=== PATIENT | male | born 1960 | race Caucasian/White ===

== ENCOUNTER → 2016-12-17 | Outpatient (CLI) | payer BC ==
[~2016-12-17] MED LIST: ASPI81TA28 PO; ATOR-26 PO; AZEL0.056; FLUT0.0529 NAE; LISI40TA PO; MULT-190 PO; PRS5 PO
[2016-12-17 13:18] LABS: ESTIMATED AVERAGE GLUCOSE 123 mg/dl; HA1C FLAG Normal (Normal)
[2016-12-17 14:21] LABS: ALT/SGPT 32 U/L (12-78); BLOOD UREA NITROGEN 15 mg/dl (7-18); BUN/CREATININE RATIO 15.4 (10-20); CARBON DIOXIDE 29 mmol/L (21-32); CHLORIDE 108 mmol/L (98-107); CHOLESTEROL 149 mg/dl (0-200); CREATININE 0.96 mg/dl (0.60-1.40); GLUCOSE 103 mg/dl (70-99); POTASSIUM 4.5 mmol/L (3.5-5.1); SODIUM 142 mmol/L (136-145); TRIGLYCERIDES 92 mg/dl (0-150); VERY LOW DENSITY LIPOPROT CALC 18 mg/dl
[2016-12-17 14:25] LABS: ALKALINE PHOSPHATASE 71 U/L (45-117); AST/SGOT 21 U/L (15-37); CHOLESTEROL/HDL RATIO 3.1; HDL CHOLESTEROL 48 mg/dl; LDL CHOLESTEROL CALCULATED 83 mg/dl
== END | disposition home or self-care (01) ==
LOC: C.LABBFT 08:47
PROVIDERS: ATTEND Physician Assistant Medical
DX: E78.5 Hyperlipidemia, unspecified (principal); R73.01 Impaired fasting glucose

== ENCOUNTER 2017-06-08 | Emergency (ER) | payer OTHER, BC ==
[~2017-06-08] VITALS: Ht 177.8 cm; Wt 168.0 kg
[2017-06-08 00:03] VITALS: TEMP 36.6; Ht 177.8 cm; Wt 168.0 kg
--- NOTE | 2017-06-08 00:16 | EMERGENCY ROOM VISIT NOTE ---
History Report prepared by Nakul: Andra Michel Under the Supervision of: Edilberto OwenO. First contact with patient: 00:09 Chief Complaint: FALL Stated Complaint: FALL (WORKERS COMP) History of Present Illness The patient is a 56 year old male who presents to the Emergency Room with complaints of a fall occurring shortly prior to arrival. The patient states that he slipped on ice and landed on his right shoulder while at work. He denies losing consciousness and hitting his head. He reports having tingling in his right hand. The patient also denies having nausea. Source of History: patient Onset: shortly prior to arrival Position: shoulder (right) Quality: other (fall) Associated Symptoms: + numbness (tingling in right hand), No LOC, No nausea Review of Systems See HPI for pertinent positives & negatives. A total of 10 systems reviewed and were otherwise negative. Past Medical & Surgical Medical Problems: (1) Deviated septum (2) High cholesterol (3) Hypertension Family History FHx: heart disease Hypertension Social History Smoking Status: Former Smoker Alcohol Use: none Marital Status: Housing Status: lives with significant other Occupation Status: employed Current/Historical Medications Scheduled Atorvastatin (Lipitor), 80 MG PO DAILY Lisinopril (Zestril), 40 MG PO DAILY Scheduled PRN Oxycodone/Acetaminophen 5MG/325MG (Percocet 5MG/325MG), 1 TAB PO Q6 PRN for Pain Allergies Coded Allergies: Tramadol (Verified Allergy, Mild, HALUCINATIONS, 12/24/14) Azithromycin (Verified Adverse Reaction, Intermediate, N/V, 06/08/17) Physical Exam Vital Signs Date Time Temp Pulse Resp B/P (MAP) Pulse Ox O2 Delivery O2 Flow Rate FiO2 06/08/17 02:27 74 20 122/74 98 Room Air 06/08/17 01:28 76 20 126/88 98 Room Air 06/08/17 00:03 36.6 87 18 135/68 96 Room Air Physical Exam GENERAL: obese, alert, well appearing, well nourished, no distress, non-toxic EYE EXAM: normal conjunctiva, PERRL and EOM's grossly intact OROPHARYNX: no exudate, no erythema, lips, buccal mucosa, and tongue normal and mucous membranes are moist NECK: supple, no nuchal rigidity, no adenopathy, non-tender LUNGS: Clear to auscultation. Normal chest wall mechanics HEART: no murmurs, S1 normal and S2 normal ABDOMEN: abdomen soft, non-tender, normo-active bowel sounds, no masses, no rebound or guarding. BACK: Back is symmetrical on inspection and there is no deformity, no CVA tenderness. Tenderness at L-spine. No step-off. No obvious ecchymosis. SKIN: no rashes and no bruising UPPER EXTREMITIES: upper extremities are grossly normal. No bony tenderness at the right shoulder. No reproducible pain, but decreased range of motion secondary to pain. LOWER EXTREMITIES: Pain just inferior to the lateral malleolus. Mild edema. No bony tenderness at the ankle, tibia, and fibula. No pain at fibular head. No bony tenderness at knee. Small superficial abrasion laterally, no effusion. NEURO EXAM: Normal sensorium, cranial nerves II-XII grossly intact, normal speech, no gross weakness of arms, no gross weakness of legs. Medical Decision & Procedures ER Provider Diagnostic Interpretation: Radiology results have been interpreted by the radiologist and [facility]. CT L SPINE: No acute fracture or malalignment. Multilevel spondylosis with Schmorl's node superior L4 endplate. Comparison plain films dated 08/22/2007. Radiology results have been interpreted by and reviewed by me. Right Shoulder X-Ray: No acute fracture, dislocation, or obvious AC separation. Knee X-Ray: No acute fracture or dislocation. Chest X-Ray: No pneumothorax, no fracture, no effusion, no cardiomegaly, no wide mediastinum. Ankle X-Ray: No acute fracture or dislocation. Medications Administered Medications (Trade) Dose Ordered Sig/Any Route Start Time Stop Time Status Last Admin Dose Admin Acetaminophen (Tylenol Tab) 1,000 mg NOW STAT PO 06/08/17 00:20 06/08/17 00:23 DC 06/08/17 00:29 1,000 MG Ketorolac Tromethamine (Toradol Inj) 60 mg NOW STAT IM 06/08/17 00:20 06/08/17 00:23 DC 06/08/17 00:30 60 MG Oxycodone/ Acetaminophen (Percocet 5-325mg Tab) 1 tab NOW ONCE PO 06/08/17 02:15 06/08/17 02:16 DC 06/08/17 02:43 1 TAB ED Course 0010: The patient was evaluated in room B10. A complete history and physical exam was performed. 0020: Ordered Toradol Inj 60 mg IM, Tylenol Tab 1,000 mg PO. 0204: I re-assessed the patient. 0215: Ordered Oxycodone/Acetaminophen 1 tab PO. 0232: Upon reevaluation, the patient is feeling better. I discussed the findings and the treatment plan with the patient. He verbalizes agreement and understanding. He was discharged home. Medical Decision Differential diagnosis: Etiologies such as fracture, dislocation, intra-abdominal, pneumothorax, intrathoracic , intracranial, neurologic, as well as other traumatic pathologies were entertained. Pt not anticoagulated. Fall from standing position. Xrays reassuring. Did not feel warranted additional imaging at this time. VS stable. Doubt additional occult traumatic injury. Discussed f/u with ortho. Pt has sling at home to use with UE. Discussed pain medication, sx to watch/return for, he verbalized understanding and was agreeable with plan. Medication Reconcilliation Current Medication List: was personally reviewed by me Blood Pressure Screening Patient's blood pressure: Normal blood pressure Impression Primary Impression: Fall Additional Impressions: Acute pain of right shoulder Ankle sprain Scribe Attestation The scribe's documentation has been prepared under my direction and personally reviewed by me in its entirety. I confirm that the note above accurately reflects all work, treatment, procedures, and medical decision making performed by me. Departure Information Dispostion Home / Self-Care Prescriptions Oxycodone/Acetaminophen 5MG/325MG (PERCOCET 5MG/325MG) Tab 1 TAB PO Q6 Y for Pain, #10 TAB Prov: Shirley Hood, 06/08/17 Referrals Joe Alvarez M.D. (PCP) Forms HOME CARE DOCUMENTATION FORM, IMPORTANT VISIT INFORMATION Patient Instructions My [facility] Additional Instructions Please follow up with your family doctor or orthopedic surgeon the beginning of the week. You may use the sling you have at home for the right arm/shoulder. You may use Tylenol and ibuprofen as needed during the day, if you use the stronger pain medication, do not take it and drive or drink alcohol area did please also monitor for constipation which is a frequent side effect a strong pain medications. If you develop worsening pain, numbness or tingling, are unable to walk, develop increased weakness in the right arm or hand, develop fevers, trouble breathing, numbness or tingling down your legs or in your groin , noticed change in bowel or bladder function, you've any other new concerns, please return the emergency room. Problem Qualifiers Primary Impression: Fall Encounter type: initial encounter Qualified Codes: W19.XXXA - Unspecified fall, initial encounter Additional Impressions: Ankle sprain Encounter type: initial encounter Involved ligament of ankle: unspecified ligament Laterality: right Qualified Codes: S93.401A - Sprain of unspecified ligament of right ankle, initial encounter
[2017-06-08] MEDS ORDERED: KETOROLAC TROMETHAMINE 60 MG/2 ML VIAL IM STA (00:20)
[2017-06-08] MEDS ORDERED: ACETAMINOPHEN 500 MG TAB PO STA (00:20)
[2017-06-08] MEDS ORDERED: OXYCODONE/ACETAMINOPHEN 5-325 TAB PO ONE (02:15)
[2017-06-08 02:27] VITALS: BP 122/74; PULSE 74; O2SAT 98
[2017-06-08] MEDS ORDERED: OXYC-57 PO (02:34)
--- NOTE | 2017-06-08 06:17 | DIAGNOSTIC IMAGING REPORT ---
LUMBAR SPINE WITHOUT CLINICAL HISTORY: 56 years-old Male presenting with trauma, pain after fall on ice, low back pain. TECHNIQUE: Multidetector CT of the lumbar spine was performed without the use of intravenous contrast. IV contrast: None. A dose lowering technique was used consistent with the principles of ALARA (as low as reasonably achievable). COMPARISON: Plain radiographs of the lumbar spine from 08/22/2007. CT DOSE (mGy.cm): The estimated cumulative dose is 2199.19 mGy.cm. 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 Normal lumbar lordosis. Vertebral bodies demonstrate multifocal diffuse endplate irregularity secondary to multiple Schmorl's nodes and extensive degenerative change. The largest such focus is noted at the superior endplate of L4 with surrounding sclerosis (series 201 image 39), however, this is somewhat dissimilar from the other Schmorl's nodes and is somewhat indeterminate. No focal compression deformity to suggest acute fracture or subluxation. Multifocal intervertebral disc height loss with vacuum disc phenomenon. Osteophytosis, lower lumbar facet arthropathy, and disc bulges result in neural foraminal narrowing from L3-4 through L5-S1. Multifocal spinal canal narrowing also suggested at every lumbar level. Paraspinal soft tissues within normal limits. Mild nonspecific cutaneous edema in the posterior lumbar region. IMPRESSION: 1. No acute osseous injury of the lumbar spine. 2. Multilevel degenerative changes with multilevel neural foraminal narrowing and spinal canal stenosis. The severity better characterized on MR. 3. Prominent superior endplate deformity of L4 was not clearly present in 2007 on radiograph and most likely represents a Schmorl's node though somewhat atypical in appearance. If there is clinical concern, further evaluation with contrast-enhanced MR could be obtained. Electronically signed by: Osito Mae M.D. 06/08/2017 6:16 AM Dictated Date/Time: 06/08/2017 6:10 AM
--- NOTE | 2017-06-08 06:22 | DIAGNOSTIC IMAGING REPORT ---
CHEST 2 VIEWS ROUTINE CLINICAL HISTORY: 56 years-old Male presenting with trauma. TECHNIQUE: PA and lateral views of the chest were obtained. COMPARISON: 12/24/2014. FINDINGS: Cardiomediastinal silhouette normal. Apparent minimal added density in the left lower lung relative to the right though this may be due to overlapping soft tissue structures. No other focal infiltrate. No large effusion or pneumothorax. Degenerative changes of the thoracic spine. Upper abdomen normal. IMPRESSION: 1. Apparent added density over the left lung base may be due to overlapping soft tissues rather than a focal infiltrate/pulmonary contusion. No other evidence of acute cardiopulmonary disease. Electronically signed by: sOito Mae M.D. 06/08/2017 6:21 AM Dictated Date/Time: 06/08/2017 6:19 AM
--- NOTE | 2017-06-08 06:31 | DIAGNOSTIC IMAGING REPORT ---
R SHOULDER MIN 2 VIEWS ROUTINE CLINICAL HISTORY: 56 years-old Male presenting with trauma, slipped on ice, twisted right ankle and scraped right knee, landed on right shoulder. TECHNIQUE: Internal rotation, external rotation, and Grashey views of the right shoulder were obtained. COMPARISON: None. FINDINGS: Glenohumeral and acromioclavicular joints congruent. Mild degenerative change may be present at the acromioclavicular joint. No acute fracture or malalignment. No radiographic soft tissue abnormality. Visualized portion of the right hemithorax normal. IMPRESSION: No acute osseous injury of the right shoulder. Degenerative changes of the acromioclavicular joint. Electronically signed by: Osito Mae M.D. 06/08/2017 6:30 AM Dictated Date/Time: 06/08/2017 6:28 AM
--- NOTE | 2017-06-08 06:33 | DIAGNOSTIC IMAGING REPORT ---
R KNEE 1 OR 2 VIEWS ROUTINE CLINICAL HISTORY: 56 years-old Male presenting with trauma, slipped on ice, scraped right knee. TECHNIQUE: Frontal and lateral views of the right knee were obtained. COMPARISON: None. FINDINGS: No acute fracture or malalignment. Tricompartmental degenerative changes most pronounced in the medial compartment where there is joint space loss and subchondral sclerosis. Marked osteophytosis is noted in all 3 compartments. A small knee joint effusion is suggested. Ossicles within the insertional portion of the quadriceps and patellar tendons may relate to chronic degeneration. Fabella noted. Atherosclerosis. IMPRESSION: 1. No acute osseous injury of the right knee. 2. Small knee joint effusion. 3. Tricompartmental degenerative changes most severe in the medial compartment where there is joint space loss. Electronically signed by: Osito Mae M.D. 06/08/2017 6:31 AM Dictated Date/Time: 06/08/2017 6:30 AM
--- NOTE | 2017-06-08 06:34 | DIAGNOSTIC IMAGING REPORT ---
R ANKLE MIN 3 VIEWS ROUTINE CLINICAL HISTORY: 56 years-old Male presenting with trauma, slipped on ice Trauma, twisted right ankle. TECHNIQUE: Frontal, mortise, and lateral views of the right ankle were obtained. COMPARISON: None. FINDINGS: Ankle mortise intact. No acute fracture or malalignment. Mild degenerative changes suggested at the medial aspect of the ankle mortise. Soft tissue swelling also suggested over the medial malleolus. Degenerative related bony spurring of the anterior process of the talus. Small enthesophyte at the origin of the plantar fascia. IMPRESSION: No acute osseous injury of the right ankle. Degenerative changes. Electronically signed by: Osito Mae M.D. 06/08/2017 6:33 AM Dictated Date/Time: 06/08/2017 6:31 AM
== END 2017-06-08 02:46 | disposition home or self-care (01) ==
LOC: C.EDB 00:01
DX: M25.511 Pain in right shoulder (principal); S93.409A Sprain of unspecified ligament of unspecified ankle, initial encounter; W01.0XXA Fall on same level from slipping, tripping and stumbling without subsequent striking against object, initial encounter; I10 Essential (primary) hypertension; E78.00 Pure hypercholesterolemia, unspecified; Z87.891 Personal history of nicotine dependence; Z79.899 Other long term (current) drug therapy; Z88.1 Allergy status to other antibiotic agents; Z88.8 Allergy status to other drugs, medicaments and biological substances; Z82.49 Family history of ischemic heart disease and other diseases of the circulatory system

== ENCOUNTER 2017-08-01 09:20 | Day surgery (SDC) | payer OTHER, BC ==
[2017-07-17 13:04] VITALS: BMI 53.0
--- NOTE | 2017-07-17 13:28 | PAT Medication Instructions ---
Service Date Jul 17, 2017. Current Home Medication List Aspirin (Aspirin Ec), 81 MG PO QAM Atorvastatin (Lipitor), 80 MG PO QPM Azelastine Hcl-Fluticasone Pro (Dymista), 1 SPRY ANNABELLA HS Finasteride (Proscar), 5 MG PO QAM Hydrocodone/Acetaminophen 5MG/325MG ([place] 5MG/325MG), Unknown Dose PO Q6 PRN for Pain Lisinopril (Zestril), 40 MG PO QAM Medication Instructions For Your Scheduled Surgery - Check with surgeon for instructions: Aspirin (Aspirin Ec), 81 MG PO QAM - Hold the following medications the morning of surgery: Finasteride (Proscar), 5 MG PO QAM Lisinopril (Zestril), 40 MG PO QAM - Take the following medications the morning of surgery with a sip of water: Hydrocodone/Acetaminophen 5MG/325MG ([place] 5MG/325MG), Unknown Dose PO Q6 PRN for Pain (okay to take up to 4 hours prior to surgery if needed) - Take the following medications as scheduled the night before surgery: Hydrocodone/Acetaminophen 5MG/325MG ([place] 5MG/325MG), Unknown Dose PO Q6 PRN for Pain (if needed) Azelastine Hcl-Fluticasone Pro (Dymista), 1 SPRY ANNABELLA HS Atorvastatin (Lipitor), 80 MG PO QPM If you have any questions please call us at [phone] or [phone] or [phone]
--- NOTE | 2017-07-17 14:09 | DIAGNOSTIC IMAGING REPORT ---
CHEST 2 VIEWS ROUTINE CLINICAL HISTORY: PAT preoperative evaluation COMPARISON STUDY: 06/08/2017 FINDINGS: Mild chronic interstitial change at the lung bases. Lungs this time are grossly clear. Mild stable cardiomegaly. IMPRESSION: Mild stable cardia megaly. Chronic basilar change. No acute process. The above report was generated using voice recognition software. It may contain grammatical, syntax or spelling errors. Electronically signed by: Raoul White M.D. 07/17/2017 2:08 PM Dictated Date/Time: 07/17/2017 2:07 PM
[2017-07-17 14:18] LABS: BASO % 0.2 %; BASO ABS # 0.02 K/uL (0-0.2); EOS % 3.4 %; EOS ABS # 0.38 K/uL (0-0.5); HEMATOCRIT 47.9 % (42-52); HEMOGLOBIN 16.1 g/dL (14.0-18.0); IG# 0.04 K/uL (0.00-0.02); LYMPH % 18.8 %; LYMPH ABS # 2.11 K/uL (1.2-3.4); MEAN CELL VOLUME 88.4 fL (80-100); MEAN CORPUSCULAR HEMOGLOBIN 29.7 pg (25-34); MEAN CORPUSCULAR HGB CONC 33.6 g/dl (32-36); MEAN PLATELET VOLUME 10.5 fL (7.4-10.4); MONO % 10.1 %; MONO ABS # 1.13 K/uL (0.11-0.59); NEUT % 67.1 %; NEUT ABS # 7.56 K/uL (1.4-6.5); PLATELET COUNT 254 K/uL (130-400); RED CELL DISTRIBUTION WIDTH CV 13.5 % (11.5-14.5); RED CELL DISTRIBUTION WIDTH SD 42.9 fL (36.4-46.3); WHITE BLOOD COUNT 11.24 K/uL (4.8-10.8)
[2017-07-17 14:30] LABS: CALCIUM 8.9 mg/dl (8.5-10.1); CREATININE 1.18 mg/dl (0.60-1.40); POTASSIUM 4.4 mmol/L (3.5-5.1)
[2017-07-17 14:41] LABS: INR 1.1 (0.9-1.1); PTT PATIENT 30.2 SECONDS (21.0-31.0)
--- NOTE | 2017-07-28 09:10 | History and Physical ---
History & Physical Date Jul 28, 2017. Chief Complaint Right shoulder pain History of Present Illness The patient is a 57 year old male with complaints of right shoulder pain. He has tried some conservative therapies with no relief. MRI demonstrated partial full thickness tear of the supraspinatus muscle. He is scheduled for a right shoulder subacromial decompression, distal clavicle excision and possible rotator cuff repair. Past Medical/Surgical History Medical Problems: (1) Deviated septum (2) High cholesterol (3) Hypertension Additional History Hepatic Disease: No Endocrine Disorder: No Kidney Disease: No Hypertension: Yes Heart Disease: No Bleeding Tendencies: No Infectious Diseases: No Allergies Coded Allergies: Tramadol (Verified Allergy, Mild, HALUCINATIONS, 07/17/17) Azithromycin (Verified Adverse Reaction, Intermediate, N/V, 07/17/17) Home Medications Scheduled Aspirin (Aspirin Ec), 81 MG PO QAM Atorvastatin (Lipitor), 80 MG PO QPM Azelastine Hcl-Fluticasone Pro (Dymista), 1 SPRY ANNABELLA HS Finasteride (Proscar), 5 MG PO QAM Lisinopril (Zestril), 40 MG PO QAM Scheduled PRN Hydrocodone/Acetaminophen 5MG/325MG ([place] 5MG/325MG), Unknown Dose PO Q6 PRN for Pain Physical Examination Skin: warm/dry, no rash Eyes: normal inspection, EOMI ENT: normal ENT inspection Head: normocephalic, atraumatic Neck: supple, no adenopathy Respiratory/Chest: lungs clear, normal breath sounds Cardiovascular: regular rate, rhythm, + bradycardia Abdomen / GI: normal bowel sounds, non tender Extremities: normal inspection, + pertinent finding (Decreased ROM and decreased strength of right shoulder) Neurologic/Psych: no motor/sensory deficits, alert, oriented x 3 Diagnosis Right shoulder pain and possible rotator cuff tear. Plan of Treatment Patient is scheduled for a right shoulder subacromial decompression, distal clavicle excision and possible rotator cuff repair. He has failed conservative therapies and he would like to proceed with scheduled procedure. Risks and benefits were discussed with the patient. He understands the risks and wishes to proceed. All questions were answered to his satisfaction.
[~2017-08-01] VITALS: Ht 177.8 cm; Wt 168.0 kg
[~2017-08-01 09:20] MED LIST changes: -AZEL0.056; +AZEL30SP NAE; +BUPIVACAINE 0.25% 30 ML VIAL ONE; +CEFAZOLIN 3000MG IV PUSH 22.5 ML IV SCH; +DEXAMETHASONE SOD INJ 4 MG/ML VIAL ONE; +EpINEphrine INJ 1MG/ML AMP 1 MG/ML AMP ONE; +FINA5TAB PO; -FLUT0.0529 NAE; +HYDR-5688 PO; +LACTATED RINGER'S 1000ML 1,000 ML IV SCH; -MULT-190 PO; -PRS5 PO
[2017-08-01 09:42] VITALS: BP 176/99; PULSE 90; TEMP 36.8; O2SAT 96; Ht 177.8 cm; Wt 168.0 kg
[2017-08-01] MEDS ORDERED: FENTANYL CITRATE INJ 50 MCG/1 ML 2 ML VIAL ONE ×3 (09:42→14:28)
[2017-08-01] MEDS ORDERED: MIDAZOLAM HCL 1 MG/ML 2ML VIAL ONE (09:42)
--- NOTE | 2017-08-01 10:22 | History & Physical Bridge Note ---
H&P Re-Evaluation Bridge Note: I have examined the patient, reviewed the History & Physical and in the interval since the performance of the History & Physical I have noted the following changes of clinical significance: No changes noted
[2017-08-01] MEDS ORDERED: EpINEphrine HCL INJ 1 MG/ML 1ML SYRINGE ONE (11:00)
[2017-08-01] MEDS ORDERED: LIDOCAINE/EPINEPHRINE 1% 20 ML VIAL ONE (11:00)
[2017-08-01] MEDS ORDERED: PROMETHAZINE HCL INJ 6.25 MG in SODIUM CHLORIDE 0.9% 50ML 50 ML IV PRN (12:15)
[2017-08-01] MEDS ORDERED: EpHEDrine SULFATE INJ 50 MG/ML AMP IV PRN ×2 (12:15→14:45)
[2017-08-01] MEDS ORDERED: ATROPINE SULFATE 0.1 MG/ML 5ML SYR IV PRN ×2 (12:15→14:45)
[2017-08-01] MEDS ORDERED: ONDANSETRON INJ 2 MG/ML 2 ML VIAL IV PRN ×3 (12:15→14:45)
[2017-08-01] MEDS ORDERED: FENTANYL CITRATE INJ 50 MCG/1 ML 2 ML VIAL IV PRN ×2 (12:15→14:45)
[2017-08-01] MEDS ORDERED: SUCCINYLCHOLINE CHLORIDE 20 MG/ML 10 ML VIAL IV ONE (14:04)
[2017-08-01] MEDS ORDERED: ROCURONIUM BROMIDE 10 MG/ML 5 ML VIAL IV ONE (14:04)
[2017-08-01] MEDS ORDERED: PROPOFOL IV EMULSION 10 MG/ML 20 ML VIAL IV ONE (14:04)
[2017-08-01] MEDS ORDERED: LIDOCAINE HCL 2% 2 ML VIAL (20MG/ML) ONE (14:04)
[2017-08-01] MEDS ORDERED: NEOSTIGMINE METHYLSULFATE 5 MG/5 ML SYR ONE (14:04)
[2017-08-01] MEDS ORDERED: GLYCOPYRROLATE INJ 0.2 MG/ML VIAL ONE (14:04)
[2017-08-01] MEDS ORDERED: ONDANSETRON INJ 2 MG/ML 2 ML VIAL ONE (14:17)
--- NOTE | 2017-08-01 14:22 | [facility] Operative Report ---
Operative Report Operative Date Aug 01, 2017. Pre-Operative Diagnosis Right Rotator Cuff Tear, impingement, ac joint arthritis, labral tear, synovitis Post-Operative Diagnosis Same Procedure(s) Performed right rotator cuff repair, subacromial decompression, distal clavicle excision, extensive debridement Surgeon Biometrics Technician Surgeon(s) LEVON Kidd Estimated Blood Loss 2 mL Specimens None per surgeon. Drains None Anesthesia Type General Regional Complication(s) none Disposition Recovery Room / PACU Indications The patient is a 57-year-old male was taken the right shoulder. He's failed conservative measures including physical therapy and anti-inflammatory medications. He wishes to proceed with arthroscopy. Description of Procedure The MRI demonstrated a full-thickness rotator cuff tear. We discussed various treatment measures. The patient wished to proceed with arthroscopic repair. Risks, benefits and alternatives to surgery including, but not limited to, infection DVT, pain, stiffness, need for revision surgery, failure to relieve all symptoms, damage to blood vessels, damage to nerves, risk of anesthesia were discussed with the patient and they wished to proceed. The patient was identified. Laterality was confirmed and marked. The patient received a preoperative antibiotic as well as an interscalene block. They were transferred to the operating room and placed in the supine position and induced into general endotracheal anesthesia per the anesthesia staff. The patient was then safely transferred to the lateral decubitus position, secured by a beanbag. An axillary roll was placed. All pressure points were well-padded. The limb was placed in 10 pounds of lateral traction and then prepped and draped in the usual standard manner with ChloraPrep. The portal sites were anesthetized with 2% lidocaine with epinephrine. I made a standard posterior viewing portal made through a stab incision and then bluntly entered the glenohumeral joint. Then under spinal needle localization, I establish an anterior superolateral portal. The patient had a full-thickness rotator cuff tear through the supraspinatus significant discussion. They had a degenerative tear in the anterior, superior and posterior aspects of the glenoid labrum. This was debrided back to a stable base utilizing a shaver. Synovitic change in the anterior aspect of the joint was debrided utilizing a shaver. The cartilage of the humeral head and glenoid had fairly significant degeneration. This was debrided using shaver. The long head of the biceps was normal. The subscapularis had a partial thickness articular tear that was debrided.. I then removed the instrumentation from the joint and entered the subacromial space and established a lateral portal. There was a full-thickness rotator cuff tear that measured about 2 cm in diameter. I debrided the footprint with a shaver to establish a good bleeding response. Through a stab incision I placed a 5.5 mm HEALICOIL suture anchor. I passed the ultra braid sutures in a horizontal mattress with a fast passive scorpion. I then passed the ultra tape with a shuttling suture. I repeated this process for a posterior medial anchor. I tied the ULTRABRAID sutures with sliding Vanderpool knots reinforced for 3 half hitches on alternating posts. I then took 1 ULTRABRAID suture from each anchor I placed them in a 5.5 mm Multifix S suture anchor. I placed one anterolaterally. I then repeated this process another suture anchor posterolaterally, completing my double row construct. I then released the CA ligament with cautery and performed a subacromial decompression, first removing the anterior inferior spur from laterally and then completing with a cutting block technique. I then performed a distal clavicle excision removing a total of 10 mm of bone. All instrumentation was then removed from the shoulder. Portal sites were closed with nylon. A sterile dressing was applied and a sling placed. All needle and sponge counts were correct at the end of the procedure. The patient was transferred to the PACU in stable condition without apparent complication. The PA-C was necessary for assistance with procedure for assistance in positioning, prepping, draping, retraction and closure. I attest to the content of the Intraoperative Record and any orders documented therein. Any exceptions are noted below.
[2017-08-01] MEDS ORDERED: SODIUM CHLORIDE 0.9% 1000ML 1,000 ML IV SCH (14:41)
[2017-08-01] MEDS ORDERED: OXYC-57 PO (14:43)
[2017-08-01] MEDS ORDERED: OXYCODONE/ACETAMINOPHEN 5-325 TAB PO PRN ×2 (14:45)
[2017-08-01] MEDS ORDERED: PROMETHAZINE HCL INJ 12.5 MG in SODIUM CHLORIDE 0.9% 50ML 50 ML IV PRN (14:45)
--- NOTE | 2017-08-01 14:47 | Discharge Instructions ---
Discharge Instructions Date of Service Aug 01, 2017. Admission Reason for Admission: Right Shoulder Rotator Cuff Tear Vs Rupture Discharge Discharge Diagnosis / Problem: S/P Right shoulder rotator cuff repair, subacromial decompression, DCE Discharge Goals Goal(s): Decrease discomfort, Improve function Activity Recommendations Activity Limitations: per Instructions/Follow-up section . Instructions / Follow-Up Instructions / Follow-Up [facility] DISCHARGE INSTRUCTIONS: ROTATOR CUFF REPAIR SELF CARE INSTRUCTIONS A. You are permitted to loosen your sling/immobilizer to move your elbow, wrist , and hand to prevent stiffness. You should use your well arm (good arm) to assist the operated extremity when trying to raise the arm away from the body, hygiene purposes. Do NOT actively try to use/engage your shoulder muscles in operative arm at this time. You should NOT do overhead activity, lifting, or attempt to reach behind your back. B. You may start Physical Therapy upon discharge. You will be provided a prescription for therapy. C. At 48 hours post-operatively, you may change your dressing. Use band-aids and change daily. You are allowed to shower at this time and get the incision area wet, but DO NOT soak or submerge incision area in water. (No baths, swimming pools, hot tubs) D. Do NOT apply soap or any ointment/lotions directly over incision. E. You may use ice as needed to operative shoulder SPECIAL CARE INSTRUCTIONS: VERY IMPORTANT TO READ AND REVIEW A. There are a few signs you need to watch for after you are home. Call [facility] at [phone] if you experience any of the following: a. Increased severe shoulder pain. Some pain is expected especially when you exercise b. Increased swelling in your shoulder or arm; pain or swelling in either upper extremity. (Note: swelling and stiffness is normal and expected for several weeks post op, depending on type of shoulder surgery you had). c. Any fluid or drainage from the incision; redness of the incision. d. Shortness of breath or chest pain. B. Please call [facility] at [phone] if you have any questions or concerns about your operation or recovery. C. Call your physician if: a. Temperature is greater than 101 degrees (F). b. Pain is not relieved by prescribed pain medications. c. Increase drainage or redness from incision. d. Unanswered questions or concerns. D. Pain Medication: a. You will be prescribed pain medication upon discharge that should last till your first post-operative appointment. b. If you experience nausea and/or skin rash, discontinue this medication and contact our office for an alternative medication. c. Caution- narcotic pain medication can cause constipation. FOLLOW UP VISIT: Please call [facility] at [phone] to schedule a follow up appointment 10-14 days from your surgery date. Current Hospital Diet Patient's current hospital diet: Discharge Diet Recommended Diet: Regular Diet Procedures Procedures Performed: right rotator cuff repair, subacromial decompression, distal clavicleexcision, extensive debridement Pending Studies Studies pending at discharge: no Laboratory Results Hemoglobin A1c Test 07/17/17 12:41 Range/Units Estimated Average Glucose 126 mg/dl Hemoglobin A1c 6.0 H 4.5-5.6 % Medical Emergencies . Who to Call and When: Medical Emergencies: If at any time you feel your situation is an emergency, please call 911 immediately. . Non-Emergent Contact Non-Emergency issues call your: Surgeon Call Non-Emergent contact if: temperature is above 101.5, your pain is worsening, wound has increased drainage, wound has increased redness . "Provider Documentation" section prepared by Hany Carr. . VTE Core Measure Inpt VTE Proph given/why not?: Treatment not indicated [place] Drug Monitoring Program Search Results: patient reviewed within database, no issues identified
--- NOTE | 2017-08-01 15:01 | Anesthesiology Progress Note ---
Anesthesia Post Op Note Date & Time Aug 01, 2017 at 15:01 Vital Signs Pain Intensity: 0 Vital Signs Past 12 Hours Date Time Temp Pulse Resp B/P (MAP) Pulse Ox O2 Delivery O2 Flow Rate FiO2 08/01/17 14:55 52 18 136/77 95 Oxymask 5 08/01/17 14:45 55 18 146/71 94 Oxymask 10 08/01/17 14:39 36.0 60 18 137/78 95 Oxymask 10 08/01/17 09:42 36.8 90 20 176/99 (124) 96 Room Air Notes Mental Status: alert / awake / arousable, participated in evaluation Pt Amnestic to Procedure: Yes Nausea / Vomiting: adequately controlled Pain: adequately controlled Airway Patency, RR, SpO2: stable & adequate BP & HR: stable & adequate Hydration State: stable & adequate Anesthetic Complications: no major complications apparent Block working well in pacu
[2017-08-01 15:20] VITALS: BP 140/74; PULSE 73; TEMP 36.4; O2SAT 95
[2017-08-01 15:50] VITALS: BP 104/55; PULSE 73; O2SAT 97
[2017-08-01 16:05] VITALS: BP 104/55; PULSE 73; O2SAT 97
[2017-08-01 16:20] VITALS: BP 104/55; PULSE 85; TEMP 36.8; O2SAT 94
== END 2017-08-01 16:59 | disposition home or self-care (01) ==
LOC: C.ACU 09:20
PROVIDERS: ATTEND Orthopaedic Surgery
DX: M75.121 Complete rotator cuff tear or rupture of right shoulder, not specified as traumatic (principal); M25.811 Other specified joint disorders, right shoulder; M13.811 Other specified arthritis, right shoulder; E78.00 Pure hypercholesterolemia, unspecified; I10 Essential (primary) hypertension; Z88.8 Allergy status to other drugs, medicaments and biological substances; Z88.1 Allergy status to other antibiotic agents; Z79.82 Long term (current) use of aspirin; Z79.899 Other long term (current) drug therapy

== ENCOUNTER 2017-08-03 02:00 | Observation (INO) | payer OTHER, BC ==
[~2017-08-03] VITALS: Ht 177.8 cm; Wt 179.4 kg
[~2017-08-03 02:00] MED LIST changes: -BUPIVACAINE 0.25% 30 ML VIAL ONE; -CEFAZOLIN 3000MG IV PUSH 22.5 ML IV SCH; -DEXAMETHASONE SOD INJ 4 MG/ML VIAL ONE; -EpINEphrine INJ 1MG/ML AMP 1 MG/ML AMP ONE; -HYDR-5688 PO; -LACTATED RINGER'S 1000ML 1,000 ML IV SCH; +OXYC-57 PO
[2017-08-03] MEDS ORDERED: HYDROmorphone INJ 1 MG/ML SYR IV STA (02:06)
[2017-08-03] MEDS ORDERED: FENTANYL CITRATE INJ 50 MCG/1 ML 2 ML VIAL ONE (02:07)
--- NOTE | 2017-08-03 02:15 | EMERGENCY ROOM VISIT NOTE ---
History Report prepared by Nakul: Dionicio Murillo Under the Supervision of: Dr. Ilya Coronado M.D. First contact with patient: 02:03 Chief Complaint: SHOULDER PAIN Stated Complaint: SHOULDER PAIN/SHORT OF BREATH History of Present Illness The patient is a 57 year old male who presents to the Emergency Room with complaints of worsening right upper chest pain that began 10 hours ago. Patient states that the pain radiates acutely to his right shoulder. He states that he has been taking Percocet at home which has not improved the symptoms. He states he does not regularly take pain medications. He adds that he has associated symptoms of shortness of breath with exertion. Patient denies a history of blood clots. He denies taking blood thinners. Patient with right shoulder rotator cuff surgery just under 48 hours ago. No fever, chills, vomiting, syncope nor other symptoms. Received 100mcg Fentanyl x 2 IV by EMS prior to arrival. Source of History: patient Onset: 10 hours ago Position: chest (right) Timing: worsening Modifying Factors (Relieving): other (None) Associated Symptoms: + SOB (with exertion) Review of Systems See HPI for pertinent positives & negatives. A total of 10 systems reviewed and were otherwise negative. Past Medical & Surgical Medical Problems: (1) Deviated septum (2) High cholesterol (3) Hypertension (4) Right shoulder pain (5) Shoulder pain, acute Family History FHx: heart disease Hypertension Social History Smoking Status: Former Smoker Alcohol Use: none Marital Status: Housing Status: lives with significant other Occupation Status: employed Current/Historical Medications Scheduled Aspirin (Aspirin Ec), 81 MG PO QAM Atorvastatin (Lipitor), 80 MG PO QPM Azelastine Hcl-Fluticasone Pro (Dymista), 1 SPRY ANNABELLA HS Finasteride (Proscar), 5 MG PO QAM Lisinopril (Zestril), 40 MG PO QAM Scheduled PRN Oxycodone/Acetaminophen 5MG/325MG (Percocet 5MG/325MG), 1-2 TABLETS PO Q4-6H PRN for Pain Allergies Coded Allergies: Tramadol (Verified Allergy, Mild, HALUCINATIONS, 08/03/17) Azithromycin (Verified Adverse Reaction, Intermediate, N/V, 08/03/17) Physical Exam Vital Signs Date Time Temp Pulse Resp B/P (MAP) Pulse Ox O2 Delivery O2 Flow Rate FiO2 08/03/17 05:15 79 20 151/87 93 Nasal Cannula 2.0 08/03/17 02:12 36.4 81 18 142/58 94 Room Air 08/03/17 02:10 79 Physical Exam GENERAL: Patient is obese, very uncomfortable appearing, and in moderate distress. HEENT: No acute trauma, normocephalic atraumatic, mucous membranes moist, no nasal congestion, no scleral icterus. NECK: No stridor, no adenopathy, no meningismus, trachea is midline. LUNGS: No dyspnea. Clear to auscultation and equal bilaterally. No wheeze, no rhonchi. HEART: Regular rate and rhythm. No murmurs, rubs, gallops appreciated. ABDOMEN: Soft, nontender, bowel sounds positive, no masses appreciated, no peritonitis. BACK: No midline tenderness, no CVA tenderness EXTREMITIES: Posterior dressing of anterior right shoulder, multiple port sights intact without drainage, erythema of right shoulder extending onto right shoulder and right upper arm with bruising, severe pain with any attempted movement of right shoulder, distal N/V intact, no cyanosis, no edema. NEUROLOGIC: Alert and oriented, no acute motor or sensory deficits, no focal weakness, cranial nerves grossly intact. SKIN: No rash, no jaundice, no diaphoresis. Medical Decision & Procedures Laboratory Results 08/03/17 02:31 Red Blood Count 4.79, Mean Corpuscular Volume 87.7, Mean Corpuscular Hemoglobin 29.2, Mean Corpuscular Hemoglobin Concent 33.3, Mean Platelet Volume 10.1, Neutrophils (%) (Auto) 72.6, Lymphocytes (%) (Auto) 14.2, Monocytes (%) (Auto) 11.1, Eosinophils (%) (Auto) 1.7, Basophils (%) (Auto) 0.1, Neutrophils # (Auto ) 12.13, Lymphocytes # (Auto) 2.38, Monocytes # (Auto) 1.86, Eosinophils # (Auto ) 0.28, Basophils # (Auto) 0.02 08/03/17 02:31 Test 08/03/17 02:31 08/03/17 02:38 White Blood Count 16.72 K/uL (4.8-10.8) Red Blood Count 4.79 M/uL (4.7-6.1) Hemoglobin 14.0 g/dL (14.0-18.0) Hematocrit 42.0 % (42-52) Mean Corpuscular Volume 87.7 fL (80-100) Mean Corpuscular Hemoglobin 29.2 pg (25-34) Mean Corpuscular Hemoglobin Concent 33.3 g/dl (32-36) Platelet Count 199 K/uL (130-400) Mean Platelet Volume 10.1 fL (7.4-10.4) Neutrophils (%) (Auto) 72.6 % Lymphocytes (%) (Auto) 14.2 % Monocytes (%) (Auto) 11.1 % Eosinophils (%) (Auto) 1.7 % Basophils (%) (Auto) 0.1 % Neutrophils # (Auto) 12.13 K/uL (1.4-6.5) Lymphocytes # (Auto) 2.38 K/uL (1.2-3.4) Monocytes # (Auto) 1.86 K/uL (0.11-0.59) Eosinophils # (Auto) 0.28 K/uL (0-0.5) Basophils # (Auto) 0.02 K/uL (0-0.2) RDW Standard Deviation 43.9 fL (36.4-46.3) RDW Coefficient of Variation 13.8 % (11.5-14.5) Immature Granulocyte % (Auto) 0.3 % Immature Granulocyte # (Auto) 0.05 K/uL (0.00-0.02) Est Creatinine Clear Calc Drug Dose 147.6 ml/min Estimated GFR () 109.2 Estimated GFR (Non- 94.3 BUN/Creatinine Ratio 19.6 (10-20) Calcium Level 8.2 mg/dl (8.5-10.1) Troponin I < 0.015 ng/ml (0-0.045) Bedside Hemoglobin 13.9 g/dl (14.0-18.0) Bedside Hematocrit 41 % (42-52) Bedside Sodium 140 mEq/L (135-144) Bedside Potassium 3.6 mEq/L (3.3-5.0) Bedside Chloride 102 mEq/L (101-112) Bedside Total CO2 24 mEq/l (24-31) Anion Gap 18.0 mmol/L (16-25) Bedside Blood Urea Nitrogen 18 mg/dl (7-18) Bedside Creatinine 0.8 mg/dl (0.6-1.3) Bedside Glucose (other) 127 mg/dl (70-99) Bedside Ionized Calcium (Danyel) 1.11 mmol/l (1.12-1.32) Laboratory results as reviewed by me. Medications Administered Medications (Trade) Dose Ordered Sig/Any Route Start Time Stop Time Status Last Admin Dose Admin Hydromorphone HCl (Dilaudid Inj) 1 mg NOW STAT IV 08/03/17 02:06 08/03/17 02:07 DC 08/03/17 02:11 1 MG Diphenhydramine HCl (Benadryl Inj) 50 mg NOW STAT IV 08/03/17 02:47 08/03/17 02:48 DC 08/03/17 02:50 50 MG Fentanyl Citrate (Fentanyl Inj) 200 mcg NOW STAT IV 08/03/17 03:36 08/03/17 03:37 DC 08/03/17 03:55 200 MCG Fentanyl Citrate (Fentanyl Inj) 200 mcg NOW STAT IV 08/03/17 04:41 08/03/17 04:42 DC 08/03/17 04:57 200 MCG Ketorolac Tromethamine (Toradol Inj) 30 mg NOW STAT IV 08/03/17 04:45 08/03/17 04:46 DC 08/03/17 04:56 30 MG Ondansetron HCl (Zofran Inj) 4 mg NOW STAT IV 08/03/17 06:14 08/03/17 06:15 DC 08/03/17 06:14 4 MG ED Course 0200: The patient was evaluated in room B7. A complete history and physical exam was performed. 0206: Dilaudid Inj 1mg IV 0245: Ioversol 100ml IV 0246: Patient has a localized rash of left arm after Dilaudid. 0247: Benadryl Inj 50mg IV 0336: Fentanyl Inj 200mcg IV 0338: Patient has increasing right shoulder pain that is worse than it was earlier. 0438: Patient states the pain has improved but is returning. He is still unable to move his shoulder. 0441: Fentanyl Inj 200mcg IV 0445: Toradol Inj 30mg Medical Decision Differential: PE, Dissection, ACS, Post op infection, Septic Joint, Ligamentous Injury, Effusion, DVT, Pneumonia, Pneumothorax, amongst other pathologies entertained. 57 yr old male with just under 48 hours ago having right rotator cuff surgery. Rapidly worsening pain overnight. Mild swelling/erythema as expected post operatively. Severe pain with even minor attempts at moving shoulder. No drainage from wounds. Distal N/V intact without significant arm/hand swelling. CT PE done given recent surgery, SHOB with exertion and right upper chest pain. Fortunately negative. EKG/Trop unremarkable thus I feel this is not ACS. No evidence this is dissection and he has excellent pulse in arm. Seems it would be unlikely infectious given just 48 hours post op, though he does have mild bump in WBC. No benefit CRP/ESR as just had surgery anyways. Did have nerve block but would not have expected that to last this long anyways. I tried multiple different narcotics as well as Toradol with only minimal improvement and pain just rapidly returning. He had rash to left arm post Dilaudid thus given Benadryl as well. Did have some nausea for which zofran given. After 4 hours I felt that it is highly unlikely he will do well at home and thus I feel Ortho eval required for which I consulted Dr Sellers. Head Trauma GCS Score: 15 Blood Pressure Screening Patient's blood pressure: Elevated blood pressure Blood pressure disposition: Elevated BP felt to be situational Consults Time Called: [phone] Consulting Physician: Dr. Marlo ARREOLA Returned Call: [phone] Discussed the patient's case. Dr. Sellers advised I give the patient Toradol and reassess the patient in an hour. Dr. Sellers states to call back if patient has continued pain. Additional Consults: Time Called: 06 Consulted Physician: Dr. Marlo ARREOLA Returned Call: [phone] Additional Comments: Discussed the patient's case. The patient will be evaluated for further treatment and disposition. Impression Primary Impression: Post-operative pain Additional Impression: Intractable pain Scribe Attestation The scribe's documentation has been prepared under my direction and personally reviewed by me in its entirety. I confirm that the note above accurately reflects all work, treatment, procedures, and medical decision making performed by me. Departure Information Referrals Joe Alvarez M.D. (PCP) Patient Instructions [facility] Problem Qualifiers
[2017-08-03 02:45] LABS: BASO % 0.1 %; BASO ABS # 0.02 K/uL (0-0.2); EOS % 1.7 %; EOS ABS # 0.28 K/uL (0-0.5); IG# 0.05 K/uL (0.00-0.02); LYMPH % 14.2 %; LYMPH ABS # 2.38 K/uL (1.2-3.4); MEAN CELL VOLUME 87.7 fL (80-100); MEAN CORPUSCULAR HEMOGLOBIN 29.2 pg (25-34); MEAN CORPUSCULAR HGB CONC 33.3 g/dl (32-36); MEAN PLATELET VOLUME 10.1 fL (7.4-10.4); MONO % 11.1 %; MONO ABS # 1.86 K/uL (0.11-0.59); NEUT % 72.6 %; NEUT ABS # 12.13 K/uL (1.4-6.5); PLATELET COUNT 199 K/uL (130-400); RED CELL DISTRIBUTION WIDTH CV 13.8 % (11.5-14.5); RED CELL DISTRIBUTION WIDTH SD 43.9 fL (36.4-46.3); WHITE BLOOD COUNT 16.72 K/uL (4.8-10.8)
[2017-08-03] MEDS ORDERED: OPTIRAY 320 IV PRN (02:45)
[2017-08-03] MEDS ORDERED: DiphenhydrAMINE HCL 50 MG/ML VIAL IV STA (02:47)
[2017-08-03] MEDS ORDERED: DiphenhydrAMINE HCL 50 MG/ML VIAL ONE (02:48)
[2017-08-03 02:54] LABS: ISTAT CREATININE 0.8 mg/dl (0.6-1.3); ISTAT IONIZED CALCIUM 1.11 mmol/l (1.12-1.32); ISTAT POTASSIUM 3.6 mEq/L (3.3-5.0)
[2017-08-03 03:03] LABS: BLOOD UREA NITROGEN 17 mg/dl (7-18); CALCIUM 8.2 mg/dl (8.5-10.1); CARBON DIOXIDE 25 mmol/L (21-32); CREATININE 0.89 mg/dl (0.60-1.40); GLUCOSE 123 mg/dl (70-99); POTASSIUM 3.6 mmol/L (3.5-5.1); SODIUM 137 mmol/L (136-145)
[2017-08-03] MEDS ORDERED: FENTANYL CITRATE INJ 50 MCG/1 ML 2 ML VIAL IV STA ×2 (03:36→04:41)
[2017-08-03] MEDS ORDERED: KETOROLAC TROMETHAMINE 30 MG/ML VIAL IV STA (04:45)
[2017-08-03] MEDS ORDERED: ONDANSETRON INJ 2 MG/ML 2 ML VIAL IV STA (06:14)
[2017-08-03] MEDS ORDERED: ONDANSETRON INJ 2 MG/ML 2 ML VIAL ONE (06:15)
--- NOTE | 2017-08-03 06:23 | DIAGNOSTIC IMAGING REPORT ---
CHEST ONE VIEW PORTABLE CLINICAL HISTORY: Chest Pain dyspnea COMPARISON STUDY: 07/17/2017 FINDINGS: Moderate increase in cardiac size. Mild elevation right hemidiaphragm. Prominent pulmonary vasculature. IMPRESSION: Congestive heart failure. The above report was generated using voice recognition software. It may contain grammatical, syntax or spelling errors. Electronically signed by: Raoul White M.D. 08/03/2017 6:22 AM Dictated Date/Time: 08/03/2017 6:22 AM
--- NOTE | 2017-08-03 06:33 | DIAGNOSTIC IMAGING REPORT ---
R SHOULDER MIN 2 VIEWS ROUTINE CLINICAL HISTORY: right shoulder pain s/p surgery pain COMPARISON: 06/08/2017 DISCUSSION: The bones and joint spaces appear intact. There is no evidence of fracture, dislocation or bony disease. Minimal degenerative change. IMPRESSION: No acute process. The above report was generated using voice recognition software. It may contain grammatical, syntax or spelling errors. Electronically signed by: Raoul White M.D. 08/03/2017 6:32 AM Dictated Date/Time: 08/03/2017 6:31 AM
[2017-08-03] MEDS ORDERED: DiphenhydrAMINE HCL 50 MG/ML VIAL IV PRN ×2 (06:45→08:45)
[2017-08-03] MEDS ORDERED: ONDANSETRON INJ 2 MG/ML 2 ML VIAL IV PRN (06:45)
[2017-08-03] MEDS ORDERED: ZOLPIDEM TARTRATE 5 MG TAB PO PRN (06:45)
--- NOTE | 2017-08-03 06:45 | DIAGNOSTIC IMAGING REPORT ---
(CHEST FOR PE) ANGIO WITH CT DOSE: 884.52 mGy.cm HISTORY: Chest pain right arm pain. TECHNIQUE: Multiaxial CT images of the chest were performed following the intravenous administration of contrast to evaluate the pulmonary arteries. Maximal intensity projection images were also obtained. A dose lowering technique was utilized adhering to the principles of ALARA. COMPARISON STUDY: 12/24/2014 FINDINGS: Pulmonary vasculature enhances appropriately. No significant filling defects. The thoracic aorta is unremarkable. Partial atelectasis right lower lobe. Slight bibasilar interstitial prominence. Mild soft tissue edematous change anterior to the right shoulder possibly a postoperative basis given the patient's history. No acute bony abnormality. IMPRESSION: 1. Study is negative for pulmonary embolus. 2. Mild infiltrative change right lower lobe. 3. Slight bibasilar interstitial prominence. 4. Soft tissue changes anterior to the right shoulder most likely on a postoperative basis. The above report was generated using voice recognition software. It may contain grammatical, syntax or spelling errors. Electronically signed by: Raoul White M.D. 08/03/2017 6:43 AM Dictated Date/Time: 08/03/2017 6:41 AM
[2017-08-03] MEDS ORDERED: IV FLUIDS COMPLETED PRN (07:00)
[2017-08-03] MEDS: OXYCODONE HCL IR 5 MG TAB (IMMEDIATE RELEASE) PO PRN ×3 (07:48→20:03)
[2017-08-03 08:26] VITALS: BP 159/97; PULSE 78; TEMP 36.6; Ht 177.8 cm; Wt 179.4 kg
[2017-08-03] MEDS ORDERED: DiphenhydrAMINE HCL 12.5MG/5 ML UDC PO PRN (08:45)
[2017-08-03] MEDS: MoRPHine SULFATE 2 MG/ML CARP IV PRN ×6 (08:59→22:30)
[2017-08-03] MEDS: SODIUM CHLORIDE 0.9% 1000ML 1,000 ML IV SCH (08:59)
[2017-08-03] MEDS: IBUPROFEN 600 MG TAB PO SCH ×3 (09:00→21:01)
--- NOTE | 2017-08-03 09:49 | History and Physical ---
History & Physical Date & Time of Service: Aug 03, 2017 at 09:36 Chief Complaint: Rt Shoulder Pain Primary Care Physician: Joe Alvarez M.D. History of Present Illness Source: patient, hospital records Mr. Melara is a 57 [address] old patient of Dr. Noriega. He recently underwent a right shoulder arthroscopy with subacromial decompression, distal clavicle excision, and rotator cuff repair on August 01. He did have a nerve block placed preoperatively. He was very comfortable the evening after surgery, but the nerve block wore off the next morning. He had worsening pain throughout the day, and by mid afternoon, he was in severe pain. The pain continued to worsen overnight, despite multiple Percocet and aspirin doses. He eventually presented to the emergency department due to this pain. He had a workup in the emergency room to rule out other causes such as a pulmonary embolus or myocardial infarction; this workup was negative. They also attempted multiple doses of IV narcotics, including fentanyl and Toradol, without much relief of his pain. He was eventually admitted for intractable pain. Past Medical/Surgical History Medical Problems: (1) Deviated septum Status: Resolved (2) High cholesterol Status: Chronic (3) Hypertension Status: Chronic Family History FHx: heart disease Hypertension Social History Smoking Status: Former Smoker Marital Status: Occupational Status: employed Immunizations History of Influenza Vaccine: Yes Influenza Vaccine Date: Feb 21, 2007 History of Tetanus Vaccine?: Yes Tetanus Immunization Date: Mar 23, 2006 History of Pneumococcal: No History of Hepatitis B Vaccine: No Multi-Drug Resistant Organisms History of MDRO: No Allergies Coded Allergies: Hydromorphone (Verified Allergy, Intermediate, rash, 08/03/17) Tramadol (Verified Allergy, Mild, HALUCINATIONS, 08/03/17) Azithromycin (Verified Adverse Reaction, Intermediate, N/V, 08/03/17) Home Medications Scheduled Aspirin (Aspirin Ec), 81 MG PO QAM Atorvastatin (Lipitor), 80 MG PO QPM Azelastine Hcl-Fluticasone Pro (Dymista), 1 SPRY ANNABELLA HS Finasteride (Proscar), 5 MG PO QAM Lisinopril (Zestril), 40 MG PO QAM Scheduled PRN Oxycodone/Acetaminophen 5MG/325MG (Percocet 5MG/325MG), 1-2 TABLETS PO Q4-6H PRN for Pain Review of Systems Constitutional: No fever, No chills, No sweats, No weight loss Musculoskeletal: + joint pain Physical Exam Vital Signs Date Time Temp Pulse Resp B/P (MAP) Pulse Ox O2 Delivery O2 Flow Rate FiO2 08/03/17 08:26 36.6 78 17 159/97 Room Air 08/03/17 08:01 72 24 138/92 99 08/03/17 07:00 72 24 160/83 99 Nasal Cannula 2.0 08/03/17 05:15 79 20 151/87 93 Nasal Cannula 2.0 08/03/17 02:12 36.4 81 18 142/58 94 Room Air 08/03/17 02:10 79 General Appearance: no apparent distress General: He appears to be resting comfortably with no significant distress. He is awake, alert, and oriented. Normal coordination and balance. He is morbidly obese. Right shoulder: Examination of his right shoulder reveals multiple arthroscopic surgical incisions around his shoulder, that are all healing well without any erythema, drainage, induration, or other evidence of infection. He does have some erythema around where his surgical foam tape dressing was adhered to his skin, indicating a likely adhesive allergy, but no erythema around the incisions themselves. His deltoid muscle compartment, as well as the anterior and posterior upper arm compartments, are all soft and compressible. No pain with passive stretch. He is intact motor and sensory function distally in the ulnar, radial, median, and axillary nerve distributions, with 5 out of 5 strength. His hand is warm and well-perfused, with a 2+ radial pulse. Diagnostics Laboratory Results Results Past 24 Hours Test 08/03/17 02:31 08/03/17 02:38 Range/Units White Blood Count 16.72 4.8-10.8 K/uL Red Blood Count 4.79 4.7-6.1 M/uL Hemoglobin 14.0 14.0-18.0 g/dL Hematocrit 42.0 42-52 % Mean Corpuscular Volume 87.7 80-100 fL Mean Corpuscular Hemoglobin 29.2 25-34 pg Mean Corpuscular Hemoglobin Concent 33.3 32-36 g/dl Platelet Count 199 130-400 K/uL Mean Platelet Volume 10.1 7.4-10.4 fL Neutrophils (%) (Auto) 72.6 % Lymphocytes (%) (Auto) 14.2 % Monocytes (%) (Auto) 11.1 % Eosinophils (%) (Auto) 1.7 % Basophils (%) (Auto) 0.1 % Neutrophils # (Auto) 12.13 1.4-6.5 K/uL Lymphocytes # (Auto) 2.38 1.2-3.4 K/uL Monocytes # (Auto) 1.86 0.11-0.59 K/uL Eosinophils # (Auto) 0.28 0-0.5 K/uL Basophils # (Auto) 0.02 0-0.2 K/uL RDW Standard Deviation 43.9 36.4-46.3 fL RDW Coefficient of Variation 13.8 11.5-14.5 % Immature Granulocyte % (Auto) 0.3 % Immature Granulocyte # (Auto) 0.05 0.00-0.02 K/uL Sodium Level 137 136-145 mmol/L Potassium Level 3.6 3.5-5.1 mmol/L Chloride Level 105 98-107 mmol/L Carbon Dioxide Level 25 21-32 mmol/L Anion Gap 7.0 18.0 16-25 mmol/L Blood Urea Nitrogen 17 7-18 mg/dl Creatinine 0.89 0.60-1.40 mg/dl Est Creatinine Clear Calc Drug Dose 147.6 ml/min Estimated GFR () 109.2 Estimated GFR (Non- 94.3 BUN/Creatinine Ratio 19.6 10-20 Random Glucose 123 70-99 mg/dl Calcium Level 8.2 8.5-10.1 mg/dl Troponin I < 0.015 0-0.045 ng/ml Bedside Hemoglobin 13.9 14.0-18.0 g/dl Bedside Hematocrit 41 42-52 % Bedside Sodium 140 135-144 mEq/L Bedside Potassium 3.6 3.3-5.0 mEq/L Bedside Chloride 102 101-112 mEq/L Bedside Total CO2 24 24-31 mEq/l Bedside Blood Urea Nitrogen 18 7-18 mg/dl Bedside Creatinine 0.8 0.6-1.3 mg/dl Bedside Glucose (other) 127 70-99 mg/dl Bedside Ionized Calcium (Danyel) 1.11 1.12-1.32 mmol/l Diagnostic Radiology Right shoulder x-rays and CTPA were reviewed. The right shoulder x-rays were unremarkable. This CTPA was negative for pulmonary embolus. Also, no significant shoulder joint effusion is seen. Impression Assessment and Plan (1) Right shoulder pain Assessment & Plan: He has right shoulder postoperative pain after a shoulder arthroscopy with rotator cuff repair 2 days ago on August [address] Jones. I suspect that this is likely just due to his nerve block wearing off, and increased pain from that. His pain was not controlled with oral medications at home, but since presenting to the emergency department last night and getting some IV fentanyl and Toradol, as well as scheduled Tylenol and ibuprofen, he reports that his pain is improved this morning. I placed orders for scheduled ibuprofen and Tylenol, with oral and IV narcotic as needed for breakthrough pain. We will see how his pain improves over the next 24 hours. We will plan to discharge him later this afternoon or tomorrow morning depending on his pain level. I am covering Orthopedic Surgery call for Dr. Jeffrey, who is unavailable. Geo Sellers MD Level of Care Med/Surg Advanced Directives Existing Living Will: No Existing Power of Boat Oar Maker: No Resuscitation Status FULL RESUSCITATION VTE Prophylaxis VTE Risk Assessment Done? Y/N: Yes Risk Level: Very Low Given or contraindicated: Treatment not indicated Problem Qualifiers (1) Right shoulder pain: Chronicity: acute Qualified Codes: M25.511 - Pain in right shoulder
[2017-08-03] MEDS: ACETAMINOPHEN 325 MG TAB PO SCH ×3 (12:16→23:36)
[2017-08-03 14:50] VITALS: BP 129/76; PULSE 71; TEMP 37.1; O2SAT 92
[2017-08-03] MEDS ORDERED: ATORVASTATIN 40 MG TAB PO SCH (21:00)
[2017-08-03 22:55] VITALS: BP 150/89; PULSE 80; TEMP 37.3; O2SAT 92
[2017-08-04] MEDS: OXYCODONE HCL IR 5 MG TAB (IMMEDIATE RELEASE) PO PRN ×3 (00:30→13:31)
[2017-08-04] MEDS: IBUPROFEN 600 MG TAB PO SCH ×3 (03:13→14:41)
[2017-08-04] MEDS: SODIUM CHLORIDE 0.9% 1000ML 1,000 ML IV SCH (03:25)
[2017-08-04] MEDS: ACETAMINOPHEN 325 MG TAB PO SCH (05:37)
[2017-08-04 07:13] VITALS: BP 131/85; PULSE 79; TEMP 37; O2SAT 93
[2017-08-04 07:30] VITALS: O2SAT 93
--- NOTE | 2017-08-04 08:05 | Orthopedic Progress Note ---
Orthopedic Progress Note Date of Service Aug 04, 2017. Subjective Reports: feeling well, Denies: chest pain, SOB, nausea / vomiting, light headedness, calf pain Additional Notes: PATIENT STILL CO MODERATE PAIN BUT MUCH IMPROVED FROM ADMISSION. HE'S CURRENTLY TAKING A COMBO OF MOTRIN, TYLENOL, SKIP, AND MORPHINE. Objective calves soft nontender, N/V intact, capillary refill less than 2 sec., dressing C /D/I, A&O x3 Date Time Temp Pulse Resp B/P (MAP) Pulse Ox O2 Delivery O2 Flow Rate FiO2 08/04/17 07:13 37.0 79 16 131/85 (100) 93 Room Air 08/04/17 00:00 Room Air 08/03/17 22:55 37.3 80 16 150/89 (109) 92 Room Air 08/03/17 16:00 Room Air 08/03/17 14:50 37.1 71 18 129/76 (93) 92 Room Air 08/03/17 08:26 36.6 78 17 159/97 Room Air Assessment & Plan Assessment: INTOLERABLE RIGHT SHOULDER PAIN SP ARTHROSCOPY 08/01/17 Plan: PAIN MANAGEMENT- ENCOURAGE PATIENT TO STAY AWAY FROM IV MEDS TODAY. INCREASED TYLENOL TO 1000MG Q8 AND INCREASED SKIP TO 1-2 TABS. IF TOLERABLE WILL CONSIDER DC LATER THIS AFTERNOON. IF STILL HAVING PAIN, MAY CONSIDER ADDING EXTENDED RELEASE MED LIKE MS CONTIN. BOWEL REGIMEN DC PLANNING (1) Right shoulder pain
[2017-08-04] MEDS ORDERED: LISINOPRIL 40 MG TAB PO SCH (09:00)
[2017-08-04] MEDS ORDERED: ASPIRIN 81 MG ECTAB PO SCH (09:00)
[2017-08-04] MEDS ORDERED: FINASTERIDE 5 MG TAB PO SCH (09:00)
[2017-08-04] MEDS ORDERED: ACETAMINOPHEN 325 MG TAB PO SCH (14:00)
[2017-08-04] MEDS ORDERED: ACETAMINOPHEN 500 MG TAB PO SCH (14:00)
--- NOTE | 2017-08-04 14:06 | Discharge Instructions ---
Discharge Instructions Date of Service Aug 04, 2017. Admission Reason for Admission: Rt Shoulder Pain Discharge Discharge Diagnosis / Problem: Intractable pain right shoulder Discharge Goals Goal(s): Decrease discomfort, Improve function, Increase independence Activity Recommendations Activity Limitations: per Instructions/Follow-up section . Current Hospital Diet Patient's current hospital diet: Regular Diet Discharge Diet Recommended Diet: Regular Diet Pending Studies Studies pending at discharge: no Laboratory Results Hemoglobin A1c Test 07/17/17 12:41 Range/Units Estimated Average Glucose 126 mg/dl Hemoglobin A1c 6.0 H 4.5-5.6 % Medical Emergencies . Who to Call and When: Medical Emergencies: If at any time you feel your situation is an emergency, please call 911 immediately. . Non-Emergent Contact Non-Emergency issues call your: Surgeon . "Provider Documentation" section prepared by Oneyda Sands. . VTE Core Measure Inpt VTE Proph given/why not?: Treatment not indicated
[2017-08-04] MEDS ORDERED: MTR600 PO (14:07)
[2017-08-04] MEDS ORDERED: ACET-24 PO (14:07)
[2017-08-04] MEDS ORDERED: RXC5 PO (14:07)
[2017-08-04 14:18] VITALS: BP 131/85; PULSE 79; TEMP 37; O2SAT 93
--- NOTE | 2017-08-12 13:14 | DISCHARGE SUMMARY ---
DISCHARGE DIAGNOSIS: Intractable right shoulder pain. SECONDARY DIAGNOSIS: None. CONSULTS: None. COMPLICATIONS: None. PROCEDURE: None. BRIEF HISTORY: Please see previously dictated history and physical. HOSPITAL SUMMARY: The patient was admitted on August 03 after a recent right shoulder arthroscopy with subacromial decompression, distal clavicle excision, and rotator cuff repair by Dr. Jones. The patient had a nerve block postoperatively. Once his nerve block wore off, he was having a significant pain, which brought him to the Emergency Room. The patient was admitted for pain control. The patient was given multiple doses of IV narcotics, Fentanyl, Toradol and was admitted for further evaluation on August 04. The patient was complaining of moderate pain, but was much improved from admission. He is currently taking a combination of Motrin, Tylenol, Roxicodone, and morphine. Vital signs were stable. He was afebrile. Dressing was clean, dry and intact. He was neurovascularly intact. He was alert and oriented. The patient seemed to be doing well, pain was controlled, and he was discharged to home later that day in stable condition. For further review, please see the chart. Lab, x-ray data and discharge instructions as per chart. MTDD
== END 2017-08-04 15:05 | disposition home or self-care (01) ==
LOC: EDBD 02:00 → C.EDB 02:01 → C.MSW 06:42 → EDBEDREQSVC 06:51 → ENRESERV 07:17
PROVIDERS: ADMIT Orthopaedic Surgery Hand Surgery; ATTEND Orthopaedic Surgery Hand Surgery
DX: G89.18 Other acute postprocedural pain (principal); M25.511 Pain in right shoulder; E78.00 Pure hypercholesterolemia, unspecified; I10 Essential (primary) hypertension; Z82.49 Family history of ischemic heart disease and other diseases of the circulatory system; Z87.891 Personal history of nicotine dependence; Z88.1 Allergy status to other antibiotic agents; Z88.6 Allergy status to analgesic agent; Z79.82 Long term (current) use of aspirin; Z79.899 Other long term (current) drug therapy

== ENCOUNTER 2022-08-28 12:05 | Inpatient (IN) ==
[2022-08-28] MEDS ORDERED: SODIUM CHLORIDE 0.9% 1000ML 1,000 ML IV SCH (12:45)
[2022-08-28] MEDS: MoRPHine SULFATE 4 MG/ML 1 ML CARP\\VIAL IV PRN ×2 (12:48→14:34)
--- NOTE | 2022-08-28 12:52 | Emergency Department Note ---
Impression & Plan Ambulatory dysfunction, Acute pain of left hip ED Provider Note INFORMANT: Patient and ED PROVIDER(S): Alcon Blue MD CHIEF COMPLAINT: Left hip pain PLAN: Disposition: Admitted Condition: Good Outpatient prescription management: none Referral: None MEDICAL DECISION MAKING: Patient presented because of severe pain in the left hip. His history was concerning as he has a prior hip replacement. He received 2 doses of fentanyl prehospital and was still very uncomfortable. The patient was ordered IV morphine here. He did require 2 doses and was still unable to get up and move effectively due to the severe pain. He had a mild leukocytosis on CBC but that appears to be a chronic issue for him. The patient is afebrile. The remainder of his blood work was unremarkable. The patient had x-ray imaging performed and there is no evidence of fracture or dislocation. Given the patient's body weight and his inability to ambulate due to the severe hip pain further management in the hospital will be necessary. Patient has previously seen [facility] orthopedics for the original surgery but is requesting a second opinion consultation was made with the [facility] hospitalist service. Case was discussed and diagnostics were reviewed. Patient will be admitted for further management. Discussed with it disaster recovery manager. After review of the information above and other included data, I feel the patient requires admission. Triage Nursing notes reviewed and agree them. Vital Signs: reviewed and remarkable for no significant abnormalities Prior /Outside records reviewed: Last primary care visit reviewed for hypertension high cholesterol Differential diagnosis: Fracture, dislocation, neurovascular compromise, compartment syndrome, soft tissue injury, as well as other pathologies. Diagnostics, as interpreted by me: ECG: none Cardiac Monitoring: Cardiac monitoring ordered by me: The patient was placed on continuous cardiac monitoring and observed. It revealed a normal sinus rhythm at 82 beats per minute without ectopy or evidence of dysrhythmia. Medical decision rules: none Imaging studies: X-ray imaging of the left hip were negative for fracture or dislocation. HPI: The patient is a 62year old male who presents to the Emergency Room with complaints of severe pain in the left hip. Patient notes a prior history of hip replacement. When he was getting out of the shower today he had severe pain in the hip. He describes it as excruciating. Patient was evaluated by EMS after called 911. He could not ambulate. He was given 2 150 mcg doses of fenta nyl and Zofran prehospital. Patient noted minimal relief with that medication. The patient also notes the following associated symptoms, none. Patient denies any sciatica trauma.Current pain is rated as 8/10. Pt denies LOC, headache, fevers, chills, diaphoresis, visual changes, neck pain, chest pain, breathing difficulties, nausea, vomiting, abdominal pain, back pain, urinary symptoms, numbness, weakness, lymphadenopathy, rash, or other complaints. PAST MEDICAL HISTORY: See Below, obesity, hypertension PAST SURGICAL HISTORY: See Below, left hip replacement SOCIAL HISTORY: See Below, HOME MEDICATIONS: See Below ALLERGIES: See Below VITALS: See Below PHYSICAL EXAMINATION: GENERAL: Awake, alert, very uncomfortable-appearing, in no distress HENT: Normocephalic, atraumatic. Oropharynx unremarkable. EYES: Normal conjunctiva. Sclera non-icteric. NECK: Inspection normal. Non-tender. Supple. No nuchal rigidity. FROM. No masses. RESPIRATORY: Clear to auscultation. No wheezes. No rales. Normal respiratory effort. CARDIAC: Normal rate. Normal rhythm. No murmurs. No rubs. Extremities warm and well perfused. Pulses equal. No JVD. GI: Soft, non-distended. No tenderness to palpation. No rebound or guarding. No masses. RECTAL: Deferred. MUSCULOSKELETAL: Atraumatic. There is moderate tenderness to the lateral aspect of the right hip. Incision scar appears normal. There is no redness or warmth to the joint. Internal and external rotation movements relatively well- preserved with some discomfort. Patient is unable to flex past 60 degrees without severe pain. No sciatic notch tenderness. The back is symmetrical on inspection without obvious abnormality. There is no CVA tenderness to palpation. No joint edema. LOWER EXTREMITIES: Calves are equal size bilaterally and non-tender. Trace edema. No discoloration. NEURO: Normal sensorium. No sensory or motor deficits noted. SKIN: No rash or jaundice noted. Past Med/Surg History Medical History High blood pressure Surgical History History of hip replacement Social History Smoking Status: Never smoker Age Started Using Tobacco: 14; Age Quit Using Tobacco: 51; Preferred Language: Setswana Feels Safe at Home: Yes Allergies Allergies Allergy/AdvReac Type Severity Reaction Status Date / Time hydromorphone Allergy Intermediate rash Verified 08/28/22 15:20 azithromycin AdvReac Intermediate N/V Verified 08/28/22 15:20 tramadol AdvReac Intermediate HALUCINATIO Verified 08/28/22 15:20 NS Home Meds Home Medications Medication Instructions Recorded Confirmed aspirin 81 mg tablet,delayed 81 mg PO DAILY 03/16/19 08/28/22 release (Ecotrin Low Strength) acetaminophen 500 mg tablet 1,000 - 1,500 mg PO DIRECTED 08/28/22 08/28/22 (Tylenol Extra Strength) PRN Pain ibuprofen 200 mg tablet 800 - 1,200 mg PO DIRECTED PRN 08/28/22 08/28/22 Pain naproxen sodium 220 mg tablet 880 - 1,100 mg PO DIRECTED PRN 08/28/22 08/28/22 (Aleve) Pain Previous Rx's Medication Instructions Recorded atorvastatin 80 mg tablet (Lipitor) 80 mg PO HS #90 tabs 06/05/21 finasteride 5 mg tablet (Proscar) 5 mg PO DAILY #90 tabs 06/05/21 lisinopril 40 mg tablet 40 mg PO DAILY #90 tabs 06/05/21 Results & Data (ED) Vital Signs Vital Signs - 24 hr 08/28/22 12:17 08/28/22 12:28 08/28/22 12:26 Temperature 36.8 C Temperature Source Oral Pulse Rate 92 H 87 93 H Pulse Rate from SpO2 Sensor Pulse Rhythm Regular Pulse Strength Normal Respiratory Rate 25 H 18 Respiratory Effort / Characteristics Non-Labored Respiratory Depth Normal Respiratory Pattern Regular Blood Pressure 177/101 H 135/109 H Blood Pressure Mean 126 117 Blood Pressure Position Lying Pulse Oximetry 92 Oxygen Delivery Method Room Air Oxygen Flow Rate Sepsis Recent Fever Within 48 Hours No Sepsis New/Unexplained Change in Mental Status No Sepsis Action Taken by Nursing No Action Required 08/28/22 12:30 08/28/22 12:40 08/28/22 12:50 Temperature Temperature Source Pulse Rate 88 85 85 Pulse Rate from SpO2 Sensor 87 85 86 Pulse Rhythm Pulse Strength Respiratory Rate 16 59 H 16 Respiratory Effort / Characteristics Respiratory Depth Respiratory Pattern Blood Pressure Blood Pressure Mean Blood Pressure Position Pulse Oximetry 92 93 93 Oxygen Delivery Method Nasal Cannula Nasal Cannula Nasal Cannula Oxygen Flow Rate 2 2 2 Sepsis Recent Fever Within 48 Hours Sepsis New/Unexplained Change in Mental Status Sepsis Action Taken by Nursing 08/28/22 13:00 08/28/22 13:10 08/28/22 13:15 Temperature Temperature Source Pulse Rate 84 85 82 Pulse Rate from SpO2 Sensor 85 86 82 Pulse Rhythm Pulse Strength Respiratory Rate 15 18 13 Respiratory Effort / Characteristics Respiratory Depth Respiratory Pattern Blood Pressure 106/83 Blood Pressure Mean 90 Blood Pressure Position Pulse Oximetry 90 93 95 Oxygen Delivery Method Nasal Cannula Nasal Cannula Oxygen Flow Rate 2 2 Sepsis Recent Fever Within 48 Hours Sepsis New/Unexplained Change in Mental Status Sepsis Action Taken by Nursing 08/28/22 13:15 08/28/22 13:20 08/28/22 13:30 Temperature Temperature Source Pulse Rate 84 80 Pulse Rate from SpO2 Sensor 82 81 Pulse Rhythm Pulse Strength Respiratory Rate 22 15 Respiratory Effort / Characteristics Respiratory Depth Respiratory Pattern Blood Pressure 106/83 Blood Pressure Mean 90 Blood Pressure Position Pulse Oximetry 95 95 Oxygen Delivery Method Oxygen Flow Rate Sepsis Recent Fever Within 48 Hours Sepsis New/Unexplained Change in Mental Status Sepsis Action Taken by Nursing 08/28/22 13:40 08/28/22 14:32 08/28/22 14:33 Temperature Temperature Source Pulse Rate 82 Pulse Rate from SpO2 Sensor 82 68 69 Pulse Rhythm Pulse Strength Respiratory Rate 10 L Respiratory Effort / Characteristics Respiratory Depth Respiratory Pattern Blood Pressure Blood Pressure Mean Blood Pressure Position Pulse Oximetry 95 99 100 Oxygen Delivery Method Oxygen Flow Rate Sepsis Recent Fever Within 48 Hours Sepsis New/Unexplained Change in Mental Status Sepsis Action Taken by Nursing 08/28/22 14:33 Temperature Temperature Source Pulse Rate Pulse Rate from SpO2 Sensor Pulse Rhythm Pulse Strength Respiratory Rate Respiratory Effort / Characteristics Respiratory Depth Respiratory Pattern Blood Pressure 130/60 Blood Pressure Mean 83 Blood Pressure Position Pulse Oximetry Oxygen Delivery Method Oxygen Flow Rate Sepsis Recent Fever Within 48 Hours Sepsis New/Unexplained Change in Mental Status Sepsis Action Taken by Nursing Laboratory Data 08/28/22 12:20 08/28/22 12:20 Lab Results 08/28/22 08/28/22 08/28/22 Range/Units 12:20 12:20 12:20 WBC 13.28 H (4.8-10.8) K/ul RBC 5.35 (4.70-6.10) M/uL Hgb 16.4 (14.0-18.0) g/dl Hct 47.5 (42.0-52.0) % MCV 88.8 (80.0-100.0) fL MCH 30.7 (25.0-34.0) pg MCHC 34.5 (32.0-36.0) g/dL RDW Std Deviation 45.0 (36.4-46.3) fL RDW Coeff of Fabiola 14.9 H (11.5-14.5) % Plt Count 266 (130-400) K/uL MPV 10.9 (9.4-12.4) fL Immature Gran % (Auto) 0.5 % Neut % (Auto) 69.2 % Lymph % (Auto) 17.9 % [place] % (Auto) 8.7 % Eos % (Auto) 3.4 % Baso % (Auto) 0.3 % Neut # (Auto) 9.18 H (1.40-6.50) K/uL Lymph # (Auto) 2.38 (1.2-3.4) K/uL [place] # (Auto) 1.16 H (0.11-0.59) K/uL Eos # (Auto) 0.45 (0-0.50) K/uL Baso # (Auto) 0.04 (0-0.2) K/uL Immature Gran # (Auto) 0.07 (0.01-0.20) K/uL PT Cancelled INR Cancelled APTT Cancelled PTT Ratio Cancelled Sodium TNP Potassium TNP Chloride 103 (98-107) mmol/L Carbon Dioxide 25 (21-32) mmol/L Anion Gap TNP BUN 17 (6-23) mg/dl Creatinine 0.98 (0.6-1.4) mg/dl Est Cr Clr Drug Dosing 134.1 ml/min Est GFR ( Amer) 94.7 ml/min Est GFR (Non-Af Amer) 81.7 ml/min BUN/Creatinine Ratio 17.3 (10-20) Glucose 150 H (70-99(Fasting)) mg/dl Calcium 9.0 (8.5-10.1) mg/dl Total Bilirubin 0.8 (0.2-1.0) mg/dl AST TNP ALT 17 (7-52) U/L Alkaline Phosphatase 90 (34-104) U/L Total Protein 7.7 (6.0-8.3) gm/dl Albumin 4.2 (3.4-5.0) gm/dl Globulin 3.5 (2.5-4.0) gm/dl Albumin/Globulin Ratio 1.2 (0.9-2) SARS-CoV-2, RNA, NAAT (NEGATIVE) 08/28/22 08/28/22 08/28/22 Range/Units 12:37 14:31 14:31 WBC (4.8-10.8) K/ul RBC (4.70-6.10) M/uL Hgb (14.0-18.0) g/dl Hct (42.0-52.0) % MCV (80.0-100.0) fL MCH (25.0-34.0) pg MCHC (32.0-36.0) g/dL RDW Std Deviation (36.4-46.3) fL RDW Coeff of Fabiola (11.5-14.5) % Plt Count (130-400) K/uL MPV (9.4-12.4) fL Immature Gran % (Auto) % Neut % (Auto) % Lymph % (Auto) % [place] % (Auto) % Eos % (Auto) % Baso % (Auto) % Neut # (Auto) (1.40-6.50) K/uL Lymph # (Auto) (1.2-3.4) K/uL [place] # (Auto) (0.11-0.59) K/uL Eos # (Auto) (0-0.50) K/uL Baso # (Auto) (0-0.2) K/uL Immature Gran # (Auto) (0.01-0.20) K/uL PT 11.7 INR 1.1 APTT 30.0 PTT Ratio 1.1 Sodium 140 Potassium 4.8 Chloride (98-107) mmol/L Carbon Dioxide (21-32) mmol/L Anion Gap BUN (6-23) mg/dl Creatinine (0.6-1.4) mg/dl Est Cr Clr Drug Dosing ml/min Est GFR ( Amer) ml/min Est GFR (Non-Af Amer) ml/min BUN/Creatinine Ratio (10-20) Glucose (70-99(Fasting)) mg/dl Calcium (8.5-10.1) mg/dl Total Bilirubin (0.2-1.0) mg/dl AST 16 ALT (7-52) U/L Alkaline Phosphatase (34-104) U/L Total Protein (6.0-8.3) gm/dl Albumin (3.4-5.0) gm/dl Globulin (2.5-4.0) gm/dl Albumin/Globulin Ratio (0.9-2) SARS-CoV-2, RNA, NAAT NEGATIVE (NEGATIVE) Administered Medications Sodium Chloride (Nss 1000ml) 1,000 mls @ 75 mls/hr IV .[id number] WHIT Stop: 08/29/22 02:04 Last Admin: 08/28/22 12:48 Dose: 75 mls/hr Documented By: CHARLES Morphine Sulfate (Morphine Sulfate 4 Mg/Ml 1 Ml Carp\Vial) 4 mg IV Q20M PRN PRN Reason: Pain Stop: 09/11/22 12:39 Last Admin: 08/28/22 14:34 Dose: 4 mg Documented By: Admin: 08/28/22 12:48 Dose: 4 mg Documented By: [facility] Imaging Data Radiologist's Impression: Hip X-Ray 08/28/22 12:32 XR hip LT min 2V CLINICAL HISTORY: nontraumatic left hip pain TECHNIQUE: 2 views of the left hip and single frontal view of the pelvis were obtained. Comparison: Comparison is made to left hip radiographs 02/24/2011 FINDINGS: There is no evidence of an acute fracture. Patient is status post total hip arthroplasty. No soft tissue abnormality is seen. IMPRESSION: No evidence of acute osseous injury. ACT 112: Negative or not required by law. Electronically signed by: Sancho Rizo M.D. 08/28/2022 2:14 PM Discharge Plan Visit Data Chief Complaint: Hip Pain Stated Complaint: L HIP PAIN ED Provider: Alcon Blue Discharge Problem: Ambulatory dysfunction, Acute pain of left hip Forms Stand Alone Forms: My [facility] [employer] Prescriptions Prescriptions: No Action aspirin [Ecotrin Low Strength] 81 mg tablet,delayed release (DR/EC) 81 mg PO DAILY atorvastatin [Lipitor] 80 mg tablet 80 mg PO HS Qty: 90 3RF finasteride [Proscar] 5 mg tablet 5 mg PO DAILY Qty: 90 3RF lisinopril 40 mg tablet 40 mg PO DAILY Qty: 90 3RF acetaminophen [Tylenol Extra Strength] 500 mg Tablet 1,000 - 1,500 mg PO DIRECTED PRN (Reason: Pain) naproxen sodium [Aleve] 220 mg Tablet 880 - 1,100 mg PO DIRECTED PRN (Reason: Pain) ibuprofen 200 mg Tablet 800 - 1,200 mg PO DIRECTED PRN (Reason: Pain) Referrals Referrals: Joe Alvarez MD [Primary Care Provider] -
[2022-08-28 13:00] LABS: Basophils # (auto) 0.04 K/uL (0-0.2); Basophils % (auto) 0.3 %; Eosinophils # (auto) 0.45 K/uL (0-0.50); Eosinophils % (auto) 3.4 %; Hematocrit (blood only) 47.5 % (42.0-52.0); Hemoglobin 16.4 g/dl (14.0-18.0); Immature Granulocytes # (auto) 0.07 K/uL (0.01-0.20); Immature Granulocytes % (auto) 0.5 %; Lymphocytes # (auto) 2.38 K/uL (1.2-3.4); Lymphocytes % (auto) 17.9 %; Mean Corpuscular Hemoglobin 30.7 pg (25.0-34.0); Mean Corpuscular Hgb Conc 34.5 g/dL (32.0-36.0); Mean Corpuscular Volume 88.8 fL (80.0-100.0); Mean Platelet Volume 10.9 fL (9.4-12.4); Monocytes # (auto) 1.16 K/uL (0.11-0.59); Monocytes % (auto) 8.7 %; Neutrophils # (auto) 9.18 K/uL (1.40-6.50); Neutrophils % (auto) 69.2 %; Platelet Count 266 K/uL (130-400); RDW Coefficient of Variation 14.9 % (11.5-14.5); Red Blood Count 5.35 M/uL (4.70-6.10); White Blood Count 13.28 K/ul (4.8-10.8)
[2022-08-28 13:42] LABS: Alanine Aminotransferase 17 U/L (7-52); Albumin Globulin Ratio 1.2 (0.9-2); Albumin Level 4.2 gm/dl (3.4-5.0); Alkaline Phosphatase 90 U/L (34-104); BUN Creatinine Ratio 17.3 (10-20); Bilirubin,Total 0.8 mg/dl (0.2-1.0); Blood Urea Nitrogen 17 mg/dl (6-23); Carbon Dioxide 25 mmol/L (21-32); Chloride 103 mmol/L (98-107); Creatinine Clr Calc Pharmacy 134.1 ml/min; Est GFR (African American) 94.7 ml/min; Est GFR (Non-African American) 81.7 ml/min; Globulin 3.5 gm/dl (2.5-4.0); Glucose 150 mg/dl (70-99(Fasting)); Total Protein 7.7 gm/dl (6.0-8.3)
--- NOTE | 2022-08-28 14:15 | XRay Report ---
XR hip LT min 2V CLINICAL HISTORY: nontraumatic left hip pain TECHNIQUE: 2 views of the left hip and single frontal view of the pelvis were obtained. Comparison: Comparison is made to left hip radiographs 02/24/2011 FINDINGS: There is no evidence of an acute fracture. Patient is status post total hip arthroplasty. No soft tis chema abnormality is seen. IMPRESSION: No evidence of acute osseous injury. ACT 112: Negative or not required by law. Electronically signed by: Sancho Rizo M.D. 08/28/2022 2:14 PM
[2022-08-28 15:05] LABS: Potassium 4.8 mmol/L (3.5-5.1)
[2022-08-28 15:35] LABS: INR 1.1 (0.9-1.1); Partial Thromboplastin Ratio 1.1; Prothrombin Time 11.7 Seconds (9.0-12.0)
--- NOTE | 2022-08-28 16:23 | History & Physical Report ---
Date of Service August 28, 2022 Assessment & Plan (1) Acute pain of left hip: Plan: Hip XR negative for acute fracture - patient requesting orthopedic consult to further evaluate More concerning history for radicular pain - MRI lumbar spine. Acetaminophen 1g PO TID, naproxen 500mg PO BID, dexamethasone 4mg IV q6h, GI prophylaxis with pantoprazole 40mg PO daily. (2) Ambulatory dysfunction: Plan: Secondary to pain. PT/OT. (3) BPH (benign prostatic hyperplasia): Plan: Continue finasteride 5mg PO daily (4) Hypertension: Plan: Continue lisinopril 40mg PO daily Plan VTE Prophylaxis - consider chemical prophylaxis pending mobility assessment tomorrow Diet - heart healthy Disposition - observation status to med/surg Admission and Anticipated Discharge Date Admission Date: August 28, 2022 History of Present Illness Chief Complaint: Left hip pain Primary Care Provider: Joe Alvarez MD Chidi Melara is a 62 year old male who presents to the ER with left hip pain. He reports left hip pain on the anterolateral thigh started Friday or Friday last week. Initially mild and just felt sore but became progressively worse the following days but was bearable. Pain more in the lateral and back of his hip now. Better on leaning forward and to the left side. Pressure on his lateral hip helped with pain. No acute back pain but has chronic back pain which he puts down to arthritis. Today while coming out of the shower he suddenly felt excruciating pain in the same area and was unable to walk. Severity 20/10. His called EMS and he required x2 150 mcg IV Fentanyl on route. Allergies Allergy/AdvReac Type Severity Reaction Status Date / Time hydromorphone Allergy Intermediate rash Verified 08/28/22 15:20 azithromycin AdvReac Intermediate N/V Verified 08/28/22 15:20 tramadol AdvReac Intermediate HALUCINATIO Verified 08/28/22 15:20 NS Home Medications Medication Instructions Recorded Confirmed Type aspirin 81 mg tablet,delayed 81 mg PO DAILY 03/16/19 08/28/22 History release (Ecotrin Low Strength) atorvastatin 80 mg tablet (Lipitor) 80 mg PO HS #90 tabs 06/05/21 08/28/22 Rx finasteride 5 mg tablet (Proscar) 5 mg PO DAILY #90 tabs 06/05/21 08/28/22 Rx lisinopril 40 mg tablet 40 mg PO DAILY #90 tabs 06/05/21 08/28/22 Rx acetaminophen 500 mg tablet 1,000 - 1,500 mg PO DIRECTED 08/28/22 08/28/22 History (Tylenol Extra Strength) PRN Pain ibuprofen 200 mg tablet 800 - 1,200 mg PO DIRECTED PRN 08/28/22 08/28/22 History Pain naproxen sodium 220 mg tablet 880 - 1,100 mg PO DIRECTED PRN 08/28/22 08/28/22 History (Aleve) Pain Past Med/Surg History Medical History High blood pressure Surgical History History of hip replacement Social History Smoking Status: Former smoker Age Started Using Tobacco: 14; Age Quit Using Tobacco: 51; Hx Alcohol Use: No Hx Substance Use: No Preferred Language: Bolivian Communication Ability: Effective Director Of Slot Operations Required: No Beliefs That Will Affect Care: None Current Living Situation: Spouse Feels Safe at Home: Yes Safety Concerns: Feels Safe At This Time Assistive Devices: Denture - Upper, Denture - Lower, Glasses and Walker Review of Systems Review of Systems: All systems reviewed & are unremarkable except as noted in HPI & below Physical Exam Constitutional: well developed and + morbidly obese; no acute distress Eyes: + anicteric sclerae; normal pupil size Respiratory: normal respiratory effort, lungs clear to auscultation Cardiovascular: RRR, no murmur, no edema Gastrointestinal (Abdomen): normal bowel sounds, soft, nontender, no hepatosplenomegaly Musculoskeletal: Spine: no lumbar spinal tenderness and no paraspinal tenderness No pain on int/ext rotation left hip Knee flex, Dorsi/plantarflex ankle 5/5 b/l, hip flexion limited due to pain No joint line tenderness Skin: no rashes, warm and dry Neurologic: moves all extremities and awake; not confused Psychiatric: A+Ox3, euthymic affect Results & Data Results & Data ([facility]) Vital Signs (Past 12 Hours) Vital Signs Temp Pulse Resp BP Pulse Ox O2 Del Method O2 Flow Rate 0308/23 14:33 130/60 08/28/22 14:33 100 08/28/22 14:32 99 08/28/22 13:40 82 10 L 95 08/28/22 13:30 80 15 95 08/28/22 13:20 84 22 95 08/28/22 13:15 106/83 08/28/22 13:15 82 13 95 08/28/22 13:10 85 18 106/83 93 Nasal Cannula 2 08/28/22 13:00 84 15 90 Nasal Cannula 2 08/28/22 12:50 85 16 93 Nasal Cannula 2 08/28/22 12:40 85 59 H 93 Nasal Cannula 2 08/28/22 12:30 88 16 92 Nasal Cannula 2 08/28/22 12:26 93 H 18 135/109 H 08/28/22 12:28 87 08/28/22 12:17 36.8 C 92 H 25 H 177/101 H 92 Room Air Laboratory Results Abnormal lab results 08/28/22 08/28/22 Range/Units 12:20 12:20 WBC 13.28 H (4.8-10.8) K/ul RDW Coeff of Fabiola 14.9 H (11.5-14.5) % Neut # (Auto) 9.18 H (1.40-6.50) K/uL [place] # (Auto) 1.16 H (0.11-0.59) K/uL Glucose 150 H (70-99(Fasting)) mg/dl Diagnostic Findings XR hip LT min 2V CLINICAL HISTORY: nontraumatic left hip pain TECHNIQUE: 2 views of the left hip and single frontal view of the pelvis were obtained. Comparison: Comparison is made to left hip radiographs 02/24/2011 FINDINGS: There is no evidence of an acute fracture. Patient is status post total hip arthroplasty. No soft tissue abnormality is seen. IMPRESSION: No evidence of acute osseous injury. Medications Administered ER Medications Given: NSS @ 75 ml/hr Morphine 4mg IV x2 Code Status & VTE Plan Code Status Full VTE Prophylaxis Plan VTE Prophylaxis will be ordered: Yes PG Care Time/CCT Total # of Minutes Spent Total Time Spent with Patient: Total time spent is greater than 50% in coordination of care (as documented) at patient's floor/unit and/or counseling patient: Coding Level of Care Code 44537 INT INP/OBS CARE 2/55MIN Diagnoses Acute pain of left hip M25.552 Ambulatory dysfunction R26.2 BPH (benign prostatic hyperplasia) N40.0 Hypertension I10
[2022-08-28] MEDS ORDERED: ACETAMINOPHEN 500 MG TAB PO STA (16:26)
[2022-08-28 16:43] LABS: C Reactive Protein 0.74 mg/dl (0-0.5)
[2022-08-28] MEDS ORDERED: FLUARIX QUADRIVALENT 0.5 ML SYR IM ONE (17:45)
[2022-08-28] MEDS: MoRPHine SULFATE 10 MG/ML CARP/VIAL IV PRN ×2 (18:00→21:22)
[2022-08-28] MEDS: PANTOprazole 40 MG TAB PO SCH (18:36)
[2022-08-28] MEDS: dexAMETHasone 4 MG in SYRINGE 0 ML IV SCH ×2 (20:06→23:04)
[2022-08-28] MEDS: NAPROXEN 250 MG TAB PO SCH (20:10)
[2022-08-28] MEDS: ACETAMINOPHEN 500 MG TAB PO SCH (20:10)
[2022-08-28] MEDS: ATORVASTATIN 40 MG TAB PO SCH (20:10)
[2022-08-28] MEDS: ONDANSETRON INJ 2 MG/ML 2 ML VIAL IV PRN (23:30)
[2022-08-29] MEDS: MoRPHine SULFATE 10 MG/ML CARP/VIAL IV PRN ×6 (01:54→22:04)
[2022-08-29 02:11] LABS: Appearance Urine Clear (Clear); Bacteria Urine Automated Negative (Negative); Bilirubin Urine Negative (Negative); Blood Urine Negative (Negative); Color Urine Dark Yellow; Epithelial Cell Urine Auto >30 /lpf (0-5); Glucose Urine UA Negative (Negative); Ketones Urine Trace (Negative); Leukocyte Esterase Urine Negative (Negative); Nitrite Urine Negative (Negative); Protein Urine 1+ (Negative); Specific Gravity Urine 1.041 (1.000-1.030); Urobilinogen Urine Negative (Negative)
[2022-08-29] MEDS: dexAMETHasone 4 MG in SYRINGE 0 ML IV SCH ×3 (05:07→19:20)
[2022-08-29] MEDS: PANTOprazole 40 MG TAB PO SCH (07:56)
[2022-08-29] MEDS: lisinopril 40 MG TAB PO SCH (07:57)
[2022-08-29] MEDS: ASPIRIN 81 MG ECTAB PO SCH (07:57)
[2022-08-29] MEDS: FINASTERIDE 5 MG TAB PO SCH (07:57)
[2022-08-29] MEDS: ACETAMINOPHEN 500 MG TAB PO SCH ×3 (07:57→20:01)
[2022-08-29] MEDS: NAPROXEN 250 MG TAB PO SCH ×2 (07:57→20:02)
--- NOTE | 2022-08-29 15:46 | Hospitalist Progress Note ---
Date of Service August 29, 2022 Assessment & Plan (1) Acute pain of left hip: Plan: Hip XR negative for acute fracture. Will await orthopedic consultation regarding further imaging with CT scan or MRI. There is focal tenderness at the superior aspect of the old left hip arthroplasty incision but no erythema or drainage. He denies left leg pain or weakness. Continue pain control measures and parenteral steroids. Await orthopedic evaluation. (2) Ambulatory dysfunction: Plan: Secondary to pain. PT/OT. (3) BPH (benign prostatic hyperplasia): Plan: Continue finasteride 5mg PO daily (4) Hypertension: Plan: Continue lisinopril 40mg PO daily (5) High cholesterol: Plan: Continue statin therapy (6) Morbid obesity: Plan: BMI greater than 40. Weight loss recommended Plan VTE Prophylaxis -Lovenox subcu Diet - heart healthy Disposition -to be determined Admission and Anticipated Discharge Date Admission Date: August 28, 2022 Subjective Alert and oriented. He complains of pain at the superior aspect of the left hip arthroplasty incision. This was not recent. He states that swelling in this area has diminished. Routine x-ray on admission was unremarkable. Will await orthopedic consultation. Continue intravenous steroids for now and intravenous morphine as needed for pain control. Review of Systems Review of Systems: Constitutional-no fever or chills ENT-no blurred vision, no double vision, no epistaxis, no sore throat Respiratory-no cough, no wheezing, no shortness of breath Cardiac-no palpitations, no chest pain, no syncope GI-no nausea, vomiting, diarrhea, melena, hematochezia -no urinary retention, no urinary incontinence, no dysuria, no hematuria Musculoskeletal-left hip pain as described above. Nonradiating. No left lower extremity weakness Skin-no bruising, no rashes, no pruritus Neuro-no isolated weakness, no paresthesia Psych-no depression, no anxiety Physical Exam Physical Exam: General-alert and oriented x3, no fevers, no chills. Morbidly obese HEENT-head atraumatic and normocephalic, pupils equal and reactive to light, extraocular muscles intact Neck-no lymphadenopathy or thyromegaly, trachea midline Chest-clear to auscultation percussion. No rales wheezing or rhonchi Cardiac-regular rate and rhythm, normal S1 and S2 Abdomen-normal bowel sounds, nontender, no hepatosplenomegaly Extremities-no cyanosis, clubbing, or edema. Left hip arthroplasty incision is well-healed without drainage. Tenderness to palpation at the superior aspect but no overt cellulitis. Neuro-cranial nerves II through XII intact, motor and sensory function within normal limits, strength symmetrical , no focal deficits Psych-normal affect, normal mood Results & Data Results & Data ([facility]) Vital Signs (Past 12 Hours) Vital Signs Temp Pulse Resp BP Pulse Ox O2 Del Method 08/29/22 14:58 36.7 C 96 H 18 124/74 96 Room Air 08/29/22 07:50 36.7 C 93 H 16 150/76 H 96 Room Air 08/29/22 07:29 Room Air Laboratory Results 08/28/22 12:20 08/28/22 14:31 PG Care Time/CCT Total # of Minutes Spent Total Time Spent with Patient: Total time spent is greater than 50% in coordination of care (as documented) at patient's floor/unit and/or counseling patient: Coding Level of Care Code 77984 SUB INP/OBS CARE 3/50MIN Diagnoses Acute pain of left hip M25.552 Ambulatory dysfunction R26.2 BPH (benign prostatic hyperplasia) N40.0 Hypertension I10 High cholesterol E78.00 Morbid obesity E66.01
--- NOTE | 2022-08-29 16:43 | Orthopedic Consultation ---
Date of Service August 29, 2022 Assessment & Plan (1) Acute pain of left hip: -Etiology unclear: possibilities include lumbar radiculopathy vs hip bursitis vs ? gluteal tendon injury -Agree with current pain regimen. Continue acetaminophen, IV steroids, NSAIDs, prn narcotics. Can consider IV toradol in place of naproxen for better control. -Continue mobilization. WBAT to LLE. PT/OT. -Can consider attempting lumbar spine MRI once again, unsuccessful last night. Hip MRI would be of limited utility d/t artifact from his hip replacement. Discussed w/ Dr. Block, he will see pt tomorrow morning. History of Present Illness Reason for Consultation: L hip pain . Requesting Physician: Hany Larios MD . Attending Physician: Hany Larios MD Pt is a 62 y/o/m with PMHx of morbid obesity, HTN, DLD, and previous L hip replacement (Dr. Block) who was admitted yesterday d/t severe L hip pain. He has been experiencing about a week of worsening L hip pain. Pain has been mostly posterolateral but has been anterolateral as well. He has chronic low back pain but has not has worsening back pain over the same time frame. He was getting out of the shower two days ago when he felt an acute onset of severely worsening left hip pain. He came to the ED where XRs were obtained of his left hip that were negative for acute bony injury or disruption of the hardware of his hip replacement. He was admitted for pain control and further work up of his symptoms. We are consulted regarding management of his hip pain. On bedside examination he is in obvious pain, sitting on side of the bed. He notes that he cannot lay flat d/t his pain. He denies numbness/tingling in his L hip or LLE, subjective weakness, or incontinence. Pain is mostly focal to the superior part of his incision and does not radiate distally. He denies recent fevers or constitutional symptoms. Allergies Allergy/AdvReac Type Severity Reaction Status Date / Time hydromorphone Allergy Intermediate rash Verified 08/28/22 15:20 azithromycin AdvReac Intermediate N/V Verified 08/28/22 15:20 tramadol AdvReac Intermediate HALUCINATIO Verified 08/28/22 15:20 NS Home Medications Medication Instructions Recorded Confirmed Type aspirin 81 mg tablet,delayed 81 mg PO DAILY 03/16/19 08/28/22 History release (Ecotrin Low Strength) atorvastatin 80 mg tablet (Lipitor) 80 mg PO HS #90 tabs 06/05/21 08/28/22 Rx finasteride 5 mg tablet (Proscar) 5 mg PO DAILY #90 tabs 06/05/21 08/28/22 Rx lisinopril 40 mg tablet 40 mg PO DAILY #90 tabs 06/05/21 08/28/22 Rx acetaminophen 500 mg tablet 1,000 - 1,500 mg PO DIRECTED 08/28/22 08/28/22 History (Tylenol Extra Strength) PRN Pain ibuprofen 200 mg tablet 800 - 1,200 mg PO DIRECTED PRN 08/28/22 08/28/22 History Pain naproxen sodium 220 mg tablet 880 - 1,100 mg PO DIRECTED PRN 08/28/22 08/28/22 History (Aleve) Pain Past Med/Surg History Medical History High blood pressure Surgical History History of hip replacement Social History Smoking Status: Former smoker Age Started Using Tobacco: 14; Age Quit Using Tobacco: 51; Hx Alcohol Use: No Hx Substance Use: No Preferred Language: Yakut Communication Ability: Effective 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 Physical Exam General: Pleasant 62 y/o/m sitting on side of bed in obvious pain. Answers questions appropriately. AAO x 4 L hip/LLE: He has tenderness to the superior portion of his SALOME incision. Mild L sided paraspinal muscle tenderness. No tenderness distally. No focal swelling, erythema, or ecchymosis. Leg lengths are equal. Unable to lay supine d/t pain. Ambulates w/ antalgic gait. Distally N/V/I. Results & Data Results & Data Laboratory Results Reviewed - Mild leukocytosis, mildly elevated ESR/CRP, otherwise unremarkable labs to explain his symptoms . Diagnostic Findings Reviewed L hip XRs and agree there is no evidence of acute bony injury or hardware disruption . PG Care Time/CCT Total # of Minutes Spent Total Time Spent with Patient: Total time spent is greater than 50% in coordination of care (as documented) at patient's floor/unit and/or counseling patient: Coding Level of Care Code 48834 IN/OBS CONSULT LVL 3,45M Diagnoses Acute pain of left hip M25.552
[2022-08-29] MEDS: ENOXAPARIN INJ 40 MG/0.4 ML SYR SQ SCH (18:03)
[2022-08-29] MEDS: ONDANSETRON INJ 2 MG/ML 2 ML VIAL IV PRN (19:20)
[2022-08-29] MEDS: ATORVASTATIN 40 MG TAB PO SCH (20:02)
[2022-08-29] MEDS: KETOROLAC TROMETHAMINE 15 MG/ML VIAL IV PRN (22:44)
[2022-08-30] MEDS: MoRPHine SULFATE 10 MG/ML CARP/VIAL IV PRN ×4 (00:59→16:55)
[2022-08-30] MEDS: dexAMETHasone 4 MG in SYRINGE 0 ML IV SCH ×3 (04:43→20:05)
[2022-08-30] MEDS: ONDANSETRON INJ 2 MG/ML 2 ML VIAL IV PRN (04:43)
--- NOTE | 2022-08-30 08:38 | Progress Notes ---
CHIEF COMPLAINT: Left hip and leg pain. HISTORY OF PRESENT ILLNESS: A 62-year-old gentleman well known to me from previous uncemented total hip replacement done 04/21/2009. He did quite well from this surgery for the first 6 weeks and then had some problems with pain. I had seen him for a short period after that and never had any followup . He did seek care elsewhere for a while and had an extensive workup for infection, which was negati ve, as well as the metalosis workup as he had a sxwfl-xs-[id number] hip replacement. This was all negativ e. It does look like there was some concern that he may have had fibrous fixation of his femoral com ponent. On questioning him further today, he says his hip has been doing pretty well for the past 10 years. He has had some intermittent on and off thigh pain, but nothing too bad. Over the past week , he has developed buttock pain and lateral hip pain. Symptoms kind of wax and wane. He came to the Emergency Room. He was admitted and we were consulted. They tried to get an MRI of his back, but u nable due to his comfort level. He is doing quite a bit better now. He was put on some prednisone. He denies any numbness. He describes lateral hip pain and buttock pain mostly. He has got known ba ck arthritis. PHYSICAL EXAMINATION: GENERAL: Morbidly obese, middle-aged male. He is getting around quite well this morning in his room . Does not seem to be excessively uncomfortable. EXTREMITIES: Examination of the left hip reveals a large well-healed incision. I do not see any swe lling. There is no firmness. He is tender up around the upper part of his hip area a little bit, bu t not too bad. He has got relatively painless hip motion. He is neurologically intact. X-RAYS: I did review his x-rays. It shows left uncemented hip replacement. That is a vzfqe-wv-nucj l implant. He may have had some degree of fibrous fixation, but there are no signs of obvious loosen ess of his hip today. No significant soft tissue swelling detected. LABORATORY DATA: White cell count is slightly elevated, but has been chronically elevated. His sed rate just top normal at 24. CRP just slightly elevated at 0.74. ASSESSMENT: A 62-year-old gentleman now about 14 years out from uncemented total hip replacement wit h some intermittent pain in the past, admitted with left hip and buttock pain. Certainly some of thi s pain could be coming from his back or could be some from bursitis. I do not see any obvious proble ms with his hip replacement in and of itself. I do not see any change in status. 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 PLAN: At this point, I would recommend continued medical management. I think he is markedly better. Prednisone dose taper would be appropriate plus or minus Toradol. I would recommend mobilization. We are going to get some chromium and cobalt levels to see if these are elevated at all. I do not t hink he needs further workup at this point. We could consider getting a MARS-MRI of his hip, but yash t would have to be done as an outpatient as that is not available here at the hospital. See if there is any effusions, but the most likely, I would recommend just conservative management at this point. The steroids as described above, plus or minus Toradol, mobilization in discharge and further evalu ation as an outpatient. Any orthopedic questions can be directed to me at [phone]. Job ID: [id number]
[2022-08-30] MEDS: NAPROXEN 250 MG TAB PO SCH (09:11)
[2022-08-30] MEDS: PANTOprazole 40 MG TAB PO SCH (09:12)
[2022-08-30] MEDS: FINASTERIDE 5 MG TAB PO SCH (09:12)
[2022-08-30] MEDS: ACETAMINOPHEN 500 MG TAB PO SCH ×3 (09:12→20:05)
[2022-08-30] MEDS: ASPIRIN 81 MG ECTAB PO SCH (09:12)
[2022-08-30] MEDS: lisinopril 40 MG TAB PO SCH (09:12)
[2022-08-30] MEDS: KETOROLAC TROMETHAMINE 15 MG/ML VIAL IV PRN (09:13)
[2022-08-30] MEDS: KETOROLAC 30 MG/ML VIAL IV SCH ×3 (13:02→23:43)
--- NOTE | 2022-08-30 14:12 | Hospitalist Progress Note ---
Date of Service August 30, 2022 Assessment & Plan (1) Acute pain of left hip: Plan: Hip XR negative for acute fracture. Orthopedic consultation and recommendations appreciated. Naprosyn switched to intravenous Toradol. Continue intravenous steroid therapy. Further imaging not warranted per orthopedics. There is focal tenderness at the superior aspect of the old left hip arthroplasty incision but no erythema or drainage. He denies left leg pain or weakness. Continue pain control measures and parenteral steroids. (2) Ambulatory dysfunction: Plan: Secondary to pain. PT/OT. (3) BPH (benign prostatic hyperplasia): Plan: Continue finasteride 5mg PO daily (4) Hypertension: Plan: Continue lisinopril 40mg PO daily (5) High cholesterol: Plan: Continue statin therapy (6) Morbid obesity: Plan: BMI greater than 40. Weight loss recommended Plan Anticipate eventual discharge back to home. Hopefully tomorrow, August 31 Admission and Anticipated Discharge Date Admission Date: August 28, 2022 Subjective Left hip pain has improved but he still is needing parenteral narcotics. Orthopedic consultation appreciated. [place] has been switched to parenteral Toradol. Continue intravenous Decadron. Hopefully, he can go home tomorrow, August 31 Review of Systems Review of Systems: Constitutional-no fever or chills ENT-no blurred vision, no double vision, no epistaxis, no sore throat Respiratory-no cough, no wheezing, no shortness of breath Cardiac-no palpitations, no chest pain, no syncope GI-no nausea, vomiting, diarrhea, melena, hematochezia -no urinary retention, no urinary incontinence, no dysuria, no hematuria Musculoskeletal-left hip pain as described above. Nonradiating. No left lower extremity weakness Skin-no bruising, no rashes, no pruritus Neuro-no isolated weakness, no paresthesia Psych-no depression, no anxiety Physical Exam Physical Exam: General-alert and oriented x3, no fevers, no chills. Morbidly obese HEENT-head atraumatic and normocephalic, pupils equal and reactive to light, extraocular muscles intact Neck-no lymphadenopathy or thyromegaly, trachea midline Chest-clear to auscultation percussion. No rales wheezing or rhonchi Cardiac-regular rate and rhythm, normal S1 and S2 Abdomen-normal bowel sounds, nontender, no hepatosplenomegaly Extremities-no cyanosis, clubbing, or edema. Left hip arthroplasty incision is well-healed without drainage. Tenderness to palpation at the superior aspect but no overt cellulitis. Neuro-cranial nerves II through XII intact, motor and sensory function within normal limits, strength symmetrical , no focal deficits Psych-normal affect, normal mood Results & Data Results & Data ([facility]) Vital Signs (Past 12 Hours) Vital Signs Temp Pulse Pulse Resp BP BP Pulse Ox 08/30/22 11:38 109/78 08/30/22 08:00 36.9 C 85 18 148/82 H 91 08/30/22 06:50 75 20 117/75 95 O2 Del Method 08/30/22 11:38 08/30/22 08:00 Room Air 08/30/22 06:50 Room Air Laboratory Results 08/28/22 12:20 08/28/22 14:31 PG Care Time/CCT Total # of Minutes Spent Total Time Spent with Patient: Total time spent is greater than 50% in coordination of care (as documented) at patient's floor/unit and/or counseling patient: Coding Level of Care Code 63224 SUB INP/OBS CARE 3/50MIN Diagnoses Acute pain of left hip M25.552 Ambulatory dysfunction R26.2 BPH (benign prostatic hyperplasia) N40.0 Hypertension I10 High cholesterol E78.00 Morbid obesity E66.01
[2022-08-30] MEDS: ENOXAPARIN INJ 40 MG/0.4 ML SYR SQ SCH (17:00)
[2022-08-30] MEDS: DOCUSATE SODIUM 100 MG CAP PO SCH (20:04)
[2022-08-30] MEDS: ATORVASTATIN 40 MG TAB PO SCH (20:05)
[2022-08-31] MEDS: dexAMETHasone 4 MG in SYRINGE 0 ML IV SCH ×3 (04:00→21:12)
[2022-08-31] MEDS: MoRPHine SULFATE 10 MG/ML CARP/VIAL IV PRN ×4 (05:34→21:12)
[2022-08-31] MEDS: KETOROLAC 30 MG/ML VIAL IV SCH ×4 (05:35→23:53)
[2022-08-31] MEDS: ONDANSETRON INJ 2 MG/ML 2 ML VIAL IV PRN (05:35)
[2022-08-31] MEDS: FINASTERIDE 5 MG TAB PO SCH (08:45)
[2022-08-31] MEDS: ACETAMINOPHEN 500 MG TAB PO SCH ×3 (08:45→21:12)
[2022-08-31] MEDS: PANTOprazole 40 MG TAB PO SCH (08:45)
[2022-08-31] MEDS: ASPIRIN 81 MG ECTAB PO SCH (08:45)
[2022-08-31] MEDS: lisinopril 40 MG TAB PO SCH (08:46)
[2022-08-31] MEDS: DOCUSATE SODIUM 100 MG CAP PO SCH ×2 (08:49→21:13)
[2022-08-31] MEDS ORDERED: fentaNYL 25 MCG/HR TDSY TD SCH (11:30)
--- NOTE | 2022-08-31 12:16 | Hospitalist Progress Note ---
Date of Service August 31, 2022 Assessment & Plan (1) Acute pain of left hip: Plan: Hip XR negative for acute fracture. Orthopedic consultation and recommendations appreciated. Naprosyn has been switched to intravenous Toradol. Continue intravenous steroid therapy. Further imaging not warranted per orthopedics. There is focal tenderness at the superior aspect of the old left hip arthroplasty incision but no erythema or drainage. He denies left leg pain or weakness. Continue pain control measures and parenteral steroids. Will ask orthopedics to assess whether left hip injection is warranted (2) Ambulatory dysfunction: Plan: Secondary to pain. PT/OT. (3) BPH (benign prostatic hyperplasia): Plan: Continue finasteride 5mg PO daily (4) Hypertension: Plan: Continue lisinopril 40mg PO daily (5) High cholesterol: Plan: Continue statin therapy (6) Morbid obesity: Plan: BMI greater than 40. Weight loss recommended Plan Anticipate eventual discharge back to home. Admission and Anticipated Discharge Date Admission Date: August 31, 2022 Subjective Continued left hip pain. Topical fentanyl patch ordered. He will remain on parenteral Toradol and dexamethasone. Perhaps he would benefit from an injection of the left hip bursa. Orthopedics notified. Review of Systems Review of Systems: Constitutional-no fever or chills ENT-no blurred vision, no double vision, no epistaxis, no sore throat Respiratory-no cough, no wheezing, no shortness of breath Cardiac-no palpitations, no chest pain, no syncope GI-no nausea, vomiting, diarrhea, melena, hematochezia -no urinary retention, no urinary incontinence, no dysuria, no hematuria Musculoskeletal-left hip pain as described above. Nonradiating. No left lower extremity weakness Skin-no bruising, no rashes, no pruritus Neuro-no isolated weakness, no paresthesia Psych-no depression, no anxiety Physical Exam Physical Exam: General-alert and oriented x3, no fevers, no chills. Morbidly obese HEENT-head atraumatic and normocephalic, pupils equal and reactive to light, extraocular muscles intact Neck-no lymphadenopathy or thyromegaly, trachea midline Chest-clear to auscultation percussion. No rales wheezing or rhonchi Cardiac-regular rate and rhythm, normal S1 and S2 Abdomen-normal bowel sounds, nontender, no hepatosplenomegaly Extremities-no cyanosis, clubbing, or edema. Left hip arthroplasty incision is well-healed without drainage. Tenderness to palpation at the superior aspect b ut no overt cellulitis. Neuro-cranial nerves II through XII intact, motor and sensory function within normal limits, strength symmetrical , no focal deficits Psych-normal affect, normal mood Results & Data Results & Data ([facility]) Vital Signs (Past 12 Hours) Vital Signs Temp Pulse Resp BP Pulse Ox O2 Del Method 08/31/22 08:05 36.4 C L 85 16 101/61 93 Room Air Laboratory Results 08/28/22 12:20 08/28/22 14:31 PG Care Time/CCT Total # of Minutes Spent Total Time Spent with Patient: Total time spent is greater than 50% in coordination of care (as documented) at patient's floor/unit and/or counseling patient: Coding Level of Care Code 23007 SUB INP/OBS CARE 3/50MIN Diagnoses Acute pain of left hip M25.552 Ambulatory dysfunction R26.2 BPH (benign prostatic hyperplasia) N40.0 Hypertension I10 High cholesterol E78.00 Morbid obesity E66.01
[2022-08-31] MEDS: ENOXAPARIN INJ 40 MG/0.4 ML SYR SQ SCH (16:24)
[2022-08-31] MEDS: CHECK fentaNYL PATCH PLACEMENT SCH ×2 (16:25→23:53)
[2022-08-31] MEDS: ATORVASTATIN 40 MG TAB PO SCH (21:12)
[2022-09-01] MEDS: dexAMETHasone 4 MG in SYRINGE 0 ML IV SCH ×3 (05:17→20:10)
[2022-09-01] MEDS: KETOROLAC 30 MG/ML VIAL IV SCH ×3 (05:17→18:38)
[2022-09-01] MEDS: ASPIRIN 81 MG ECTAB PO SCH (08:24)
[2022-09-01] MEDS: ACETAMINOPHEN 500 MG TAB PO SCH ×3 (08:24→20:10)
[2022-09-01] MEDS: PANTOprazole 40 MG TAB PO SCH (08:24)
[2022-09-01] MEDS: FINASTERIDE 5 MG TAB PO SCH (08:24)
[2022-09-01] MEDS: lisinopril 40 MG TAB PO SCH (08:25)
[2022-09-01] MEDS: CHECK fentaNYL PATCH PLACEMENT SCH ×2 (08:26→16:48)
[2022-09-01] MEDS: MoRPHine SULFATE 10 MG/ML CARP/VIAL IV PRN ×2 (09:15→16:54)
--- NOTE | 2022-09-01 09:44 | Progress Notes ---
SUBJECTIVE: A 62-year-old gentleman admitted with left hip, buttock and leg pain of 1-week duration. The workup has been really negative today. They tried to get an MRI, but could not due to his disc omfort. He seems to be much more comfortable. Still having some intermittent pain. He says his swe lling is improved, although it is difficult to evaluate based on his size. He continues to have most ly buttock pain, some occasional thigh pain. PHYSICAL EXAMINATION: GENERAL: Obese, middle-aged male. He is sitting up on his bedside chair and looks quite comfortable . EXTREMITIES: Examination of the left hip and leg reveals no significant swelling. Very large soft t issue envelope. Incision is well healed without signs of problems. He is tender to palpation anywhe re around the left side of his hip. He is neurologically intact. ASSESSMENT: A 62-year-old gentleman with a history of left hip replacement many years ago with left hip and buttock pain. This most likely consistent with some lumbar spondylosis/sciatica and maybe a little bit of bursitis. His hip replacement looks okay. It does look like he may have some fibrous ingrowth, but no signs of acute problems. Sed rate and C-reactive protein were minimally elevated, w hich makes infection extremely unlikely. He does have a iabqt-vk-nolik hip and he could be having so me metalosis. We did draw some metal ion levels and those are pending. This can be followed up as a n outpatient. PLAN: From the orthopedic standpoint, he really looks pretty comfortable and I think he can be disch arged. He is welcomed to follow up in our clinic if he wants. We have not seen him in many years, s o I am not sure where he is getting his orthopedic followup, but that is up to him. Any orthopedic q uestions can be directed to me at [phone]. Job ID: [id number]
[2022-09-01] MEDS ORDERED: fentaNYL 50 MCG/HR TDSY TD SCH (11:30)
--- NOTE | 2022-09-01 12:05 | Hospitalist Progress Note ---
Date of Service September 01, 2022 Assessment & Plan (1) Acute pain of left hip: Plan: Hip XR negative for acute fracture. Orthopedic consultation and recommendations appreciated. Naprosyn has been switched to intravenous Toradol. Continue intravenous steroid therapy. Further imaging not warranted per orthopedics. There is focal tenderness at the superior aspect of the old left hip arthroplasty incision but no erythema or drainage. He denies left leg pain or weakness. Continue pain control measures and parenteral steroids and fentanyl patch. Oxy IR as needed at discharge. He is receiving morphine intravenously as needed while hospitalized. No hip injection indicated per orthopedics. (2) Ambulatory dysfunction: Plan: Secondary to pain. PT/OT. (3) BPH (benign prostatic hyperplasia): Plan: Continue finasteride 5mg PO daily (4) Hypertension: Plan: Continue lisinopril 40mg PO daily (5) High cholesterol: Plan: Continue statin therapy (6) Morbid obesity: Plan: BMI greater than 40. Weight loss recommended Plan Anticipate eventual discharge back to home. Hopefully tomorrow, September 02, on fentanyl patch, prednisone tapering dose, and Oxy IR as needed Admission and Anticipated Discharge Date Admission Date: August 31, 2022 Subjective Alert and oriented. He seems more comfortable with the fentanyl patch. Pain medications are causing some PLANNING LEAD impairment at times which is not unexpected. Orthopedic entry noted. They will sign off for now. He remains on parenteral steroid therapy. Hopefully he can go home tomorrow, September 02, on a fentanyl patch, prednisone tapering dose, and Oxy IR as needed Review of Systems Review of Systems: Constitutional-no fever or chills ENT-no blurred vision, no double vision, no epistaxis, no sore throat Respiratory-no cough, no wheezing, no shortness of breath Cardiac-no palpitations, no chest pain, no syncope GI-no nausea, vomiting, diarrhea, melena, hematochezia -no urinary retention, no urinary incontinence, no dysuria, no hematuria Musculoskeletal-left hip pain as described above. Nonradiating. No left lower extremity weakness Skin-no bruising, no rashes, no pruritus Neuro-no isolated weakness, no paresthesia Psych-no depression, no anxiety Physical Exam Physical Exam: General-alert and oriented x3, no fevers, no chills. Morbidly obese HEENT-head atraumatic and normocephalic, pupils equal and reactive to light, extraocular muscles intact Neck-no lymphadenopathy or thyromegaly, trachea midline Chest-clear to auscultation percussion. No rales wheezing or rhonchi Cardiac-regular rate and rhythm, normal S1 and S2 Abdomen-normal bowel sounds, nontender, no hepatosplenomegaly Extremities-no cyanosis, clubbing, or edema. Left hip arthroplasty incision is well-healed without drainage. Tenderness to palpation at the superior aspect but no overt cellulitis. Neuro-cranial nerves II through XII intact, motor and sensory function within normal limits, strength symmetrical , no focal deficits Psych-normal affect, normal mood Results & Data Results & Data ([facility]) Vital Signs (Past 12 Hours) Vital Signs Temp Pulse Resp BP Pulse Ox O2 Del Method 09/01/22 07:57 36.4 C L 92 H 18 130/76 95 Room Air Laboratory Results 08/28/22 12:20 08/28/22 14:31 PG Care Time/CCT Total # of Minutes Spent Total Time Spent with Patient: Total time spent is greater than 50% in coordination of care (as documented) at patient's floor/unit and/or counseling patient: Coding Level of Care Code 23954 SUB INP/OBS CARE 3/50MIN Diagnoses Acute pain of left hip M25.552 Ambulatory dysfunction R26.2 BPH (benign prostatic hyperplasia) N40.0 Hypertension I10 High cholesterol E78.00 Morbid obesity E66.01
[2022-09-01] MEDS: DOCUSATE SODIUM 100 MG CAP PO SCH ×2 (14:06→20:09)
[2022-09-01] MEDS: ENOXAPARIN INJ 40 MG/0.4 ML SYR SQ SCH (16:47)
[2022-09-01] MEDS: ATORVASTATIN 40 MG TAB PO SCH (20:10)
[2022-09-02] MEDS: CHECK fentaNYL PATCH PLACEMENT SCH ×3 (00:02→16:17)
[2022-09-02] MEDS: KETOROLAC 30 MG/ML VIAL IV SCH ×4 (00:03→18:27)
[2022-09-02] MEDS: MoRPHine SULFATE 10 MG/ML CARP/VIAL IV PRN (04:43)
[2022-09-02] MEDS: dexAMETHasone 4 MG in SYRINGE 0 ML IV SCH ×3 (04:43→20:15)
[2022-09-02] MEDS: ONDANSETRON INJ 2 MG/ML 2 ML VIAL IV PRN (05:26)
[2022-09-02] MEDS: DOCUSATE SODIUM 100 MG CAP PO SCH ×2 (08:42→20:15)
[2022-09-02] MEDS: FINASTERIDE 5 MG TAB PO SCH (08:42)
[2022-09-02] MEDS: ACETAMINOPHEN 500 MG TAB PO SCH ×3 (08:42→20:15)
[2022-09-02] MEDS: ASPIRIN 81 MG ECTAB PO SCH (08:42)
[2022-09-02] MEDS: lisinopril 40 MG TAB PO SCH (08:43)
[2022-09-02] MEDS: PANTOprazole 40 MG TAB PO SCH (08:43)
--- NOTE | 2022-09-02 13:54 | Discharge Summary ---
Date of Service September 02, 2022 Admission HPI Per Admitting Provider Chidi Melara is a 62 year old male who presents to the ER with left hip pain. He reports left hip pain on the anterolateral thigh started Friday or Friday last week. Initially mild and just felt sore but became progressively worse the following days but was bearable. Pain more in the lateral and back of his hip now. Better on leaning forward and to the left side. Pressure on his lateral hip helped with pain. No acute back pain but has chronic back pain which he puts down to arthritis. Today while coming out of the shower he suddenly felt excruciating pain in the same area and was unable to walk. Severity 20/10. His called EMS and he required x2 150 mcg IV Fentanyl on route. Discharge Data Allergies Allergy/AdvReac Type Severity Reaction Status Date / Time hydromorphone Allergy Intermediate rash Verified 08/28/22 15:20 prednisone Allergy Unknown Unknown Verified 08/29/22 22:25 azithromycin AdvReac Intermediate N/V Verified 08/28/22 15:20 tramadol AdvReac Intermediate HALUCINATIO Verified 08/28/22 15:20 NS Consultations 08/29/22 00:27 Consult Orthopedic Surgery Routine Hospital Course (1) Acute pain of left hip: (Possible/Suspected) lumbar spondylosis with radiculopathy, left hip bursitis and/or metallosis Hip XR negative for acute fracture. Orthopedic consultation and recommendations appreciated. Naprosyn has been switched to intravenous Toradol. Continue intravenous steroid therapy. Further imaging not warranted per orthopedics. There is focal tenderness at the superior aspect of the old left hip arthroplasty incision but no erythema or drainage. He denies left leg pain or weakness. Continue pain control measures and parenteral steroids and fentanyl patch. Oxy IR as needed at discharge. He is receiving morphine intravenously as needed while hospitalized. No hip injection indicated per orthopedics. (2) Ambulatory dysfunction: Secondary to pain. PT/OT. (3) BPH (benign prostatic hyperplasia): Continue finasteride 5mg PO daily (4) Hypertension: Continue lisinopril 40mg PO daily (5) High cholesterol: Continue statin therapy (6) Morbid obesity: BMI greater than 40. Weight loss recommended Plan Anticipate eventual discharge back to home. Hopefully tomorrow, September 02, on fentanyl patch, prednisone tapering dose, and Oxy IR as needed Discharge Plan Discharge Items Reason For Visit: L HIP PAIN Follow-up/Referrals: Joe Alvarez MD [Primary Care Provider] - Medications and DC Order Prescriptions: No Action atorvastatin [Lipitor] 80 mg tablet 80 mg PO HS Qty: 90 3RF finasteride [Proscar] 5 mg tablet 5 mg PO DAILY Qty: 90 3RF lisinopril 40 mg tablet 40 mg PO DAILY Qty: 90 3RF aspirin [Ecotrin Low Strength] 81 mg tablet,delayed release (DR/EC) 81 mg PO DAILY acetaminophen [Tylenol Extra Strength] 500 mg Tablet 1,000 - 1,500 mg PO DIRECTED PRN (Reason: Pain) naproxen sodium [Aleve] 220 mg Tablet 880 - 1,100 mg PO DIRECTED PRN (Reason: Pain) ibuprofen 200 mg Tablet 800 - 1,200 mg PO DIRECTED PRN (Reason: Pain) Admission Data Admit Date/Time: 08/31/22 11:24 Attending Provider: Thony Rodriguez Admit Provider: Ezra Knutson Primary Care Provider: Joe Alvarez Other Providers: Azam Jessica Coding Diagnoses Acute pain of left hip M25.552 Ambulatory dysfunction R26.2 BPH (benign prostatic hyperplasia) N40.0 Hypertension I10 High cholesterol E78.00 Morbid obesity E66.01
[2022-09-02] MEDS: oxyCODONE HCL IR 5 MG TAB (IMMEDIATE RELEASE) PO PRN (14:00)
--- NOTE | 2022-09-02 15:32 | Hospitalist Progress Note ---
Date of Service September 02, 2022 Assessment & Plan (1) Acute pain of left hip: Plan: (Possible/Suspected) lumbar spondylosis with radiculopathy, left hip bursitis and/or metallosis Hip XR negative for acute fracture. Orthopedic consultation and recommendations appreciated. Naprosyn has been switched to intravenous Toradol. Continue intravenous steroid therapy. Further imaging not warranted per orthopedics. There is focal tenderness at the superior aspect of the old left hip arthroplasty incision but no erythema or drainage. He denies left leg pain or weakness. Continue pain control measures and parenteral steroids and fentanyl patch. Oxy IR as needed at discharge. He is receiving morphine intravenously as needed while hospitalized. No hip injection indicated per orthopedics. Patient reports he continues to have uncontrolled pain despite pathce of fentanyl and IV morphine. Patient is also on dexamethasone IV Q8h, oxycodone will consult pain management for assistance. Unsure if there is a quick fix for his pain as this is likley a chronic issue though he states, this worseneing of his pain, occurred bout 2 weeks ago (2) Ambulatory dysfunction: Plan: Secondary to pain. PT/OT. (3) BPH (benign prostatic hyperplasia): Plan: Continue finasteride 5mg PO daily (4) Hypertension: Plan: Continue lisinopril 40mg PO daily (5) High cholesterol: Plan: Continue statin therapy (6) Morbid obesity: Plan: BMI greater than 40. Weight loss recommended Admission and Anticipated Discharge Date Admission Date: August 31, 2022 Subjective Patient reports significant pain on his left side of his laral thigh and lower back. Review of Systems Review of Systems: All systems reviewed & are unremarkable except as noted in HPI & below Physical Exam Constitutional: well developed and + morbidly obese; no acute distress Eyes: + anicteric sclerae; normal pupil size Respiratory: normal respiratory effort, lungs clear to auscultation Cardiovascular: RRR, no murmur, no edema Gastrointestinal (Abdomen): normal bowel sounds, soft, nontender, no hepatosplenomegaly Musculoskeletal: Spine: no lumbar spinal tenderness and no paraspinal tenderness Skin: no rashes, warm and dry Neurologic: moves all extremities and awake; not confused Psychiatric: A+Ox3, euthymic affect Results & Data Results & Data ([facility]) Vital Signs (Past 12 Hours) Vital Signs Temp Pulse Resp BP Pulse Ox O2 Del Method 09/02/22 07:31 Room Air 09/02/22 07:38 36.5 C 84 16 140/77 96 Room Air PG Care Time/CCT Total # of Minutes Spent Total Time Spent with Patient: Total time spent is greater than 50% in coordination of care (as documented) at patient's floor/unit and/or counseling patient: Coding Level of Care Code 16809 SUB INP/OBS CARE 3/50MIN Diagnoses Acute pain of left hip M25.552 Ambulatory dysfunction R26.2 BPH (benign prostatic hyperplasia) N40.0 Hypertension I10 High cholesterol E78.00 Morbid obesity E66.01
[2022-09-02] MEDS: ENOXAPARIN INJ 40 MG/0.4 ML SYR SQ SCH (16:16)
[2022-09-02] MEDS: ATORVASTATIN 40 MG TAB PO SCH (20:14)
[2022-09-03] MEDS: KETOROLAC 30 MG/ML VIAL IV SCH ×4 (00:27→18:23)
[2022-09-03] MEDS: CHECK fentaNYL PATCH PLACEMENT SCH ×3 (00:28→15:36)
[2022-09-03] MEDS: oxyCODONE HCL IR 5 MG TAB (IMMEDIATE RELEASE) PO PRN ×3 (00:34→18:22)
[2022-09-03] MEDS: MoRPHine SULFATE 10 MG/ML CARP/VIAL IV PRN ×2 (05:39→21:45)
[2022-09-03] MEDS: ONDANSETRON INJ 2 MG/ML 2 ML VIAL IV PRN ×2 (05:40→21:49)
--- NOTE | 2022-09-03 08:08 | Ultrasound Report ---
US arterial duplex LE BI CLINICAL HISTORY: toes discolored, weak pulses COMPARISON STUDY: None. FINDINGS: Normal bilateral ankle brachial indices measuring 1.1. Normal biphasic to triphasic wavefor ms and velocities seen throughout the bilateral lower extremity arterial systems. No significant sten osis or occlusion identified. IMPRESSION: No significant stenosis or occlusion within the bilateral lower extremity arterial syste ms. ACT 112: Negative or not required by law. Electronically signed by: Joey Singh M.D. 09/03/2022 8:06 AM
[2022-09-03] MEDS: DOCUSATE SODIUM 100 MG CAP PO SCH ×3 (08:18→21:38)
[2022-09-03] MEDS: ACETAMINOPHEN 500 MG TAB PO SCH ×3 (08:19→21:34)
[2022-09-03] MEDS: ASPIRIN 81 MG ECTAB PO SCH (08:20)
[2022-09-03] MEDS: FINASTERIDE 5 MG TAB PO SCH (08:20)
[2022-09-03] MEDS: dexAMETHasone 4 MG in SYRINGE 0 ML IV SCH (08:21)
[2022-09-03] MEDS: PANTOprazole 40 MG TAB PO SCH (08:21)
[2022-09-03] MEDS: lisinopril 40 MG TAB PO SCH (08:21)
--- NOTE | 2022-09-03 08:48 | Pain Management Consultation ---
Date of Consultation September 03, 2022 Assessment & Plan (1) Acute pain of left hip: (2) Sacroiliac joint pain: (3) Lumbar radicular pain: Plan 1. Patient with acute low back/lateral hip/thigh region pain with suspected etiology of lumbar radiculopathy versus SI joint. Will discuss case further with hospitalist team regarding his ability to pursue lumbar MRI under sedation with consideration of SI joint injection in the outpatient setting for diagnostic/therapeutic purposes--Case discussed with Dr. Rodriguez. 2. Would not recommend ongoing use of fentanyl patch due to the patient's presentation of acute pain. Would recommend diminishing dose to 25 mcg x 2-3 days then discontinue. Continue with as needed opiates for breakthrough pain. Consider transitioning to hydrocodone versus Percocet for discharge planning. 3. Agree with continued steroid therapy and prednisone taper upon discharge Thank you for allowing us to partcipate in the care of Mr. Melara History of Present Illness Reason for Consultation: Intractable left low back and hip/thigh pain Requesting Physician: Thony Rodriguez MD Attending Physician: Thony Rodriguez History of Present Illness Mr. Melara is a 62-year-old morbidly obese white male who was admitted on 08/28/2022 due to intractable left gluteal, hip and thigh region pain without known injury. The patient reports some chronic lumbosacral back pain which is predominantly left-sided and minimal residual hip region pain since time of SALOME 15 years ago. The patient reported acute onset of pain in the left lumb osacral/gluteal, lateral hip and thigh without known injury greater than 1 week ago. Patient was describing the pain as sharp, severe and shooting in characteristic aggravated with positional change and walking. He was unable to ambulate due to the discomfort which led to emergent evaluation and h ospitalization. X-ray of the hip is failed to reveal any acute abnormality of the hip replacement. Patient reports that his pain has reduced in severity upon this admission. Patient was not utilizing any opiates upon admission and is currently on fentanyl 50 mcg, Oxy IR and IV morphine. Lumbar MRI was attempted but he was unable to complete due to his inability to lie flat due to increased pain. He has had a few falls during this hospital admission as he somewhat feels unstable on his feet. Patient reported some swelling and hardness over the lateral hip at the time of onset which has resolved. He denies any fevers, chills or night sweats. Patient rates his current pain a 4/10 at its best with sitting escalating to a 7-8/10 with movement. A majority of his residual pain is in the left lumbosacral region rarely traveling proximal to the superior anterior knee. He denies radicular pattern pain below the level of the knee. He denies bowel or bladder incontinence or saddle anesthesia. He denies pain in the right side. Plan of care discussed with Dr. Larsen. Pain Assessment Full Body Front + Back: 1. Left lumbosacral/gluteal pain 2. Left lateral hip and anterior thigh pain Pain scale - at its best (0-10): 4 Pain scale - at its worst (0-10): 8 Allergies Allergy/AdvReac Type Severity Reaction Status Date / Time hydromorphone Allergy Intermediate rash Verified 08/28/22 15:20 prednisone Allergy Unknown Unknown Verified 08/29/22 22:25 azithromycin AdvReac Intermediate N/V Verified 08/28/22 15:20 tramadol AdvReac Intermediate HALUCINATIO Verified 08/28/22 15:20 NS Home Medications Medication Instructions Recorded Confirmed Type aspirin 81 mg tablet,delayed 81 mg PO DAILY 03/16/19 08/28/22 History release (Ecotrin Low Strength) acetaminophen 500 mg tablet 1,000 - 1,500 mg PO DIRECTED 08/28/22 08/28/22 History (Tylenol Extra Strength) PRN Pain ibuprofen 200 mg tablet 800 - 1,200 mg PO DIRECTED PRN 08/28/22 08/28/22 History Pain naproxen sodium 220 mg tablet 880 - 1,100 mg PO DIRECTED PRN 08/28/22 08/28/22 History (Aleve) Pain acetaminophen 325 mg tablet 650 mg PO Q6H 2 weeks #112 tabs 09/02/22 Rx (Tylenol) atorvastatin 80 mg tablet (Lipitor) 80 mg PO HS #90 tabs 09/02/22 Rx fentanyl 50 mcg/hr transdermal 50 mcg transdermal Q3D@0900 #4 ea 09/02/22 Rx patch finasteride 5 mg tablet (Proscar) 5 mg PO DAILY #90 tabs 09/02/22 Rx lisinopril 40 mg tablet 40 mg PO DAILY #90 tabs 09/02/22 Rx naloxone 4 mg/actuation nasal 1 spray intranasal Q3M PRN opioid 09/02/22 Rx spray (Narcan) overdose #2 ea naproxen 500 mg tablet (Naprosyn) 500 mg PO BID #30 tabs 09/02/22 Rx oxycodone 5 mg tablet 5 mg PO Q6H PRN breakthrough pain, 09/02/22 Rx >moderate 5 out of 10 intensity #20 tabs pantoprazole 40 mg tablet,delayed 40 mg PO DAILY #30 tabs 09/02/22 Rx release Pain History Pain Intensity Pain scale - at its best (0-10): 4 Pain scale - at its worst (0-10): 8 Patient History Medical History (Updated 09/03/22 @ 08:45 by Geo Zaldivar PA-C) High blood pressure Lumbar radicular pain Sacroiliac joint pain Surgical History History of hip replacement Social History Smoking Status: Former smoker Age Started Using Tobacco: 14; Age Quit Using Tobacco: 51; Hx Alcohol Use: No Hx Substance Use: No Preferred Language: Estonian Communication Ability: Effective [employer] Required: No Beliefs That Will Affect Care: None Current Living Situation: Spouse Feels Safe at Home: Yes Assistive Devices: Walker and Wheelchair Physical Exam Physical Exam: General: Patient sitting quietly in exam room in no acute distress. Speech and thought process appropriate. Mood and affect appropriate. Cognition intact. Patient morbidly obese and physically deconditioned. Head: Normocephalic and atraumatic. ENT: No evidence of nasal or oral mucosal lesions. Mucous membranes are moist. Eyes: Pupils equal round reactive to light. Neck: Supple without adenopathy and full range of motion. Abdomen: Soft and nondistended. No organomegaly. Bowel sounds active. Back/spine: Loss of lumbar lordosis. Patient able to stand for visual inspection. No erythema or skin breakdown. Patient is nontender over the midline. No focal facet joint tenderness provocative testing. Patient is tender to provocative testing over the left SI joint and nontender corresponding on the right. Nontender throughout the gluteal musculature. Extension is 0 degrees. Facet loadbearing test negative bilaterally. Lower extremities: SLR negative bilaterally. Strength testing 4/5 with left hip flexion with slight increase in gluteal/hip region pain. All other strength is 5/5 and equal bilaterally. Hip nontender with internal/external rotation. He has a well-healed surgical incision in the lateral hip without evidence of edema, erythema or skin breakdown. Nontender to palpation of the lateral hip, greater trochanteric region or thigh. Sensation was intact without focal defi cit. Trace ankle edema bilaterally. Hip is nontender with internal/external rotation. Unable to perform OLIVA maneuver or thigh thrust testing due to body habitus and history of left SALOME. Neurologic: Cranial nerves grossly intact. Ambulatory function slowed, antalgic and slightly guarded.
[2022-09-03] MEDS ORDERED: fentaNYL 25 MCG/HR TDSY TD SCH (09:00)
[2022-09-03] MEDS: ENOXAPARIN INJ 40 MG/0.4 ML SYR SQ SCH (15:32)
[2022-09-03 20:26] LABS: Cobalt, Blood 0.6 mcg/L (<=1.8)
[2022-09-03] MEDS: ATORVASTATIN 40 MG TAB PO SCH (21:34)
--- NOTE | 2022-09-03 22:33 | Hospitalist Progress Note ---
Date of Service September 03, 2022 Assessment & Plan (1) Acute pain of left hip: Plan: (Possible/Suspected) lumbar spondylosis with radiculopathy, left hip bursitis and/or metallosis Hip XR negative for acute fracture. Orthopedic consultation and recommendations appreciated. Naprosyn has been switched to intravenous Toradol. Continue intravenous steroid therapy. Further imaging not warranted per orthopedics. There is focal tenderness at the superior aspect of the old left hip arthroplasty incision but no erythema or drainage. He denies left leg pain or weakness. Continue pain control measures and parenteral steroids and fentanyl patch. Oxy IR as needed at discharge. He is receiving morphine intravenously as needed while hospitalized. No hip injection indicated per orthopedics. Patient reports he continues to have uncontrolled pain despite pathce of fentanyl and IV morphine. Patient is also on dexamethasone IV Q8h, oxycodone will consult pain management for assistance. Appears this may be apiriformis issue, reach out to a colleague who can do OMT, this will be done tomorrow on 09/04 Pain management recommended getting an MR of lumbar spine, will hold off until soft tissue manipulation is provided. Willl taper his fentanyl given that patient is opiate naive. (2) Ambulatory dysfunction: Plan: Secondary to pain. PT/OT. (3) BPH (benign prostatic hyperplasia): Plan: Continue finasteride 5mg PO daily (4) Hypertension: Plan: Continue lisinopril 40mg PO daily (5) High cholesterol: Plan: Continue statin therapy (6) Morbid obesity: Plan: BMI greater than 40. Weight loss recommended Admission and Anticipated Discharge Date Admission Date: August 31, 2022 Subjective Patient reports his pain continues to be a problem. He is tolerating tapering of his pain medicine. Review of Systems Review of Systems: All systems reviewed & are unremarkable except as noted in HPI & below Physical Exam Constitutional: well developed and + morbidly obese; no acute distress Eyes: + anicteric sclerae; normal pupil size Respiratory: normal respiratory effort, lungs clear to auscultation Cardiovascular: RRR, no murmur, no edema Gastrointestinal (Abdomen): normal bowel sounds, soft, nontender, no hepatosplenomegaly Musculoskeletal: Spine: no lumbar spinal tenderness and no paraspinal tenderness tenderness to his left piriformis Skin: no rashes, warm and dry Neurologic: moves all extremities and awake; not confused Psychiatric: A+Ox3, euthymic affect Results & Data Results & Data ([facility]) Vital Signs (Past 12 Hours) Vital Signs Temp Pulse Resp BP BP Pulse Ox O2 Del Method 09/03/22 21:33 36.4 C L 78 20 105/73 96 Room Air 09/03/22 15:12 36.7 C 83 16 113/77 96 Room Air PG Care Time/CCT Total # of Minutes Spent Total Time Spent with Patient: Total time spent is greater than 50% in coordination of care (as documented) at patient's floor/unit and/or counseling patient: Coding Level of Care Code 51725 SUB INP/OBS CARE 2/35MIN Diagnoses Acute pain of left hip M25.552 Ambulatory dysfunction R26.2 BPH (benign prostatic hyperplasia) N40.0 Hypertension I10 High cholesterol E78.00 Morbid obesity E66.01
[2022-09-04] MEDS: CHECK fentaNYL PATCH PLACEMENT SCH ×3 (00:01→15:44)
[2022-09-04] MEDS: KETOROLAC 30 MG/ML VIAL IV SCH ×2 (00:34→06:44)
[2022-09-04] MEDS: oxyCODONE HCL IR 5 MG TAB (IMMEDIATE RELEASE) PO PRN ×4 (00:39→19:43)
[2022-09-04] MEDS: ACETAMINOPHEN 500 MG TAB PO SCH ×3 (09:08→21:03)
[2022-09-04] MEDS: lisinopril 40 MG TAB PO SCH (09:08)
[2022-09-04] MEDS: FINASTERIDE 5 MG TAB PO SCH (09:08)
[2022-09-04] MEDS: ASPIRIN 81 MG ECTAB PO SCH (09:08)
[2022-09-04] MEDS: DOCUSATE SODIUM 100 MG CAP PO SCH ×2 (09:08→21:03)
[2022-09-04] MEDS: dexAMETHasone 4 MG in SYRINGE 0 ML IV SCH (09:09)
[2022-09-04] MEDS: PANTOprazole 40 MG TAB PO SCH (09:09)
[2022-09-04] MEDS: ENOXAPARIN INJ 40 MG/0.4 ML SYR SQ SCH (15:44)
[2022-09-04] MEDS: MoRPHine SULFATE 10 MG/ML CARP/VIAL IV PRN (15:50)
[2022-09-04] MEDS: ONDANSETRON INJ 2 MG/ML 2 ML VIAL IV PRN (15:51)
[2022-09-04] MEDS ORDERED: diazePAM 5 MG TABLET PO ONE (19:33)
--- NOTE | 2022-09-04 19:38 | Hospitalist Progress Note ---
Date of Service September 04, 2022 Assessment & Plan (1) Somatic dysfunction of pelvis region: Plan: Agree with Dr Rodriguez's assessment when we talked that the patient's pain/symptoms are likely largely biomechanically driven. Tight piriformis on the left seems to be the main problem. OMT as above. He notes a slightly short leg on the leftthis probably set him up for biomechanical strains in this patterndiscussed a heel lift. Further OMT while he is in the hospitaland Dr. Richardson at his PCPs office also does OMTso we can certainly transition this as an outpatient to continue. For now to try to help relax the muscle further4 g of magnesium IV, Valium at bedtime tonight 5 mg p.o. Voltaren gel across his piriformis region 4 times daily. Admission and Anticipated Discharge Date Admission Date: August 31, 2022 Subjective OMT consult note Discussed with Dr. Rodriguez, who requested that I see the patient for evaluation for OMT. Revisited HPI and review of systems, overall history is quite consistent with biomechanical back pain likely driven by piriformis Physical Exam Physical Exam: Osteopathic/musculoskeletal shows left pelvic musculature in the region of piriformis to be high tone, tender, decreased range of motionLAS, as well as post isometric relaxation muscle energy (which I talked to the ) with improvement in tissue texture, if not immediate alleviation of symptoms. That said, while symptoms were not alleviated, when I was applying pressure across the soft tissue, or stretching with the post isometric relaxation, he noted a definite reproduction of the pain he has been feeling. Results & Data Results & Data Vital Signs (Past 12 Hours) Vital Signs Temp Pulse Resp BP Pulse Ox O2 Del Method 09/04/22 14:50 98.2 F 80 17 136/70 92 Room Air PG Care Time/CCT Total # of Minutes Spent Total Time Spent with Patient: Total time spent is greater than 50% in coordination of care (as documented) at patient's floor/unit and/or counseling patient: Coding Level of Care Code None Diagnoses Somatic dysfunction of pelvis region M99.05 CPT Codes Musculoskeletal - Musculoskeletal: [address] 1-2 Body regions ([id number])
[2022-09-04] MEDS ORDERED: KETOROLAC TROMETHAMINE 15 MG/ML VIAL IV SCH (19:45)
[2022-09-04] MEDS: ATORVASTATIN 40 MG TAB PO SCH (21:03)
[2022-09-04] MEDS: MAGNESIUM SULFATE / D5W 1 GM/100 ML BAG IV SCH ×2 (21:03→22:44)
[2022-09-04] MEDS: DICLOFENAC SOD 1% GEL 100 GM TUBE EXT SCH (21:03)
--- NOTE | 2022-09-04 22:59 | Hospitalist Progress Note ---
Date of Service September 04, 2022 Assessment & Plan (1) Acute pain of left hip: Plan: (Possible/Suspected) lumbar spondylosis with radiculopathy, left hip bursitis and/or metallosis Hip XR negative for acute fracture. Orthopedic consultation and recommendations appreciated. Naprosyn has been switched to intravenous Toradol. Continue intravenous steroid therapy. Further imaging not warranted per orthopedics. There is focal tenderness at the superior aspect of the old left hip arthroplasty incision but no erythema or drainage. He denies left leg pain or weakness. Continue pain control measures and parenteral steroids and fentanyl patch. Oxy IR as needed at discharge. He is receiving morphine intravenously as needed while hospitalized. No hip injection indicated per orthopedics. Patient reports he continues to have uncontrolled pain despite pathce of fentanyl and IV morphine. Patient is also on dexamethasone IV Q8h, oxycodone will consult pain management for assistance. Appears this may be a piriformis issue, improved after OMT on 09/04 Pain management recommended getting an MR of lumbar spine, as patient improved with soft tissue manipulation. Will taper his fentanyl given that patient is opiate naive. will stop opiates on 09/05 (2) Ambulatory dysfunction: Plan: Secondary to pain. PT/OT. (3) BPH (benign prostatic hyperplasia): Plan: Continue finasteride 5mg PO daily (4) Hypertension: Plan: Continue lisinopril 40mg PO daily (5) High cholesterol: Plan: Continue statin therapy (6) Morbid obesity: Plan: BMI greater than 40. Weight loss recommended Admission and Anticipated Discharge Date Admission Date: August 31, 2022 Subjective Patient's symptoms improved after OMT. Review of Systems Review of Systems: All systems reviewed & are unremarkable except as noted in HPI & below Physical Exam Constitutional: well developed and + morbidly obese; no acute distress Eyes: + anicteric sclerae; normal pupil size Respiratory: normal respiratory effort, lungs clear to auscultation Cardiovascular: RRR, no murmur, no edema Gastrointestinal (Abdomen): normal bowel sounds, soft, nontender, no hepatosplenomegaly Musculoskeletal: Spine: no lumbar spinal tenderness and no paraspinal tenderness Skin: no rashes, warm and dry Neurologic: moves all extremities and awake; not confused Psychiatric: A+Ox3, euthymic affect Results & Data Results & Data Vital Signs (Past 12 Hours) Vital Signs Temp Pulse Resp BP Pulse Ox O2 Del Method 09/04/22 21:00 36.6 C 101 H 20 147/79 H 96 Room Air 09/04/22 14:50 36.8 C 80 17 136/70 92 Room Air PG Care Time/CCT Total # of Minutes Spent Total Time Spent with Patient: Total time spent is greater than 50% in coordination of care (as documented) at patient's floor/unit and/or counseling patient: Coding Level of Care Code 68897 SUB INP/OBS CARE 2/35MIN Diagnoses Acute pain of left hip M25.552 Ambulatory dysfunction R26.2 BPH (benign prostatic hyperplasia) N40.0 Hypertension I10 High cholesterol E78.00 Morbid obesity E66.01
[2022-09-05] MEDS: CHECK fentaNYL PATCH PLACEMENT SCH (00:18)
[2022-09-05] MEDS: MAGNESIUM SULFATE / D5W 1 GM/100 ML BAG IV SCH ×2 (00:18→01:59)
[2022-09-05] MEDS: oxyCODONE HCL IR 5 MG TAB (IMMEDIATE RELEASE) PO PRN ×4 (02:01→21:44)
[2022-09-05] MEDS: MoRPHine SULFATE 10 MG/ML CARP/VIAL IV PRN ×5 (03:49→20:16)
[2022-09-05] MEDS: ONDANSETRON INJ 2 MG/ML 2 ML VIAL IV PRN (03:49)
--- NOTE | 2022-09-05 08:13 | Progress Notes ---
SUBJECTIVE: A 62-year-old gentleman admitted with hip, buttock, and leg pain. He has had a pretty e xtensive evaluation, which really has not turned up much. We did check some metal ion levels and the y are normal. He seems like he is doing a little bit better each day. He describes more buttock mary carmen n this morning. Says he had some soft tissue massage, which seemed to help him. OBJECTIVE: VITAL SIGNS: Temperature is 36.6. Vital signs are stable. GENERAL: Physical examination showed an obese, middle-aged male. He is sitting up in his bedside ch air and looks pretty comfortable this morning. EXTREMITIES: Examination of the left hip and leg reveals no obvious deformity or swelling. No parti cular pain with hip motion. He describes pain in the buttock area. He is neurologically intact. LABORATORY DATA: His serum chromium and cobalt levels are normal. ASSESSMENT: A 62-year-old gentleman status post total hip replacement 12 plus years ago with left hi p and leg pain, most likely referred pain from his back. The hip replacement looks fine and I do not think he needs further workup, especially with these normal metal ion levels. PLAN: Continue medical management. Feel free to call me with any questions at [phone]. Job ID: [id number]
[2022-09-05] MEDS: DICLOFENAC SOD 1% GEL 100 GM TUBE EXT SCH ×4 (08:27→21:11)
[2022-09-05] MEDS: ASPIRIN 81 MG ECTAB PO SCH (08:34)
[2022-09-05] MEDS: DOCUSATE SODIUM 100 MG CAP PO SCH ×2 (08:34→21:11)
[2022-09-05] MEDS: PANTOprazole 40 MG TAB PO SCH (08:35)
[2022-09-05] MEDS: lisinopril 40 MG TAB PO SCH (08:36)
[2022-09-05] MEDS: FINASTERIDE 5 MG TAB PO SCH (08:37)
[2022-09-05] MEDS: dexAMETHasone 4 MG in SYRINGE 0 ML IV SCH (08:38)
[2022-09-05] MEDS: ACETAMINOPHEN 500 MG TAB PO SCH ×3 (09:22→21:11)
[2022-09-05] MEDS: ENOXAPARIN INJ 40 MG/0.4 ML SYR SQ SCH (15:38)
--- NOTE | 2022-09-05 16:27 | Hospitalist Progress Note ---
Date of Service September 05, 2022 Assessment & Plan (1) Acute pain of left hip: Plan: Acute lumbar spondylosis with radiculopathy, left hip bursitis and/or metallosis moderate risk given his morbid obesity with a BMI of 65. Falls could crating quite an injury Orthopedic consultation recommended pain management consultation Pain management consultation recommend to consider MRI but would need sedation recommend taper his fentanyl patch. Opiates for breakthrough pain steroids with taper dose Consider SI injection as an outpatient improved after OMT on 09/04 stop opiates on 09/05 (2) Ambulatory dysfunction: Plan: Acute issue moderate risk secondary to pain. PT/OT. Patient lives at home with but given his body size she had difficult time assisting him if it begins to fall (3) BPH (benign prostatic hyperplasia): Plan: Chronic stable condition continue finasteride 5mg PO daily (4) Hypertension: Plan: Chronic and stable condition continue lisinopril 40mg PO daily (5) Morbid obesity: Plan: Chronic condition high risk, BMI greater than 40. Weight loss recommended Plan Enoxaparin for DVT prevention Admission and Anticipated Discharge Date Admission Date: August 31, 2022 Subjective Patient is seen in the company of his . He had great improvement of his left hip and leg and back pain after OMT treatment by Dr. Sam. He still feels that he is limited time standing and walking due to his leg giving way Physical Exam Physical Exam: Patient is lying in bed on his right side he pointed to areas of his leg that was painful mostly over the greater trochanter of the left hip. He has no other complaints or problems Results & Data Results & Data Vital Signs (Past 12 Hours) Vital Signs Temp Pulse Resp BP Pulse Ox O2 Del Method 09/05/22 14:08 98.1 F 83 17 116/70 93 Room Air 09/05/22 11:23 97.9 F 81 18 136/91 93 Room Air 09/05/22 07:51 98.4 F 70 18 133/78 95 Room Air PG Care Time/CCT Total # of Minutes Spent Total Time Spent with Patient: Total time spent is greater than 50% in coordination of care (as documented) at patient's floor/unit and/or counseling patient: Coding Level of Care Code 78990 SUB INP/OBS CARE 2/35MIN Diagnoses Acute pain of left hip M25.552 Ambulatory dysfunction R26.2 BPH (benign prostatic hyperplasia) N40.0 Hypertension I10 Morbid obesity E66.01
--- NOTE | 2022-09-05 18:54 | Hospitalist Progress Note ---
Date of Service September 05, 2022 Assessment & Plan (1) Somatic dysfunction of pelvis region: Plan: OMT as above. Tight piriformis on the left seems to be the main problem. OMT as above. He notes a slightly short leg on the leftthis probably set him up for biomechanical strains in this patterndiscussed a heel lift. Further OMT while he is in the hospitaland Dr. Richardson at his PCPs office also does OMTso we can certainly transition this as an outpatient to continue. gave mag yesterday. valium HS. voltaren gel QID across L piriformis Admission and Anticipated Discharge Date Admission Date: August 31, 2022 Subjective Pain was doing considerably better for much of the day, then sitting in his chair in the afternoon he started to feel a lot of tightening and the pain came back. Physical Exam Physical Exam: Osteopathic/musculoskeletal shows left pelvic musculature in the region of piriformis to be high tone, tender, decreased range of motionLAS, as well as post isometric relaxation muscle energywith improvement in tissue texture as we ll as some fasciculations Results & Data Results & Data Vital Signs (Past 12 Hours) Vital Signs Temp Pulse Resp BP Pulse Ox O2 Del Method 09/05/22 14:08 98.1 F 83 17 116/70 93 Room Air 09/05/22 11:23 97.9 F 81 18 136/91 93 Room Air 09/05/22 07:51 98.4 F 70 18 133/78 95 Room Air PG Care Time/CCT Total # of Minutes Spent Total Time Spent with Patient: Total time spent is greater than 50% in coordination of care (as documented) at patient's floor/unit and/or counseling patient: Coding Level of Care Code None Diagnoses Somatic dysfunction of pelvis region M99.05 CPT Codes Musculoskeletal - Musculoskeletal: [address] Oste[address] 1-2 Body regions ([id number])
[2022-09-05] MEDS ORDERED: DICLOFENAC SOD 1% GEL 100 GM TUBE EXT SCH (21:00)
[2022-09-05] MEDS ORDERED: diazePAM 5 MG TABLET PO SCH (21:00)
[2022-09-05] MEDS: ATORVASTATIN 40 MG TAB PO SCH (21:11)
[2022-09-06] MEDS: MoRPHine SULFATE 10 MG/ML CARP/VIAL IV PRN (02:59)
[2022-09-06] MEDS: oxyCODONE HCL IR 5 MG TAB (IMMEDIATE RELEASE) PO PRN ×3 (05:05→18:45)
--- NOTE | 2022-09-06 08:02 | Hospitalist Progress Note ---
Date of Service September 06, 2022 Assessment & Plan (1) Acute pain of left hip: Plan: Chidi is a very pleasant 62-year-old gentleman with a history of class III obesity, prior left hip replacement, BPH, hypertension, hyperlipidemia, who presented to [facility] for evaluation of worsening left hip pain and ambulatory dysfunction. He has been extensively evaluated by pain management as well as orthopedics, who did not feel that there is an acute left hip issue requiring surgical intervention. Primarily suspect that his pain is multifactorial and originating from the myofascial system, with superimposed lumbar spondylosis, possible hip bursitis in the setting of his class III obesity and limited ambulatory abilities. His picture is further complicated by recurrent falls. Myofascial Dysfunction / Piriformis Syndrome with Superimposed Acute Lumbar Spondylosis and Possible L Hip Bursitis Ambulatory Dysfunction Previously seen by both orthopedics and pain management who did not recommend acute surgical intervention at this time. Metal serologies WNL. Suspect pain has a large underpinnings and myofascial dysfunction, likely piriformis syndrome in the setting of known previous left hip disease as well as low back disease, class III obesity Pain management as follows: Attempt to minimize administration of opiates s/p 3 days of dexamethasone 4 mg IVwe will begin taper and reduce down to 2 mg for additional 2 days Increase Valium 5 mg at bedtime to twice daily for basal coverage Initiate Baclofen 10mg every 8 hours scheduled Tylenol 1000 mg every 8 hours scheduled Topical Voltaren 4 times daily Consider spot dosing of magnesium 2 g OMT scheduled in the hospital while here For severe breakthrough pain, can consider administration of oxycodone 5 mg every 8 hours Appreciate continued PT and OT while here. We will need to arrange for home/outpatient PT upon discharge. Would also benefit from regularly scheduled OMT sessions Roller walker should be utilized at all times during ambulation; patient is at high-risk for falls (2) Ambulatory dysfunction: Plan: As above (3) BPH (benign prostatic hyperplasia): Plan: Continue finasteride 5mg PO daily (4) Hypertension: Plan: Continue lisinopril 40mg PO daily (5) High cholesterol: Plan: Continue statin therapy (6) Morbid obesity: Plan: BMI greater than 40 Plan Code: Full code Dispo: MedSurg Prophylaxis: Lovenox Diet: Regular Admission and Anticipated Discharge Date Admission Date: August 31, 2022 Subjective Overall, yesterday was a great day. After receiving OMT 2 days ago, he felt like he had significant pain relief in his left buttock as well as back. He states that beginning around last night, he did have a flare of his right back pain. He thinks it is because it is compensating now for improvements with his left hip. Denies any new numbness or tingling. Says that pain is "sore "right now in his left buttock, but is manageable. He is not sure if the IV magnesium, Valium are helpinghe would really like to try to stay off opiates if possible. Review of Systems Review of Systems: As per HPI Physical Exam Physical Exam: General: well appearing, NAD Cardiac: NRRR, +S1/S2 w/o m/r/g Pulm: CTAB Back: Visualization of the back does not reveal any obvious skin abnormalities. Palpation of the left lumbosacral junction area does reveal some tenderness to palpation that extends towards the origin of the piriformis muscle. There is some tenderness to palpation in the left buttock. There is some right-sided paralumbar spasm around the level of L3-L4. Lower extremity strength 5 out of 5. Able to get up and rise from chair without any difficulty. Results & Data Results & Data Vital Signs (Past 12 Hours) Vital Signs Temp Pulse Resp BP Pulse Ox O2 Del Method 09/05/22 21:34 36.7 C 78 20 150/84 H 96 Room Air Resident Activity Tracking Resident Involvement: Resident Care Provided Care Provided: Adult Hospital Medicine
[2022-09-06] MEDS ORDERED: oxyCODONE HCL IR 5 MG TAB (IMMEDIATE RELEASE) PO PRN (09:12)
[2022-09-06] MEDS: FINASTERIDE 5 MG TAB PO SCH (09:20)
[2022-09-06] MEDS: DOCUSATE SODIUM 100 MG CAP PO SCH ×2 (09:20→20:09)
[2022-09-06] MEDS: PANTOprazole 40 MG TAB PO SCH (09:21)
[2022-09-06] MEDS: ASPIRIN 81 MG ECTAB PO SCH (09:21)
[2022-09-06] MEDS: lisinopril 40 MG TAB PO SCH (09:21)
[2022-09-06] MEDS: DICLOFENAC SOD 1% GEL 100 GM TUBE EXT SCH ×4 (09:21→20:08)
[2022-09-06] MEDS: ACETAMINOPHEN 500 MG TAB PO SCH ×3 (09:23→20:08)
[2022-09-06] MEDS: dexAMETHasone 4 MG in SYRINGE 0 ML IV SCH ×2 (09:28→10:12)
[2022-09-06] MEDS: diazePAM 5 MG TABLET PO SCH ×2 (09:37→20:09)
[2022-09-06] MEDS: BACLOFEN 10 MG TAB PO SCH ×2 (13:41→20:09)
[2022-09-06] MEDS ORDERED: METHOCARBAMOL 500 MG TABLET PO SCH (14:00)
[2022-09-06] MEDS: ENOXAPARIN INJ 40 MG/0.4 ML SYR SQ SCH (16:30)
--- NOTE | 2022-09-06 19:11 | Hospitalist Progress Note ---
Date of Service September 06, 2022 Assessment & Plan Admission and Anticipated Discharge Date Admission Date: August 31, 2022 Results & Data Results & Data Vital Signs (Past 12 Hours) Vital Signs Temp Pulse Pulse Resp BP Pulse Ox O2 Del Method 09/06/22 15:33 97.9 F 77 19 106/64 96 Room Air 09/06/22 07:22 Room Air 09/06/22 09:23 135/72 09/06/22 08:05 98.1 F 70 16 136/79 98 Room Air PG Care Time/CCT Total # of Minutes Spent Total Time Spent with Patient: Total time spent is greater than 50% in coordination of care (as documented) at patient's floor/unit and/or counseling patient: Coding Level of Care Code None Diagnoses CPT Codes Musculoskeletal - Musculoskeletal: 16966 Oste[address] Dante Tr 1-2 Body regions ([id number])
--- NOTE | 2022-09-06 19:11 | Billing Data ---
Date of Service September 06, 2022 Coding Level of Care Code 01650 SUB INP/OBS CARE MIN
--- NOTE | 2022-09-06 19:11 | Communication Note ---
Date of Service: September 06, 2022 I personally examined the patient and verified all raygoza points of history and exam, discussed case, and agree with decision making with Dr Victoria Pain up and down, overall pattern towards better. Vitals noted, in general he is awake and alert pleasant no distress. Osteopathic/musculoskeletal shows left greater than right but bilateral piriformis region of pelvis high tone tender decreased range of motionLAS and post isometric relaxationimproved. Left sided low lumbar paraspinals high tone, tender, decreased range of motionligamentous articular strainimproved. Patient tolerated well. Biomechanical low back paincontinue med management as above/as per Dr. Victoria Somatic dysfunction pelvis and L-spine regionOMT as above.
[2022-09-06] MEDS: ATORVASTATIN 40 MG TAB PO SCH (20:09)
[2022-09-07] MEDS: oxyCODONE HCL IR 5 MG TAB (IMMEDIATE RELEASE) PO PRN ×3 (05:35→19:45)
--- NOTE | 2022-09-07 07:23 | Hospitalist Progress Note ---
Date of Service September 07, 2022 Assessment & Plan (1) Acute pain of left hip: Plan: Chidi is a very pleasant 62-year-old gentleman with a history of class III obesity, prior left hip replacement, BPH, hypertension, hyperlipidemia, who presented to [facility] for evaluation of worsening left hip pain and ambulatory dysfunction. He has been extensively evaluated by pain management as well as orthopedics, who did not feel that there is an acute left hip issue requiring surgical intervention. Primarily suspect that his pain is multifactorial and originating from the myofascial system, with superimposed lumbar spondylosis, possible hip bursitis in the setting of his class III obesity and limited ambulatory abilities. His picture is further complicated by recurrent falls. Myofascial Dysfunction / Piriformis Syndrome with Superimposed Acute Lumbar Spondylosis and Possible L Hip Bursitis Ambulatory Dysfunction Previously seen by both orthopedics and pain management who did not recommend acute surgical intervention at this time. Metal serologies WNL. Suspect pain has a large underpinnings and myofascial dysfunction, likely piriformis syndrome in the setting of known previous left hip disease as well as low back disease, class III obesity Pain management as follows: Attempt to minimize administration of opiates Valium 5mg qAM / decrease HS dose to 2mg given episode of functioanl incontinence Baclofen 10mg every 8 hours scheduled Tylenol 1000 mg every 8 hours scheduled Topical Voltaren 4 times daily OMT scheduled in the hospital while here For severe breakthrough pain, can consider administration of oxycodone 5 mg every 8 hours -- discussion had re: indications of using this on 09/07 - Consider trigger point injections while here if indicated Appreciate continued PT and OT while here. We will need to arrange for home/outpatient PT upon discharge. Would also benefit from regularly scheduled OMT sessions Patient at high-risk for fall. Ambulate with WC back-up and RW PRN - Will attempt to get him a bariatric bed; his current bed is likely contributing to his discomfort - Promote ambulation (2) Ambulatory dysfunction: Plan: As above (3) BPH (benign prostatic hyperplasia): Plan: Continue finasteride 5mg PO daily (4) Hypertension: Plan: Continue lisinopril 40mg PO daily (5) High cholesterol: Plan: Continue statin therapy (6) Morbid obesity: Plan: BMI greater than 40 - Class III Plan Code: Full code Dispo: MedSurg Prophylaxis: Lovenox Diet: Regular Admission and Anticipated Discharge Date Admission Date: August 31, 2022 Supervising Physician Co-Signing Physician Notes I personally examined the patient and verified all raygoza points of history and exam, discussed case, and agree with decision making with Dr Victoria Feels like he is starting to trend towards better. Extensive discussion on cardiovascular exercisewith the goal being blood flow to help with overall muscle relaxation. Also discussed weight loss both in terms of exercise, as well as diet. Discussed "the physics of weight loss" Vitals noted, in general he is awake and alert pleasant no distress. Osteopathic/musculoskeletal shows left greater than right but bilateral piriformis region of pelvis high tone tender decreased range of motionLAS and post isometric relaxationimproved. Left sided low lumbar paraspinals high tone, tender, decreased range of motionligamentous articular strainimproved. Patient tolerated well. Biomechanical low back paincontinue med management as above/as per Dr. Victoria. Showing improvement Somatic dysfunction pelvis and L-spine regionOMT as above once again Morbid obesity with BMI of 65a contributor to his chronic pain. Discussed weight loss in depth and gave practical action steps, as well as an overall strategy. Subjective Doing much better this AM. Almost no pain. Did have episode of functional incontinence last night - thinks it was d/t the Valium, was in a deep sleep and woke up when it was nearly too late. No other episodes of incontinence reported. No numbness/tingling. Really happy to have the chair at the bedside now. Review of Systems Review of Systems: as per HPI Physical Exam Physical Exam: General: well appearing, NAD Cardiac: NRRR, +S1/S2 w/o m/r/g Pulm: CTAB Back: Visualization of the back does not reveal any obvious skin abnormalities. No palpable tender areas. Lower extremity strength 5 out of 5. Able to get up and rise from chair without any difficulty. Results & Data Results & Data Vital Signs (Past 12 Hours) Vital Signs Temp Pulse Resp BP Pulse Ox O2 Del Method 09/07/22 07:11 36.5 C 74 17 155/78 H 96 Room Air 09/06/22 20:39 36.8 C 71 20 98/70 L 95 Room Air Resident Activity Tracking Resident Involvement: Resident Care Provided Care Provided: Adult Hospital Medicine
[2022-09-07] MEDS: lisinopril 40 MG TAB PO SCH (08:51)
[2022-09-07] MEDS: ACETAMINOPHEN 500 MG TAB PO SCH ×3 (08:51→20:27)
[2022-09-07] MEDS: BACLOFEN 10 MG TAB PO SCH ×3 (08:52→20:27)
[2022-09-07] MEDS: FINASTERIDE 5 MG TAB PO SCH (08:52)
[2022-09-07] MEDS: PANTOprazole 40 MG TAB PO SCH (08:53)
[2022-09-07] MEDS: DOCUSATE SODIUM 100 MG CAP PO SCH ×3 (08:53→20:31)
[2022-09-07] MEDS: ASPIRIN 81 MG ECTAB PO SCH (08:53)
[2022-09-07] MEDS: DICLOFENAC SOD 1% GEL 100 GM TUBE EXT SCH ×4 (08:54→20:28)
[2022-09-07] MEDS ORDERED: dexAMETHasone 2 MG in SYRINGE 0 ML IV SCH (09:00)
[2022-09-07] MEDS: diazePAM 5 MG TABLET PO SCH (09:13)
[2022-09-07] MEDS: ENOXAPARIN INJ 40 MG/0.4 ML SYR SQ SCH (15:27)
--- NOTE | 2022-09-07 17:35 | Billing Data ---
Date of Service September 07, 2022 Coding Level of Care Code 23082 SUB INP/OBS CARE MIN
--- NOTE | 2022-09-07 17:36 | Hospitalist Progress Note ---
Date of Service September 07, 2022 Assessment & Plan Admission and Anticipated Discharge Date Admission Date: August 31, 2022 Results & Data Results & Data Vital Signs (Past 12 Hours) Vital Signs Temp Pulse Resp BP Pulse Ox O2 Del Method 09/07/22 14:16 97.9 F 71 17 104/69 93 Room Air 09/07/22 07:11 97.7 F 74 17 155/78 H 96 Room Air PG Care Time/CCT Total # of Minutes Spent Total Time Spent with Patient: Total time spent is greater than 50% in coordination of care (as documented) at patient's floor/unit and/or counseling patient: Coding Level of Care Code None Diagnoses CPT Codes Musculoskeletal - Musculoskeletal: 09059 Osteo Dante Tr 1-2 Body regions ([id number])
[2022-09-07] MEDS: diazePAM 2 MG TABLET PO SCH (20:26)
[2022-09-07] MEDS: ATORVASTATIN 40 MG TAB PO SCH (20:27)
[2022-09-08] MEDS: oxyCODONE HCL IR 5 MG TAB (IMMEDIATE RELEASE) PO PRN ×2 (04:24→23:45)
--- NOTE | 2022-09-08 07:03 | Discharge Summary ---
Date of Service September 08, 2022 Admission HPI Per Admitting Provider Chidi Melara is a 62 year old male who presents to the ER with left hip pain. He reports left hip pain on the anterolateral thigh started Friday or Friday last week. Initially mild and just felt sore but became progressively worse the following days but was bearable. Pain more in the lateral and back of his hip now. Better on leaning forward and to the left side. Pressure on his lateral hip helped with pain. No acute back pain but has chronic back pain which he puts down to arthritis. Today while coming out of the shower he suddenly felt excruciating pain in the same area and was unable to walk. Severity 20/10. His called EMS and he required x2 150 mcg IV Fentanyl on route. Admission Exam Per Admitting Provider Constitutional: well developed and + morbidly obese; no acute distress Eyes: + anicteric sclerae; normal pupil size Respiratory: normal respiratory effort, lungs clear to auscultation Cardiovascular: RRR, no murmur, no edema Gastrointestinal (Abdomen): normal bowel sounds, soft, nontender, no hepatosplenomegaly Musculoskeletal: Spine: no lumbar spinal tenderness and no paraspinal tenderness No pain on int/ext rotation left hip Knee flex, Dorsi/plantarflex ankle 5/5 b/l, hip flexion limited due to pain No joint line tenderness Skin: no rashes, warm and dry Neurologic: moves all extremities and awake; not confused Psychiatric: A+Ox3, euthymic affect Principal Diagnosis myofascial pain lumbar radiculopathy possible trochanteric bursitis Discharge Data Allergies Allergy/AdvReac Type Severity Reaction Status Date / Time hydromorphone Allergy Intermediate rash Verified 08/28/22 15:20 prednisone Allergy Unknown Unknown Verified 08/29/22 22:25 azithromycin AdvReac Intermediate N/V Verified 08/28/22 15:20 tramadol AdvReac Intermediate HALUCINATIO Verified 08/28/22 15:20 NS Consultations 08/29/22 00:27 Consult Orthopedic Surgery Routine - A&P from Dr. Block 09/01/22 "ASSESSMENT: A 62-year-old gentleman with a history of left hip replacement many years ago with left hip and buttock pain. This most likely consistent with some lumbar spondylosis/sciatica and maybe a little bit of bursitis. His hip replacement looks okay. It does look like he may have some fibrous ingrowth, but no signs of acute problems. Sed rate and C-reactive protein were minimally elevated, which makes infection extremely unlikely. He does have a [id number] hip and he could be having some metalosis. We did draw some metal ion levels and those are pending. This can be followed up as an outpatient. PLAN: From the orthopedic standpoint, he really looks pretty comfortable and I think he can be discharged. He is welcomed to follow up in our clinic if he wants. We have not seen him in many years, so I am not sure where he is getting his orthopedic followup, but that is up to him." 09/02/22 14:50 Consult Pain Management Routine - A&P "1. Patient with acute low back/lateral hip/thigh region pain with suspected etiology of lumbar radiculopathy versus SI joint. Will discuss case further [facility] hospitalist team regarding his ability to pursue lumbar MRI under sedation with consideration of SI joint injection in the outpatient setting for diagnostic/therapeutic purposes--Case discussed with Dr. Rodriguez. 2. Would not recommend ongoing use of fentanyl patch due to the patient's presentation of acute pain. Would recommend diminishing dose to 25 mcg x 2-3 days then discontinue. Continue with as needed opiates for breakthrough pain. Consider transitioning to hydrocodone versus Percocet for discharge planning. 3. Agree with continued steroid therapy and prednisone taper upon discharge" Ordered Studies 09/02/22 15:33 US arterial duplex LE BI Routine FINDINGS: Normal bilateral ankle brachial indices measuring 1.1. Normal biphasic to triphasic waveforms and velocities seen throughout the bilateral lower extremity arterial systems. No significant stenosis or occlusion identified. IMPRESSION: No significant stenosis or occlusion within the bilateral lower extremity arterial systems. Hospital Course (1) Acute pain of left hip: Chidi is a very pleasant 62-year-old gentleman with a history of class III obesity, prior left hip replacement, BPH, hypertension, hyperlipidemia, who presented to [facility] for evaluation of worsening left hip pain and ambulatory dysfunction. He has been extensively evaluated by pain management as well as orthopedics, who did not feel that there is an acute left hip issue requiring surgical intervention. Primarily suspect that his pain is multifactorial and originating from the myofascial system, with superimposed lumbar spondylosis, possible hip bursitis in the setting of his class III obesity and limited ambulatory abilities. His picture is further complicated by recurrent falls. Myofascial Dysfunction / Piriformis Syndrome with Superimposed Acute Lumbar Spondylosis and Possible L Hip Bursitis Ambulatory Dysfunction Previously seen by both orthopedics and pain management who did not recommend acute surgical intervention at this time. Metal serologies WNL. Suspect pain has a large underpinnings and myofascial dysfunction, likely piriformis syndrome in the setting of known previous left hip disease as well as low back disease, class III obesity Pain management as follows: Attempt to minimize administration of opiates Valium 5mg qAM / 2mg HS -- taper upon d/c Baclofen 10mg every 8 hours scheduled Tylenol 1000 mg every 8 hours scheduled -- taper upon d/c, utilize PRN Topical Voltaren 4 times daily OMT scheduled in the hospital while here - highly recommend routinely sched uled sessions as outpatient, responded very well while here For severe breakthrough pain, can consider administration of oxycodone 5 mg every 8 hours -- discussion had re: indications of using this on 09/07 Instructed patient NOT to use Fentanyl patches initially prescribed earlier during his hospital course - Consider trigger point injections while here if indicated Recommend home/outpatient PT upon discharge. Patient at high-risk for fall. Continue utilizing RW and wheelchair as needed (2) Ambulatory dysfunction: As above (3) BPH (benign prostatic hyperplasia): Continue finasteride 5mg PO daily (4) Hypertension: Continue lisinopril 40mg PO daily (5) High cholesterol: Continue statin therapy (6) Morbid obesity: BMI greater than 40 - Class III Major contributor to LBP - discussed importance of weight loss while here and how it would likely help his back pain moving forward Consider further discussion of pharmacotherapy like GLP1s and/or bariatric medicine/surgery referral as outpatient if patient amenable Plan Dispo: MedSurg Total Time Total Time Spent Total Time Spent (In Minutes): 30 Discharge Plan Discharge Items Patient Disposition: Home - Self-Care Reason For Visit: L HIP PAIN Discharge Diagnosis: left hip pain Activity: Resume your previous activity Non-emergency contact: Primary Care Provider Call non-emergency contact if: you have any medication questions Follow-up/Referrals: Joe Alvarez MD [Primary Care Provider] - 09/10/22 9:00 am (If you are unable to keep this follow up appointment, please call the office to reschedule. ) Diet: Heart Healthy Addtl Attending Provider Instructions: You were seen in [facility] for evaluation of lower left back pain. During your time here, you underwent extensive evaluation to determine the cause of your pain, as well as to get the pain under control. By the end of your admission, we primarily suspect that the majority of your pain is likely due to "myofascial dysfunction. "This refers to dysfunction of the muscle and the surrounding tissues that connect to your bones. Because muscles can generate a significant amount of strength, when they are dysfunctional, they can cause a lot of irritation on nerves and create pain. As such, we spent a lot of time treating your muscle dysfunction, and thankfully you responded quite well to this. One of the ways that we did this was through osteopathic manipulative therapy (OMT). This is that "deep muscle massage "therapy that Dr. Sam performed on you throughout your hospital stay. The goal of this therapy is to reset the muscles, and the pain signals they transmitthankfully, there are many providers in this area that provide OMT. We highly recommend that you engage with regularly scheduled OMT to further reduce your baseline pain. As you may recall, we also taught you and your some methods of performing OMT on your self when discharged home. Like we discussed, the road to recovery is really a "line of best fit "approach. While we expect each day to get better and better, there are going to be bad days and bad flares along the way. It is incredibly important that you do not lose sight of your improvement when these happenthey are par for the course. Engaging with OMT, muscle massages, and when neededmedicationscan all be helpful. We also discussed the importance of weight management, and how this can relate to back pain. Please discuss this with your PCP -- we live in an amazing time for which, depending on your own personal goals, there are likely to be options to help you achieve and maintain weight loss. Please note the following additions/deletions to your medication list while here: Continue Tylenol 1000 mg 3 times daily (every 8 hours) for the next week. Then, slowly begin tapering thisyou can cut off one of the doses every 3 to 4 days until you are just using the medication as needed. Begin baclofen 10 mg 3 times dailythis is a muscle relaxer that will provide a baseline level of relaxation Continue Valium 5 mg every morning and 2 mg at night for the next 3 to 4 days. Then, cut your 5 mg morning dose in half for 3 days (i.e., 2.5mg each AM). After this, discontinued your nighttime 2 mg dose. Then, after another 3 days, discontinue the 2.5 mg morning dose. Continue applying Voltaren, 4 times daily, over your upper left glutes/lower back as it was done in the hospital. Oxycodone 5 mg should only be used in cases of very severe pain that is not relieved by walking around, deep muscle massage, and your other medications. Remember that this is the "emergency escape button "and is only for severe pain. Please DO NOT use the Fentanyl patches previously described or the scheduled naproxen unless specifically indicated by your PCP! Please follow-up with your primary care physician within the next 1 to 2 weeks to review this visit. At that time, please discuss obtaining a referral for OMT if your physician is not able to perform it themselves. In the interim, if you experience worsening leg pain, numbness, tingling, inability to control your bowel or bladder, numbness or tingling around the groin, fever, chest pain, palpitations, shortness of breath, or other worrisome symptoms, please report to the ER immediately for evaluation. It was a pleasure for caring for you while here and we wish you all the best in your recovery. Pending Studies at Discharge: No Stand-Alone Forms: My [facility], Smoking Cessation Medications and DC Order Prescriptions: New acetaminophen [Tylenol] 325 mg tablet 650 mg PO Q6H 14 Days Qty: 112 0RF pantoprazole 40 mg tablet,delayed release (DR/EC) 40 mg PO DAILY Qty: 30 0RF oxycodone 5 mg Tablet 5 mg PO Q6H PRN (Reason: breakthrough pain, >moderate 5 out of 10 intensity) Qty: 20 0RF naloxone [Narcan] 4 mg/actuation spray,non-aerosol 1 spray intranasal Q3M PRN (Reason: opioid overdose) Qty: 2 0RF baclofen 10 mg Tablet 10 mg PO TID 30 Days Qty: 90 2RF docusate sodium 100 mg Capsule 100 mg PO BID 30 Days Qty: 60 0RF Continued atorvastatin [Lipitor] 80 mg tablet 80 mg PO HS Qty: 90 3RF finasteride [Proscar] 5 mg tablet 5 mg PO DAILY Qty: 90 3RF lisinopril 40 mg tablet 40 mg PO DAILY Qty: 90 3RF aspirin [Ecotrin Low Strength] 81 mg tablet,delayed release (DR/EC) 81 mg PO DAILY Discontinued acetaminophen [Tylenol Extra Strength] 500 mg Tablet 1,000 - 1,500 mg PO DIRECTED PRN (Reason: Pain) naproxen sodium [Aleve] 220 mg Tablet 880 - 1,100 mg PO DIRECTED PRN (Reason: Pain) ibuprofen 200 mg Tablet 800 - 1,200 mg PO DIRECTED PRN (Reason: Pain) Admission Data Admit Date/Time: 08/31/22 11:24 Attending Provider: Sami Sam Admit Provider: Ezra Knutson Primary Care Provider: Joe Alvarez Other Providers: Azam Jessica ; Geo Zaldivar ; Oneyda Hurley ; Christian Larsen ; Marianela Gonzales ; Sami Thomas Resident Activity Tracking Resident Involvement: Resident Care Provided Care Provided: Adult Hospital Medicine
[2022-09-08] MEDS: ASPIRIN 81 MG ECTAB PO SCH (08:57)
[2022-09-08] MEDS: BACLOFEN 10 MG TAB PO SCH ×3 (08:58→20:43)
[2022-09-08] MEDS: DOCUSATE SODIUM 100 MG CAP PO SCH ×2 (08:58→20:42)
[2022-09-08] MEDS: ACETAMINOPHEN 500 MG TAB PO SCH ×3 (08:58→20:44)
[2022-09-08] MEDS: lisinopril 40 MG TAB PO SCH (08:59)
[2022-09-08] MEDS: FINASTERIDE 5 MG TAB PO SCH (08:59)
[2022-09-08] MEDS: PANTOprazole 40 MG TAB PO SCH (08:59)
--- NOTE | 2022-09-08 08:59 | Hospitalist Progress Note ---
Date of Service September 08, 2022 Assessment & Plan (1) Acute pain of left hip: Plan: Chidi is a very pleasant 62-year-old gentleman with a history of class III obesity, prior left hip replacement, BPH, hypertension, hyperlipidemia, who presented to [facility] for evaluation of worsening left hip pain and ambulatory dysfunction. He has been extensively evaluated by pain management as well as orthopedics, who did not feel that there is an acute left hip issue requiring surgical intervention. Primarily suspect that his pain is multifactorial and originating from the myofascial system, with superimposed lumbar spondylosis, possible hip bursitis in the setting of his class III obesity and limited ambulatory abilities. His picture is further complicated by recurrent falls. Myofascial Dysfunction / Piriformis Syndrome with Superimposed Acute Lumbar Spondylosis and Possible L Hip Bursitis Ambulatory Dysfunction Previously seen by both orthopedics and pain management who did not recommend acute surgical intervention at this time. Metal serologies WNL. Suspect pain has a large underpinnings and myofascial dysfunction, likely piriformis syndrome in the setting of known previous left hip disease as well as low back disease, class III obesity Pain management as follows: Attempt to minimize administration of opiates Valium 5mg qAM / 2mg HS -- taper upon d/c, will put in instructions Baclofen 10mg every 8 hours scheduled Tylenol 1000 mg every 8 hours scheduled -- taper upon d/c, utilize PRN Topical Voltaren 4 times daily OMT scheduled in the hospital while here - highly recommend routinely scheduled sessions as outpatient, responded very well while here For severe breakthrough pain, can consider administration of oxycodone 5 mg every 8 hours -- use very sparingly, had d/w patient Instructed patient NOT to use Fentanyl patches initially prescribed earlier during his hospital course - Consider trigger point injections while here if indicated Recommend home/outpatient PT upon discharge. Patient at high-risk for fall. Continue utilizing RW and wheelchair as needed (2) Ambulatory dysfunction: Plan: As above (3) BPH (benign prostatic hyperplasia): Plan: Continue finasteride 5mg PO daily (4) Hypertension: Plan: Continue lisinopril 40mg PO daily (5) High cholesterol: Plan: Continue statin therapy (6) Morbid obesity: Plan: BMI greater than 40 - Class III Major contributor to LBP - discussed importance of weight loss while here and how it would likely help his back pain moving forward Consider further discussion of pharmacotherapy like GLP1s and/or bariatric medicine/surgery referral as outpatient if patient amenable Plan Dispo: MedSurg Admission and Anticipated Discharge Date Admission Date: August 31, 2022 Supervising Physician Co-Signing Physician Notes I personally examined the patient and verified all raygoza points of history and exam, discussed case, and agree with decision making with Dr Victoria Pain improving. Feels like he will probably be able to get home soon. Does not feel like he has much of a fall risk anymore. Reiterated plan for ongoing OMTand have sent a message to Dr. Richardson at his PCPs office to consider ongoing OMT. Readdressed regular light cardiovascular exercise (goal of 20 minutes every day ideallyprobably utilizing something like a hand bike for now) to get good blood flow to all of his musculature to help with muscle relaxation. We addressed the secondary benefit of weight loss as well. (Yesterday discussed "the physics of weight loss" in depthcalculated basal energy expenditure of about 2700 lee, discussed calorie densities of foods, discussed calorie tracking, showed him an layla to make it easy to do so, compared the calorie density of his typical breakfast of 2 pop tarts and a glass of 2% milk at home with his breakfast of oatmeal here in the hospitalin the much lesser impact on his metabolism.) Notes that he has had a little bit of increase in gassiness today, and manifest this with passing rather foul-smelling flatus as I am about to initiate OMT. Vitals noted, in general he is awake and alert pleasant no distress. Walking slow but steady. Osteopathic/musculoskeletal shows left greater than right but bilateral piriformis region of pelvis high tone tender decreased range of motionLAS and post isometric relaxationimproved. Left sided low lumbar paraspinals high tone, tender, decreased range of motionligamentous articular strainimproved. Patient tolerated well. Biomechanical low back paincontinue med management as above/as per Dr. Victoria. Showing ongoing improvementhe would like to have outpatient follow-up in place prior to discharge, and would like to have walker as wellall of which is quite reasonable. Somatic dysfunction pelvis and L-spine regionOMT as above once again Morbid obesity with BMI of 65a contributor to his chronic pain. 09/07 we discussed weight loss in depth and gave practical action steps, as well as an overall strategy, loosely reiterated again today. Subjective NAEO. Feeling well. Bed not great. Some pain in right hip. No numbness/tingling. Has been up and walking around- eager to do more today Review of Systems Review of Systems: as per HPI Physical Exam Physical Exam: General: well appearing, NAD Pulm: Good respiratory effort with symmetric expansion of the chest, no use of accessory muscles Back: Visualization of the back does not reveal any obvious skin abnormalities. Some TTP in the R paralumbar/greater trochanter region. No palpable tender areas. Lower extremity strength 5 out of 5. Able to get up and rise from chair without any difficulty. Results & Data Results & Data Vital Signs (Past 12 Hours) Vital Signs Temp Pulse Resp BP Pulse Ox O2 Del Method 09/08/22 06:50 36.5 C 67 16 129/78 95 Room Air 09/07/22 21:20 36.5 C 74 20 145/66 H 96 Room Air Resident Activity Tracking Resident Involvement: Resident Care Provided Care Provided: Adult Hospital Medicine
[2022-09-08] MEDS: DICLOFENAC SOD 1% GEL 100 GM TUBE EXT SCH ×4 (09:00→20:42)
[2022-09-08] MEDS: diazePAM 5 MG TABLET PO SCH (09:07)
--- NOTE | 2022-09-08 14:26 | Billing Data ---
Date of Service September 08, 2022 Coding Level of Care Code 19414 SUB INP/OBS CARE MIN
--- NOTE | 2022-09-08 14:27 | Hospitalist Progress Note ---
Date of Service September 08, 2022 Assessment & Plan Admission and Anticipated Discharge Date Admission Date: August 31, 2022 Results & Data Results & Data Vital Signs (Past 12 Hours) Vital Signs Temp Pulse Resp BP Pulse Ox O2 Del Method 09/08/22 06:50 97.7 F 67 16 129/78 95 Room Air PG Care Time/CCT Total # of Minutes Spent Total Time Spent with Patient: Total time spent is greater than 50% in coordination of care (as documented) at patient's floor/unit and/or counseling patient: Coding Level of Care Code None Diagnoses CPT Codes Musculoskeletal - Musculoskeletal: 23631 Osteo Dante Tr 1-2 Body regions ([id number])
[2022-09-08] MEDS: ENOXAPARIN INJ 40 MG/0.4 ML SYR SQ SCH (15:40)
[2022-09-08] MEDS: ATORVASTATIN 40 MG TAB PO SCH (20:43)
[2022-09-08] MEDS: diazePAM 2 MG TABLET PO SCH (22:02)
--- NOTE | 2022-09-09 08:43 | Hospitalist Progress Note ---
Date of Service September 09, 2022 Assessment & Plan (1) Acute pain of left hip: Plan: Chidi is a very pleasant 62-year-old gentleman with a history of class III obesity, prior left hip replacement, BPH, hypertension, hyperlipidemia, who presented to [facility] for evaluation of worsening left hip pain and ambulatory dysfunction. He has been extensively evaluated by pain management as well as orthopedics, who did not feel that there is an acute left hip issue requiring surgical intervention. Primarily suspect that his pain is multifactorial and originating from the myofascial system, with superimposed lumbar spondylosis, possible hip bursitis in the setting of his class III obesity and limited ambulatory abilities. His picture is further complicated by recurrent falls. Myofascial Dysfunction / Piriformis Syndrome with Superimposed Acute Lumbar Spondylosis and Possible L Hip Bursitis Ambulatory Dysfunction Previously seen by both orthopedics and pain management who did not recommend acute surgical intervention at this time. Metal serologies WNL. Suspect pain has a large underpinnings and myofascial dysfunction, likely piriformis syndrome in the setting of known previous left hip disease as well as low back disease, class III obesity Pain management as follows: Attempt to minimize administration of opiates Valium 5mg qAM / 2mg HS -- taper upon d/c, will put in instructions Baclofen 10mg every 8 hours scheduled Tylenol 1000 mg every 8 hours scheduled -- taper upon d/c, utilize PRN Topical Voltaren 4 times daily OMT scheduled in the hospital while here - highly recommend routinely scheduled sessions as outpatient, responded very well while here For severe breakthrough pain, can consider administration of oxycodone 5 mg every 8 hours -- use very sparingly, had d/w patient Instructed patient NOT to use Fentanyl patches initially prescribed earlier during his hospital course - Consider trigger point injections while here if indicated Recommend home/outpatient PT upon discharge. Patient at high-risk for fall. Continue utilizing RW and wheelchair as needed (2) Ambulatory dysfunction: Plan: As above (3) BPH (benign prostatic hyperplasia): Plan: Continue finasteride 5mg PO daily (4) Hypertension: Plan: Continue lisinopril 40mg PO daily (5) High cholesterol: Plan: Continue statin therapy (6) Morbid obesity: Plan: BMI greater than 40 - Class III Major contributor to LBP - discussed importance of weight loss while here and how it would likely help his back pain moving forward Consider further discussion of pharmacotherapy like GLP1s and/or bariatric medicine/surgery referral as outpatient if patient amenable Plan Dispo: [facility] Admission and Anticipated Discharge Date Admission Date: August 31, 2022 Subjective No acute events overnight. He took oxycodone just before arrival this morning Review of Systems Review of Systems: All systems reviewed & are unremarkable except as noted in HPI & below Physical Exam Physical Exam: General: well appearing, NAD Pulm: Good respiratory effort with symmetric expansion of the chest, no use of accessory muscles Back: Visualization of the back does not reveal any obvious skin abnormalities. Some TTP in the R paralumbar/greater trochanter region. No palpable tender areas. Lower extremity strength 5 out of 5. Able to get up and rise from chair without any difficulty. Results & Data Results & Data Vital Signs (Past 12 Hours) Vital Signs Temp Pulse Resp BP Pulse Ox O2 Del Method 09/08/22 22:33 37.0 C 71 18 114/75 96 Room Air 09/08/22 20:40 Room Air
[2022-09-09] MEDS: DOCUSATE SODIUM 100 MG CAP PO SCH (08:44)
[2022-09-09] MEDS: oxyCODONE HCL IR 5 MG TAB (IMMEDIATE RELEASE) PO PRN ×2 (08:50→13:39)
[2022-09-09] MEDS: diazePAM 5 MG TABLET PO SCH (08:50)
[2022-09-09] MEDS: ACETAMINOPHEN 500 MG TAB PO SCH ×2 (08:52→13:03)
[2022-09-09] MEDS: ASPIRIN 81 MG ECTAB PO SCH (08:53)
[2022-09-09] MEDS: DICLOFENAC SOD 1% GEL 100 GM TUBE EXT SCH ×3 (08:54→16:09)
[2022-09-09] MEDS: BACLOFEN 10 MG TAB PO SCH ×2 (08:55→13:01)
[2022-09-09] MEDS: FINASTERIDE 5 MG TAB PO SCH (08:55)
[2022-09-09] MEDS: PANTOprazole 40 MG TAB PO SCH (08:56)
[2022-09-09] MEDS: lisinopril 40 MG TAB PO SCH (08:56)
--- NOTE | 2022-09-09 15:19 | Discharge Summary ---
Date of Service September 09, 2022 Admission HPI Per Admitting Provider Chidi Melara is a 62 year old male who presents to the ER with left hip pain. He reports left hip pain on the anterolateral thigh started Friday or Friday last week. Initially mild and just felt sore but became progressively worse the following days but was bearable. Pain more in the lateral and back of his hip now. Better on leaning forward and to the left side. Pressure on his lateral hip helped with pain. No acute back pain but has chronic back pain which he puts down to arthritis. Today while coming out of the shower he suddenly felt excruciating pain in the same area and was unable to walk. Severity 20/. His called EMS and he required x2 150 mcg IV Fentanyl on route. Admission Exam Per Admitting Provider Constitutional: well developed and + morbidly obese; no acute distress Eyes: + anicteric sclerae; normal pupil size Respiratory: normal respiratory effort, lungs clear to auscultation Cardiovascular: RRR, no murmur, no edema Gastrointestinal (Abdomen): normal bowel sounds, soft, nontender, no hepatosplenomegaly Musculoskeletal: Spine: no lumbar spinal tenderness and no paraspinal tenderness No pain on int/ext rotation left hip Knee flex, Dorsi/plantarflex ankle 5/5 b/l, hip flexion limited due to pain No joint line tenderness Skin: no rashes, warm and dry Neurologic: moves all extremities and awake; not confused Psychiatric: A+Ox3, euthymic affect Principal Diagnosis Acute left hip pain Discharge Exam General: well appearing, NAD Pulm: Good respiratory effort with symmetric expansion of the chest, no use of accessory muscles Back: Visualization of the back does not reveal any obvious skin abnormalities. Some TTP in the R paralumbar/greater trochanter region. No palpable tender areas. Lower extremity strength 5 out of 5. Able to get up and rise from chair without any difficulty. Discharge Data Allergies Allergy/AdvReac Type Severity Reaction Status Date / Time hydromorphone Allergy Intermediate rash Verified 08/28/22 15:20 prednisone Allergy Unknown Unknown Verified 08/29/22 22:25 azithromycin AdvReac Intermediate N/V Verified 08/28/22 15:20 tramadol AdvReac Intermediate HALUCINATIO Verified 08/28/22 15:20 NS Consultations 08/29/22 00:27 Consult Orthopedic Surgery Routine 09/02/22 14:50 Consult Pain Management Routine Ordered Studies 09/02/22 15:33 US arterial duplex LE BI Routine Hospital Course (1) Acute pain of left hip: Chidi is a very pleasant 62-year-old gentleman with a history of class III obe sity, prior left hip replacement, BPH, hypertension, hyperlipidemia, who presented to [facility] for evaluation of worsening left hip pain and ambulatory dysfunction. He has been extensively evaluated by pain management as well as orthopedics, who did not feel that there is an acute left hip issue requiring surgical intervention. Primarily suspect that his pain is multifactorial and originating from the myofascial system, with superimposed lumbar spondylosis, possible hip bursitis in the setting of his class III obesity and limited ambulatory abilities. His picture is further complicated by recurrent falls. Myofascial Dysfunction / Piriformis Syndrome with Superimposed Acute Lumbar Spondylosis and Possible L Hip Bursitis Ambulatory Dysfunction Previously seen by both orthopedics and pain management who did not recommend acute surgical intervention at this time. Metal serologies WNL. Suspect pain has a large underpinnings and myofascial dysfunction, likely piriformis syndrome in the setting of known previous left hip disease as well as low back disease, class III obesity Pain management as follows: Attempt to minimize administration of opiates Valium 5mg qAM / 2mg HS -- taper upon d/c, will put in instructions Baclofen 10mg every 8 hours scheduled Tylenol 1000 mg every 8 hours scheduled -- taper upon d/c, utilize PRN Topical Voltaren 4 times daily OMT scheduled in the hospital while here -highly recommend routinely scheduled sessions as outpatient, responded very well while here For severe breakthrough pain, can consider administration of oxycodone 5 mg every 8 hours -- use very sparingly, had d/w patient Instructed patient NOT to use Fentanyl patches initially prescribed earlier during his hospital course - Consider trigger point injections while here if indicated Recommend home/outpatient PT upon discharge. Patient at high-risk for fall. Continue utilizing RW and wheelchair as needed (2) Ambulatory dysfunction: As above (3) BPH (benign prostatic hyperplasia): Finasteride 5 mg p.o. daily (4) Hypertension: Lisinopril 40 mg p.o. daily (5) High cholesterol: Atorvastatin 80 mg p.o. nightly (6) Morbid obesity: BMI greater than 40 - Class III Major contributor to LBP - discussed importance of weight loss while here and how it would likely help his back pain moving forward Consider further discussion of pharmacotherapy like GLP1s and/or bariatric medicine/surgery referral as outpatient if patient amenable Total Time Total Time Spent Total Time Spent (In Minutes): 30 min. Total Time Includes: Examination of the Patient and Medication Reconciliation Discharge Plan Discharge Items Patient Disposition: Home - Self-Care Reason For Visit: L HIP PAIN Discharge Diagnosis: left hip pain Activity: Resume your previous activity Non-emergency contact: Primary Care Provider Call non-emergency contact if: you have any medication questions Follow-up/Referrals: Joe Alvarez MD [Primary Care Provider] - 09/13/22 11:00 am (If you are unable to keep this follow up appointment, please call the office to reschedule. WIll be seen by Hali Ling) Miki Richardson DO [Physician] - 10/09/22 8:30 am (with in 1-2 weeks for OMM/OMT Session for Hip and Back Pain With Dr Michel at [facility]) Diet: Heart Healthy Addtl Attending Provider Instructions: You were seen in [facility] for evaluation of lower left back pain. During your time here, you underwent extensive evaluation to determine the cause of your pain, as well as to get the pain under control. By the end of your admission, we primarily suspect that the majority of your pain is likely due to "myofascial dysfunction. "This refers to dysfunction of the muscle and the surrounding tissues that connect to your bones. Because muscles can generate a significant amount of strength, when they are dysfunctional, they can cause a lot of irritation on nerves and create pain. As such, we spent a lot of time treating your muscle dysfunction, and thankfully you responded quite well to this. One of the ways that we did this was through osteopathic manipulative therapy (OMT). This is that "deep muscle massage "therapy that Dr. Sam performed on you throughout your hospital stay. The goal of this therapy is to reset the muscles, and the pain signals they transmitthankfully, there are many providers in this area that provide OMT. We highly recommend that you engage with regularly scheduled OMT to further reduce your baseline pain. As you may recall, we also taught you and your some methods of performing OMT on your self when discharged home. Like we discussed, the road to recovery is really a "line of best fit "approach. While we expect each day to get better and better, there are going to be bad days and bad flares along the way. It is incredibly important that you do not lose sight of your improvement when these happenthey are par for the course. Engaging with OMT, muscle massages, and when neededmedicationscan all be helpful. We also discussed the importance of weight management, and how this can relate to back pain. Please discuss this with your PCP -- we live in an amazing time for which, depending on your own personal goals, there are likely to be options to help you achieve and maintain weight loss. Please note the following additions/deletions to your medication list while here: Continue Tylenol 1000 mg 3 times daily (every 8 hours) for the next week. Then, slowly begin tapering thisyou can cut off one of the doses every 3 to 4 days until you are just using the medication as needed. Begin baclofen 10 mg 3 times dailythis is a muscle relaxer that will provide a baseline level of relaxation Continue Valium 5 mg every morning and 2.5 mg at night for the next 3 to 4 days. Then, cut your 5 mg morning dose in half for 3 days (i.e., 2.5mg each AM). After this, discontinued your nighttime 2.5 mg dose. Then, after another 3 days, discontinue the 2.5 mg morning dose. Continue applying Voltaren, 4 times daily, over your upper left glutes/lower back as it was done in the hospital. Oxycodone 5 mg should only be used in cases of very severe pain that is not relieved by walking around, deep muscle massage, and your other medications. Remember that this is the "emergency escape button "and is only for severe pain. Please DO NOT use the Fentanyl patches previously described or the scheduled naproxen unless specifically indicated by your PCP! Please follow-up with your primary care physician within the next 1 to 2 weeks to review this visit. At that time, please discuss obtaining a referral for OMT if your physician is not able to perform it themselves. In the interim, if you experience worsening leg pain, numbness, tingling, inability to control your bowel or bladder, numbness or tingling around the groin, fever, chest pain, palpitations, shortness of breath, or other worrisome symptoms, please report to the ER immediately for evaluation. It was a pleasure for caring for you while here and we wish you all the best in your recovery. Pending Studies at Discharge: No Stand-Alone Forms: My [facility], Pain - Opioid Pain Management, Smoking Cessation Medications and DC Order Prescriptions: New acetaminophen [Tylenol] 325 mg tablet 650 mg PO Q6H 14 Days Qty: 112 0RF pantoprazole 40 mg tablet,delayed release (DR/EC) 40 mg PO DAILY Qty: 30 0RF oxycodone 5 mg Tablet 5 mg PO Q6H PRN (Reason: breakthrough pain, >moderate 5 out of 10 intensity) Qty: 20 0RF naloxone [Narcan] 4 mg/actuation spray,non-aerosol 1 spray intranasal Q3M PRN (Reason: opioid overdose) Qty: 2 0RF baclofen 10 mg Tablet 10 mg PO TID 30 Days Qty: 90 2RF docusate sodium 100 mg Capsule 100 mg PO BID 30 Days Qty: 60 0RF diazepam [Valium] 5 mg tablet 5 mg PO DAILY PRN (Reason: muscle spasm) Qty: 10 0RF Rx Instructions: Take 5 mg (one tab) in morning and 2.5 mg (half tab) at night for 3 days, then reduce am dose to 2.5 mg (half tab) twice daily for 3 days, then take 2.5 mg once daily until taper complete oxycodone 5 mg tablet 5 mg PO Q8H MDD 20 mg PRN (Reason: pain (scale score 7-10)) Qty: 20 0RF Continued atorvastatin [Lipitor] 80 mg tablet 80 mg PO HS Qty: 90 3RF finasteride [Proscar] 5 mg tablet 5 mg PO DAILY Qty: 90 3RF lisinopril 40 mg tablet 40 mg PO DAILY Qty: 90 3RF aspirin [Ecotrin Low Strength] 81 mg tablet,delayed release (DR/EC) 81 mg PO DAILY Discontinued acetaminophen [Tylenol Extra Strength] 500 mg Tablet 1,000 - 1,500 mg PO DIRECTED PRN (Reason: Pain) naproxen sodium [Aleve] 220 mg Tablet 880 - 1,100 mg PO DIRECTED PRN (Reason: Pain) ibuprofen 200 mg Tablet 800 - 1,200 mg PO DIRECTED PRN (Reason: Pain) Discharge Orders: Discharge Order (Routine); Ordered 09/09/22 Ordered By: Carl Knox Admission Data Admit Date/Time: 08/31/22 11:24 Attending Provider: Loretta Gray Admit Provider: Ezra Knutson Primary Care Provider: Joe Alvarez Other Providers: Azam Jessica ; Geo Zaldivar ; Oneyda Hurley ; Christian Larsen ; Marianela Gonzales ; Sami Thomas ; Saim Sam Other Interventions: Discharge Summary Assessment (RN) Last Done: 09/09/22 15:26 Supervising Physician Co-Signing Physician Notes 62-year-old male with past medical history of hypertension, BPH and morbid obesity presenting with left hip pain and low back pain causing ambulatory dysfu nction. Patient's pain has been controlled and he was able to work with PT. Patient will benefit from multidisciplinary approach to care including chiropractic and osteopathic medicine. Encouraged efforts to maintain ambulation and movement in life. Valium taper and short course of oxycodone for use as needed surrounding physical therapy. I personally examined the patient and verified all raygoza points of history and exam, discussed case, and agree with decision making and plan documented by Dr. Knox.
[2022-09-09] MEDS: ENOXAPARIN INJ 40 MG/0.4 ML SYR SQ SCH (16:09)
== END 2022-09-09 16:35 | disposition home or self-care (01) | DRG 556 ==
LOC: 3W 12:05 → ED 12:05 → SUATTDRO 16:04 → 3W 17:24 → SUATTDRO 08-31 11:24

== ENCOUNTER 2023-03-31 15:57 | Inpatient (IN) ==
--- NOTE | 2023-03-31 16:17 | ED Triage Note ---
Date of Service March 31, 2023 History of Present Illness This patient was briefly evaluated while in triage. An abbreviated physical exam was performed. This patient is a 62-year-old Male who presents to the ED for evaluation of bilateral lower extremity edema over the past few months. Started with edema into the scrotum and chest pain over the weekend. Does not feel short of breath. No known cardiac history. Physical Exam CONSTITUTIONAL: in no acute pain or distress, uncomfortable, nontoxic SKIN: pink, warm, dry CARDIAC: tachycardic rate and regular rhythm RESPIRATORY: not tripoding, minimally tachypneic MSK: bilateral lower extremity edema. : significant edema in scrotum Initial orders for labs and / or imaging were placed and patient was placed in the waiting area until a bed is available. Please see further documentation for the full ED course.
--- NOTE | 2023-03-31 16:50 | XRay Report ---
XR chest 1V not portable HISTORY: Chest pain, nonspecific COMPARISON: Chest 08/03/2017. FINDINGS: No pneumothorax. No pleural effusions. Prominence of interstitial markings is likely techni lee from the patient's body habitus. No evidence for pulmonary edema. No new focal lung consolidation s to suggest a pneumonia. The cardiac silhouette is top normal in size. There are low lung volumes. N o acute fractures identified. Degenerative changes within the right shoulder. A few left basilar line ar densities favor subsegmental atelectasis or scarring. IMPRESSION: No acute process. ACT 112: Negative or not required by law. Electronically signed by: Joey Singh M.D. 03/31/2023 4:48 PM
[2023-03-31 17:31] LABS: Basophils # (auto) 0.04 K/uL (0.00-0.20); Basophils % (auto) 0.3 %; Eosinophils # (auto) 0.31 K/uL (0.00-0.50); Eosinophils % (auto) 2.4 %; Hematocrit (blood only) 49.2 % (42.0-52.0); Hemoglobin 16.2 g/dl (14.0-18.0); Immature Granulocytes # (auto) 0.04 K/uL (0.01-0.20); Immature Granulocytes % (auto) 0.3 %; Lymphocytes # (auto) 1.95 K/uL (1.20-3.40); Lymphocytes % (auto) 15.4 %; Mean Corpuscular Hemoglobin 29.1 pg (25.0-34.0); Mean Corpuscular Hgb Conc 32.9 g/dL (32.0-36.0); Mean Corpuscular Volume 88.5 fL (80.0-100.0); Mean Platelet Volume 9.9 fL (9.4-12.4); Monocytes # (auto) 1.12 K/uL (0.11-0.59); Monocytes % (auto) 8.8 %; Neutrophils # (auto) 9.22 K/uL (1.40-6.50); Neutrophils % (auto) 72.8 %; Platelet Count 281 K/uL (130-400); RDW Coefficient of Variation 13.7 % (11.5-14.5); RDW Standard Deviation 43.8 fL (36.4-46.3); Red Blood Count 5.56 M/uL (4.70-6.10); White Blood Count 12.68 K/ul (4.8-10.8)
[2023-03-31 17:55] LABS: Alanine Aminotransferase 21 U/L (7-52); Albumin Globulin Ratio 1.3 (0.9-2); Albumin Level 4.1 gm/dl (3.4-5.0); Alkaline Phosphatase 97 U/L (34-104); Anion Gap 8 (3-11); Aspartate Aminotransferase 25 U/L (13-39); BUN Creatinine Ratio 17.6 (10-20); Bilirubin,Total 0.6 mg/dl (0.2-1.0); Blood Urea Nitrogen 16 mg/dl (6-23); Carbon Dioxide 27 mmol/L (21-32); Chloride 102 mmol/L (98-107); Est GFR (African American) 103.6 ml/min; Est GFR (Non-African American) 89.4 ml/min; Globulin 3.1 gm/dl (2.5-4.0); Glucose 160 mg/dl (70-99(Fasting)); Potassium 4.6 mmol/L (3.5-5.1); Sodium 137 mmol/L (136-145); Total Protein 7.2 gm/dl (6.0-8.3)
[2023-03-31 18:02] LABS: Troponin I High Sensitivity 8.5 pg/ml (0-20)
[2023-03-31] MEDS ORDERED: FUROSEMIDE 40 MG/4 ML VIAL IV ONE (19:29)
[2023-03-31] MEDS ORDERED: ONDANSETRON INJ 2 MG/ML 2 ML VIAL IV STA (19:31)
[2023-03-31] MEDS ORDERED: MoRPHine SULFATE 10 MG/ML CARP/VIAL IV STA (19:31)
--- NOTE | 2023-03-31 19:52 | Emergency Department Note ---
Impression & Plan Edema of scrotum, Leukocytosis, Pedal edema, Fluid overload, Chest pressure ED Provider Note NAME: LUIS M EASLEY AGE: 62 SEX: M : 1960 ARRIVES VIA: Walk-In INFORMANT: [Patient] ED PROVIDER(S): [Rashad Cisneros MD] CHIEF COMPLAINT: Leg and scrotal swelling HISTORY OF PRESENT ILLNESS: The patient is a 62-year-old male who has had 3 months of increasing edema of both lower extremities. His doctors office has tried to adjust his medications without any relief. In the last 3 weeks, he has had increasing edema to the point where now his testicles are swollen. He is still able to urinate. The patient has had some chest pressure at times, no true shortness of breath. He has not had fever, cough or abdominal pain. He does complain of some lower back pain which is a chronic issue. As the edema has gotten worse consistently, he presents for evaluation. The patient states that he has noticed the swelling is somewhat better in the morning, it worsens as the day goes on. He is not on diuretics. PMHx/PSHx: See Below SOCIAL HISTORY: See Below. PHYSICAL EXAM: GENERAL: Patient is in no acute distress. HEENT: No acute trauma, normocephalic atraumatic, mucous membranes moist, no na miky congestion. NECK: No stridor, no adenopathy, no meningismus, trachea is midline. LUNGS: Clear to auscultation bilaterally, no wheeze, no rhonchi, breath sounds equal. HEART: Without murmurs gallops or rubs, regular rate and rhythm. ABDOMEN: Soft, nontender, bowel sounds positive, no peritonitis. Obese. EXTREMITIES: No cyanosis. Significant bilateral pedal edema without findings of cellulitis. NEUROLOGIC: Oriented x 3, no acute motor or sensory deficits, no focal weakness. SKIN: No rash, no jaundice, no diaphoresis. Groin: His scrotum is quite edematous, no erythema. DIFFERENTIAL DIAGNOSIS: Renal failure, DVT, fluid overload, electrolyte imbalance, venous insufficiency, CHF, liver failure, among others. EMERGENCY DEPARTMENT COURSE/PROCEDURES: Prior/Outside records reviewed: Previous discharge summary. ECG per my interpretation: Indication was edema and chest pressure. The ECG shows a normal sinus rhythm with a rate of 95. There is some nonspecific ST change. No ST elevation, no PVCs. There is poor R wave progression. The QTc is 442. Continuous Cardiac Monitoring per my interpretation: An order was placed for continuous cardiac monitoring. The monitor shows a rate of 99 with normal sinus rhythm. MEDICAL DECISION MAKING: There is a mild leukocytosis, this could be consistent with infection or the stress of his current presentation. There is a normal hemoglobin and platelet count. No renal failure or concerning electrolyte abnormality. No liver enzyme elevation. BNP is not elevated making CHF unlikely. ECG shows a normal sinus rhythm, no ischemia. Cardiac enzyme testing x1 is not consistent with acute cardiac injury. Chest x-ray does not show mediastinal widening, CHF or pneumonia per my review. Bilateral lower extremity venous ultrasound is currently pending. On exam, the patient had significant scrotal and pedal edema. The patient received IV morphine for his chronic back pain. He was given IV Zofran. He was given IV Lasix to start his needed diuresis. The patient is in need of a hospital stay for IV diuresis. He is significantly fluid overloaded to the point of suffering scrotal edema. His doctors offices have been adjusting medications in the outpatient setting without any improvement. I did speak with the patient and case management, the on-call hospitalist was consulted. DISPOSITION: Patient's presentation and findings warrant a hospital stay. Past Med/Surg History Medical History High blood pressure Lumbar radicular pain Myofascial pain Sacroiliac joint pain Surgical History History of hip replacement Social History Smoking Status: Never smoker Age Started Using Tobacco: 14; Age Quit Using Tobacco: 51; Second Hand Exposure: No; Do You Dip or Chew Tobacco: No; Hx Alcohol Use: No Hx Substance Use: No Preferred Language: [place] Communication Ability: Effective Part Time Required: No Beliefs That Will Affect Care: None Current Living Situation: Spouse Feels Safe at Home: Yes Assistive Devices: Walker and Wheelchair Allergies Allergies Allergy/AdvReac Type Severity Reaction Status Date / Time hydromorphone Allergy Intermediate rash Verified 03/31/23 19:54 prednisone Allergy Unknown Unknown Verified 03/31/23 19:54 azithromycin AdvReac Intermediate N/V Verified 03/31/23 19:54 tramadol AdvReac Intermediate HALUCINATIO Verified 03/31/23 19:54 NS Home Meds Home Medications Medication Instructions Recorded Confirmed aspirin 81 mg tablet,delayed 81 mg PO DAILY 03/16/19 03/31/23 release (Ecotrin Low Strength) hydrocodone 5 mg-acetaminophen 325 1 - 2 tab PO Q6H PRN pain 03/31/23 03/31/23 mg tablet Previous Rx's Medication Instructions Recorded atorvastatin 80 mg tablet (Lipitor) 80 mg PO HS #90 tabs 09/02/22 finasteride 5 mg tablet (Proscar) 5 mg PO DAILY #90 tabs 09/02/22 lisinopril 40 mg tablet 40 mg PO DAILY #90 tabs 09/02/22 naloxone 4 mg/actuation nasal 1 spray intranasal Q3M PRN opioid 09/02/22 spray (Narcan) overdose #2 ea Results & Data (ED) Vital Signs Vital Signs - 24 hr 03/31/23 16:10 03/31/23 20:15 Temperature 36.9 C Temperature Source Temporal Artery Scan Pulse Rate 104 H 83 Respiratory Rate 22 Respiratory Effort / Characteristics Non-Labored Spontaneous Respiratory Depth Normal Blood Pressure 150/87 H Blood Pressure Mean 108 Pulse Oximetry 95 Oxygen Delivery Method Room Air Sepsis Recent Fever Within 48 Hours No Sepsis New/Unexplained Change in Mental Status N/A Sepsis Action Taken by Nursing No Action Required Home Medications Current Medication List: was personally reviewed by me Laboratory Data Attestation: I reviewed the patient's lab results. 03/31/23 17:06 03/31/23 17:06 Lab Results 03/31/23 03/31/23 03/31/23 Range/Units 17:06 17:06 17:06 WBC 12.68 H (4.8-10.8) K/ul RBC 5.56 (4.70-6.10) M/uL Hgb 16.2 (14.0-18.0) g/dl Hct 49.2 (42.0-52.0) % MCV 88.5 (80.0-100.0) fL MCH 29.1 (25.0-34.0) pg MCHC 32.9 (32.0-36.0) g/dL RDW Std Deviation 43.8 (36.4-46.3) fL RDW Coeff of Fabiola 13.7 (11.5-14.5) % Plt Count 281 (130-400) K/uL MPV 9.9 (9.4-12.4) fL Immature Gran % (Auto) 0.3 % Neut % (Auto) 72.8 % Lymph % (Auto) 15.4 % Baldwin % (Auto) 8.8 % Eos % (Auto) 2.4 % Baso % (Auto) 0.3 % Neut # (Auto) 9.22 H (1.40-6.50) K/uL Lymph # (Auto) 1.95 (1.20-3.40) K/uL Baldwin # (Auto) 1.12 H (0.11-0.59) K/uL Eos # (Auto) 0.31 (0.00-0.50) K/uL Baso # (Auto) 0.04 (0.00-0.20) K/uL Immature Gran # (Auto) 0.04 (0.01-0.20) K/uL Sodium 137 (136-145) mmol/L Potassium 4.6 (3.5-5.1) mmol/L Chloride 102 (98-107) mmol/L Carbon Dioxide 27 (21-32) mmol/L Anion Gap 8 (3-11) BUN 16 (6-23) mg/dl Creatinine 0.91 (0.6-1.4) mg/dl Est Cr Clr Drug Dosing Not Reportable Est GFR ( Amer) 103.6 ml/min Est GFR (Non-Af Amer) 89.4 ml/min BUN/Creatinine Ratio 17.6 (10-20) Glucose 160 H (70-99(Fasting)) mg/dl Calcium 9.0 (8.6-10.3) mg/dl Total Bilirubin 0.6 (0.2-1.0) mg/dl AST 25 (13-39) U/L ALT 21 (7-52) U/L Alkaline Phosphatase 97 (34-104) U/L Troponin I High Sens 8.5 (0-20) pg/ml B-Natriuretic Peptide 27 (0-100) pg/ml Total Protein 7.2 (6.0-8.3) gm/dl Albumin 4.1 (3.4-5.0) gm/dl Globulin 3.1 (2.5-4.0) gm/dl Albumin/Globulin Ratio 1.3 (0.9-2) Administered Medications Discontinued Medications Furosemide (Furosemide 40 Mg/4 Ml Vial) 40 mg IV ONE ONE Stop: 03/31/23 19:30 Last Admin: 03/31/23 20:11 Dose: 40 mg Documented By: MEEK Morphine Sulfate (Morphine Sulfate 10 Mg/Ml Carp/Vial) 6 mg IV NOW STA Stop: 03/31/23 19:32 Last Admin: 03/31/23 20:11 Dose: 6 mg Documented By: TBS Ondansetron HCl (Ondansetron Inj 2 Mg/Ml 2 Ml Vial) 4 mg IV NOW STA Stop: 03/31/23 19:32 Last Admin: 03/31/23 20:10 Dose: 4 mg Documented By: MEEK Imaging Data Radiologist's Impression: Chest X-Ray 03/31/23 16:12 XR chest 1V not portable HISTORY: Chest pain, nonspecific COMPARISON: Chest 08/03/2017. FINDINGS: No pneumothorax. No pleural effusions. Prominence of interstitial markings is likely technical from the patient's body habitus. No evidence for pulmonary edema. No new focal lung consolidations to suggest a pneumonia. The cardiac silhouette is top normal in size. There are low lung volumes. No acute fractures identified. Degenerative changes within the right shoulder. A few left basilar linear densities favor subsegmental atelectasis or scarring. IMPRESSION: No acute process. ACT 112: Negative or not required by law. Electronically signed by: Joey Singh M.D. 03/31/2023 4:48 PM Discharge Plan Visit Data Chief Complaint: Swelling/Edema to Extremity Stated Complaint: SWELLING IN FEET/LEGS, CHEST PAIN ED Provider: Rashad Cisneros Discharge Problem: Edema of scrotum, Leukocytosis, Pedal edema, Fluid overload, Chest pressure Patient Disposition: Admitted As Inpatient Condition: Fair Forms Stand Alone Forms: My [employer] Prescriptions Prescriptions: No Action atorvastatin [Lipitor] 80 mg tablet 80 mg PO HS Qty: 90 3RF finasteride [Proscar] 5 mg tablet 5 mg PO DAILY Qty: 90 3RF lisinopril 40 mg tablet 40 mg PO DAILY Qty: 90 3RF aspirin [Ecotrin Low Strength] 81 mg tablet,delayed release (DR/EC) 81 mg PO DAILY naloxone [Narcan] 4 mg/actuation spray,non-aerosol 1 spray intranasal Q3M PRN (Reason: opioid overdose) Qty: 2 0RF hydrocodone-acetaminophen 5-325 mg tablet 1 - 2 tab PO Q6H PRN (Reason: pain) Rx Instructions: 1-2 orally every 6 hours PRN; Referrals Referrals: Joe Alvarez MD [Primary Care Provider] -
--- NOTE | 2023-03-31 20:56 | History & Physical Report ---
Date of Service March 31, 2023 Assessment & Plan (1) Pedal edema: Plan: 62 M with history of hypertension, elevated cholesterol, chronic back pain, and BPH who presented to the emergency room with progressive bilateral pedal edema x3 months and scrotal swelling x3 weeks. Now admitted to the hospital for management of likely fluid overload/pedal edema in the setting of morbid obesity. Pedal edema/scrotal edema -BNP normal (27), normal creatinine, GFR. Troponin negative. No evidence of pleural effusion or pulmonary edema on XR chest. -Suspect pedal edema due to obstructed venous return secondary to the patient's morbid obesity. Patient is mostly nonambulatory. -S/p IV Lasix 40 mg in the ED. * Admit to MedSurg telemetry * Continue IV Lasix 40 mg daily. * Echocardiogram ordered. Await results. * Daily weights. Sutton catheter. * Daily BMP, CBC Chronic back pain -Managed on home regimen of Vicodin every 6 hours as needed. -Follows with pain management clinic under [facility]EV[facility] Zaldivar, Dr. Oneyda villegas History of SI joint pain, somatic dysfunction of pelvic region, lumbar radicular pain, and myofascial pain. -Patient reports has not taken pain med in months due to pedal edema. Has been using meloxicam and muscle relaxant through pain management. -Patient ambulates with walker at home. -S/p IV morphine 6 mg in the ED. * Holding home Vicodin. * Tylenol 1000 mg 3 times daily as needed for pain. Consider augmenting with stronger analgesics, muscle relaxers, should back pain persist despite acetaminophen. Hypertension -Chronic. Managed on lisinopril 40 mg daily. * Continue home regimen. Elevated cholesterol -Chronic. Managed on atorvastatin 80 mg daily. * Continue home regimen. BPH -Chronic. Managed on finasteride 5 mg daily * Continue home regimen. Code: Full code Dispo: Med-Surg telemetry FEN/GI: NPO DVT Prophylaxis: Lovenox 40 mg q24h PT/OT: Yes Consults: None Case Management: No (2) Edema of scrotum: (3) Fluid overload: (4) Hypertension: (5) High cholesterol: (6) BPH (benign prostatic hyperplasia): (7) Lumbar radicular pain: History of Present Illness Primary Care Provider: MD Chidi Camacho is a 62-year-old man with history of chronic back pain, elevated cholesterol, BPH, and morbid obesity, who presents to the emergency room with progressive bilateral lower extremity edema x3 months, and scrotal swelling x3 weeks. ROS + bilateral ear pressure, and intermittent epigastric/lower chest pressure (without radiation). He denies headache, shortness of breath, chest pain, abdominal pain, recent illness, LE pain or paresthesias, dysuria, urinary frequency or other urinary changes. In the ED, pulse was slightly elevated at 104 bpm, RR-22, and BP 150/87. Pulse ox 95% on room air. Labs were notable for WBC-12.68. CMP was wnl. Troponin was negative at 8.5, as was BNP-27. XR was negative for pulmonary edema, pneumonia, pleural effusions, or other acute process. He received a dose of IV Lasix 40 mg, and IV morphine 6 mg for his back pain. Hospital service was then consulted for admission. Allergies Allergy/AdvReac Type Severity Reaction Status Date / Time hydromorphone Allergy Intermediate rash Verified 03/31/23 19:54 prednisone Allergy Unknown Unknown Verified 03/31/23 19:54 azithromycin AdvReac Intermediate N/V Verified 03/31/23 19:54 tramadol AdvReac Intermediate HALUCINATIO Verified 03/31/23 19:54 NS Home Medications Medication Instructions Recorded Confirmed Type aspirin 81 mg tablet,delayed 81 mg PO DAILY 03/16/19 03/31/23 History release (Ecotrin Low Strength) atorvastatin 80 mg tablet (Lipitor) 80 mg PO HS #90 tabs 09/02/22 03/31/23 Rx finasteride 5 mg tablet (Proscar) 5 mg PO DAILY #90 tabs 09/02/22 03/31/23 Rx lisinopril 40 mg tablet 40 mg PO DAILY #90 tabs 09/02/22 03/31/23 Rx naloxone 4 mg/actuation nasal 1 spray intranasal Q3M PRN opioid 09/02/22 03/31/23 Rx spray (Narcan) overdose #2 ea hydrocodone 5 mg-acetaminophen 325 1 - 2 tab PO Q6H PRN pain 03/31/23 03/31/23 History mg tablet Past Med/Surg History Medical History High blood pressure Lumbar radicular pain Myofascial pain Sacroiliac joint pain Surgical History History of hip replacement Social History Smoking Status: Never smoker Age Started Using Tobacco: 14; Age Quit Using Tobacco: 51; Second Hand Exposure: No; Do You Dip or Chew Tobacco: No; Hx Alcohol Use: No Hx Substance Use: No Preferred Language: Bahraini Communication Ability: Effective Die Developer Required: No Beliefs That Will Affect Care: None Current Living Situation: Spouse Feels Safe at Home: Yes Assistive Devices: Walker and Wheelchair Review of Systems Review of Systems: All systems reviewed & are unremarkable except as noted in HPI & below Physical Exam Physical Exam: General: Morbidly obese but otherwise alert, interactive, and in no acute distress. HEENT: Normocephalic, atraumatic. EOM intact. Good conjugate gaze. TMs clearly visualized bilaterally on otoscopy. Neck: Supple. No lymphadenopathy. Normal ROM. CV: Regular rate and rhythm. Normal S1 and S2. No murmurs gallops or rubs. Respiratory: Lungs clear to auscultation bilaterally. No crackles, rhonchi, or wheezes. Abdomen: Large, protuberant abdomen. No bruits heard on auscultation. Nontender to deep palpation x4 quadrants without guarding or rebound. : Swollen, erythematous scrotum. Nontender to palpation or manual manipulation. Extremities: Capillary refill <2 sec. 1+ + dp equal bilaterally. 3+ pedal edema bilaterally to shins. Neuro: Alert and oriented x3. Skin: Clean, dry, and intact. Results & Data Results & Data Vital Signs (Past 12 Hours) Vital Signs Temp Pulse Resp BP Pulse Ox O2 Del Method 03/31/23 20:15 83 03/31/23 16:10 36.9 C 104 H 22 150/87 H 95 Room Air Supervising Physician Co-Signing Physician Notes Attending addendum: I have physically seen this patient, have supervised the medical residents activities, and agree with the H&P unless as otherwise noted. Assessment and Plan: Fluid overload/lower extremity/scrotal edema/hypertension- The patient will be admitted to medical telemetry for serial cardiac enzymes, serial EKG's, cardiac rhythm monitoring and a 2-D echocardiogram with Dopplers. Status post furosemide 40 mg IV in the ED, continue every morning Follow serial CBC with differential, renal function panel and magnesium levels Continue aspirin 81 mg daily, lisinopril 40 mg daily BPH with LUTS- Continue finasteride [address] Sutton catheter to accurately monitor I's and O's Chronic pain syndrome- Acetaminophen 650 mg by mouth every 6 hours as needed for mild pain or fever Continue hydrocodone/acetaminophen 5/325, 1 tablet every 6 hours as needed for moderate pain Hyperglycemia- Glucose 160 on admission Check hemoglobin A1c If elevated placed on Accu-Cheks with SSI coverage Consider addition of Jardiance 10 mg daily prior to discharge to manage fluid overload and likely diabetes Remaining orders and notations as noted Resident Activity Tracking Resident Involvement: Resident Care Provided Care Provided: Adult Hospital Medicine (3) Fluid overload Hypervolemia type: unspecified Qualified Code(s): E87.70 - Fluid overload, unspecified
[2023-03-31] MEDS ORDERED: ACETAMINOPHEN 500 MG TAB PO PRN (21:29)
[2023-03-31] MEDS ORDERED: MELATONIN 3 MG TAB PO PRN (21:29)
--- NOTE | 2023-03-31 21:49 | Billing Data ---
Date of Service March 31, 2023 Coding Level of Care Code 73998 INT INP/OBS CARE
[2023-03-31 22:19] LABS: Appearance Urine Clear (Clear); Bilirubin Urine Negative (Negative); Blood Urine Negative (Negative); Color Urine Yellow; Glucose Urine UA Negative (Negative); Ketones Urine Negative (Negative); Leukocyte Esterase Urine Negative (Negative); Nitrite Urine Negative (Negative); Protein Urine Negative (Negative); Specific Gravity Urine 1.008 (1.000-1.030); Urobilinogen Urine Negative (Negative)
[2023-04-01] MEDS: ATORVASTATIN 40 MG TAB PO SCH ×2 (00:36→19:22)
[2023-04-01 05:02] LABS: Hematocrit (blood only) 46.2 % (42.0-52.0); Hemoglobin 14.6 g/dl (14.0-18.0); Mean Corpuscular Hemoglobin 28.5 pg (25.0-34.0); Mean Corpuscular Hgb Conc 31.6 g/dL (32.0-36.0); Mean Corpuscular Volume 90.1 fL (80.0-100.0); Platelet Count 256 K/uL (130-400); RDW Coefficient of Variation 13.9 % (11.5-14.5); RDW Standard Deviation 45.2 fL (36.4-46.3); Red Blood Count 5.13 M/uL (4.70-6.10); White Blood Count 14.56 K/ul (4.8-10.8)
[2023-04-01 05:15] LABS: BUN Creatinine Ratio 18.5 (10-20); Calcium 8.6 mg/dl (8.6-10.3); Creatinine Clr Calc Pharmacy 147.4 ml/min; Est GFR (African American) 102.2 ml/min; Est GFR (Non-African American) 88.2 ml/min; Magnesium 1.9 mg/dl (1.7-2.4); Phosphorus 3.7 mg/dl (2.5-4.9); Potassium 4.7 mmol/L (3.5-5.1)
[2023-04-01 06:59] LABS: Estimated Average Glucose 177 mg/dl; Hemoglobin A1C 7.8 % (4.5-5.6)
[2023-04-01] MEDS: lisinopril 40 MG TAB PO SCH (08:20)
[2023-04-01] MEDS: ASPIRIN 81 MG ECTAB PO SCH (08:20)
[2023-04-01] MEDS: FUROSEMIDE 40 MG/4 ML VIAL IV SCH (08:20)
[2023-04-01] MEDS: FINASTERIDE 5 MG TAB PO SCH (08:20)
[2023-04-01] MEDS ORDERED: ENOXAPARIN INJ 40 MG/0.4 ML SYR SQ SCH (09:00)
[2023-04-01] MEDS: HYDROCODONE/ACETAMINOPHEN 7.5/325MG TAB PO PRN ×2 (10:30→16:03)
[2023-04-01] MEDS: LANTUS PER UNIT CHARGE SQ SCH (11:46)
[2023-04-01] MEDS: INSULIN ASPART PER UNIT CHARGE SC SCH ×3 (12:47→19:43)
--- NOTE | 2023-04-01 14:39 | XCELERA ---
[id number]
[2023-04-01] MEDS ORDERED: METOPROLOL TARTRATE 1 MG/ML VIAL IV STA (14:45)
--- NOTE | 2023-04-01 14:45 | Hospitalist Progress Note ---
Date of Service April 01, 2023 Assessment & Plan (1) Atrial flutter: Plan: suspect that pt's new onset arrhythmia today is aflutter, 2:1 block. doubt AVNRT/SVT. no rate control response with beta chivo. transferred him to PCU - started on cardizem infusion. Poor response to such as well. Will make NPO at midnight in the event he would remain in rapid aflutter and require an elective cardioversion. plan for probable cards consult tomorrow. echo with preserved EF although very limited study. he had no symptoms from his aflutter - thus, has he been having runs of this at home and was this the driving factor in his volume overload?? re-eval tomorrow. placed on heparin drip with bolus. (2) Fluid overload: Plan: improved s/p lasix yesterday and today. cont lasix 40mg daily. check RUQ u/s - r/o cirrhosis contributing to fluid issues. check dopplers of legs - r/o DVT. check TSH in am. no proteinuria on u/a. if w/u is otherwise negative then likely his volume overload is HFpEF. (3) Hypertension: Plan: controlled at this time cont MOE (4) High cholesterol: Plan: remains on lipitor 80mg daily I do not have a lipid profile available for review in the EMR (5) BPH (benign prostatic hyperplasia): Plan: cont finasteride deshpande is now in place s/p placement in ER yesterday (6) Lumbar radicular pain: Plan: sees [facility] CT lumbar spine in 2020 with moderate- severe DJD has had SI joint injections in the past per records resume norco prn k-pad toradol x 1 this afternoon (7) Morbid obesity with BMI of 70 and over, adult: Plan: BMI 72 (8) Diabetes mellitus type 2, uncontrolled: Plan: was a pre-diabetic in 2018 now full-blown diabetic with a1c near 8% today schedule lantus 15 units daily schedule novolog ac/hs with CF 20 and carb ratio 1:7 adjust as needed good candidate for metformin at d/c [facility] as outpatient as well?? will ask diabetes education to see in consult (9) Sacroiliac joint pain: Plan: follows with [facility] back pain has been severe of late consider MRI l-spine but uncertain if he can fit in scanner defer for now in light of cardiac issues (10) Ambulatory dysfunction: Plan: severe l-spine pain, morbid obesity, hip disease, etc PT, OT evals while here Plan DVT proph - stop lovenox SC, placing on heparin drip for #1 updated moving him to PCU due to #1 Admission and Anticipated Discharge Date Admission Date: March 31, 2023 Subjective while visiting with the patient I was informed by staff that he converted from NSR to a narrow complex tachycardia of about 140 BPM I looked at monitor - appeared to be a 2:1 a flutter with rate of 140 EKG obtained - poor tracing with artifact - either 2:1 flutter VS AVNRT; favor former patient had NO symptoms from the rapid rhythm - no dizziness, no lightheadedness, no palpitations, no chest pain he reports occasional heart racing but only for a few seconds when it happens denies any dyspnea denies any use of home O2 or CPAP/BIPAP denies abdominal swelling denies prior h/o cirrhosis during rounds was at bedside I reported to them the echo findings and my concern for a.flutter before transferring him from med/tele to PCU I gave lopressor 5mg IV x 1 - marginal response to this - HR went from 140 to 130 BPM only; remained in what appeared to be 2:1 flutter Review of Systems Review of Systems: gen - no fevers or chills; normal appetite cv - no chest pain; severe EDEMA for several weeks musculo - severe back pain; chronic; low back; follows with [facility] pulm - no dyspnea today Physical Exam Physical Exam: gen - sitting in recliner chair, NAD; morbidly obese neck - unable to assess for JVD mouth - MMM heart - tachy, s1 s2, no obvious murmur lungs - decreased BS bases o/w CTA b/l abd - obese, soft, NT, BS+ ext - severe edema, 3-4+ b/l from feet to thighs - deshpande in place but I did not examine the scrotum Results & Data Results & Data Vital Signs (Past 12 Hours) Vital Signs Pulse Pulse Resp BP BP Pulse Ox O2 Del Method 04/01/23 12:30 Room Air 04/01/23 12:26 97 H 04/01/23 08:33 Nasal Cannula 04/01/23 08:26 98 H 22 157/94 H 94 Nasal Cannula 04/01/23 06:00 95 H 20 154/88 H 95 04/01/23 05:00 95 H 20 113/95 95 04/01/23 03:00 92 H 17 153/98 H 96 Nasal Cannula O2 Flow Rate 04/01/23 12:30 04/01/23 12:26 04/01/23 08:33 2 04/01/23 08:26 2 04/01/23 06:00 04/01/23 05:00 04/01/23 03:00 2 Laboratory Results Laboratory Results - last 24 hr 03/31/23 04/01/23 04/01/23 Unknown 04:19 04:19 WBC 14.56 H RBC 5.13 Hgb 14.6 Hct 46.2 MCV 90.1 MCH 28.5 MCHC 31.6 L RDW Std Deviation 45.2 RDW Coeff of Fabiola 13.9 Plt Count 256 MPV 10.0 Sodium 136 Potassium 4.7 Chloride 102 Carbon Dioxide 27 Anion Gap 7 BUN 17 Creatinine 0.92 Est Cr Clr Drug Dosing 147.4 Est GFR ( Amer) 102.2 Est GFR (Non-Af Amer) 88.2 BUN/Creatinine Ratio 18.5 Glucose 204 H POC Glucose Estimat Average Glucose Hemoglobin A1c Calcium 8.6 Phosphorus 3.7 Magnesium 1.9 Urine Color Yellow Urine Appearance Clear Urine pH 5.0 Ur Specific [place] 1.008 Urine Protein Negative Urine Glucose (UA) Negative Urine Ketones Negative Urine Blood Negative Urine Nitrite Negative Urine Bilirubin Negative Urine Urobilinogen Negative Ur Leukocyte Esterase Negative 04/01/23 04/01/23 04/01/23 04:19 11:41 12:29 WBC RBC Hgb Hct MCV MCH MCHC RDW Std Deviation RDW Coeff of Fabiola Plt Count MPV Sodium Potassium Chloride Carbon Dioxide Anion Gap BUN Creatinine Est Cr Clr Drug Dosing Est GFR ( Amer) Est GFR (Non-Af Amer) BUN/Creatinine Ratio Glucose POC Glucose 181 H 157 H Estimat Average Glucose 177 Hemoglobin A1c 7.8 H Calcium Phosphorus Magnesium Urine Color Urine Appearance Urine pH Ur Specific [place] Urine Protein Urine Glucose (UA) Urine Ketones Urine Blood Urine Nitrite Urine Bilirubin Urine Urobilinogen Ur Leukocyte Esterase 04/01/23 04/01/23 17:03 19:41 WBC RBC Hgb Hct MCV MCH MCHC RDW Std Deviation RDW Coeff of Fabiola Plt Count MPV Sodium Potassium Chloride Carbon Dioxide Anion Gap BUN Creatinine Est Cr Clr Drug Dosing Est GFR ( Amer) Est GFR (Non-Af Amer) BUN/Creatinine Ratio Glucose POC Glucose 123 H 136 H Estimat Average Glucose Hemoglobin A1c Calcium Phosphorus Magnesium Urine Color Urine Appearance Urine pH Ur Specific [place] Urine Protein Urine Glucose (UA) Urine Ketones Urine Blood Urine Nitrite Urine Bilirubin Urine Urobilinogen Ur Leukocyte Esterase Diagnostic Findings EKG - my reading - 2:1 a flutter, mild ST changes inferior leads, rate 130-140 BPM PG Care Time/CCT Total # of Minutes Spent Total Time Spent with Patient: Total time spent is greater than 50% in coordination of care (as documented) at patient's floor/unit and/or counseling patient: Coding Level of Care Code 24427 SUB INP/OBS CARE 3/50MIN Diagnoses Atrial flutter I48.92 Fluid overload E87.70 Hypervolemia type: unspecified Hypertension I10 High cholesterol E78.00 BPH (benign prostatic hyperplasia) N40.0 Lumbar radicular pain M54.16 Morbid obesity with BMI of 70 and over, adult E66.01; Z68.45 Diabetes mellitus type 2, uncontrolled Sacroiliac joint pain M53.3 Ambulatory dysfunction R26.2 (2) Fluid overload Hypervolemia type: unspecified Qualified Code(s): E87.70 - Fluid overload, unspecified
--- NOTE | 2023-04-01 15:36 | Electrocardiogram Report ---
Test Reason : Blood Pressure : / mmHG Vent. Rate : 095 BPM Atrial Rate : 095 BPM P-R Int : 168 ms QRS Dur : 082 ms QT Int : 352 ms P-R-T Axes : 046 075 050 degrees QTc Int : 442 ms Normal sinus rhythm Poor R wave progression, consider anterior AL vs. lead placement vs. LVH Abnormal ECG When compared with ECG of 03-AUG-2017 02:27, No significant change was found Confirmed by Pop Gil ([id number]) on 04/01/2023 3:35:41 PM Referred By: REFERRED SELF Confirmed By:Pop Gil
--- NOTE | 2023-04-01 16:04 | Electrocardiogram Report ---
Test Reason : Blood Pressure : / mmHG Vent. Rate : 138 BPM Atrial Rate : 127 BPM P-R Int : 000 ms QRS Dur : 084 ms QT Int : 368 ms P-R-T Axes : 000 070 013 degrees QTc Int : 557 ms Poor data quality, interpretation may be adversely affected Sinus tachycardia T wave abnormality, consider inferior ischemia Abnormal ECG When compared with ECG of 31-MAR-2023 17:07, (unconfirmed) Non-specific change in ST segment in Inferior leads T wave inversion now evident in Inferior leads Confirmed by Pop Gil ([id number]) on 04/01/2023 4:03:41 PM Referred By: REFERRED SELF Confirmed By:Pop Gil
[2023-04-01] MEDS ORDERED: dilTIAZem HCL 125 MG in DEXTROSE 5% 100 ML IV SCH (17:53)
[2023-04-01] MEDS ORDERED: STAT IV Infusion **Titration per Protocol STA (17:53)
[2023-04-01] MEDS ORDERED: KETOROLAC 30 MG/ML VIAL IV ONE ×2 (18:00→19:00)
[2023-04-01] MEDS ORDERED: MoRPHine SULFATE 2 MG/ML CARP IV PRN (19:49)
[2023-04-01] MEDS ORDERED: Heparin IV Adult Wt-Based Standard WITH Bolus Protocol IV SCH (19:54)
[2023-04-01] MEDS: HYDROcodone/ACETAMINOPHEN 10/325 TAB PO PRN (19:58)
[2023-04-01] MEDS ORDERED: HEPARIN SOD (PORCINE) 1000 UNIT/ML IV ONE (21:00)
[2023-04-01] MEDS: HEPARIN SODIUM/DEXTROSE 25,000 UNITS/500 ML BAG IV SCH (21:49)
--- NOTE | 2023-04-02 03:40 | Ultrasound Report ---
Exam(s): US VENOUS BILATERAL LOWER EXTREMITIES EXAM: US Duplex Bilateral Lower Extremities Veins CLINICAL HISTORY: Reason for exam: severe edema b/l legs, r/o DVT. TECHNIQUE: Real-time duplex ultrasound scan of the bilateral lower extremity veins integrating B-mode two-dimensional vascular structure, Doppler spectral analysis, color flow Doppler imaging and compression. COMPARISON: None. FINDINGS: Limitations: Jacob is limited due to body habitus . Right deep veins: Unremarkable. No DVT in the right common femoral, femoral, proximal deep femoral or popliteal veins. The veins demonstrate normal color flow, are normally compressible, with normal phasic flow and/or augmentation response. Right superficial veins: Unremarkable. No thrombus in the visualized right great saphenous vein. Left deep veins: Unremarkable. No DVT in the left common femoral, femoral, proximal deep femoral or popliteal veins. The veins demonstrate normal color flow, are normally compressible, with normal phasic flow and/or augmentation response. Left superficial veins: Unremarkable. No thrombus in the visualized left great saphenous vein. Soft tissues: No acute findings. No popliteal cyst. IMPRESSION: No ultrasonographic evidence of deep venous thrombosis involving the bilateral lower extremities. Electronically signed by: Marcelle Biggs MD 04/02/23 03:39 AM
[2023-04-02 04:46] LABS: Hematocrit (blood only) 45.8 % (42.0-52.0); Hemoglobin 14.7 g/dl (14.0-18.0); Mean Corpuscular Hemoglobin 28.9 pg (25.0-34.0); Mean Corpuscular Hgb Conc 32.1 g/dL (32.0-36.0); Mean Platelet Volume 9.7 fL (9.4-12.4); Platelet Count 242 K/uL (130-400); RDW Standard Deviation 45.9 fL (36.4-46.3); Red Blood Count 5.09 M/uL (4.70-6.10); White Blood Count 12.55 K/ul (4.8-10.8)
[2023-04-02 04:58] LABS: BUN Creatinine Ratio 23.3 (10-20); Calcium 8.9 mg/dl (8.6-10.3); Creatinine Clr Calc Pharmacy 131.7 ml/min; Est GFR (African American) 89.2 ml/min; Est GFR (Non-African American) 76.9 ml/min; Potassium 4.2 mmol/L (3.5-5.1)
[2023-04-02 05:13] LABS: Thyroid Stimulating Hormone 2.758 uIu/ml (0.300-4.500)
--- NOTE | 2023-04-02 07:21 | Ultrasound Report ---
US gallbladder CLINICAL HISTORY: severe LE edema, ?cirrhosis COMPARISON STUDY: CT of the abdomen and pelvis January 13, 2007. FINDINGS: This exam is significantly compromised by suboptimal penetration. The liver is enlarged, me asuring 22.5 cm in maximal dimension. Hepatic echogenicity is increased. Liver is not overtly cirrhot ic by sonography but is suboptimally assessed given suboptimal penetration. Gallbladder is normal. Th ere are no gallstones. Pancreas is obscured. The common bile duct is also obscured. There is no defin ite right hydronephrosis. IMPRESSION: 1. Hepatic steatosis and hepatomegaly. Exam significantly compromised by suboptimal penetration altho ugh liver not overtly cirrhotic by sonography. 2. No gallstones identified. No definite biliary ductal dilatation. 3. Obscured pancreas. ACT 112: Negative or not required by law. Electronically signed by: Anand Pandya M.D. 04/02/2023 7:20 AM
[2023-04-02 07:26] LABS: Partial Thromboplastin Ratio 3.2
[2023-04-02 07:42] LABS: Partial Thromboplastin Time 91.4 Seconds (21.0-31.0)
[2023-04-02] MEDS: LANTUS PER UNIT CHARGE SQ SCH (09:04)
[2023-04-02] MEDS: INSULIN ASPART PER UNIT CHARGE SC SCH ×4 (09:04→20:52)
[2023-04-02] MEDS: HEPARIN SODIUM/DEXTROSE 25,000 UNITS/500 ML BAG IV SCH ×2 (09:04→21:35)
[2023-04-02] MEDS: ASPIRIN 81 MG ECTAB PO SCH (09:05)
[2023-04-02] MEDS: HYDROcodone/ACETAMINOPHEN 10/325 TAB PO PRN ×2 (09:05→17:33)
[2023-04-02] MEDS: FINASTERIDE 5 MG TAB PO SCH (09:06)
[2023-04-02] MEDS: FUROSEMIDE 40 MG/4 ML VIAL IV SCH (09:06)
[2023-04-02] MEDS: lisinopril 40 MG TAB PO SCH (09:06)
[2023-04-02] MEDS ORDERED: FUROSEMIDE 40 MG/4 ML VIAL IV ONE (16:40)
[2023-04-02 16:45] LABS: Partial Thromboplastin Ratio 1.8
[2023-04-02 16:49] LABS: Partial Thromboplastin Time 51.4 Seconds (21.0-31.0)
--- NOTE | 2023-04-02 19:10 | CT Scan Report ---
CT lumbar spine wo con HISTORY: 62 years-old Male known DJD, worsening back pain; severe stenosis? Chronic low back pain COMPARISON: 03/05/2021 TECHNIQUE: Multiple axial CT images of the lumbar spine were obtained without the use of IV contrast. A dose lowering technique was used consistent with the principals of [facility]. FINDINGS: Study limited by motion and patient body habitus. No paravertebral edema identified. Atherosclerosis of the abdominal aorta. Suboptimal evaluation of the central canal and neural foramen by CT technique . There is mostly moderate multilevel intervertebral disc space narrowing with vacuum disc phenomenon again noted. No acute fracture, subluxation, erosion or marrow replacing process is identified. The visualized sacrum and iliac bones appear intact. L1-L2: Posterior disc osteophyte causes moderate central canal stenosis, AP dimension of the thecal s ac measuring 7 mm which has worsened from prior. Mild bilateral foraminal stenosis. L2-L3: Posterior disc osteophyte complex causes moderate central canal stenosis with AP dimension of the thecal sac measuring 7 mm, similar to prior. Moderate bilateral foraminal narrowing. L3-L4: Mild central canal stenosis with moderate to severe bilateral foraminal narrowing. L4-L5: Mild central canal stenosis with severe right and moderate left foraminal narrowing. L5-S1: Mild central canal stenosis with severe right and moderate to severe left foraminal narrowing. IMPRESSION: 1. Limited exam as above. No acute fracture or subluxation of the lumbar spine identified. 2. Moderate degenerative changes as described above resulting in multilevel central canal and foramin al narrowing, similar to mildly progressed compared to the 03/05/2021 study. ACT 112: Negative or not required by law. The above report was generated using voice recognition software. It may contain grammatical, syntax o r spelling errors. Electronically signed by: Miguel Becerra M.D. 04/02/2023 7:08 PM
[2023-04-02] MEDS: ATORVASTATIN 40 MG TAB PO SCH (20:53)
--- NOTE | 2023-04-02 20:56 | Hospitalist Progress Note ---
Date of Service April 02, 2023 Assessment & Plan (1) Atrial flutter: Plan: suspect that pt's new onset arrhythmia yesterday was aflutter, 2:1 block. can't rule out AVNRT but less likely. can't rule out a. tach but less likely. his rhythm never looked like a.fib. rate was at 130 the entire time. no rate control response with beta chivo. transferred him to PCU - started on cardizem infusion. No response to such as well. fortunately he converted back to NSR. echo with preserved EF although very limited study. he had no symptoms from his rapid arrhythmia - thus, has he been having runs of this at home and was this the driving factor in his volume overload?? placed on heparin drip in the event this was a.flutter. will consult cardiology for their opinion on the arrhythmia. (2) Fluid overload: Plan: improved s/p ongoing cont lasix 40mg daily; gave an additional dose this evening as well. diuresing well. checked RUQ u/s - no features of cirrhosis contributing to fluid issues. checked dopplers of legs - no DVT. normal TSH. no proteinuria on u/a. he was taking NSAIDs chronically for his back pain and those could have contributed. NSAIDs have been stopped. if w/u is otherwise negative then likely his volume overload is HFpEF. (3) Hypertension: Plan: controlled at this time cont MOE consider adding BB to his regimen (4) High cholesterol: Plan: remains on lipitor 80mg daily (5) BPH (benign prostatic hyperplasia): Plan: cont finasteride deshpande (6) Lumbar radicular pain: Plan: sees [facility] CT lumbar spine in 2020 with moderate- severe DJD has had SI joint injections in the past per records cont norco prn k-pad will repeat the CT lumbar spine (unable to tolerate MRI the last time it was attempted) -- rule out worsening spinal stenosis, compression Fx, etc (7) Morbid obesity with BMI of 70 and over, adult: Plan: BMI 72 (8) Diabetes mellitus type 2, uncontrolled: Plan: was a pre-diabetic in 2018 now full-blown diabetic with a1c near 8% this admission cont lantus 15 units daily cont novolog ac/hs with CF 20 and carb ratio 1:7 adjust as needed good candidate for metformin at d/c [facility] as outpatient as well?? appreciate diabetes education consult (9) Sacroiliac joint pain: Plan: follows with [facility] back pain has been severe of late consider MRI l-spine but uncertain if he can fit in scanner and he did not tolerate attempts at one in the past will obtain CT lumbar spine as above (10) Ambulatory dysfunction: Plan: severe l-spine pain, morbid obesity, hip disease, etc PT, OT evals while here Plan DVT proph - heparin drip updated at bedside Admission and Anticipated Discharge Date Admission Date: March 31, 2023 Subjective no events overnight NSR on tele - converted from narrow complex tachycardia back to NSR he "feels better" today breathing is better leg edema and scrotal edema are better eating well he continues with severe back pain - b/l low back; left lower back pain radiates to the L buttock but NOT down the leg any movement makes things worse with the pain the pain meds do help Review of Systems Review of Systems: cv - no chest pain pulm - no dyspnea at rest but has CARBONE GI - no N/V Physical Exam Physical Exam: gen - sitting in recliner chair, NAD - but does get dyspneic with moving around; morbidly obese neck - unable to assess for JVD due to neck size mouth - MMM heart - RRR, s1 s2, no obvious murmur lungs - decreased BS bases o/w CTA b/l; no rales abd - obese, soft, NT, BS+ ext - severe edema but improved; 3+ b/l from feet to thighs - deshpande in place; buried penile shaft; severe scrotal edema but NON TENDER to palpation musculo - pain over L SI joint w/ palpation; no pain with palpation over R SI joint Results & Data Results & Data Vital Signs (Past 12 Hours) Vital Signs Temp Pulse Pulse Resp BP Pulse Ox O2 Del Method 04/02/23 15:33 36.5 C 86 20 119/61 90 Room Air 04/02/23 15:41 88 04/02/23 12:06 36.5 C 87 21 131/81 91 Room Air Laboratory Results Laboratory Results - last 24 hr 04/02/23 04/02/23 04/02/23 04:20 04:20 04:20 WBC 12.55 H RBC 5.09 Hgb 14.7 Hct 45.8 MCV 90.0 MCH 28.9 MCHC 32.1 RDW Std Deviation 45.9 RDW Coeff of Fabiola 14.0 Plt Count 242 MPV 9.7 APTT Cancelled PTT Ratio Cancelled Sodium 134 L Potassium 4.2 Chloride 97 L Carbon Dioxide 30 Anion Gap 7 BUN 24 H Creatinine 1.03 Est Cr Clr Drug Dosing 131.7 Est GFR ( Amer) 89.2 Est GFR (Non-Af Amer) 76.9 BUN/Creatinine Ratio 23.3 H Glucose 167 H POC Glucose Calcium 8.9 Magnesium 2.0 TSH 2.758 04/02/23 04/02/23 04/02/23 06:08 08:13 11:41 WBC RBC Hgb Hct MCV MCH MCHC RDW Std Deviation RDW Coeff of Fabiola Plt Count MPV APTT 91.4 H* PTT Ratio 3.2 Sodium Potassium Chloride Carbon Dioxide Anion Gap BUN Creatinine Est Cr Clr Drug Dosing Est GFR ( Amer) Est GFR (Non-Af Amer) BUN/Creatinine Ratio Glucose POC Glucose 140 H 185 H Calcium Magnesium TSH 04/02/23 04/02/23 15:34 17:07 WBC RBC Hgb Hct MCV MCH MCHC RDW Std Deviation RDW Coeff of Fabiola Plt Count MPV APTT 51.4 H* PTT Ratio 1.8 Sodium Potassium Chloride Carbon Dioxide Anion Gap BUN Creatinine Est Cr Clr Drug Dosing Est GFR ( Amer) Est GFR (Non-Af Amer) BUN/Creatinine Ratio Glucose POC Glucose 150 H Calcium Magnesium TSH PG Care Time/CCT Total # of Minutes Spent Total Time Spent with Patient: Total time spent is greater than 50% in coordination of care (as documented) at patient's floor/unit and/or counseling patient: Coding Level of Care Code 62822 SUB INP/OBS CARE 2/35MIN Diagnoses Atrial flutter I48.92 Fluid overload E87.70 Hypervolemia type: unspecified Hypertension I10 High cholesterol E78.00 BPH (benign prostatic hyperplasia) N40.0 Lumbar radicular pain M54.16 Morbid obesity with BMI of 70 and over, adult E66.01; Z68.45 Diabetes mellitus type 2, uncontrolled Sacroiliac joint pain M53.3 Ambulatory dysfunction R26.2 (2) Fluid overload Hypervolemia type: unspecified Qualified Code(s): E87.70 - Fluid overload, unspecified
[2023-04-03 07:03] LABS: Hematocrit (blood only) 44.9 % (42.0-52.0); Hemoglobin 14.6 g/dl (14.0-18.0); Mean Corpuscular Hemoglobin 29.3 pg (25.0-34.0); Mean Corpuscular Hgb Conc 32.5 g/dL (32.0-36.0); Mean Platelet Volume 9.8 fL (9.4-12.4); Platelet Count 233 K/uL (130-400); RDW Coefficient of Variation 14.3 % (11.5-14.5); RDW Standard Deviation 44.6 fL (36.4-46.3); Red Blood Count 4.99 M/uL (4.70-6.10); White Blood Count 11.52 K/ul (4.8-10.8)
[2023-04-03 07:23] LABS: BUN Creatinine Ratio 21.4 (10-20); Creatinine Clr Calc Pharmacy 137.3 ml/min; Est GFR (African American) 94.7 ml/min; Est GFR (Non-African American) 81.7 ml/min; Potassium 4.2 mmol/L (3.5-5.1)
[2023-04-03 08:05] LABS: Partial Thromboplastin Ratio 1.9
[2023-04-03 08:11] LABS: Partial Thromboplastin Time 53.2 Seconds (21.0-31.0)
[2023-04-03] MEDS: HYDROcodone/ACETAMINOPHEN 10/325 TAB PO PRN ×3 (09:51→20:22)
[2023-04-03] MEDS: FINASTERIDE 5 MG TAB PO SCH (09:52)
[2023-04-03] MEDS: lisinopril 40 MG TAB PO SCH (09:52)
[2023-04-03] MEDS: ASPIRIN 81 MG ECTAB PO SCH (09:52)
[2023-04-03] MEDS: INSULIN ASPART PER UNIT CHARGE SC SCH ×4 (09:57→20:22)
[2023-04-03] MEDS: LANTUS PER UNIT CHARGE SQ SCH (09:58)
[2023-04-03] MEDS: FUROSEMIDE 40 MG/4 ML VIAL IV SCH (10:04)
[2023-04-03] MEDS: HEPARIN SODIUM/DEXTROSE 25,000 UNITS/500 ML BAG IV SCH ×2 (12:07→23:10)
--- NOTE | 2023-04-03 16:25 | Cardiology Consultation ---
Date of Consultation April 03, 2023 Assessment & Plan (1) Atrial flutter: Plan 1. Atrial flutter: This seems to be the most anterior description of the arrhythmia. It did not appear to be a typical flutter, but the appearance may be compromised by his large body habitus. He was very regular in the rate was steady. It lasted for several hours and terminated. He is certainly at risk for atrial flutters based on his obesity and history of sleep apnea. I discussed different options for treatment. One would be medical management. This could be with simple beta-blockade or antiarrhythmic therapy should he experience recurrences. I also described catheter based therapy which is generally quite efficacious, but in his case complicated by his weight. Procedure that nature can not be performed at our institution at his weight. Did offer him the option of referral to 1 of the bigger centers, but he has some reservations about going out of town. He requested initiating medical therapy. I think we will start with a simple regimen which would be a beta-chivo. Co uld consider antiarrhythmic drugs if he has frequent and sustained recurrences. He has several risk factors for stroke and was advised to begin systemic anticoagulation. Despite his large body habitus it would seem Eliquis (5 mg twice daily) or Xarelto (20 mg daily) are appropriate choices. I encouraged him perform some form of home monitoring for recurrence. As he was not symptomatic with the initial arrhythmia higher heart rates would likely be the indication of recurrence. He is requesting an outpatient monitor which can be arranged through our office after discharge. History of Present Illness Reason for Consultation: Tachycardia Requesting Physician: Jennifer Attending Physician: Ezra Rodriguez MD History of Present Illness The patient is a 62-year-old gentleman without a known history of cardiac disease who presents to the hospital with symptoms of lower extremity and scrotal edema. The patient states that this was progressive over several weeks. He initially thought this might be related to some of his medications, but after switching were discontinuing medications the symptoms persisted and actually worsened. He presents to the hospital for evaluation. During his hospitalization he did develop a tachycardia and an EKG suggested an SVT. Patient was not aware of any palpitations at that time. He did not endorse symptoms of dyspnea or chest pain. He eventually converted to a sinus rhythm after several hours. In general he is a very sedentary individual. He is limited primarily by his obesity and back discomfort. He does not do a lot of physical activity but did not report symptoms of chest discomfort or dizziness associated with activity or changes in position. He is not been aware of palpitations or rapid heartbeat in the past. He does not perform any routine home monitoring of his heart rate. Currently feeling well. In fact, he stated he is not felt this good in some time. Swelling has improved. Allergies Allergy/AdvReac Type Severity Reaction Status Date / Time hydromorphone Allergy Intermediate rash Verified 03/31/23 19:54 prednisone Allergy Unknown Unknown Verified 03/31/23 19:54 azithromycin AdvReac Intermediate N/V Verified 03/31/23 19:54 tramadol AdvReac Intermediate HALUCINATIO Verified 03/31/23 19:54 NS Home Medications Medication Instructions Recorded Confirmed Type aspirin 81 mg tablet,delayed 81 mg PO DAILY 03/16/19 03/31/23 History release (Ecotrin Low Strength) atorvastatin 80 mg tablet (Lipitor) 80 mg PO HS #90 tabs 09/02/22 03/31/23 Rx finasteride 5 mg tablet (Proscar) 5 mg PO DAILY #90 tabs 09/02/22 03/31/23 Rx lisinopril 40 mg tablet 40 mg PO DAILY #90 tabs 09/02/22 03/31/23 Rx naloxone 4 mg/actuation nasal 1 spray intranasal Q3M PRN opioid 09/02/22 03/31/23 Rx spray (Narcan) overdose #2 ea hydrocodone 5 mg-acetaminophen 325 1 - 2 tab PO Q6H PRN pain 03/31/23 03/31/23 History mg tablet apixaban 5 mg tablet (Eliquis) 5 mg PO BID #60 tabs 04/03/23 Rx Patient History Medical History High blood pressure Lumbar radicular pain Myofascial pain Sacroiliac joint pain Surgical History History of hip replacement Social History Smoking Status: Former smoker Age Started Using Tobacco: 14; Age Quit Using Tobacco: 51; Second Hand Exposure: No; Do You Dip or Chew Tobacco: No; Hx Alcohol Use: No Hx Substance Use: No Preferred Language: [place]an Communication Ability: Effective Forms Builder Required: No Beliefs That Will Affect Care: None Current Living Situation: Spouse Feels Safe at Home: Yes Assistive Devices: Scooter/Electric Scooter, Walker and Wheelchair Review of Systems Review of Systems: Per HPI. History of obstructive sleep apnea but intolerant of CPAP. Physical Exam Physical Exam: The patient is alert and oriented. Mood and affect appeared normal. He answered all questions appropriately. Morbidly obese HEENT: Pupils are equal and reactive to light and accommodation. Extraocular movements are intact. The sclerae are anicteric. Neuro: Cranial nerves intact Lungs: Clear to auscultation bilaterally. He has good air movement without use of accessory muscles. No rales wheezes or rhonchi. Cardiac: Heart demonstrates a regular rate and rhythm. Normal S1 and S2. No murmurs on examination. Pulses: The patient has palpable radial pulses bilaterally that are equal in intensity Extremities: There was no evidence of hypoperfusion. There is no cyanosis or clubbing. Mild lower extremity edema Skin: I did not appreciate any rashes on examination today. Results & Data Vital Signs (Past 12 Hours) Vital Signs Temp Pulse Resp BP Pulse Ox O2 Del Method 04/03/23 16:13 36.5 C 90 18 156/78 H 92 Room Air 04/03/23 12:20 36.5 C 77 18 144/61 H 94 Room Air 04/03/23 08:13 36.5 C 84 19 141/62 H 93 Room Air Laboratory Results Abnormal Lab Results 04/02/23 04/02/23 04/03/23 15:34 17:07 06:34 WBC 11.52 H RBC 4.99 Hgb 14.6 Hct 44.9 MCV 90.0 MCH 29.3 MCHC 32.5 RDW Std Deviation 44.6 RDW Coeff of Fabiola 14.3 Plt Count 233 MPV 9.8 APTT 51.4 H* PTT Ratio 1.8 Sodium Potassium Chloride Carbon Dioxide Anion Gap BUN Creatinine Est Cr Clr Drug Dosing Est GFR ( Amer) Est GFR (Non-Af Amer) BUN/Creatinine Ratio Glucose POC Glucose 150 H Calcium 04/03/23 04/03/23 04/03/23 06:34 06:34 08:28 WBC RBC Hgb Hct MCV MCH MCHC RDW Std Deviation RDW Coeff of Fabiola Plt Count MPV APTT 53.2 H* PTT Ratio 1.9 Sodium 135 L Potassium 4.2 Chloride 97 L Carbon Dioxide 31 Anion Gap 7 BUN 21 Creatinine 0.98 Est Cr Clr Drug Dosing 137.3 Est GFR ( Amer) 94.7 Est GFR (Non-Af Amer) 81.7 BUN/Creatinine Ratio 21.4 H Glucose 156 H POC Glucose 155 H Calcium 9.0 04/03/23 12:29 WBC RBC Hgb Hct MCV MCH MCHC RDW Std Deviation RDW Coeff of Fabiola Plt Count MPV APTT PTT Ratio Sodium Potassium Chloride Carbon Dioxide Anion Gap BUN Creatinine Est Cr Clr Drug Dosing Est GFR ( Amer) Est GFR (Non-Af Amer) BUN/Creatinine Ratio Glucose POC Glucose 132 H Calcium Diagnostic Findings Echocardiogram performed 04/01/2023: Technically limited due to obesity. Normal LV systolic function with estimated ejection fraction 55-60%. PG Care Time/CCT Total # of Minutes Spent Total Time Spent with Patient: Total time spent is greater than 50% in coordination of care (as documented) at patient's floor/unit and/or counseling patient: Coding Level of Care Code 83656 IN/OBS CONSULT LVL 4,60M Diagnoses Atrial flutter I48.92
[2023-04-03] MEDS ORDERED: FUROSEMIDE 40 MG/4 ML VIAL IV ONE (17:05)
--- NOTE | 2023-04-03 17:07 | Hospitalist Progress Note ---
Date of Service April 03, 2023 Assessment & Plan (1) Atrial flutter: Plan: prolonged episode of 2:1 flutter at rate of ~130 on 04/01/23. he had no symptoms from his rapid aflutter - thus, has he been having runs of this at home and was this the driving factor in his volume overload?? fortunately spontaneously converted back to NSR. no rate control response with beta chivo or cardizem. echo with preserved EF although very limited study. remains on heparin drip. Dr Meza from [facility] saw him in consult. offered ablation procedure in the future. Dr Meza also advised beta chivo - thus, start metoprolol succ 25mg daily. cont monitoring. spoke with cardiology about anticoagulation - although he is 200kg preferred choice by the team is Eliquis 5mg BID. will check cost of such tomorrow. (2) Fluid overload: Plan: improved. volume overload likely due to acute HFpEF. cont lasix 40mg daily; gave an additional dose this evening once again. stable BUN & Cr. checked RUQ u/s - no features of cirrhosis contributing to fluid issues. checked dopplers of legs - no DVT. normal TSH. no proteinuria on u/a. he was taking NSAIDs chronically for his back pain and those could have contributed. NSAIDs have been stopped. (3) Hypertension: Plan: controlled at this time cont MOE adding metoprolol xl 25mg daily (4) High cholesterol: Plan: cont lipitor 80mg daily (5) BPH (benign prostatic hyperplasia): Plan: cont finasteride deshpande in place - encouraged patient to remove this as soon as possible due to UTI risk with such (6) Lumbar radicular pain: Plan: sees [facility] CT lumbar spine in 2020 with moderate- severe DJD has had SI joint injections in the past per records cont norco prn k-pad CT lumbar spine repeated -- mild spinal stenosis but mod-severe foraminal stenosis at multiple levels cont norco prn (7) Morbid obesity with BMI of 70 and over, adult: Plan: BMI 71 (8) Diabetes mellitus type 2, uncontrolled: Plan: was a pre-diabetic in 2018 now full-blown diabetic with a1c near 8% this admission cont lantus 15 units daily cont novolog ac/hs with CF 20 and carb ratio 1:7 adjust as needed good candidate for metformin at d/c [facility] as outpatient as well?? appreciate diabetes education consult (9) Sacroiliac joint pain: Plan: follows with [facility] back pain has been severe of late consider MRI l-spine but uncertain if he can fit in scanner and he did not tolerate attempts at one in the past (10) Ambulatory dysfunction: Plan: severe l-spine pain, morbid obesity, hip disease, etc PT, OT while here both services felt he could go home w/ at discharge Plan DVT proph - heparin drip with transition to Eliquis tomorrow updated several times this week Admission and Anticipated Discharge Date Admission Date: March 31, 2023 Subjective tele overnight - no aflutter or afib continues to feel better each day he met with Dr Meza today - they discussed options for the aflutter - ablation was recommended present during the visit today eating/drinking well denies dyspnea denies any new complaints Review of Systems Review of Systems: cv - no chest pain pulm - no cough/dyspnea GI - no abd pain/nausea/emesis Physical Exam Physical Exam: gen - sitting in recliner chair, NAD neck - unable to assess for JVD due to neck size mouth - MMM heart - RRR, s1 s2, no obvious murmur lungs - mildly decreased BS bases o/w CTA b/l; no rales abd - obese, soft, NT, BS+ ext - 1-2+ edema b/l shins; pulses 2+ b/l psych - a/o x 3 Results & Data Results & Data Vital Signs (Past 12 Hours) Vital Signs Temp Pulse Resp BP Pulse Ox O2 Del Method 04/03/23 16:13 36.5 C 90 18 156/78 H 92 Room Air 04/03/23 12:20 36.5 C 77 18 144/61 H 94 Room Air 04/03/23 08:13 36.5 C 84 19 141/62 H 93 Room Air Laboratory Results Laboratory Results - last 48 hr 04/03/23 04/03/23 04/03/23 06:34 06:34 06:34 WBC 11.52 H RBC 4.99 Hgb 14.6 Hct 44.9 MCV 90.0 MCH 29.3 MCHC 32.5 RDW Std Deviation 44.6 RDW Coeff of Fabiola 14.3 Plt Count 233 MPV 9.8 APTT 53.2 H* PTT Ratio 1.9 Sodium 135 L Potassium 4.2 Chloride 97 L Carbon Dioxide 31 Anion Gap 7 BUN 21 Creatinine 0.98 Est Cr Clr Drug Dosing 137.3 Est GFR ( Amer) 94.7 Est GFR (Non-Af Amer) 81.7 BUN/Creatinine Ratio 21.4 H Glucose 156 H POC Glucose Calcium 9.0 04/03/23 04/03/23 04/03/23 08:28 12:29 17:08 WBC RBC Hgb Hct MCV MCH MCHC RDW Std Deviation RDW Coeff of Fabiola Plt Count MPV APTT PTT Ratio Sodium Potassium Chloride Carbon Dioxide Anion Gap BUN Creatinine Est Cr Clr Drug Dosing Est GFR ( Amer) Est GFR (Non-Af Amer) BUN/Creatinine Ratio Glucose POC Glucose 155 H 132 H 130 H Calcium PG Care Time/CCT Total # of Minutes Spent Total Time Spent with Patient: Total time spent is greater than 50% in coordination of care (as documented) at patient's floor/unit and/or counseling patient: Coding Level of Care Code 80676 SUB INP/OBS CARE 2/35MIN Diagnoses Atrial flutter I48.92 Fluid overload E87.70 Hypervolemia type: unspecified Hypertension I10 High cholesterol E78.00 BPH (benign prostatic hyperplasia) N40.0 Lumbar radicular pain M54.16 Morbid obesity with BMI of 70 and over, adult E66.01; Z68.45 Diabetes mellitus type 2, uncontrolled Sacroiliac joint pain M53.3 Ambulatory dysfunction R26.2 (2) Fluid overload Hypervolemia type: unspecified Qualified Code(s): E87.70 - Fluid overload, unspecified
[2023-04-03] MEDS: METOPROLOL SUCC 25MG EXT REL TAB PO SCH (17:40)
[2023-04-03] MEDS: ATORVASTATIN 40 MG TAB PO SCH (20:21)
[2023-04-03] MEDS ORDERED: MICONAZOLE NITRATE POWDER 85 GM EXT PRN (23:35)
[2023-04-04] MEDS: HYDROcodone/ACETAMINOPHEN 10/325 TAB PO PRN ×3 (07:25→19:51)
[2023-04-04] MEDS: lisinopril 40 MG TAB PO SCH (09:53)
[2023-04-04] MEDS: FINASTERIDE 5 MG TAB PO SCH (09:53)
[2023-04-04] MEDS: INSULIN ASPART PER UNIT CHARGE SC SCH ×4 (09:53→20:19)
[2023-04-04] MEDS: ASPIRIN 81 MG ECTAB PO SCH (09:53)
[2023-04-04] MEDS: METOPROLOL SUCC 25MG EXT REL TAB PO SCH (09:53)
[2023-04-04] MEDS: FUROSEMIDE 40 MG/4 ML VIAL IV SCH (09:53)
[2023-04-04] MEDS: LANTUS PER UNIT CHARGE SQ SCH (09:54)
[2023-04-04 09:58] LABS: Hematocrit (blood only) 44.3 % (42.0-52.0); Hemoglobin 15.3 g/dl (14.0-18.0); Mean Corpuscular Hgb Conc 34.5 g/dL (32.0-36.0); Mean Corpuscular Volume 89.7 fL (80.0-100.0); Mean Platelet Volume 10.1 fL (9.4-12.4); Platelet Count 282 K/uL (130-400); RDW Coefficient of Variation 15.2 % (11.5-14.5); RDW Standard Deviation 45.2 fL (36.4-46.3); Red Blood Count 4.94 M/uL (4.70-6.10); White Blood Count 12.23 K/ul (4.8-10.8)
[2023-04-04 10:01] LABS: BUN Creatinine Ratio 18.1 (10-20); Calcium 9.3 mg/dl (8.6-10.3); Creatinine Clr Calc Pharmacy 142.9 ml/min; Est GFR (African American) 99.6 ml/min; Est GFR (Non-African American) 85.9 ml/min
[2023-04-04 10:29] LABS: Partial Thromboplastin Ratio 2.1
[2023-04-04 10:46] LABS: Partial Thromboplastin Time 60.2 Seconds (21.0-31.0)
[2023-04-04] MEDS: APIXABAN 5 MG TABLET PO SCH ×2 (12:24→20:18)
[2023-04-04] MEDS ORDERED: FUROSEMIDE 40 MG TAB PO ONE (17:14)
[2023-04-04] MEDS: ATORVASTATIN 40 MG TAB PO SCH (20:17)
--- NOTE | 2023-04-04 22:04 | Hospitalist Progress Note ---
Date of Service April 04, 2023 Assessment & Plan (1) Atrial flutter: Plan: prolonged episode of 2:1 flutter at rate of ~130 on 04/01/23. he had no symptoms from his rapid aflutter - thus, has he been having runs of this at home and was this the driving factor in his volume overload?? spontaneously converted back to NSR. no rate control response with beta chivo or cardizem. echo with preserved EF although very limited study. had another episode of a flutter today - lasted 1 hour, self-resolved. Eliquis 5mg BID -- $0 copay. stop heparin drip. Transition to Eliquis today. Dr Meza from [facility] saw him in consult. offered ablation procedure in the future. Continue metoprolol succ 25mg daily. (2) Fluid overload: Plan: improved. volume overload likely due to acute HFpEF. cont lasix 40mg IV daily; gave an additional dose this evening once again (gave PO this time). stable BUN & Cr. checked RUQ u/s - no features of cirrhosis contributing to fluid issues. checked dopplers of legs - no DVT. normal TSH. no proteinuria on u/a. he was taking NSAIDs chronically for his back pain and those could have contributed. NSAIDs have been stopped. (3) Hypertension: Plan: controlled at this time cont MOE cont metoprolol xl 25mg daily (4) High cholesterol: Plan: cont lipitor 80mg daily (5) BPH (benign prostatic hyperplasia): Plan: cont finasteride deshpande in place - encouraged patient to remove this as soon as possible due to UTI risk with such (6) Lumbar radicular pain: Plan: sees [facility] Pain [facility] CT lumbar spine in 2020 with moderate- severe DJD has had SI joint injections in the past per records CT lumbar spine repeated -- mild spinal stenosis but mod-severe foraminal stenosis at multiple levels cont norco prn (7) Morbid obesity with BMI of 70 and over, adult: Plan: BMI 70 (8) Diabetes mellitus type 2, uncontrolled: Plan: was a pre-diabetic in 2018 now full-blown diabetic with a1c near 8% this admission controlled at this time cont lantus 15 units daily cont novolog ac/hs with CF 20 and carb ratio 1:7 good candidate for metformin at d/c Trulicity as outpatient as well?? appreciate diabetes education consult (9) Sacroiliac joint pain: Plan: follows with [facility] back pain has been severe of late consider MRI l-spine but uncertain if he can fit in scanner and he did not tolerate attempts at one in the past (10) Ambulatory dysfunction: Plan: severe l-spine pain, morbid obesity, hip disease, etc PT, OT while here both services felt he could go home w/ at discharge would benefit from home PT/OT Plan DVT proph - Eliquis BID updated several times this week will update her tomorrow Admission and Anticipated Discharge Date Admission Date: March 31, 2023 Subjective patient had a 1 hour episode of a flutter today no symptoms resolved w/o intervention no new complaints eating well no dyspnea at rest Review of Systems Review of Systems: cv - no chest pain; edema improving pulm - no cough GI - no abd pain, nausea or emesis Physical Exam Physical Exam: gen - sitting in recliner chair, NAD mouth - MMM heart - RRR, s1 s2, no obvious murmur lungs - decreased BS bases o/w CTA b/l; no rales or wheeze abd - obese, soft, NT, BS+ ext - 2+ edema b/l shins<1+ edema feet; pulses 2+ b/l psych - a/o x 3 Results & Data Results & Data Vital Signs (Past 12 Hours) Vital Signs Temp Pulse Resp BP Pulse Ox O2 Del Method 04/04/23 19:46 36.6 C 81 17 137/71 95 Room Air 04/04/23 15:38 36.4 C L 88 20 139/99 92 Room Air 04/04/23 11:19 36.6 C 86 20 129/70 91 Room Air Laboratory Results Laboratory Results - last 24 hr 04/04/23 04/04/23 04/04/23 07:46 09:05 09:05 WBC 12.23 H RBC 4.94 Hgb 15.3 Hct 44.3 MCV 89.7 MCH 31.0 MCHC 34.5 RDW Std Deviation 45.2 RDW Coeff of Fabiola 15.2 H Plt Count 282 MPV 10.1 APTT PTT Ratio Sodium 133 L Potassium 4.0 Chloride 94 L Carbon Dioxide 30 Anion Gap 9 BUN 17 Creatinine 0.94 Est Cr Clr Drug Dosing 142.9 Est GFR ( Amer) 99.6 Est GFR (Non-Af Amer) 85.9 BUN/Creatinine Ratio 18.1 Glucose 172 H POC Glucose 134 H Calcium 9.3 04/04/23 04/04/23 04/04/23 09:05 11:57 17:20 WBC RBC Hgb Hct MCV MCH MCHC RDW Std Deviation RDW Coeff of Fabiola Plt Count MPV APTT 60.2 H* PTT Ratio 2.1 Sodium Potassium Chloride Carbon Dioxide Anion Gap BUN Creatinine Est Cr Clr Drug Dosing Est GFR ( Amer) Est GFR (Non-Af Amer) BUN/Creatinine Ratio Glucose POC Glucose 155 H 106 H Calcium 04/04/23 20:19 WBC RBC Hgb Hct MCV MCH MCHC RDW Std Deviation RDW Coeff of Fabiola Plt Count MPV APTT PTT Ratio Sodium Potassium Chloride Carbon Dioxide Anion Gap BUN Creatinine Est Cr Clr Drug Dosing Est GFR ( Amer) Est GFR (Non-Af Amer) BUN/Creatinine Ratio Glucose POC Glucose 146 H Calcium PG Care Time/CCT Total # of Minutes Spent Total Time Spent with Patient: Total time spent is greater than 50% in coordination of care (as documented) at patient's floor/unit and/or counseling patient: Coding Level of Care Code 84900 SUB INP/OBS CARE 2/35MIN Diagnoses Atrial flutter I48.92 Fluid overload E87.70 Hypervolemia type: unspecified Hypertension I10 High cholesterol E78.00 BPH (benign prostatic hyperplasia) N40.0 Lumbar radicular pain M54.16 Morbid obesity with BMI of 70 and over, adult E66.01; Z68.45 Diabetes mellitus type 2, uncontrolled Sacroiliac joint pain M53.3 Ambulatory dysfunction R26.2 (2) Fluid overload Hypervolemia type: unspecified Qualified Code(s): E87.70 - Fluid overload, unspecified
[2023-04-05] MEDS: HYDROcodone/ACETAMINOPHEN 10/325 TAB PO PRN ×3 (02:49→12:50)
[2023-04-05 06:48] LABS: Calcium 9.3 mg/dl (8.6-10.3); Creatinine Clr Calc Pharmacy 141.5 ml/min; Est GFR (African American) 98.3 ml/min; Est GFR (Non-African American) 84.9 ml/min; Magnesium 2.1 mg/dl (1.7-2.4)
[2023-04-05] MEDS: INSULIN ASPART PER UNIT CHARGE SC SCH ×4 (08:58→20:57)
[2023-04-05] MEDS: LANTUS PER UNIT CHARGE SQ SCH (08:59)
[2023-04-05] MEDS: FINASTERIDE 5 MG TAB PO SCH (08:59)
[2023-04-05] MEDS: FUROSEMIDE 40 MG/4 ML VIAL IV SCH (08:59)
[2023-04-05] MEDS: METOPROLOL SUCC 25MG EXT REL TAB PO SCH (08:59)
[2023-04-05] MEDS: APIXABAN 5 MG TABLET PO SCH ×2 (08:59→20:56)
[2023-04-05] MEDS: ASPIRIN 81 MG ECTAB PO SCH (08:59)
[2023-04-05] MEDS: lisinopril 40 MG TAB PO SCH (08:59)
[2023-04-05] MEDS: ACETAMINOPHEN 500 MG TAB PO SCH ×2 (16:06→20:55)
[2023-04-05] MEDS: dexAMETHasone 4 MG in SYRINGE 0 ML IV SCH (16:06)
[2023-04-05] MEDS ORDERED: FUROSEMIDE 40 MG/4 ML VIAL IV ONE ×2 (17:00)
[2023-04-05] MEDS: oxyCODONE HCL IR 5 MG TAB (IMMEDIATE RELEASE) PO PRN (17:38)
--- NOTE | 2023-04-05 20:36 | Hospitalist Progress Note ---
Date of Service April 05, 2023 Assessment & Plan (1) Acute diastolic CHF (congestive heart failure): Plan: stable, improving he had dyspnea moving in his recliner chair earlier this week - that is resolved edema is improved weights coming down BUN & cr are stable to effect a more brisk diuresis try 60mg of IV lasix this evening if this proves more helpful will change to 60mg BID IV cont beta chivo (2) Atrial flutter: Plan: prolonged episode of 2:1 flutter at rate of ~130 on 04/01/23. he had no symptoms from his rapid aflutter - thus, has he been having runs of this at home and was this the driving factor in his volume overload?? spontaneously converted back to NSR. no rate control response with beta chivo or cardizem. echo with preserved EF although very limited study. had another episode of a flutter lasting 1 hour on 04/04. Cont Eliquis 5mg BID -- $[address] Meza from [facility] saw him in consult. offered ablation procedure in the future. Continue metoprolol succ 25mg daily. (3) Fluid overload: Plan: improved. volume overload likely due to acute HFpEF. see #1. checked RUQ u/s - no features of cirrhosis contributing to fluid issues. checked dopplers of legs - no DVT. normal TSH. no proteinuria on u/a. he was taking NSAIDs chronically for his back pain and those could have contributed. NSAIDs have been stopped. (4) Hypertension: Plan: controlled at this time cont MOE cont metoprolol xl 25mg daily (5) High cholesterol: Plan: cont lipitor 80mg daily (6) BPH (benign prostatic hyperplasia): Plan: cont finasteride deshpande in place - encouraged patient to remove this as soon as possible due to UTI risk with such (7) Lumbar radicular pain: Plan: sees [facility] CT lumbar spine in 2020 with moderate- severe DJD has had SI joint injections in the past per records CT lumbar spine repeated -- mild spinal stenosis but mod-severe foraminal stenosis at multiple levels back pain is much worse check sed rate/crp to ensure nothing infectious going on change norco to oxy 10's add dexamethasone 4mg q12h change tylenol 1gm TID re-eval tomorrow (8) Morbid obesity with BMI of 70 and over, adult: Plan: BMI 70 (9) Diabetes mellitus type 2, uncontrolled: Plan: was a pre-diabetic in 2018 now full-blown diabetic with a1c near 8% this admission controlled at this time cont lantus 15 units daily cont novolog ac/hs with CF 20 and carb ratio 1:7 good candidate for metformin at d/c Trulicity as outpatient as well?? appreciate diabetes education consult (10) Sacroiliac joint pain: Plan: follows with [facility] back pain has been severe of late consider MRI l-spine but uncertain if he can fit in scanner and he did not tolerate attempts at one in the past see #7 above (11) Ambulatory dysfunction: Plan: severe l-spine pain, morbid obesity, hip disease, etc PT, OT while here both services felt he could go home w/ at discharge would benefit from home PT/OT Plan DVT proph - Eliquis BID updated this evening by phone Admission and Anticipated Discharge Date Admission Date: March 31, 2023 Subjective tele overnight - NSR, no a.flutter no c/o dyspnea he thinks his LE edema is worse today main complaint is his back severe norco isn't helping at all offered heating pad - declined - "doesn't help" some radiation of low back pain into the buttocks but no radicular pain in the legs any movement makes it worse ongoing scrotal edema Review of Systems Review of Systems: gen - no fevers or chills; eating well cv - no chest pains pulm - no dyspnea; no cough GI - multiple bowel movements last 24 hours Physical Exam Physical Exam: gen - sitting in recliner chair, awake, alert, uncomfortable due to his back mouth - MMM heart - RRR, s1 s2, no obvious murmur lungs - CTA b/l; no rales or wheeze abd - obese, soft, NT, BS+ ext - 2+ edema b/l shins; 1+ edema feet; pulses 2+ b/l; edema unchanged today psych - a/o x 3 Results & Data Results & Data Vital Signs (Past 12 Hours) Vital Signs Temp Pulse Resp BP Pulse Ox O2 Del Method 04/05/23 20:04 36.4 C L 78 18 125/67 93 Room Air 04/05/23 15:35 37.1 C 81 19 120/66 94 Room Air 04/05/23 13:16 Room Air 04/05/23 11:16 36.7 C 68 19 149/75 H 92 Room Air Laboratory Results Laboratory Results - last 24 hr 04/05/23 04/05/23 04/05/23 05:58 07:32 11:20 Sodium 135 L Potassium 4.0 Chloride 96 L Carbon Dioxide 31 Anion Gap 8 BUN 19 Creatinine 0.95 Est Cr Clr Drug Dosing 141.5 Est GFR ( Amer) 98.3 Est GFR (Non-Af Amer) 84.9 BUN/Creatinine Ratio 20.0 Glucose 129 H POC Glucose 135 H 181 H Calcium 9.3 Magnesium 2.1 04/05/23 17:11 Sodium Potassium Chloride Carbon Dioxide Anion Gap BUN Creatinine Est Cr Clr Drug Dosing Est GFR ( Amer) Est GFR (Non-Af Amer) BUN/Creatinine Ratio Glucose POC Glucose 146 H Calcium Magnesium PG Care Time/CCT Total # of Minutes Spent Total Time Spent with Patient: Total time spent is greater than 50% in coordination of care (as documented) at patient's floor/unit and/or counseling patient: Coding Level of Care Code 10693 SUB INP/OBS CARE 3/50MIN Diagnoses Acute diastolic CHF (congestive heart failure) I50.31 Atrial flutter I48.92 Fluid overload E87.70 Hypervolemia type: unspecified Hypertension I10 High cholesterol E78.00 BPH (benign prostatic hyperplasia) N40.0 Lumbar radicular pain M54.16 Morbid obesity with BMI of 70 and over, adult E66.01; Z68.45 Diabetes mellitus type 2, uncontrolled Sacroiliac joint pain M53.3 Ambulatory dysfunction R26.2 (3) Fluid overload Hypervolemia type: unspecified Qualified Code(s): E87.70 - Fluid overload, unspecified
[2023-04-05] MEDS: ATORVASTATIN 40 MG TAB PO SCH (20:57)
[2023-04-06] MEDS: dexAMETHasone 4 MG in SYRINGE 0 ML IV SCH ×2 (02:58→17:32)
[2023-04-06] MEDS: oxyCODONE HCL IR 5 MG TAB (IMMEDIATE RELEASE) PO PRN ×3 (03:23→23:48)
[2023-04-06 08:20] LABS: C Reactive Protein 1.75 mg/dl (0-0.5); Calcium 9.5 mg/dl (8.6-10.3); Est GFR (Non-African American) 93.2 ml/min; Potassium 4.5 mmol/L (3.5-5.1)
[2023-04-06] MEDS: LANTUS PER UNIT CHARGE SQ SCH (09:19)
[2023-04-06] MEDS: lisinopril 40 MG TAB PO SCH (09:19)
[2023-04-06] MEDS: ASPIRIN 81 MG ECTAB PO SCH (09:19)
[2023-04-06] MEDS: APIXABAN 5 MG TABLET PO SCH ×2 (09:19→20:38)
[2023-04-06] MEDS: ACETAMINOPHEN 500 MG TAB PO SCH ×3 (09:19→20:37)
[2023-04-06] MEDS: INSULIN ASPART PER UNIT CHARGE SC SCH ×4 (09:19→20:36)
[2023-04-06] MEDS: FINASTERIDE 5 MG TAB PO SCH (09:19)
[2023-04-06] MEDS: FUROSEMIDE 40 MG/4 ML VIAL IV SCH (09:19)
[2023-04-06] MEDS: METOPROLOL SUCC 25MG EXT REL TAB PO SCH (09:19)
[2023-04-06] MEDS ORDERED: FUROSEMIDE INJ 20 MG/2 ML VIAL IV ONE (09:38)
--- NOTE | 2023-04-06 15:34 | Hospitalist Progress Note ---
Date of Service April 06, 2023 Assessment & Plan (1) Acute diastolic CHF (congestive heart failure): Plan: continues to improve he had better diuresis on 60mg of lasix last pm thus, will change to lasix 60mg this morning and 60mg this evening then re-eval tomorrow am for ongoing IV lasix uncertain of his dry weight - will continue to diurese until there is a rise in his BUN and Creatinine BUN & cr are stable on AM labs today cont metoprolol succinate 25mg daily BPs satisfactory (2) Atrial flutter: Plan: prolonged episode of 2:1 flutter at rate of ~130 on 04/01/23. he had no symptoms from his rapid aflutter - thus, has he been having runs of this at home and was this the driving factor in his volume overload?? spontaneously converted back to NSR. had no rate control response with beta chivo or cardizem. echo with preserved EF this admission although very limited study. had another episode of a flutter lasting 1 hour on 04/04. resolved without intervention. again no symptoms from the aflutter. Dr Meza from [facility] saw him in consult. offered ablation procedure in the future. Continue metoprolol succ 25mg daily. Cont Eliquis 5mg BID -- $0 copay. f/u DR Meza post-d/c. (3) Fluid overload: Plan: improved. volume overload likely due to acute HFpEF. see #1. checked RUQ u/s - no features of cirrhosis contributing to fluid issues. checked dopplers of legs - no DVT. normal TSH. no proteinuria on u/a. he was taking NSAIDs chronically for his back pain and those could have contributed. NSAIDs have been stopped. (4) Hypertension: Plan: acceptable readings cont lisinopril 40mg daily cont metoprolol xl 25mg daily (5) High cholesterol: Plan: cont lipitor 80mg daily (6) BPH (benign prostatic hyperplasia): Plan: cont finasteride deshpande in place - will remove AM of 04/07 after his AM lasix (7) Lumbar radicular pain: Plan: improved pain today sees [facility] Pain Management CT lumbar spine in 2020 with moderate- severe DJD has had SI joint injections in the past per records CT lumbar spine repeated -- mild spinal stenosis but mod-severe foraminal stenosis at multiple levels back pain much worse on 04/05/23 changed norco to oxy 10's - this has helped added dexamethasone 4mg q12h - this, too, has helped pain tylenol 1gm TID no changes in meds today will inform his pain management provider tomorrow about his issues ([facility]) (8) Morbid obesity with BMI of 70 and over, adult: Plan: BMI 70 (9) Diabetes mellitus type 2, uncontrolled: Plan: was a pre-diabetic in 2018 now full-blown diabetic with a1c near 8% this admission controlled at this time even w/ IV steroids on board cont lantus 15 units daily cont novolog ac/hs with CF 20 and carb ratio 1:7 good candidate for metformin at d/c [facility] as outpatient as well?? appreciate diabetes education consult (10) Sacroiliac joint pain: Plan: follows with [facility] back pain has been severe of late consider MRI l-spine but uncertain if he can fit in scanner and he did not tolerate attempts at one in the past see #7 above pain improved today (11) Ambulatory dysfunction: Plan: severe l-spine pain, morbid obesity, hip disease, etc PT, OT while here both services felt he could go home w/ at discharge would benefit from home PT/OT Plan DVT proph - Eliquis BID updated at bedside today overall progressing nicely Admission and Anticipated Discharge Date Admission Date: March 31, 2023 Subjective feels much better today -- back pain is much more comfortable breathing is comfortable edema is improved in legs eating w/o difficulty brought in underwear to help with scrotal support of his scrotal edema no new complaints except he had a "funny feeling" in his left foot earlier today - now resolved Review of Systems Review of Systems: cv - no chest pains pulm - no dyspnea or cough GI - had BM this am; no N/V Physical Exam Physical Exam: gen - sitting in recliner chair, awake, alert, looks better today; when he sat up in the chair he had no back pain mouth - MMM neck - no obvious JVD heart - RRR, s1 s2, no obvious murmur; heart tones distant lungs - CTA b/l; no rales or wheeze abd - obese, soft, NT, BS+ ext - <2+ edema b/l shins; <1+ edema feet; pulses 2+ b/l psych - a/o x 3 - deshpande bag with 1500cc of urine since his lasix this am Results & Data Results & Data Vital Signs (Past 12 Hours) Vital Signs Temp Pulse Resp BP BP Pulse Ox O2 Del Method 04/06/23 12:35 36.8 C 89 18 140/80 97 Room Air 04/06/23 07:41 36.5 C 82 18 158/86 H 93 Room Air 04/06/23 03:35 36.8 C 78 17 130/63 93 Room Air Laboratory Results Laboratory Results - last 24 hr 04/05/23 04/05/23 04/06/23 17:11 20:42 07:27 ESR 48 H Sodium Potassium Chloride Carbon Dioxide Anion Gap BUN Creatinine Est Cr Clr Drug Dosing Est GFR ( Amer) Est GFR (Non-Af Amer) BUN/Creatinine Ratio Glucose POC Glucose 146 H 154 H Calcium C-Reactive Protein 04/06/23 04/06/23 04/06/23 07:27 07:59 12:01 ESR Sodium 133 L Potassium 4.5 Chloride 96 L Carbon Dioxide 30 Anion Gap 7 BUN 21 Creatinine 0.84 Est Cr Clr Drug Dosing 159.0 Est GFR ( Amer) 108.0 Est GFR (Non-Af Amer) 93.2 BUN/Creatinine Ratio 25.0 H Glucose 153 H POC Glucose 162 H 170 H Calcium 9.5 C-Reactive Protein 1.75 H PG Care Time/CCT Total # of Minutes Spent Total Time Spent with Patient: Total time spent is greater than 50% in coordination of care (as documented) at patient's floor/unit and/or counseling patient: Coding Level of Care Code 59680 SUB INP/OBS CARE 2/35MIN Diagnoses Acute diastolic CHF (congestive heart failure) I50.31 Atrial flutter I48.92 Fluid overload E87.70 Hypervolemia type: unspecified Hypertension I10 High cholesterol E78.00 BPH (benign prostatic hyperplasia) N40.0 Lumbar radicular pain M54.16 Morbid obesity with BMI of 70 and over, adult E66.01; Z68.45 Diabetes mellitus type 2, uncontrolled Sacroiliac joint pain M53.3 Ambulatory dysfunction R26.2 (3) Fluid overload Hypervolemia type: unspecified Qualified Code(s): E87.70 - Fluid overload, unspecified
[2023-04-06] MEDS ORDERED: FUROSEMIDE 40 MG/4 ML VIAL IV ONE (17:00)
[2023-04-06] MEDS: ATORVASTATIN 40 MG TAB PO SCH (20:38)
[2023-04-07] MEDS: dexAMETHasone 4 MG in SYRINGE 0 ML IV SCH ×2 (03:24→14:53)
[2023-04-07 07:29] LABS: BUN Creatinine Ratio 27.8 (10-20); Calcium 9.4 mg/dl (8.6-10.3); Creatinine Clr Calc Pharmacy 136.7 ml/min; Est GFR (African American) 95.9 ml/min; Est GFR (Non-African American) 82.7 ml/min; Potassium 4.2 mmol/L (3.5-5.1)
[2023-04-07] MEDS ORDERED: FUROSEMIDE 40 MG/4 ML VIAL IV ONE ×2 (07:58→18:37)
[2023-04-07] MEDS: METOPROLOL SUCC 25MG EXT REL TAB PO SCH (09:36)
[2023-04-07] MEDS: APIXABAN 5 MG TABLET PO SCH ×2 (09:36→20:10)
[2023-04-07] MEDS: lisinopril 40 MG TAB PO SCH (09:36)
[2023-04-07] MEDS: FINASTERIDE 5 MG TAB PO SCH (09:36)
[2023-04-07] MEDS: ASPIRIN 81 MG ECTAB PO SCH (09:36)
[2023-04-07] MEDS: ACETAMINOPHEN 500 MG TAB PO SCH ×3 (09:38→20:11)
[2023-04-07] MEDS: LANTUS PER UNIT CHARGE SQ SCH (09:52)
[2023-04-07] MEDS: INSULIN ASPART PER UNIT CHARGE SC SCH ×4 (09:52→20:55)
[2023-04-07] MEDS: oxyCODONE HCL IR 5 MG TAB (IMMEDIATE RELEASE) PO PRN ×2 (11:54→19:37)
[2023-04-07] MEDS: SPIRONOLACTONE 25 MG TAB PO SCH (11:55)
[2023-04-07] MEDS ORDERED: [UNRECOGNIZED DRUG - OTHER] IM ONE (18:43)
--- NOTE | 2023-04-07 18:45 | Hospitalist Progress Note ---
Date of Service April 07, 2023 Assessment & Plan (1) Acute diastolic CHF (congestive heart failure): Plan: improving cont lasix 60mg IV daily add aldactone 25mg qam will give additional 60mg lasix dose this evening may need 60mg IV BID moving forward uncertain of his dry weight - will continue to diurese until there is a rise in his BUN and Creatinine BUN has risen but creatinine is unchanged; rising BUN may be 2nd steroids sodium is wnl today cont metoprolol succinate 25mg daily BPs satisfactory (2) Atrial flutter: Plan: prolonged episode of 2:1 a flutter at rate of ~130 on 04/01/23. had another episode of a flutter lasting 1 hour on 04/04. both episodes resolved without intervention. no symptoms from the a flutter. echo with preserved EF this admission although very limited study. Dr [place]za [place] [facility] [place] him in consult. offered ablation procedure in the future. Continue metoprolol succ 25mg daily. Cont Eliquis 5mg BID -- $0 copay. f/u Dr Meza post-d/c. (3) Fluid overload: Plan: improving. volume overload due to acute HFpEF. see #1. checked RUQ u/s - no features of cirrhosis contributing to fluid issues. checked dopplers of legs - no DVT. normal TSH. no proteinuria on u/a. he was taking NSAIDs chronically for his back pain and those could have contrib uted to edema. NSAIDs have been stopped. (4) Hypertension: Plan: acceptable readings cont lisinopril 40mg daily cont metoprolol xl 25mg daily aldactone 25mg daily added 04/07/23 --- WATCH POTASSIUM LEVEL DUE TO MOE INHIBITOR USE AND ADDITION OF ALDACTONE (5) High cholesterol: Plan: cont lipitor 80mg daily (6) BPH (benign prostatic hyperplasia): Plan: cont finasteride deshpande in place - try to remove AM of 04/08 after his AM lasix counseled him at risk of CAUTI (7) Lumbar radicular pain: Plan: improved pain today sees [facility] [place] lumbar spine in 2020 with moderate- severe DJD has had SI joint injections in the past per records CT lumbar spine repeated -- mild spinal stenosis but mod-severe foraminal stenosis at multiple levels back pain much worse on 04/05/23 changed norco to oxy 10's - this has helped added dexamethasone 4mg q12h - this, too, has helped pain will change IV dex to PO dexamethasone 6mg daily starting 04/08/23 cont tylenol 1gm TID will inform his pain management provider ([facility]ANT[facility]) about his back pain (8) Morbid obesity with BMI of 70 and over, adult: Plan: BMI 69.5 (9) Diabetes mellitus type 2, uncontrolled: Plan: was a pre-diabetic in 2018 now full-blown diabetic with a1c near 8% this admission controlled at this time cont lantus 15 units daily cont novolog ac/hs with CF 20 and carb ratio 1:7 good candidate for metformin at d/c [facility] as outpatient as well?? appreciate diabetes education consult (10) Sacroiliac joint pain: Plan: follows with [facility] back pain has been severe of late but improved with steroids, etc. see #7 above (11) Ambulatory dysfunction: Plan: severe l-spine pain, morbid obesity, hip disease, etc PT, OT while here both services felt he could go home w/ at discharge would benefit from home PT/OT Plan DVT proph - Eliquis BID updated at bedside yesterday progressing Admission and Anticipated Discharge Date Admission Date: March 31, 2023 Subjective tele overnight - NSR, no a.flutter feeling good today back pain much improved no dyspnea edema of legs improved scrotal edema improved no new complaints Review of Systems Review of Systems: cv - no chest pain pulm - no cough GI - no abd pain/nausea/emesis Physical Exam Physical Exam: gen - laying in recliner chair, awake, alert, NAD mouth - MMM neck - no obvious JVD heart - RRR, s1 s2, no murmur; heart tones distant lungs - CTA b/l; no rales or wheeze abd - obese, soft, NT, BS+ ext - <1-2+ edema b/l shins; <1+ edema feet; pulses 2+ b/l psych - a/o x 3 Results & Data Results & Data Vital Signs (Past 12 Hours) Vital Signs Temp Pulse Pulse Resp BP Pulse Ox O2 Del Method 04/07/23 14:19 36.6 C 74 16 117/78 93 Room Air 04/07/23 13:21 66 04/07/23 12:19 Room Air Laboratory Results Laboratory Results - last 24 hr 10/16/23 10/16/23 10/16/23 06:46 07:08 11:45 Sodium 135 L Potassium 4.2 Chloride 97 L Carbon Dioxide 30 Anion Gap 8 BUN 27 H Creatinine 0.97 Est Cr Clr Drug Dosing 136.7 Est GFR ( Amer) 95.9 Est GFR (Non-Af Amer) 82.7 BUN/Creatinine Ratio 27.8 H Glucose 155 H POC Glucose 148 H 182 H Calcium 9.4 04/07/23 04/07/23 16:38 20:31 Sodium Potassium Chloride Carbon Dioxide Anion Gap BUN Creatinine Est Cr Clr Drug Dosing Est GFR ( Amer) Est GFR (Non-Af Amer) BUN/Creatinine Ratio Glucose POC Glucose 142 H 163 H Calcium PG Care Time/CCT Total # of Minutes Spent Total Time Spent with Patient: Total time spent is greater than 50% in coordination of care (as documented) at patient's floor/unit and/or counseling patient: Coding Level of Care Code 58283 SUB INP/OBS CARE 2/35MIN Diagnoses Acute diastolic CHF (congestive heart failure) I50.31 Atrial flutter I48.92 Fluid overload E87.70 Hypervolemia type: unspecified Hypertension I10 High cholesterol E78.00 BPH (benign prostatic hyperplasia) N40.0 Lumbar radicular pain M54.16 Morbid obesity with BMI of 70 and over, adult E66.01; Z68.45 Diabetes mellitus type 2, uncontrolled Sacroiliac joint pain M53.3 Ambulatory dysfunction R26.2 (3) Fluid overload Hypervolemia type: unspecified Qualified Code(s): E87.70 - Fluid overload, unspecified
[2023-04-07] MEDS: ATORVASTATIN 40 MG TAB PO SCH (20:11)
[2023-04-08 07:15] LABS: BUN Creatinine Ratio 31.4 (10-20); Calcium 9.4 mg/dl (8.6-10.3); Creatinine Clr Calc Pharmacy 125.5 ml/min; Est GFR (African American) 87.1 ml/min; Est GFR (Non-African American) 75.2 ml/min; Magnesium 2.3 mg/dl (1.7-2.4); Potassium 4.4 mmol/L (3.5-5.1)
[2023-04-08] MEDS: ASPIRIN 81 MG ECTAB PO SCH (08:03)
[2023-04-08] MEDS: APIXABAN 5 MG TABLET PO SCH ×2 (08:03→20:23)
[2023-04-08] MEDS: SPIRONOLACTONE 25 MG TAB PO SCH (08:03)
[2023-04-08] MEDS: ACETAMINOPHEN 500 MG TAB PO SCH ×3 (08:04→20:23)
[2023-04-08] MEDS: FINASTERIDE 5 MG TAB PO SCH (08:04)
[2023-04-08] MEDS: lisinopril 40 MG TAB PO SCH (08:04)
[2023-04-08] MEDS: dexAMETHasone 4 MG TAB PO SCH (08:04)
[2023-04-08] MEDS: METOPROLOL SUCC 25MG EXT REL TAB PO SCH (08:04)
[2023-04-08] MEDS: FUROSEMIDE INJ 20 MG/2 ML VIAL IV SCH (08:06)
[2023-04-08] MEDS: INSULIN ASPART PER UNIT CHARGE SC SCH ×4 (09:03→20:23)
[2023-04-08] MEDS: LANTUS PER UNIT CHARGE SQ SCH (09:04)
[2023-04-08] MEDS: oxyCODONE HCL IR 5 MG TAB (IMMEDIATE RELEASE) PO PRN ×2 (13:17→20:24)
--- NOTE | 2023-04-08 19:20 | Hospitalist Progress Note ---
Date of Service April 08, 2023 Assessment & Plan (1) Acute diastolic CHF (congestive heart failure): Plan: improving cont lasix 60mg IV daily added aldactone 25mg qam uncertain of his dry weight - will continue to diurese until there is a rise in his BUN and Creatinine BUN has risen but creatinine is unchanged; rising BUN may be 2nd steroids sodium is wnl today cont metoprolol succinate 25mg daily BPs satisfactory (2) Atrial flutter: Plan: prolonged episode of 2:1 a flutter at rate of ~130 on 04/01/23. had another episode of a flutter lasting 1 hour on 04/04. both episodes resolved without intervention. no symptoms from the a flutter. echo with preserved EF this admission although very limited study. Dr Meza from [facility] Cardiology saw him in consult. offered ablation procedure in the future. Continue metoprolol succ 25mg daily. Cont Eliquis 5mg BID -- $0 copay. f/u Dr Meza post-d/c. (3) Fluid overload: Plan: improving. volume overload due to acute HFpEF. see #1. checked RUQ u/s - no features of cirrhosis contributing to fluid issues. checked dopplers of legs - no DVT. normal TSH. no proteinuria on u/a. he was taking NSAIDs chronically for his back pain and those could have contributed to edema. NSAIDs have been stopped. (4) Hypertension: Plan: acceptable readings cont lisinopril 40mg daily cont metoprolol xl 25mg daily aldactone 25mg daily added 04/07/23 --- WATCH POTASSIUM LEVEL DUE TO MOE INHIBITOR USE AND ADDITION OF ALDACTONE (5) High cholesterol: Plan: cont lipitor 80mg daily (6) BPH (benign prostatic hyperplasia): Plan: cont finasteride deshpande in place - try to remove AM of 04/09 after his AM lasix counseled him at risk of CAUTI (7) Lumbar radicular pain: Plan: improved pain today sees [facility] Pain Management CT lumbar spine in 2020 with moderate- severe DJD has had SI joint injections in the past per records CT lumbar spine repeated -- mild spinal stenosis but mod-severe foraminal stenosis at multiple levels back pain much worse on 04/05/23 changed norco to oxy 10's - this has helped added dexamethasone 4mg q12h - this, too, has helped pain will change IV dex to PO dexamethasone 6mg daily starting 04/08/23 cont tylenol 1gm TID will inform his pain management provider (Geo DOS SANTOS) about his back pain (8) Morbid obesity with BMI of 70 and over, adult: Plan: BMI 69.5 (9) Diabetes mellitus type 2, uncontrolled: Plan: was a pre-diabetic in 2018 now full-blown diabetic with a1c near 8% this admission controlled at this time cont lantus 15 units daily cont novolog ac/hs with CF 20 and carb ratio 1:7 good candidate for metformin at d/c appreciate diabetes education consult Prescriptions needed at discharge: 1.) Metformin ER. 2.) OneTouch Verio Test Strips- to check 1x/day. 3.) OneTouch Delica Lancets 33 gauge- to check 1x/day. (10) Sacroiliac joint pain: Plan: follows with [facility] back pain has been severe of late but improved with steroids, etc. see #7 above (11) Ambulatory dysfunction: Plan: severe l-spine pain, morbid obesity, hip disease, etc PT, OT while here both services felt he could go home w/ at discharge would benefit from home PT/OT Plan DVT proph - Eliquis BID updated at bedside yesterday progressing Admission and Anticipated Discharge Date Admission Date: March 31, 2023 Subjective Patient feels well. Denies chest pain or shortness of breath. Says that his scrotal swelling is improving and his leg swelling are improving as well. Review of Systems Review of Systems: All systems reviewed & are unremarkable except as noted in Subjective Physical Exam Physical Exam: General: Awake, conversant Heart: S1, S2/regular rate and rhythm, no murmur rubs or gallops Lungs: Clear to auscultation bilaterally. Normal effort Abdomen: Soft/nontender/nondistended. No hepatosplenomegaly Extremities: No clubbing/cyanosis. No edema Behavior: Appropriate, cooperative Results & Data Results & Data Vital Signs (Past 12 Hours) Vital Signs Temp Pulse Pulse Resp BP BP Pulse Ox 04/08/23 18:53 36.8 C 76 19 111/60 93 04/08/23 15:00 70 04/08/23 16:35 36.8 C 64 19 120/77 94 04/08/23 08:00 73 04/08/23 12:07 36.5 C 66 18 132/72 94 04/08/23 07:48 36.6 C 68 18 138/75 95 O2 Del Method 04/08/23 18:53 Room Air 04/08/23 15:00 04/08/23 16:35 Room Air 04/08/23 08:00 04/08/23 12:07 Room Air 04/08/23 07:48 Room Air Laboratory Results Abnormal lab results 04/07/23 04/08/23 04/08/23 Range/Units 20:31 06:22 08:03 Chloride 96 L (98-107) mmol/L Carbon Dioxide 33 H (21-32) mmol/L BUN 33 H (6-23) mg/dl BUN/Creatinine Ratio 31.4 H (10-20) Glucose 142 H (70-99(Fasting)) mg/dl POC Glucose 163 H 124 H (70-99) mg/dl 04/08/23 04/08/23 Range/Units 12:08 17:02 Chloride (98-107) mmol/L Carbon Dioxide (21-32) mmol/L BUN (6-23) mg/dl BUN/Creatinine Ratio (10-20) Glucose (70-99(Fasting)) mg/dl POC Glucose 156 H 135 H (70-99) mg/dl PG Care Time/CCT Total # of Minutes Spent Total Time Spent with Patient: Total time spent is greater than 50% in coordination of care (as documented) at patient's floor/unit and/or counseling patient: Coding Level of Care Code 37300 SUB INP/OBS CARE 2/35MIN Diagnoses Acute diastolic CHF (congestive heart failure) I50.31 Atrial flutter I48.92 Fluid overload E87.70 Hypervolemia type: unspecified Hypertension I10 High cholesterol E78.00 BPH (benign prostatic hyperplasia) N40.0 Lumbar radicular pain M54.16 Morbid obesity with BMI of 70 and over, adult E66.01; Z68.45 Diabetes mellitus type 2, uncontrolled Sacroiliac joint pain M53.3 Ambulatory dysfunction R26.2 (3) Fluid overload Hypervolemia type: unspecified Qualified Code(s): E87.70 - Fluid overload, unspecified
[2023-04-08] MEDS: ATORVASTATIN 40 MG TAB PO SCH (20:23)
[2023-04-09] MEDS ORDERED: COUGH DROP (SUGAR FREE) LOZ 24 LOZ/1 BOX BUCCAL PRN (04:45)
[2023-04-09 06:59] LABS: BUN Creatinine Ratio 38.2 (10-20); Creatinine Clr Calc Pharmacy 148.1 ml/min; Est GFR (African American) 105.5 ml/min; Potassium 4.1 mmol/L (3.5-5.1)
[2023-04-09] MEDS: FINASTERIDE 5 MG TAB PO SCH (08:36)
[2023-04-09] MEDS: SPIRONOLACTONE 25 MG TAB PO SCH (08:36)
[2023-04-09] MEDS: dexAMETHasone 4 MG TAB PO SCH (08:36)
[2023-04-09] MEDS: METOPROLOL SUCC 25MG EXT REL TAB PO SCH (08:36)
[2023-04-09] MEDS: lisinopril 40 MG TAB PO SCH (08:37)
[2023-04-09] MEDS: ACETAMINOPHEN 500 MG TAB PO SCH ×3 (08:37→19:44)
[2023-04-09] MEDS: FUROSEMIDE INJ 20 MG/2 ML VIAL IV SCH (08:37)
[2023-04-09] MEDS: APIXABAN 5 MG TABLET PO SCH ×2 (08:37→19:44)
[2023-04-09] MEDS: INSULIN ASPART PER UNIT CHARGE SC SCH ×4 (08:37→20:48)
[2023-04-09] MEDS: ASPIRIN 81 MG ECTAB PO SCH (08:37)
[2023-04-09] MEDS: LANTUS PER UNIT CHARGE SQ SCH (08:37)
[2023-04-09] MEDS: oxyCODONE HCL IR 5 MG TAB (IMMEDIATE RELEASE) PO PRN ×2 (12:52→19:52)
--- NOTE | 2023-04-09 17:30 | Hospitalist Progress Note ---
Date of Service April 09, 2023 Assessment & Plan (1) Acute diastolic CHF (congestive heart failure): Plan: improving cont lasix 60mg IV daily added aldactone 25mg qam uncertain of his dry weight - will continue to diurese until there is a rise in his BUN and Creatinine BUN has risen but creatinine is unchanged; rising BUN may be 2nd steroids sodium is wnl today cont metoprolol succinate 25mg daily BPs satisfactory (2) Atrial flutter: Plan: prolonged episode of 2:1 a flutter at rate of ~130 on 04/01/23. had another episode of a flutter lasting 1 hour on 04/04. both episodes resolved without intervention. no symptoms from the a flutter. echo with preserved EF this admission although very limited study. Dr Meza from [facility] Card[facility] saw him in consult. offered ablation procedure in the future. Continue metoprolol succ 25mg daily. Cont Eliquis 5mg BID -- $0 copay. f/u Dr Meza post-d/c. (3) Fluid overload: Plan: improving. volume overload due to acute HFpEF. see #1. checked RUQ u/s - no features of cirrhosis contributing to fluid issues. checked dopplers of legs - no DVT. normal TSH. no proteinuria on u/a. he was taking NSAIDs chronically for his back pain and those could have contributed to edema. NSAIDs have been stopped. (4) Hypertension: Plan: acceptable readings cont lisinopril 40mg daily cont metoprolol xl 25mg daily aldactone 25mg daily added 04/07/23 --- WATCH POTASSIUM LEVEL DUE TO MOE INHIBITOR USE AND ADDITION OF ALDACTONE (5) High cholesterol: Plan: cont lipitor 80mg daily (6) BPH (benign prostatic hyperplasia): Plan: cont finasteride deshpande in place - try to remove AM of 04/09 after his AM lasix counseled him at risk of CAUTI (7) Lumbar radicular pain: Plan: improved pain today sees [facility] Pain Management CT lumbar spine in 2020 with moderate- severe DJD has had SI joint injections in the past per records CT lumbar spine repeated -- mild spinal stenosis but mod-severe foraminal stenosis at multiple levels back pain much worse on 04/05/23 changed norco to oxy 10's - this has helped added dexamethasone 4mg q12h - this, too, has helped pain now on PO dexamethasone 6mg daily starting 04/08/23 . Reduced to 4 mg daily starting 04/10 cont tylenol 1gm TID will inform his pain management provider (Geo DOS SANTOS) about his back pain (8) Morbid obesity with BMI of 70 and over, adult: Plan: BMI 69.5 (9) Diabetes mellitus type 2, uncontrolled: Plan: was a pre-diabetic in 2018 now full-blown diabetic with a1c near 8% this admission controlled at this time cont lantus 15 units daily cont novolog ac/hs with CF 20 and carb ratio 1:7 good candidate for metformin at d/c appreciate diabetes education consult Prescriptions needed at discharge: 1.) Metformin ER. 2.) OneTouch Verio Test Strips- to check 1x/day. 3.) OneTouch Delica Lancets 33 gauge- to check 1x/day. (10) Sacroiliac joint pain: Plan: follows with [facility] back pain has been severe of late but improved with steroids, etc. see #7 above (11) Ambulatory dysfunction: Plan: severe l-spine pain, morbid obesity, hip disease, etc PT, OT while here both services felt he could go home w/ at discharge would benefit from home PT/OT Plan DVT proph - Eliquis BID updated at bedside yesterday progressing Admission and Anticipated Discharge Date Admission Date: March 31, 2023 Subjective patient feels well. Denies chest pain or shortness of breath. He is still diuresing quite a bit. His leg swelling is improving. His scrotal swelling is improving. He agreed to have his Deshpande catheter removed today. Review of Systems Review of Systems: All systems reviewed & are unremarkable except as noted in Subjective Physical Exam Physical Exam: General: Awake, conversant Heart: S1, S2/regular rate and rhythm, no murmur rubs or gallops Lungs: Clear to auscultation bilaterally. Normal effort Abdomen: Soft/nontender/nondistended. No hepatosplenomegaly Extremities: No clubbing/cyanosis. 1+ pitting bilateral edema Behavior: Appropriate, cooperative Results & Data Results & Data Vital Signs (Past 12 Hours) Vital Signs Temp Pulse Pulse Resp BP BP Pulse Ox 04/09/23 15:08 36.9 C 78 18 101/74 95 04/09/23 08:00 65 04/09/23 11:01 37.0 C 71 18 107/71 97 04/09/23 07:26 36.5 C 65 18 141/81 H 96 O2 Del Method 04/09/23 15:08 Room Air 04/09/23 08:00 04/09/23 11:01 Room Air 04/09/23 07:26 Room Air Laboratory Results Abnormal lab results 04/08/23 04/09/23 04/09/23 Range/Units 20:04 05:53 07:50 Sodium 135 L (136-145) mmol/L BUN 34 H (6-23) mg/dl BUN/Creatinine Ratio 38.2 H (10-20) Glucose 143 H (70-99(Fasting)) mg/dl POC Glucose 237 H 116 H (70-99) mg/dl 04/09/23 04/09/23 Range/Units 12:14 17:01 Sodium (136-145) mmol/L BUN (6-23) mg/dl BUN/Creatinine Ratio (10-20) Glucose (70-99(Fasting)) mg/dl POC Glucose 155 H 161 H (70-99) mg/dl PG Care Time/CCT Total # of Minutes Spent Total Time Spent with Patient: Total time spent is greater than 50% in coordination of care (as documented) at patient's floor/unit and/or counseling patient: Coding Level of Care Code 34416 SUB INP/OBS CARE 2/35MIN Diagnoses Acute diastolic CHF (congestive heart failure) I50.31 Atrial flutter I48.92 Fluid overload E87.70 Hypervolemia type: unspecified Hypertension I10 High cholesterol E78.00 BPH (benign prostatic hyperplasia) N40.0 Lumbar radicular pain M54.16 Morbid obesity with BMI of 70 and over, adult E66.01; Z68.45 Diabetes mellitus type 2, uncontrolled Sacroiliac joint pain M53.3 Ambulatory dysfunction R26.2 (3) Fluid overload Hypervolemia type: unspecified Qualified Code(s): E87.70 - Fluid overload, unspecified
[2023-04-09] MEDS: ATORVASTATIN 40 MG TAB PO SCH (19:44)
[2023-04-10] MEDS ORDERED: guaiFENesin 600 MG TABCR PO PRN (02:01)
[2023-04-10] MEDS: BENZONATATE 100 MG CAPSULE PO PRN ×3 (02:13→20:12)
[2023-04-10 07:01] LABS: BUN Creatinine Ratio 33.7 (10-20); Calcium 8.9 mg/dl (8.6-10.3); Creatinine Clr Calc Pharmacy 143.1 ml/min; Est GFR (African American) 102.2 ml/min; Est GFR (Non-African American) 88.2 ml/min
[2023-04-10] MEDS: INSULIN ASPART PER UNIT CHARGE SC SCH ×4 (08:58→20:27)
[2023-04-10] MEDS: LANTUS PER UNIT CHARGE SQ SCH (08:58)
[2023-04-10] MEDS: FINASTERIDE 5 MG TAB PO SCH (08:58)
[2023-04-10] MEDS: SPIRONOLACTONE 25 MG TAB PO SCH (08:58)
[2023-04-10] MEDS: lisinopril 40 MG TAB PO SCH (08:58)
[2023-04-10] MEDS: dexAMETHasone 4 MG TAB PO SCH (08:59)
[2023-04-10] MEDS: ACETAMINOPHEN 500 MG TAB PO SCH ×3 (08:59→20:13)
[2023-04-10] MEDS: ASPIRIN 81 MG ECTAB PO SCH (08:59)
[2023-04-10] MEDS: APIXABAN 5 MG TABLET PO SCH ×2 (08:59→20:14)
[2023-04-10] MEDS: METOPROLOL SUCC 25MG EXT REL TAB PO SCH (08:59)
[2023-04-10] MEDS: FUROSEMIDE 40 MG TAB PO SCH ×2 (09:02→18:03)
--- NOTE | 2023-04-10 15:42 | Hospitalist Progress Note ---
Date of Service April 10, 2023 Assessment & Plan (1) Acute diastolic CHF (congestive heart failure): Plan: improving Switched to p.o. Lasix 40 mg twice daily added aldactone 25mg qam uncertain of his dry weight - will continue to diurese until there is a rise in his BUN and Creatinine BUN has risen but creatinine is unchanged; rising BUN may be 2nd steroids cont metoprolol succinate 25mg daily BPs satisfactory (2) Atrial flutter: Plan: prolonged episode of 2:1 a flutter at rate of ~130 on 04/01/23. had another episode of a flutter lasting 1 hour on 04/04. both episodes resolved without intervention. no symptoms from the a flutter. echo with preserved EF this admission although very limited study. Dr Meza from [facility] Card[facility] saw him in consult. offered ablation procedure in the future. Continue metoprolol succ 25mg daily. Cont Eliquis 5mg BID -- $0 copay. f/u Dr Meza post-d/c. (3) Fluid overload: Plan: improving. volume overload due to acute HFpEF. see #1. checked RUQ u/s - no features of cirrhosis contributing to fluid issues. checked dopplers of legs - no DVT. normal TSH. no proteinuria on u/a. he was taking NSAIDs chronically for his back pain and those could have contributed to edema. NSAIDs have been stopped. (4) Hypertension: Plan: acceptable readings cont lisinopril 40mg daily cont metoprolol xl 25mg daily aldactone 25mg daily added 04/07/23 --- WATCH POTASSIUM LEVEL DUE TO MOE INHIBITOR USE AND ADDITION OF ALDACTONE (5) High cholesterol: Plan: cont lipitor 80mg daily (6) BPH (benign prostatic hyperplasia): Plan: cont finasteride deshpande was discontinued (7) Lumbar radicular pain: Plan: improved pain today sees [facility] Pain Management CT lumbar spine in 2020 with moderate- severe DJD has had SI joint injections in the past per records CT lumbar spine repeated -- mild spinal stenosis but mod-severe foraminal stenosis at multiple levels back pain much worse on 04/05/23 discontinue oxycodone as the patient will not be given oxycodone upon discharge added dexamethasone 4mg q12h - this, too, has helped pain Reduced to 4 mg daily starting 04/10 cont tylenol 1gm TID will inform his pain management provider (Geo DOS SANTOS) about his back pain (8) Morbid obesity with BMI of 70 and over, adult: Plan: BMI 69.5 (9) Diabetes mellitus type 2, uncontrolled: Plan: was a pre-diabetic in 2018 now full-blown diabetic with a1c near 8% this admission controlled at this time cont lantus 15 units daily cont novolog ac/hs with CF 20 and carb ratio 1:7 good candidate for metformin at d/c appreciate diabetes education consult Prescriptions needed at discharge: 1.) Metformin ER. 2.) OneTouch Verio Test Strips- to check 1x/day. 3.) OneTouch Delica Lancets 33 gauge- to check 1x/day. (10) Sacroiliac joint pain: Plan: follows with [facility] back pain has been severe of late but improved with steroids, etc. see #7 above (11) Ambulatory dysfunction: Plan: severe l-spine pain, morbid obesity, hip disease, etc PT, OT while here both services felt he could go home w/ at discharge would benefit from home PT/OT Plan DVT proph - Eliquis BID updated at bedside progressing Admission and Anticipated Discharge Date Admission Date: March 31, 2023 Subjective patient feels better. Swelling going down. Breathing improving. Review of Systems Review of Systems: All systems reviewed & are unremarkable except as noted in Subjective Physical Exam Physical Exam: General: Awake, conversant Heart: S1, S2/regular rate and rhythm, no murmur rubs or gallops Lungs: Clear to auscultation bilaterally. Normal effort Abdomen: Soft/nontender/nondistended. No hepatosplenomegaly Extremities: No clubbing/cyanosis. 1+ pitting bilateral edema Behavior: Appropriate, cooperative Results & Data Results & Data Vital Signs (Past 12 Hours) Vital Signs Temp Pulse Pulse Resp BP Pulse Ox O2 Del Method 04/10/23 12:00 36.7 C 77 16 129/65 98 Room Air 04/10/23 07:00 60 04/10/23 07:30 36.5 C 72 18 115/68 97 Room Air Laboratory Results Abnormal lab results 04/02/23 04/09/23 04/09/23 Range/Units 20:41 17:01 20:41 Sodium (136-145) mmol/L BUN (6-23) mg/dl BUN/Creatinine Ratio (10-20) Glucose (70-99(Fasting)) mg/dl POC Glucose 164 H 161 H 145 H (70-99) mg/dl 04/10/23 04/10/23 04/10/23 Range/Units 05:24 08:10 11:27 Sodium 135 L (136-145) mmol/L BUN 31 H (6-23) mg/dl BUN/Creatinine Ratio 33.7 H (10-20) Glucose 108 H (70-99(Fasting)) mg/dl POC Glucose 122 H 114 H (70-99) mg/dl PG Care Time/CCT Total # of Minutes Spent Total Time Spent with Patient: Total time spent is greater than 50% in coordination of care (as documented) at patient's floor/unit and/or counseling patient: Coding Level of Care Code 81049 SUB INP/OBS CARE 2/35MIN Diagnoses Acute diastolic CHF (congestive heart failure) I50.31 Atrial flutter I48.92 Fluid overload E87.70 Hypervolemia type: unspecified Hypertension I10 High cholesterol E78.00 BPH (benign prostatic hyperplasia) N40.0 Lumbar radicular pain M54.16 Morbid obesity with BMI of 70 and over, adult E66.01; Z68.45 Diabetes mellitus type 2, uncontrolled Sacroiliac joint pain M53.3 Ambulatory dysfunction R26.2 (3) Fluid overload Hypervolemia type: unspecified Qualified Code(s): E87.70 - Fluid overload, unspecified
[2023-04-10] MEDS: ATORVASTATIN 40 MG TAB PO SCH (20:14)
[2023-04-11] MEDS ORDERED: FLUTICASONE PROPIONATE NA SPR 16 GM BTL SCH (01:15)
[2023-04-11] MEDS ORDERED: PANTOprazole 40 MG TAB PO SCH ×2 (01:15→09:00)
[2023-04-11] MEDS: guaiFENesin/DEXTROM SYRUP 200MG/20MG 10ML UDC PO PRN ×2 (01:27→07:26)
[2023-04-11 06:50] LABS: BUN Creatinine Ratio 29.5 (10-20); Calcium 8.9 mg/dl (8.6-10.3); Creatinine Clr Calc Pharmacy 125.3 ml/min; Est GFR (African American) 87.1 ml/min; Est GFR (Non-African American) 75.2 ml/min; Potassium 4.3 mmol/L (3.5-5.1)
[2023-04-11] MEDS: ACETAMINOPHEN 500 MG TAB PO SCH (08:29)
[2023-04-11] MEDS: lisinopril 40 MG TAB PO SCH (08:30)
[2023-04-11] MEDS: dexAMETHasone 4 MG TAB PO SCH (08:30)
[2023-04-11] MEDS: FINASTERIDE 5 MG TAB PO SCH (08:30)
[2023-04-11] MEDS: FUROSEMIDE 40 MG TAB PO SCH (08:31)
[2023-04-11] MEDS: APIXABAN 5 MG TABLET PO SCH (08:31)
[2023-04-11] MEDS: ASPIRIN 81 MG ECTAB PO SCH (08:32)
[2023-04-11] MEDS: METOPROLOL SUCC 25MG EXT REL TAB PO SCH (08:32)
[2023-04-11] MEDS: SPIRONOLACTONE 25 MG TAB PO SCH (08:33)
[2023-04-11] MEDS: INSULIN ASPART PER UNIT CHARGE SC SCH ×2 (08:42→12:52)
[2023-04-11] MEDS: LANTUS PER UNIT CHARGE SQ SCH (08:43)
--- NOTE | 2023-04-11 12:04 | Discharge Summary ---
Date of Service April 11, 2023 Admission HPI Per Admitting Provider Chidi is a 62-year-old man with history of chronic back pain, elevated cholesterol, BPH, and morbid obesity, who presents to the emergency room with progressive bilateral lower extremity edema x3 months, and scrotal swelling x3 weeks. ROS + bilateral ear pressure, and intermittent epigastric/lower chest pressure (without radiation). He denies headache, shortness of breath, chest pain, abdominal pain, recent illness, LE pain or paresthesias, dysuria, urinary frequency or other urinary changes. In the ED, pulse was slightly elevated at 104 bpm, RR-22, and BP 150/87. Pulse ox 95% on room air. Labs were notable for WBC-12.68. CMP was wnl. Troponin was negative at 8.5, as was BNP-27. XR was negative for pulmonary edema, pneumonia, pleural effusions, or other acute process. He received a dose of IV Lasix 40 mg, and IV morphine 6 mg for his back pain. Hospital service was then consulted for admission. Admission Exam Per Admitting Provider General: Morbidly obese but otherwise alert, interactive, and in no acute distress. HEENT: Normocephalic, atraumatic. EOM intact. Good conjugate gaze. TMs clearly visualized bilaterally on otoscopy. Neck: Supple. No lymphadenopathy. Normal ROM. CV: Regular rate and rhythm. Normal S1 and S2. No murmurs gallops or rubs. Respiratory: Lungs clear to auscultation bilaterally. No crackles, rhonchi, or wheezes. Abdomen: Large, protuberant abdomen. No bruits heard on auscultation. Nontender to deep palpation x4 quadrants without guarding or rebound. : Swollen, erythematous scrotum. Nontender to palpation or manual manip ulation. Extremities: Capillary refill <2 sec. 1+ + dp equal bilaterally. 3+ pedal edema bilaterally to shins. Neuro: Alert and oriented x3. Skin: Clean, dry, and intact. Principal Diagnosis acute diastolic CHF Atrial flutter Lumbar radicular pain Morbid obesity with a BMI of 70 Newly diagnosed diabetes mellitus Discharge Exam General: Awake, conversant Heart: S1, S2/regular rate and rhythm, no murmur rubs or gallops Lungs: Clear to auscultation bilaterally. Normal effort Abdomen: Soft/nontender/nondistended. No hepatosplenomegaly Extremities: No clubbing/cyanosis. no edema Behavior: Appropriate, cooperative Discharge Data Allergies Allergy/AdvReac Type Severity Reaction Status Date / Time hydromorphone Allergy Intermediate rash Verified 03/31/23 19:54 azithromycin AdvReac Intermediate N/V Verified 03/31/23 19:54 tramadol AdvReac Intermediate HALUCINATIO Verified 03/31/23 19:54 NS Consultations 03/31/23 19:41 ED Decision to Admit Stat 04/03/23 08:40 Consult Cardiology Routine Ordered Studies 04/01/23 14:43 US gallbladder Routine US venous doppler LE BI Routine 04/02/23 16:40 CT lumbar spine wo con Routine Diabetes Follow up Diabetes Follow-up Needed for Newly Diagnosed Diabetes Hospital Course (1) Acute diastolic CHF (congestive heart failure): improved with IV diuretics during this hospital stay Switched to p.o. Lasix 40 mg twice daily yesterday. Tolerating the dose added aldactone 25mg qam this hospitalization. Tolerating the dose BUN has risen but creatinine is unchanged; rising BUN may be 2nd steroids cont metoprolol succinate 25mg daily BPs satisfactory (2) Atrial flutter: prolonged episode of 2:1 a flutter at rate of ~130 on 04/01/23. had another episode of a flutter lasting 1 hour on 04/04. both episodes resolved without intervention. no symptoms from the a flutter. echo with preserved EF this admission although very limited study. Dr Meza from [facility] Cardiology saw him in consult. offered ablation procedure in the future. Continue metoprolol succ 25mg daily. Cont Eliquis 5mg BID -- $0 copay. f/u Dr Meza post-d/c. (3) Fluid overload: improved volume overload due to acute HFpEF. see #1. checked RUQ u/s - no features of cirrhosis contributing to fluid issues. checked dopplers of legs - no DVT. normal TSH. no proteinuria on u/a. he was taking NSAIDs chronically for his back pain and those could have contributed to edema. NSAIDs have been stopped. (4) Hypertension: acceptable readings cont lisinopril 40mg daily cont metoprolol xl 25mg daily aldactone 25mg daily added 04/07/23 --- WATCH POTASSIUM LEVEL DUE TO MOE INHIBITOR USE AND ADDITION OF ALDACTONE (5) High cholesterol: cont lipitor 80mg daily (6) BPH (benign prostatic hyperplasia): cont finasteride deshpande was discontinued (7) Lumbar radicular pain: improved pain today sees [facility] CT lumbar spine in 2020 with moderate- severe DJD has had SI joint injections in the past per records CT lumbar spine repeated -- mild spinal stenosis but mod-severe foraminal stenosis at multiple levels patient was treated with Decadron during this hospital stay. He was asked to follow-up with his pain management provider (Ge[facility] SANTOS) about his back pain (8) Morbid obesity with BMI of 70 and over, adult: BMI 69.5 (9) Diabetes mellitus type 2, uncontrolled: was a pre-diabetic in 2018 now full-blown diabetic with a1c near 8% this admission controlled at this time cont lantus 15 units daily cont novolog ac/hs with CF 20 and carb ratio 1:7 good candidate for metformin at d/c appreciate diabetes education consult Prescriptions needed at discharge: 1.) Metformin ER. 2.) OneTouch Verio Test Strips- to check 1x/day. 3.) OneTouch Delica Lancets 33 gauge- to check 1x/day. (10) Sacroiliac joint pain: follows with [facility] back pain has been severe of late but improved with steroids, etc. see #7 above (11) Ambulatory dysfunction: severe l-spine pain, morbid obesity, hip disease, etc PT, OT while here both services felt he could go home w/ at discharge would benefit from home PT/OT Plan DVT proph - Eliquis BID was informed of discharge plan. Patient is happy to know that he is being discharged today. Total Time Total Time Spent Total Time Spent (In Minutes): 35 Discharge Plan Discharge Items Patient Disposition: Home - Self-Care Reason For Visit: BILATERAL LOWER EXTREMITY EDEMA Discharge Diagnosis: acute diastolic CHF Atrial flutter Lumbar radicular pain Morbid obesity with a BMI of 70 Newly diagnosed diabetes mellitus Condition on Discharge: Fair Activity: Resume your previous activity Non-emergency contact: Primary Care Provider Call non-emergency contact if: you have any medication questions and your symptoms worsen Follow-up/Referrals: Joe Alvarez MD [Primary Care Provider] - Diet: Carb Consistent or DM2, Heart Healthy and Low Sodium (2gm) Addtl Attending Provider Instructions: Advised to follow-up with PCP in 1 week Advised to follow-up with pain management Advised to note that you are now diabetic advised to talk to your PCP about getting a sleep study done . You probably have sleep apnea that needs to be treated Pending Studies at Discharge: No Stand-Alone Forms: My [facility] Medications and DC Order Prescriptions: New Eliquis 5 mg tablet 5 mg PO BID Qty: 60 5RF metoprolol succinate 25 mg Tablet Extended Release 24 Hr 25 mg PO QAM 30 Days Qty: 30 0RF metformin 500 mg tablet extended release 24 hr 500 mg PO DAILY Qty: 30 0RF (DME) OneTouch Verio test strips Strip See Rx Instructions .Route Qty: 25 0RF Rx Instructions: As directed (DME) lancets [OneTouch Delica Plus Lancet] 33 gauge misc See Rx Instructions .Route Qty: 100 0RF Rx Instructions: As directed furosemide 40 mg Tablet 40 mg PO BID17 30 Days Qty: 60 0RF spironolactone 25 mg Tablet 25 mg PO QAM 14 Days Qty: 14 0RF Continued atorvastatin [Lipitor] 80 mg tablet 80 mg PO HS Qty: 90 3RF finasteride [Proscar] 5 mg tablet 5 mg PO DAILY Qty: 90 3RF lisinopril 40 mg tablet 40 mg PO DAILY Qty: 90 3RF aspirin [Ecotrin Low Strength] 81 mg tablet,delayed release (DR/EC) 81 mg PO DAILY naloxone [Narcan] 4 mg/actuation spray,non-aerosol 1 spray intranasal Q3M PRN (Reason: opioid overdose) Qty: 2 0RF hydrocodone-acetaminophen 5-325 mg tablet 1 - 2 tab PO Q6H PRN (Reason: pain) Rx Instructions: 1-2 orally every 6 hours PRN; Discharge Orders: Discharge Order (Routine); Ordered 04/11/23 Ordered By: Asya Liz/Other Patient Handouts: Understanding Deep Vein Thrombosis, DVT Complications, DVT Post Op Prevention, Preventing Deep Vein Thrombosis, Diabetes: Meal Planning, Type 2 Diabetes Admission Data Admit Date/Time: 03/31/23 20:02 Attending Provider: Asya Patioñ Admit Provider: Carl Knox Primary Care Provider: Joe Alvarez Other Providers: Juan De Paz ; Joe Meza. Other Interventions: Discharge Summary Assessment (RN) Last Done: 04/11/23 12:15 Coding Level of Care Code 09847 INP/OBS DISCH >30 MIN Diagnoses Acute diastolic CHF (congestive heart failure) I50.31 Atrial flutter I48.92 Fluid overload E87.70 Hypervolemia type: unspecified Hypertension I10 High cholesterol E78.00 BPH (benign prostatic hyperplasia) N40.0 Lumbar radicular pain M54.16 Morbid obesity with BMI of 70 and over, adult E66.01; Z68.45 Diabetes mellitus type 2, uncontrolled Sacroiliac joint pain M53.3 Ambulatory dysfunction R26.2
== END 2023-04-11 13:07 | disposition home or self-care (01) | DRG 291 ==
LOC: ED 15:57 → SUATTDRO 20:02 → EDINP 20:02 → 2N 21:30 → 4W 04-01 18:25

== ENCOUNTER 2024-06-05 08:38 | Observation (INO) ==
--- NOTE | 2024-06-05 09:15 | Emergency Department Note ---
History of Present Illness General Chief complaint: Chest Pain Stated complaint: CHEST PAINS, GOES INTO BACK WHEN BREATHING DEEP Time Seen by Provider: 06/05/24 08:50 History of Present Illness Patient is a 63-year-old male with past medical history significant for morbid obesity, diabetes, atrial flutter on Eliquis, BPH, hypertension, dyslipidemia, history of CHF, among other chronic medical problems who presents to the emergency department for evaluation of chest pain. Patient reports he just saw cardiology earlier this week. He reports that they cut his metoprolol dose in half and discontinued his baby aspirin. He reports he was feeling well and in his usual state of health until last evening. He states that his normal resting heart rate is in the 70s, but he noticed that without inciting incident, his resting heart rate was in the 80s and would increased to the 100s with activity. Around midnight, last night he developed discomfort in the left ear and left side of his neck. He describes it as feeling like an "ear ache." He states the pain began to radiate down into his chest around 0200. He states the pain is across his entire chest, is constant, and describes it as a heaviness and pressure. It was at its worst around 0600 at which point he would have rated his pain a 7/10. He currently rates it a 5/10. He also notes that he has pain in his back between his shoulder blades when he takes a deep breath. He otherwise does not feel short of breath. He has not experienced any abnormal palpitations. He did take his normal morning medications today including his diuretics. He is on Eliquis chronically. He has never had a stress test or cardiac catheterization. Home Medications Medication Instructions Recorded Confirmed Type naloxone 4 mg/actuation nasal 1 spray intranasal Q3M PRN opioid 09/02/22 06/05/24 Rx spray (Narcan) overdose #2 ea blood sugar diagnostic (ShoutletTouch #100 ea 04/15/23 05/31/24 Rx Verio test strips) lancets 33 gauge (OneTouch Delica #100 ea 06/12/23 05/31/24 Rx Plus Lancet) gabapentin 300 mg capsule 300 mg PO BID 90 days #180 caps 08/19/23 06/05/24 Rx meloxicam 15 mg tablet 15 mg PO DAILY #90 tabs 08/19/23 06/05/24 Rx atorvastatin 80 mg tablet (Lipitor) 80 mg PO HS #90 tabs 09/04/23 06/05/24 Rx finasteride 5 mg tablet (Proscar) 5 mg PO DAILY #90 tabs 09/04/23 06/05/24 Rx lisinopril 40 mg tablet 40 mg PO DAILY #90 tabs 09/22/23 06/05/24 Rx apixaban 5 mg tablet (Eliquis) 5 mg PO BID 90 days #180 tabs 10/02/23 06/05/24 Rx spironolactone 25 mg tablet 25 mg PO QAM #90 tabs 10/09/23 06/05/24 Rx docusate sodium 100 mg capsule 100 mg PO BID 90 days #180 caps 11/10/23 06/05/24 Rx (Colace) tirzepatide 15 mg/0.5 mL 15 mg (0.5 mL) subcut Q7D #2 mL 02/03/24 06/05/24 Rx subcutaneous pen injector (Raudel) furosemide 40 mg tablet 40 mg PO BID #180 tabs 04/07/24 06/05/24 Rx metoprolol succinate 25 mg 25 mg PO QAM #30 tabs 04/27/24 06/05/24 Rx tablet,extended release 24 hr Allergies Allergy/AdvReac Type Severity Reaction Status Date / Time hydromorphone Allergy Intermediate rash Verified 06/05/24 10:25 azithromycin AdvReac Intermediate N/V Verified 06/05/24 10:25 tramadol AdvReac Intermediate HALUCINATIO Verified 06/05/24 10:25 NS Past Med/Surg History Problem List (Updated 06/05/24 @ 14:17 by Ector Singh) Shortness of breath (Acute) Precordial chest pain (Acute) (HFpEF) heart failure with preserved ejection fraction Class 3 severe obesity with serious comorbidity and body mass index (BMI) of 60.0 to 69.9 in adult Diabetes mellitus Atrial flutter Leukocytosis (Acute) Chest pressure (Acute) Myofascial pain Somatic dysfunction of pelvis region Lumbar radicular pain Sacroiliac joint pain Ambulatory dysfunction (Acute) BPH (benign prostatic hyperplasia) (Chronic) Hypertension (Chronic) High cholesterol (Chronic) Leukocytosis (Acute) Pain of paraspinal muscle (Acute) Pleuritic chest pain (Acute) Right shoulder pain (Acute) Shoulder pain, acute Medical History Fluid overload Pedal edema Edema of scrotum Acute pain of left hip High blood pressure Surgical History History of hip replacement Social History Smoking Status: Former smoker Age Started Using Tobacco: 14; Age Quit Using Tobacco: 51; Second Hand Exposure: No; Do You Dip or Chew Tobacco: No; Hx Alcohol Use: No Hx Substance Use: No Preferred Language: Danish Communication Ability: Effective 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 Beliefs That Will Affect Care: None marital status: Current Living Situation: Spouse current occupational status: retired Feels Safe at Home: Yes Diet: diabetic caffeine: Yes Dental Care, Regularly: No Physical Activity Frequency: 1-2 Times per Week Seatbelt Use: always Sunscreen Use: No Assistive Devices: Scooter/Electric Scooter, Walker and Wheelchair Review of Systems A total of 10 systems reviewed and were otherwise negative Physical Exam Vital Signs Vital Signs - 24 hr 06/05/24 08:44 06/05/24 08:50 06/05/24 09:03 Temperature 37.0 C Temperature Source Oral Axillary Pulse Rate 86 86 Pulse Rate from SpO2 Sensor Respiratory Rate 20 Respiratory Effort / Characteristics Non-Labored Spontaneous Respiratory Depth Normal Respiratory Pattern Regular Blood Pressure 201/86 H Blood Pressure Mean 124 Pulse Oximetry 96 Oxygen Delivery Method Room Air Sepsis Recent Fever Within 48 Hours No Sepsis New/Unexplained Change in Mental Status N/A Sepsis Action Taken by Nursing No Action Required 06/05/24 10:03 06/05/24 10:36 06/05/24 14:01 Temperature Temperature Source Pulse Rate 88 87 85 Pulse Rate from SpO2 Sensor 89 86 Respiratory Rate 20 18 Respiratory Effort / Characteristics Respiratory Depth Respiratory Pattern Blood Pressure 173/71 H 112/65 Blood Pressure Mean 105 80 Pulse Oximetry 96 96 Oxygen Delivery Method Sepsis Recent Fever Within 48 Hours Sepsis New/Unexplained Change in Mental Status Sepsis Action Taken by Nursing CONSTITUTIONAL: Morbidly obese 63-year-old male in mild distress due to discomfort, sitting semiupright on gurney. is at the bedside. EYES: Pupils equal, round, reactive to light and accommodation. EOMs intact without nystagmus. Sclera are anicteric. NECK: No bruits auscultated. Supple without lymphadenopathy. No thyromegaly. No meningeal signs. Full active range of motion without discomfort. CARDIOVASCULAR: Regular rate and rhythm. Peripheral pulses easy to palpable. RESPIRATORY: Breath sounds equal and clear to auscultation. GI: Bowel sounds are present. Abdomen is soft, nontender, nondistended. No organomegaly. No pulsatile masses. No guarding or rebound. MUSCULOSKELETAL: Full range of motion of extremities x 4 with good strength. No cyanosis, edema, joint tenderness or swelling. No deformity. INTEGUMENTARY: No lesions or rash, normal skin turgor. NEUROLOGICAL: Alert, oriented, and cooperative. Cranial nerves, sensation and strength grossly intact. Normal gait. Course Course The patient was seen and assessed as above. External medical records were reviewed. He presents to the emergency department for evaluation of chest pain and some discomfort with deep breathing in his back. He has a quite extensive medical history, and history of atrial flutter on Eliquis. I did review cardiology note from earlier this week, incidentally does not document any medication changes. IV lock was initiated and laboratory studies were collected. Patient was placed on a cardiac surgeon. EKG and chest x-ray were obtained. He was given aspirin 324 mg p.o. and had improvement in his discomfort with 1 sublingual nitroglycerin. CBC with differential, CMP, coags and troponinx 2 were obtained. Diagnostics, as interpreted by me: Laboratory studies: White count elevated at 16,400 with left shift of unclear significance. No anemia. No thrombocytopenia. Coags are normal. No significant electrolyte imbalance noted. Renal functions are normal. Initial high-sensitivity troponin within normal limits, 7.6. Repeat 2+ hour troponin is essentially unchanged, 7.8. ECG: Normal sinus rhythm 89 bpm. No acute ischemic changes. Upon review of prior EKG, sinus tachycardia has been replaced by normal sinus rhythm. No other changes noted. Cardiac Monitoring: Cardiac monitoring: An order was placed for continuous cardiac monitoring. The monitor shows a NSR in the 80s per my interpretation. Medical decision rules: Heart score 4 Imaging studies: Chest x-ray no mediastinal widening. Possible left upper lobe and right infrahilar opacity. Chest CT recommended. Chest CT : no PE, no dissection. No consolidation. Patient was reassessed frequently. All laboratory and diagnostic imaging studies reviewed with him and his at length. Patient discussed with Dr. Hudson who agrees with the ED workup. While pain does not seem classically cardiac in nature, relief with nitroglycerin and the patient's extensive past medical history and comorbidities are concerning. He has never had a stress test, or cardiac catheterization. After review of the information above and other included data, I feel the patient would benefit from further inpatient care. Case discussed with the disaster recovery manager and consultation placed with the [facility] hospitalist. Patient was discussed with Elinor Lloyd PA-C. Please refer to admission H&P and orders for further care and management. Differential diagnosis: acute myocardial infarction, acute coronary syndrome, myocarditis, pericarditis, GERD, pulmonary embolism, pneumonia, pneumothorax, cardiomyopathy, congestive heart failure, dissection, COPD/asthma exacerbation, musculoskeletal, anxiety, costochondritis, among others. Administered Medications Nitroglycerin (Nitroglycerin Sl 0.4 Mg/Tab Tab) 0.4 mg SL Q5M PRN PRN Reason: Chest Pain Stop: 07/05/24 09:03 Last Admin: 06/05/24 09:21 Dose: 0.4 mg Documented By: MR Discontinued Medications Aspirin (Aspirin Chew 324 Mg) 324 mg PO NOW STA Stop: 06/05/24 09:05 Last Admin: 06/05/24 09:21 Dose: 324 mg Documented By: Ioversol (Optiray 320 125ml) 120 ml IV ONCE ONE Stop: 06/05/24 10:55 Last Admin: 06/05/24 10:54 Dose: 120 ml Documented By: SOUTH Medical Decision Making Differential Diagnosis See ED course. Medical Records Attestation: I reviewed the patient's medical records. Home Medications Current Medication List: was personally reviewed by me Laboratory Data Attestation: I reviewed the patient's lab results. 06/05/24 09:15 06/05/24 09:15 Lab Results 06/05/24 06/05/24 Range/Units 09:15 11:44 WBC 16.43 H (4.8-10.8) K/ul RBC 5.50 (4.70-6.10) M/uL Hgb 15.7 (14.0-18.0) g/dl Hct 47.9 (42.0-52.0) % MCV 87.1 (80.0-100.0) fL MCH 28.5 (25.0-34.0) pg MCHC 32.8 (32.0-36.0) g/dL RDW Std Deviation 43.7 (36.4-46.3) fL RDW Coeff of Fabiola 14.4 (11.5-14.5) % Plt Count 275 (130-400) K/uL MPV 10.3 (9.4-12.4) fL Immature Gran % (Auto) 0.4 % Neut % (Auto) 68.5 % Lymph % (Auto) 18.7 % Giles % (Auto) 8.9 % Eos % (Auto) 3.2 % Baso % (Auto) 0.3 % Neut # (Auto) 11.24 H (1.40-6.50) K/uL Lymph # (Auto) 3.08 (1.20-3.40) K/uL Giles # (Auto) 1.47 H (0.11-0.59) K/uL Eos # (Auto) 0.53 H (0.00-0.50) K/uL Baso # (Auto) 0.05 (0.00-0.20) K/uL Immature Gran # (Auto) 0.06 (0.01-0.20) K/uL PT 11.6 (9.0-12.0) Seconds INR 1.1 (0.9-1.1) APTT 35 H (21-31) Seconds PTT Ratio 1.3 Sodium 135 L (136-145) mmol/L Potassium 4.1 (3.5-5.1) mmol/L Chloride 99 (98-107) mmol/L Carbon Dioxide 27 (21-32) mmol/L Anion Gap 9 (3-11) BUN 19 (6-23) mg/dl Creatinine 0.99 (0.6-1.4) mg/dl Est Cr Clr Drug Dosing 126.9 ml/min eGFR 85.07 BUN/Creatinine Ratio 19.2 (10-20) Glucose 123 H (70-99(Fasting)) mg/dl Calcium 9.5 (8.6-10.3) mg/dl Total Bilirubin 0.7 (0.2-1.0) mg/dl AST 20 (13-39) U/L ALT 19 (7-52) U/L Alkaline Phosphatase 91 (34-104) U/L Troponin I High Sens 7.6 7.8 (0-20) pg/ml Total Protein 7.5 (6.0-8.3) gm/dl Albumin 4.1 (3.4-5.0) gm/dl Globulin 3.4 (2.5-4.0) gm/dl Albumin/Globulin Ratio 1.2 (0.9-2) Imaging Data Attestation: I personally reviewed and interpreted this imaging study as follows: Radiologist's Impression: Chest X-Ray 06/05/24 09:05 XR chest 1V portable CLINICAL HISTORY: Chest pain, nonspecific COMPARISON STUDY: Chest CT August 03, 2007 13. Chest radiograph March 31, 2023. FINDINGS: Lung volumes are normal. No pneumothorax or pleural effusion is present. Cardiomediastinal silhouette is normal. There is no radiographic evidence for pulmonary edema. There is possible right infrahilar opacity. There is also a 1.6 cm nodular left upper lung opacity. IMPRESSION: 1. 1.6 cm nodular left upper lung opacity. This could reflect a small focus of pneumonia. However, a pulmonary nodule could appear similar. Nonemergent chest CT is recommended. 2. Apparent right infrahilar opacity. This is likely artifactual although pneumonia cannot be excluded and this can be assessed on follow-up chest CT. ACT 112: Positive. There are findings on this exam that require communication between the performing entity and the patient following Patient Test Result Information Act ([place] Act 112) guidelines. Electronically signed by: Anand Pandya M.D. 06/05/2024 9:44 AM Chest CTA 06/05/24 10:22 CT ANGIOGRAPHY OF THE CHEST DISSECTION PROTOCOL CLINICAL HISTORY: CHEST AND BACK PAIN, SOB COMPARISON STUDY: Chest CT August 03, 2017. Chest radiograph performed earlier today. TECHNIQUE: Before and following the IV administration of 120 mL of Optiray, helical axial images of the chest were obtained. Maximal intensity projections and sagittal and coronal reformats were viewed on an independent 3D workstation. IV contrast was administered without complication. Automated exposure control was utilized for the study. A dose lowering technique was utilized adhering to the principles of ALARA. CT DOSE: 1967.99 mGy.cm FINDINGS: Caliber of the thoracic aorta is normal. There is no thoracic aortic dissection or intramural hematoma. There are no pulmonary embolus. Size of the heart is normal. There is no pulmonary emboli. No pneumothorax or pleural effusion is present. There is no consolidation to suggest pneumonia. Densities within the lingula are suggestive of atelectasis. There is no thoracic lymphadenopathy. The apparent opacities on chest radiograph performed earlier today were artifactual. There are no acute fractures within the bony thorax. Visualized portions of the upper abdomen are unremarkable. IMPRESSION: 1. No thoracic aortic dissection. 2. No acute intrathoracic findings. ACT 112: Negative or not required by law. Electronically signed by: Anand Pandya M.D. 06/05/2024 11:42 AM MDM Narrative See ED course. Impression & Plan Precordial chest pain, Shortness of breath Discharge Plan Visit Data Chief Complaint: Chest Pain Stated Complaint: CHEST PAINS, GOES INTO BACK WHEN BREATHING DEEP ED Provider: Eliceo Hudson ED Midlevel Provider: Ector Singh Discharge Problem: Precordial chest pain, Shortness of breath Patient Disposition: Being Evaluated by Hospitalist Forms Stand Alone Forms: [facility] Prescriptions Prescriptions: No Action (DME) lancets [OneTouch Delica Plus Lancet] 33 gauge misc See Rx Instructions .Route Qty: 100 3RF Rx Instructions: As directed atorvastatin [Lipitor] 80 mg tablet 80 mg PO HS Qty: 90 3RF finasteride [Proscar] 5 mg tablet 5 mg PO DAILY Qty: 90 3RF lisinopril 40 mg tablet 40 mg PO DAILY Qty: 90 3RF Eliquis 5 mg tablet 5 mg PO BID 90 Days Qty: 180 3RF spironolactone 25 mg tablet 25 mg PO QAM Qty: 90 3RF docusate sodium [Colace] 100 mg capsule 100 mg PO BID 90 Days Qty: 180 3RF Mounjaro 15 mg/0.5 mL pen injector 15 mg subcut Q7D Qty: 2 8RF Rx Instructions: Friday furosemide 40 mg tablet 40 mg PO BID Qty: 180 3RF metoprolol succinate 25 mg tablet extended release 24 hr 25 mg PO QAM Qty: 30 5RF (DME) OneTouch Verio test strips Strip See Rx Instructions .Route Qty: 100 3RF Rx Instructions: Test once daily and as needed meloxicam 15 mg tablet 15 mg PO DAILY Qty: 90 3RF gabapentin 300 mg capsule 300 mg PO BID 90 Days Qty: 180 2RF naloxone [Narcan] 4 mg/actuation spray,non-aerosol 1 spray intranasal Q3M PRN (Reason: opioid overdose) Qty: 2 0RF Referrals Referrals: Joe Alvarez MD [Physician] - Risk - HEART Scoring HEART Score for Major Cardiac Events History: Moderately Suspicious EKG: Normal Age: 45-64 Years of Age Risk Factors: >2 Risk Factors Initial Troponin: Normal Limit Total Points: 4 Risk Level: Moderate Risk for Major Adverse Cardiac Event HEART Score Interpretation: Score interpretation (as per derivation study): HEART Adverse Cardiac Score Event Risk Management 0-3 0.9-1.7% In the HEART Score study, these patients were discharged. 4-6 12-16.6% In the HEART Score study, these patients were admitted to the hospital. 7-10 50-65% In the HEART Score study, these patients were candidates for early invasive measurements. Original Source: 1. Pacheco AJ, Bina BE, Diane MO. Chest pain in the emergency room: value of the HEART score. Net Heart J. 2008; 16(6):191-6.
[2024-06-05] MEDS: NITROGLYCERIN SL 0.4 MG/TAB TAB SL PRN (09:21)
[2024-06-05] MEDS: ASPIRIN CHEW 324 MG PO STA (09:21)
[2024-06-05 09:44] LABS: Basophils # (auto) 0.05 K/uL (0.00-0.20); Basophils % (auto) 0.3 %; Eosinophils # (auto) 0.53 K/uL (0.00-0.50); Eosinophils % (auto) 3.2 %; Hematocrit (blood only) 47.9 % (42.0-52.0); Hemoglobin 15.7 g/dl (14.0-18.0); Immature Granulocytes # (auto) 0.06 K/uL (0.01-0.20); Immature Granulocytes % (auto) 0.4 %; Lymphocytes # (auto) 3.08 K/uL (1.20-3.40); Lymphocytes % (auto) 18.7 %; Mean Corpuscular Hemoglobin 28.5 pg (25.0-34.0); Mean Corpuscular Hgb Conc 32.8 g/dL (32.0-36.0); Mean Corpuscular Volume 87.1 fL (80.0-100.0); Mean Platelet Volume 10.3 fL (9.4-12.4); Monocytes # (auto) 1.47 K/uL (0.11-0.59); Monocytes % (auto) 8.9 %; Neutrophils # (auto) 11.24 K/uL (1.40-6.50); Neutrophils % (auto) 68.5 %; Platelet Count 275 K/uL (130-400); RDW Coefficient of Variation 14.4 % (11.5-14.5); RDW Standard Deviation 43.7 fL (36.4-46.3); White Blood Count 16.43 K/ul (4.8-10.8)
--- NOTE | 2024-06-05 09:45 | XRay Report ---
XR chest 1V portable CLINICAL HISTORY: Chest pain, nonspecific COMPARISON STUDY: Chest CT August 03, 2007 13. Chest radiograph March 31, 2023. FINDINGS: Lung volumes are normal. No pneumothorax or pleural effusion is present. Cardiomediastinal silhouette is normal. There is no radiographic evidence for pulmonary edema. There is possible right infrahilar opacity. There is also a 1.6 cm nodular left upper lung opacity. IMPRESSION: 1. 1.6 cm nodular left upper lung opacity. This could reflect a small focus of pneumonia. However, a pulmonary nodule could appear similar. Nonemergent chest CT is recommended. 2. Apparent right infrahilar opacity. This is likely artifactual although pneumonia cannot be exclud ed and this can be assessed on follow-up chest CT. ACT 112: Positive. There are findings on this exam that require communication between the performing entity and the patient following Patient Test Result Information Act ([place] Act 112) guidelines. Electronically signed by: Anand Pandya M.D. 06/05/2024 9:44 AM
[2024-06-05 10:03] LABS: Albumin Globulin Ratio 1.2 (0.9-2); Albumin Level 4.1 gm/dl (3.4-5.0); BUN Creatinine Ratio 19.2 (10-20); Bilirubin,Total 0.7 mg/dl (0.2-1.0); Calcium 9.5 mg/dl (8.6-10.3); Creatinine Clr Calc Pharmacy 126.9 ml/min; Globulin 3.4 gm/dl (2.5-4.0); Potassium 4.1 mmol/L (3.5-5.1); Total Protein 7.5 gm/dl (6.0-8.3)
[2024-06-05 10:09] LABS: Troponin I High Sensitivity 7.6 pg/ml (0-20)
[2024-06-05 10:14] LABS: INR 1.1 (0.9-1.1); Partial Thromboplastin Ratio 1.3; Partial Thromboplastin Time 35 Seconds (21-31); Prothrombin Time 11.6 Seconds (9.0-12.0)
[2024-06-05] MEDS: OPTIRAY 320 125ml IV ONE (10:54)
--- NOTE | 2024-06-05 11:44 | CT Scan Report ---
CT ANGIOGRAPHY OF THE CHEST DISSECTION PROTOCOL CLINICAL HISTORY: CHEST AND BACK PAIN, SOB COMPARISON STUDY: Chest CT August 03, 2017. Chest radiograph performed earlier today. TECHNIQUE: Before and following the IV administration of 120 mL of Optiray, helical axial images of t he chest were obtained. Maximal intensity projections and sagittal and coronal reformats were viewed on an independent 3D workstation. IV contrast was administered without complication. Automated exp osure control was utilized for the study. A dose lowering technique was utilized adhering to the lorenza Gutierrez. CT DOSE: 1967.99 mGy.cm FINDINGS: Caliber of the thoracic aorta is normal. There is no thoracic aortic dissection or intramu ral hematoma. There are no pulmonary embolus. Size of the heart is normal. There is no pulmonary embo li. No pneumothorax or pleural effusion is present. There is no consolidation to suggest pneumonia. D ensities within the lingula are suggestive of atelectasis. There is no thoracic lymphadenopathy. The apparent opacities on chest radiograph performed earlier today were artifactual. There are no acute f ractures within the bony thorax. Visualized portions of the upper abdomen are unremarkable. IMPRESSION: 1. No thoracic aortic dissection. 2. No acute intrathoracic findings. ACT 112: Negative or not required by law. Electronically signed by: Anand Pandya M.D. 06/05/2024 11:42 AM
--- NOTE | 2024-06-05 12:46 | History & Physical Report ---
Date of Service June 05, 2024 Assessment & Plan (1) Chest pressure: Plan: Chest pain starting at 0600, radiation to left chest and back, initially in left ear and jaw; h/o cardiac dx includes A.flutter, HFpEF, on Eliquis for A flutter; cardiology visit note from 05/31 showing dx of atypical chest pain, longstanding in nature - Admit - Cardiac monitoring - EKG normal sinus, rate around 90 bpm - Troponin 7.6, repeat 7.8; every 6 hours until peak - CBC WBC 16.43, neutrophil predominant 11.24, CMP sodium 135, glucose 123, TSH pending - CXR 1.6 cm nodular ROB lung opacity, CT revealing no acute findings, specifi luis alberto stating no consolidation suggestive of pneumonia - Echo 03/2023 LV systolic function normal, regional wall abnormalities cannot be occluded to limited visualization, EF 55 to 60% - Stress echo pending - Lipids- (07/2023) LDL 80, HDL 39, total 148, triglycerides 146 - Chest pain limited by nitroglycerin x 1 in ED - ASA 325 mg given in ED, previously on ASA 81 mg daily as well - Tylenol q4hr prn headache/pain/fever - Will trial GI cocktail + reevaluate symptoms - Cardiology consult will be placed as appropriate (2) Atrial flutter: Plan: H/o A flutter, follows with arcade attendant, most recent visit 05/31; reported to have elevated heart rate 1 day prior to arrival, currently without complaints - EKG normal sinus, rate around 90 bpm - Pt states that metoprolol dose was halved at most recent visit; on eliquis - Will monitor on telemetry - TSH pending (3) Leukocytosis: Plan: WBC 16.43, neutrophil predominant (11.24) - Only complaint at this time is right great toe ingrown toenail, been utilizing OTC ointments and treatment methods of keeping it wrapped - Denying fever or chills - No other source of infection; will recheck WBC in a.m. - Defer antibiotics at this time is no clear source of infection (4) (HFpEF) heart failure with preserved ejection fraction: Plan: H/o HFpEF; chest pain starting at 0600, w/o diaphoresis or SOB - Current weight 188kg; Daily weights standing - I+Os daily - Echo as above - Troponin as above - Continue home medications - SCDs, promote leg elevation and frequent movement (5) Diabetes mellitus: Plan: H/o DMT2 - At home regimen Mounjaro weekly; diet controlled - Most recent A1C 01/2024 @ 6% - SSI deferred at this time per pt's's request - T2DM diet - BSG ACHS - Adjust regimen as needed Plan HFpEF-spironolactone, metoprolol, furosemide HTN-metoprolol, lisinopril BPH-finasteride HLD-atorvastatin Dispo: Admit Diet: Heart healthy, T2DM VTE Prophylaxis: Eliquis Code: Full Admission and Anticipated Discharge Date Admission Date: 06/05/2024 History of Present Illness Chief Complaint: Chest pain Primary Care Provider: Miki Richardson DO 63-year-old male presenting for left ear, jaw, and chest pain beginning at 0600. ED course: CBC WBC 16.43, neutrophils 11.24; PT/INR WNL, APTT 35; CMP sodium 135, glucose 123; troponin 7.6, pending repeat; CXR 1.6 cm nodular L upper lung opacity, pneumonia versus pulmonary nodule (CT recommended), right infrahilar opacity was noted to be artificial on CTA; chest CTA thoracic aortic dissection, no acute intrathoracic findings: EKG NSR, BP around 90 bpm.; Provided with nitroglycerin and aspirin in ED. Patient is a 63-year-old male PMHx T2DM, BPH, HTN, HLD, and prior A-flutter (on Eliquis) who presents for onset of left ear, jaw and chest pain starting at 0600. Patient states that his normal heart rate is around 70 bpm, but yesterday it started to increase to around 85 bpm which concerned him. Patient states that whenever he was walking his heart rate jumped greater than 100 bpm, which he does not commonly do this. States that on 0600 he awoke and had left ear pain that radiated into his left neck. Denying additional ENT symptoms, and has no teeth. Patient states approximately 2 hours after the onset of the initial pain, he then started to notice diffuse chest pressure/pain that spread across his entire chest. Described as aching, with associated stabbing back pain at times which comes and goes. No episodes of diaphoresis. States that his pain at a maximal was 5-6 out of 10 on the pain scale, but currently is described more as pressure than pain. Patient states that he cannot rated on the pain scale at this time because it does not really cause him pain. Notes that the nitroglycerin that was provided in the ED did help alleviate symptoms minimally. Patient denying abdominal pain, NV, or dyspepsia. The only change that he noted recently was that his metoprolol was cut in half by his arcade attendant. States that since the symptoms occurred and he was unsure what other cause would be, he did take a full dose of metoprolol although he has only been prescribed a half dose. States he has never had this happen before. Denies any type of dyspnea on exertion or chest pain with exertion, able to walk normal distance without chest pain or shortness of breath limiting him. States only limiting factor to exertion is his back pain which is chronic. He does use a rolling walker for this. He is complaining of a mild headache since utilizing nitroglycerin, no vision changes. Otherwise denying palpitations, diarrhea/c onstipation, LUTS, numbness/tingling, or additional fever/chills. Took all a.m. medications. The right this happen before. Please see Dr. Sam's attestation for adjustments/additions to treatment plan. Allergies Allergy/AdvReac Type Severity Reaction Status Date / Time hydromorphone Allergy Intermediate rash Verified 06/05/24 10:25 azithromycin AdvReac Intermediate N/V Verified 06/05/24 10:25 tramadol AdvReac Intermediate HALUCINATIO Verified 06/05/24 10:25 NS Home Medications Medication Instructions Recorded Confirmed Type naloxone 4 mg/actuation nasal 1 spray intranasal Q3M PRN opioid 09/02/22 06/05/24 Rx spray (Narcan) overdose #2 ea blood sugar diagnostic (OneTouch #100 ea 04/15/23 05/31/24 Rx Verio test strips) lancets 33 gauge (OneTouch Delica #100 ea 06/12/23 05/31/24 Rx Plus Lancet) gabapentin 300 mg capsule 300 mg PO BID 90 days #180 caps 08/19/23 06/05/24 Rx meloxicam 15 mg tablet 15 mg PO DAILY #90 tabs 08/19/23 06/05/24 Rx atorvastatin 80 mg tablet (Lipitor) 80 mg PO HS #90 tabs 09/04/23 06/05/24 Rx finasteride 5 mg tablet (Proscar) 5 mg PO DAILY #90 tabs 09/04/23 06/05/24 Rx lisinopril 40 mg tablet 40 mg PO DAILY #90 tabs 09/22/23 06/05/24 Rx apixaban 5 mg tablet (Eliquis) 5 mg PO BID 90 days #180 tabs 10/02/23 06/05/24 Rx spironolactone 25 mg tablet 25 mg PO QAM #90 tabs 10/09/23 06/05/24 Rx docusate sodium 100 mg capsule 100 mg PO BID 90 days #180 caps 11/10/23 06/05/24 Rx (Colace) tirzepatide 15 mg/0.5 mL 15 mg (0.5 mL) subcut Q7D #2 mL 02/03/24 06/05/24 Rx subcutaneous pen injector (Mounjaro) furosemide 40 mg tablet 40 mg PO BID #180 tabs 04/07/24 06/05/24 Rx metoprolol succinate 25 mg 25 mg PO QAM #30 tabs 04/27/24 06/05/24 Rx tablet,extended release 24 hr Past Med/Surg History Problem List (Updated 06/05/24 @ 14:17 by Ector Singh) Shortness of breath (Acute) Precordial chest pain (Acute) (HFpEF) heart failure with preserved ejection fraction Class 3 severe obesity with serious comorbidity and body mass index (BMI) of 60.0 to 69.9 in adult Diabetes mellitus Atrial flutter Leukocytosis (Acute) Chest pressure (Acute) Myofascial pain Somatic dysfunction of pelvis region Lumbar radicular pain Sacroiliac joint pain Ambulatory dysfunction (Acute) BPH (benign prostatic hyperplasia) (Chronic) Hypertension (Chronic) High cholesterol (Chronic) Leukocytosis (Acute) Pain of paraspinal muscle (Acute) Pleuritic chest pain (Acute) Right shoulder pain (Acute) Shoulder pain, acute Medical History Fluid overload Pedal edema Edema of scrotum Acute pain of left hip High blood pressure Surgical History History of hip replacement Social History Smoking Status: Former smoker Age Started Using Tobacco: 14; Age Quit Using Tobacco: 51; Second Hand Exposure: No; Do You Dip or Chew Tobacco: No; Hx Alcohol Use: No Hx Substance Use: No Preferred Language: Tongan Communication Ability: Effective Knitter Mechanic Required: No Beliefs That Will Affect Care: None marital status: Current Living Situation: Spouse current occupational status: retired Feels Safe at Home: Yes Diet: diabetic caffeine: Yes Dental Care, Regularly: No Physical Activity Frequency: 1-2 Times per Week Seatbelt Use: always Sunscreen Use: No Assistive Devices: Scooter/Electric Scooter, Walker and Wheelchair Review of Systems Review of Systems: All systems reviewed & are unremarkable except as noted in Subjective Physical Exam Physical Exam: General: No acute distress Skin: Warm and dry, without rashes or lesions Head: Normocephalic, atraumatic Eyes: PERRL, conjunctivae clear, sclera non-icteric; EOM intact ENT: External ear and ear canal without swelling; nose atraumatic; No teeth, tongue normal appearance, pharynx normal without tonsillar swelling or exudate Neck: Supple, no LAD; no JVD Cardio: RRR, no M/G/R, S1 and S2 normal Resp: No respiratory distress, Lungs CTA in all lobes bilaterally, no wheezes, rales, or rhonchi Abdomen: Soft, symmetric, nontender; No visible lesions or scars; no distention; No masses or hepatosplenomegaly; Bowel sounds normoactive MSK: No deformities, full ROM throughout; pulses palpable and equal; 1+ pitting edema BLE. Neuro: Awake, alert; Muscle strength 5/5 bilaterally in UE/LE; Sensation intact bilaterally; CN intact Psych: Appropriate mood and affect; good judgement and insight. present in room at time of visit. Results & Data Results & Data Vital Signs (Past 12 Hours) Vital Signs Temp Pulse Resp BP Pulse Ox O2 Del Method 06/05/24 10:36 87 18 112/65 96 06/05/24 10:03 88 20 173/71 H 96 06/05/24 09:03 37.0 C 06/05/24 08:50 86 06/05/24 08:44 86 20 201/86 H 96 Room Air Laboratory Results 06/05/24 06/05/24 11:44 09:15 WBC 16.43 H RBC 5.50 Hgb 15.7 Hct 47.9 MCV 87.1 MCH 28.5 MCHC 32.8 RDW Std Deviation 43.7 RDW Coeff of Fabiola 14.4 Plt Count 275 MPV 10.3 Immature Gran % (Auto) 0.4 Neut % (Auto) 68.5 Lymph % (Auto) 18.7 [place] % (Auto) 8.9 Eos % (Auto) 3.2 Baso % (Auto) 0.3 Neut # (Auto) 11.24 H Lymph # (Auto) 3.08 [place] # (Auto) 1.47 H Eos # (Auto) 0.53 H Baso # (Auto) 0.05 Immature Gran # (Auto) 0.06 PT 11.6 INR 1.1 APTT 35 H PTT Ratio 1.3 Sodium 135 L Potassium 4.1 Chloride 99 Carbon Dioxide 27 Anion Gap 9 BUN 19 Creatinine 0.99 Est Cr Clr Drug Dosing 126.9 eGFR 85.07 BUN/Creatinine Ratio 19.2 Glucose 123 H Calcium 9.5 Total Bilirubin 0.7 AST 20 ALT 19 Alkaline Phosphatase 91 Troponin I High Sens 7.8 7.6 Total Protein 7.5 Albumin 4.1 Globulin 3.4 Albumin/Globulin Ratio 1.2 Diagnostic Findings Chest X-Ray 06/05/24 09:05 XR chest 1V portable CLINICAL HISTORY: Chest pain, nonspecific COMPARISON STUDY: Chest CT August 03, 2007 13. Chest radiograph March 31, 2023. FINDINGS: Lung volumes are normal. No pneumothorax or pleural effusion is present. Cardiomediastinal silhouette is normal. There is no radiographic evide nce for pulmonary edema. There is possible right infrahilar opacity. There is also a 1.6 cm nodular left upper lung opacity. IMPRESSION: 1. 1.6 cm nodular left upper lung opacity. This could reflect a small focus of pneumonia. However, a pulmonary nodule could appear similar. Nonemergent chest CT is recommended. 2. Apparent right infrahilar opacity. This is likely artifactual although pne umonia cannot be excluded and this can be assessed on follow-up chest CT. ACT 112: Positive. There are findings on this exam that require communication between the performing entity and the patient following Patient Test Result Information Act ([place] Act 112) guidelines. Electronically signed by: Anand Pandya M.D. 06/05/2024 9:44 AM Chest CTA 06/05/24 10:22 CT ANGIOGRAPHY OF THE CHEST DISSECTION PROTOCOL CLINICAL HISTORY: CHEST AND BACK PAIN, SOB COMPARISON STUDY: Chest CT August 03, 2017. Chest radiograph performed earlier today. TECHNIQUE: Before and following the IV administration of 120 mL of Optiray, helical axial images of the chest were obtained. Maximal intensity projections and sagittal and coronal reformats were viewed on an independent 3D workstation. IV contrast was administered without complication. Automated exposure control was utilized for the study. A dose lowering technique was utilized adhering to the principles of ALARA. CT DOSE: 1967.99 mGy.cm FINDINGS: Caliber of the thoracic aorta is normal. There is no thoracic aortic dissection or intramural hematoma. There are no pulmonary embolus. Size of the h eart is normal. There is no pulmonary emboli. No pneumothorax or pleural effusion is present. There is no consolidation to suggest pneumonia. Densities within the lingula are suggestive of atelectasis. There is no thoracic lymphadenopathy. The apparent opacities on chest radiograph performed earlier today were artifactual. There are no acute fractures within the bony thorax. Visualized portions of the upper abdomen are unremarkable. IMPRESSION: 1. No thoracic aortic dissection. 2. No acute intrathoracic findings. ACT 112: Negative or not required by law. Electronically signed by: Anand Pandya M.D. 06/05/2024 11:42 AM ECG Additional Comments: NSR, rate around 90 bpm NC 182, QRS 98, QT/QTc 3 7/455, PRT 57/65/34 Code Status & VTE Plan Code Status Full Supervising Physician Co-Signing Physician Notes I personally examined the patient and verified all raygoza points of history and exam, discussed case, and agree with decision making with CINDY Sierra Chest pressure and discomfortanterior and radiates around the back. Started last night. Vitals noted, in general he is awake and alert pleasant no distress. HEENT normocephalic atraumatic mucous membranes moist. Breathing unlabored no accessory muscle use good effort. Chest pain is mildly reproducible to palpation on his left anterior rib cage, and the radiation around to his back does correspond to where his ribs articulate in his T-spine. Abdomen is soft nondistended nontender. EKG nonacute troponins are reassuring. Chest pressuregiven the duration I doubt it is cardiac, but he is fairly high riskfinish out serial troponins. Stress echo once able to be done (discussed with patient and that unfortunately may not be able to be done here on the weekend, and depending on his clinical progression, either could stay until Friday to get it done versus going home and getting it done as an outpatient) suspect rib related most likely given the distribution and reproducibility of his pain; I do wonder a little bit anxiety as a second differential given that he seems to have had onset of symptoms after noting his heart rate going up (still within a normal range, and still appears to be in sinus to the best I can tell, but higher than he is used to seeing); GI certainly is on the list as well simply because it masquerade this cardiac quite oftenwill give Maalox/viscous lidocaine and follow for any symptomatic change. PG Care Time/CCT Total # of Minutes Spent Total Time Spent with Patient: Total time spent is greater than 50% in coordination of care (as documented) at patient's floor/unit and/or counseling patient: Coding Level of Care Code 82317 INT INP/OBS CARE 375MIN Diagnoses Chest pressure R07.89 Atrial flutter I48.92 Leukocytosis D72.829 (HFpEF) heart failure with preserved ejection fraction I50.30 Diabetes mellitus E11.9 Diabetes mellitus complication detail: with polyneuropathy Diabetes mellitus halfway insulin use: without terminal manager use Diabetes mellitus type: type 2 Time Spent (min) 80 (5) Diabetes mellitus Diabetes mellitus complication detail: with polyneuropathy Diabetes mellitus terminal manager insulin use: without halfway use Diabetes mellitus type: type 2
[2024-06-05] MEDS: ALUMINUM/MAGNESIUM SUSP 30 ML UDC PO ONE (14:52)
[2024-06-05] MEDS: LIDOCAINE VISCOUS 2% 15 ML UDC MT ONE (14:52)
[2024-06-05] MEDS ORDERED: POLYETHYLENE (MIRALAX) 17 GM PACK PO PRN (16:18)
[2024-06-05] MEDS ORDERED: ALUMINUM/MAGNESIUM SUSP 30 ML UDC PO PRN (16:18)
[2024-06-05] MEDS: FLUTICASONE PROPIONATE NA SPR 16 GM BTL SCH (19:52)
[2024-06-05] MEDS: ACETAMINOPHEN 325 MG TAB PO PRN (19:57)
[2024-06-05] MEDS: ATORVASTATIN 40 MG TAB PO SCH (19:58)
[2024-06-05] MEDS: GABAPENTIN 300 MG CAP PO SCH (19:59)
[2024-06-05] MEDS: APIXABAN 5 MG TABLET PO SCH (19:59)
[2024-06-05] MEDS: FUROSEMIDE 40 MG TAB PO SCH (19:59)
[2024-06-05] MEDS: DOCUSATE SODIUM 100 MG CAP PO SCH (20:20)
[2024-06-06 07:26] LABS: Hematocrit (blood only) 45.2 % (42.0-52.0); Hemoglobin 15.1 g/dl (14.0-18.0); Mean Corpuscular Hemoglobin 28.9 pg (25.0-34.0); Mean Corpuscular Hgb Conc 33.4 g/dL (32.0-36.0); Mean Corpuscular Volume 86.6 fL (80.0-100.0); Mean Platelet Volume 10.3 fL (9.4-12.4); Platelet Count 268 K/uL (130-400); RDW Coefficient of Variation 14.7 % (11.5-14.5); RDW Standard Deviation 44.3 fL (36.4-46.3); Red Blood Count 5.22 M/uL (4.70-6.10); White Blood Count 15.65 K/ul (4.8-10.8)
[2024-06-06 07:29] LABS: Calcium 9.2 mg/dl (8.6-10.3); Potassium 4.2 mmol/L (3.5-5.1)
[2024-06-06 07:44] LABS: Thyroid Stimulating Hormone 3.549 uIu/ml (0.300-4.500)
--- NOTE | 2024-06-06 07:58 | Hospitalist Progress Note ---
Date of Service June 06, 2024 Assessment & Plan (1) Chest pressure: Plan: Chest pain starting 06/05 at 0600 - now resolved; cardiac history includes A.flutter - on Eliquis, HFpEF - EKG normal sinus rhythm, no ischemic changes appreciated - Negative Trop x2 - TSH WNL, Hgb WNL, electrolytes WNL - Lipids (07/2023) LDL 80, HDL 39, total 148, triglycerides 146 - CXR 1.6 cm nodular left upper lung opacity - recommend outpatient follow up - TTE formal read pending, negative for acute abnormalities per discussion with cardiology - ?feasibility of exercise stress test, therefore nuclear stress test ordered, to be completed 06/07 (2) Atrial flutter: Plan: - EKG normal sinus rhythm - TSH WNL, Hgb WNL, electrolytes WNL - Continue metoprolol, Eliquis (3) Leukocytosis: Plan: WBC ~16, patient with paronychia of right first toe, otherwise afebrile and without obvious infectious source - Chronic leukocytosis noted on review of previous labs - Defer antibiotics at this time is no clear source of infection (4) (HFpEF) heart failure with preserved ejection fraction: Plan: - Daily standing weights - I/Os - Continue home Metoprolol, Spironolactone, Lisinopril, Lasix (5) Diabetes mellitus: Plan: H/o DMT2 - At home regimen Mounjaro weekly; diet controlled - Most recent A1C 01/2024 @ 6% - SSI deferred at this time per pt's's request - T2DM diet - BSG ACHS - Adjust regimen as needed Plan HTN-metoprolol, lisinopril BPH-finasteride HLD-atorvastatin Diet: Heart healthy, T2DM VTE Prophylaxis: Eliquis Admission and Anticipated Discharge Date Admission Date: June 05, 2024 Supervising Physician Co-Signing Physician Notes Attending Physician Supervision Note: I independently interviewed and examined the patient and verified the raygoza history and physical, reviewed labs and image studies and agree with findings and care plan noted above. Chest pressure better but still persistent. No shortness of breath. No GERD symptoms. Comfortable. RRR, CTA Chest pressure with discomfort - Troponin neg. Echo with normal EF. Nuclear stress test in am. -If negative - should have EGD as outpatient to r/o PUD since he is on Mounjaro. Denies GERD symptoms or black stool. Subjective Patient reports chest pain resolved as of this morning, describes as diffuse chest pressure/dull ache, pleuritic in nature, exacerbated with exertion. Patient with h/o pAF, reports that Metoprolol dose cut in half after seeing outpatient cardiology this week, also taken off of daily aspirin. Denies recent illness, fever/chills. Currently denies chest pain, shortness of breath, palpitations. Review of Systems Review of Systems: as per HPI Physical Exam Physical Exam: General: Alert and oriented. No acute distress Cardiac: Regular rate and rhythm, no murmurs appreciated Respiratory: Lungs clear to auscultation bilaterally, No increased work of breathing Extremities: No lower extremity edema, right first toe with ingrown toenail - associated swelling, erythema, small amount of blood oozes with palpation Results & Data Results & Data Vital Signs (Past 12 Hours) Vital Signs Temp Pulse Pulse Resp BP Pulse Ox O2 Del Method 06/06/24 07:40 83 06/06/24 03:25 36.5 C 93 H 16 95/64 L 97 Room Air 06/05/24 22:42 36.7 C 88 18 110/68 92 Room Air 06/05/24 21:48 80 Resident Activity Tracking Resident Involvement: Resident Care Provided Care Provided: Adult Hospital Medicine (5) Diabetes mellitus Diabetes mellitus complication detail: with polyneuropathy Diabetes mellitus long term care pharmacist insulin use: without nursing home use Diabetes mellitus type: type 2
[2024-06-06] MEDS: PNEUMOCOCCAL VACCINE (PCV20) 20-VAL CONJ-DIP CRM/PF 0.5 ML SYR IM ONE (08:32)
[2024-06-06] MEDS: METOPROLOL SUCC 25MG EXT REL TAB PO SCH (08:33)
[2024-06-06] MEDS: lisinopril 40 MG TAB PO SCH (08:34)
[2024-06-06] MEDS: SPIRONOLACTONE 25 MG TAB PO SCH (08:34)
[2024-06-06] MEDS: FINASTERIDE 5 MG TAB PO SCH (08:34)
[2024-06-06] MEDS ORDERED: MELOXICAM 7.5 MG TAB PO SCH (09:00)
--- NOTE | 2024-06-06 17:09 | XCELERA ---
[id number]
--- NOTE | 2024-06-07 05:47 | Electrocardiogram Report ---
Test Reason : Blood Pressure : */* mmHG Vent. Rate : 89 BPM Atrial Rate : 89 BPM P-R Int : 182 ms QRS Dur : 98 ms QT Int : 374 ms P-R-T Axes : 57 65 34 degrees QTcB Int : 455 ms Normal sinus rhythm Cannot rule out Anterior infarct , age undetermined Abnormal ECG When compared with ECG of 01-Apr-2023 14:40, Vent. rate has decreased by 49 bpm Confirmed by Mumtaz Little ([id number]) on 06/07/2024 5:46:40 AM Referred By: REFERRED SELF Confirmed By: Mumtaz Little
[2024-06-07 06:44] LABS: Hematocrit (blood only) 42.5 % (42.0-52.0); Hemoglobin 14.3 g/dl (14.0-18.0); Mean Corpuscular Hemoglobin 29.2 pg (25.0-34.0); Mean Corpuscular Hgb Conc 33.6 g/dL (32.0-36.0); Mean Corpuscular Volume 86.7 fL (80.0-100.0); Mean Platelet Volume 10.1 fL (9.4-12.4); Platelet Count 285 K/uL (130-400); RDW Coefficient of Variation 14.4 % (11.5-14.5); RDW Standard Deviation 43.8 fL (36.4-46.3); White Blood Count 15.69 K/ul (4.8-10.8)
[2024-06-07 07:07] LABS: BUN Creatinine Ratio 22.5 (10-20); Calcium 8.8 mg/dl (8.6-10.3); Creatinine Clr Calc Pharmacy 111.3 ml/min; Potassium 3.9 mmol/L (3.5-5.1)
--- NOTE | 2024-06-07 12:06 | Hospitalist Progress Note ---
Date of Service June 07, 2024 Assessment & Plan (1) Chest pressure: Plan: Chest pain starting 06/05 at 0600 - now resolved; cardiac history includes A.flutter - on Eliquis, HFpEF - EKG normal sinus rhythm, no ischemic changes appreciated - Negative Trop x2 - TSH WNL, Hgb WNL, electrolytes WNL - Lipids (07/2023) LDL 80, HDL 39, total 148, triglycerides 146 - CXR 1.6 cm nodular left upper lung opacity - recommend outpatient follow up - TTE showing EF of 65-70% and no significant wall motion abnormalities, although states images are of poor quality - Plan for Nuclear stress testing tomorrow. Patient NPO after midnight and advised to avoid caffeine. (2) Atrial flutter: Plan: - EKG normal sinus rhythm - TSH WNL, Hgb WNL, electrolytes WNL - Continue metoprolol, Eliquis (3) Leukocytosis: Plan: WBC ~16, patient with paronychia of right first toe, otherwise afebrile and without obvious infectious source - Chronic leukocytosis noted on review of previous labs - Defer antibiotics at this time is no clear source of infection (4) (HFpEF) heart failure with preserved ejection fraction: Plan: - Daily standing weights - I/Os - Continue home Metoprolol, Spironolactone, Lisinopril, Lasix (5) Diabetes mellitus: Plan: H/o DMT2 - At home regimen Mounjaro weekly; diet controlled - Most recent A1C 01/2024 @ 6% - SSI deferred at this time per pt's's request - T2DM diet - BSG ACHS - Adjust regimen as needed Plan HTN-metoprolol, lisinopril BPH-finasteride HLD-atorvastatin Diet: Heart healthy, T2DM VTE Prophylaxis: Eliquis Admission and Anticipated Discharge Date Admission Date: June 05, 2024 Supervising Physician Co-Signing Physician Notes I personally examined the patient and verified all raygoza points of history and exam, discussed case, and agree with decision making with Dr Suarez Feeling okay except for back pain. Vitals noted, in general he is awake and alert pleasant no distress. HEENT normocephalic atraumatic mucous membranes moist. Breathing unlabored no accessory muscle use good effort. Skin without rashes pallor or icterus. Neuro without focal deficits. Chest painfor stress test tomorrow. Otherwise as above Subjective Patient evaluated bedside and found to be awake alert and oriented in all spheres, sitting on bedside chair, afebrile, no acute distress. Patient states that he had spoken with non licensed nuclear equipment operator, and told him that since he had eaten breakfast and drank tea, could not proceed with nuclear testing today. Complaining of lower back pain that is not well-controlled by Tylenol 650 mg. States that throughout the night, he had random instances in which he had "a twinge "in his substernal region and on his left chest that resolved spontaneously. Episodes occur during rest or if he is moving around, but cannot identify specific trigger for his symptoms. Denies any other systemic symptoms. Review of Systems Review of Systems: as per HPI Physical Exam Physical Exam: General: Alert and oriented. No acute distress Cardiac: Regular rate and rhythm, no murmurs appreciated Respiratory: Lungs clear to auscultation bilaterally, No increased work of br eathing Extremities: No lower extremity edema Results & Data Results & Data Vital Signs (Past 12 Hours) Vital Signs Temp Pulse Pulse Resp BP BP Pulse Ox 06/07/24 11:40 36.6 C 82 20 124/56 L 95 06/07/24 09:08 06/07/24 07:48 82 06/07/24 07:47 36.5 C 83 18 114/76 95 06/07/24 03:52 36.7 C 84 16 146/72 H 94 O2 Del Method 06/07/24 11:40 Room Air 06/07/24 09:08 Room Air 06/07/24 07:48 06/07/24 07:47 Room Air 06/07/24 03:52 Room Air Resident Activity Tracking Resident Involvement: Resident Care Provided Care Provided: Adult Hospital Medicine (5) Diabetes mellitus Diabetes mellitus complication detail: with polyneuropathy Diabetes mellitus emt intermediate insulin use: without emt intermediate use Diabetes mellitus type: type 2
[2024-06-07] MEDS: IBUPROFEN 600 MG TAB PO STA (16:12)
[2024-06-07] MEDS: ACETAMINOPHEN 500 MG TAB PO SCH (16:12)
--- NOTE | 2024-06-07 18:24 | Billing Data ---
Date of Service June 07, 2024 Coding Level of Care Code 70294 SUB INP/OBS CARE
[2024-06-08 07:48] VITALS: RESP 16
[2024-06-08] MEDS: REGADENOSON 0.4 MG/5 ML SYR IV ONE (14:37)
[2024-06-08 16:19] VITALS: BP 150/65; PULSE 84; TEMP 97.7; O2SAT 95
--- NOTE | 2024-06-08 17:31 | Discharge Summary ---
Date of Service June 08, 2024 Admission HPI Per Admitting Provider 63-year-old male presenting for left ear, jaw, and chest pain beginning at 0600. ED course: CBC WBC 16.43, neutrophils 11.24; PT/INR WNL, APTT 35; CMP sodium 135, glucose 123; troponin 7.6, pending repeat; CXR 1.6 cm nodular L upper lung opacity, pneumonia versus pulmonary nodule (CT recommended), right infrahilar opacity was noted to be artificial on CTA; chest CTA thoracic aortic dissection, no acute intrathoracic findings: EKG NSR, BP around 90 bpm.; Provided with nitroglycerin and aspirin in ED. Patient is a 63-year-old male PMHx T2DM, BPH, HTN, HLD, and prior A-flutter (on Eliquis) who presents for onset of left ear, jaw and chest pain starting at 0600. Patient states that his normal heart rate is around 70 bpm, but yesterday it started to increase to around 85 bpm which concerned him. Patient states that whenever he was walking his heart rate jumped greater than 100 bpm, which he does not commonly do this. States that on 0600 he awoke and had left ear pain that radiated into his left neck. Denying additional ENT symptoms, and has no teeth. Patient states approximately 2 hours after the onset of the initial pain, he then started to notice diffuse chest pressure/pain that spread across his entire chest. Described as aching, with associated stabbing back pain at times which comes and goes. No episodes of diaphoresis. States that his pain at a maximal was 5-6 out of 10 on the pain scale, but currently is described more as pressure than pain. Patient states that he cannot rated on the pain scale at this time because it does not really cause him pain. Notes that the nitroglycerin that was provided in the ED did help alleviate symptoms minimally. Patient denying abdominal pain, NV, or dyspepsia. The only change that he noted recently was that his metoprolol was cut in half by his compound specialist. States that since the symptoms occurred and he was unsure what other cause would be, he did take a full dose of metoprolol although he has only been prescribed a half dose. States he has never had this happen before. Denies any type of dyspnea on exertion or chest pain with exertion, able to walk normal distance without chest pain or shortness of breath limiting him. States only limiting factor to exertion is his back pain which is chronic. He does use a rolling walker for this. He is complaining of a mild headache since utilizing nitroglycerin, no vision changes. Otherwise denying palpitations, diarrhea/constipation, LUTS, numbness/tingling, or additional fever/chills. Took all a.m. medications. The right this happen before. Please see Dr. Sam's attestation for adjustments/additions to treatment plan. Admission Exam Per Admitting Provider General: No acute distress Skin: Warm and dry, without rashes or lesions Head: Normocephalic, atraumatic Eyes: PERRL, conjunctivae clear, sclera non-icteric; EOM intact ENT: External ear and ear canal without swelling; nose atraumatic; No teeth, tongue normal appearance, pharynx normal without tonsillar swelling or exudate Neck: Supple, no LAD; no JVD Cardio: RRR, no M/G/R, S1 and S2 normal Resp: No respiratory distress, Lungs CTA in all lobes bilaterally, no wheezes, rales, or rhonchi Abdomen: Soft, symmetric, nontender; No visible lesions or scars; no distention; No masses or hepatosplenomegaly; Bowel sounds normoactive MSK: No deformities, full ROM throughout; pulses palpable and equal; 1+ pitting edema BLE. Neuro: Awake, alert; Muscle strength 5/5 bilaterally in UE/LE; Sensation intact bilaterally; CN intact Psych: Appropriate mood and affect; good judgement and insight. present in room at time of visit. Principal Diagnosis Costochondritis? Discharge Exam General: Alert and oriented. No acute distress Cardiac: Regular rate and rhythm, no murmurs appreciated Respiratory: Lungs clear to auscultation bilaterally, No increased work of breathing Extremities: No lower extremity edema Discharge Data Allergies Allergy/AdvReac Type Severity Reaction Status Date / Time hydromorphone Allergy Intermediate rash Verified 06/05/24 10:25 azithromycin AdvReac Intermediate N/V Verified 06/05/24 10:25 tramadol AdvReac Intermediate HALUCINATIO Verified 06/05/24 10:25 NS Consultations 06/05/24 12:22 ED Decision to Admit Stat Ordered Studies 06/05/24 10:22 CT angio chest dissec wo/w con Stat Hospital Course (1) Chest pressure: Chest pain starting 06/05 at 0600 - now resolved - EKG normal, no ischemic changes appreciated - Negative Trop x2 - TSH WNL, Hgb WNL, electrolytes WNL - Lipids (07/2023) LDL 80, HDL 39, total 148, triglycerides 146 - CXR 1.6 cm nodular left upper lung opacity - recommend outpatient follow up - TTE showing EF of 65-70% and no significant wall motion abnormalities, although states images are of poor quality - Nuclear stress testing done today and unremarkable - Advise continued outpatient follow up with PCP and compound specialist (2) Atrial flutter: - EKG normal sinus rhythm throughout hospital admission - TSH WNL, Hgb WNL, electrolytes WNL - Continue metoprolol, Eliquis after discharge - Continue outpatient follow up with cardiology (3) Leukocytosis: - WBC ~16, patient with paronychia of right first toe, otherwise afebrile and without obvious infectious source - Chronic leukocytosis noted on review of previous labs - No abx given during this admission - Given wound in right first toe and nail noted to be embedded, would consider outpatient podiatry evaluation (4) (HFpEF) heart failure with preserved ejection fraction: - Continue home Metoprolol, Spironolactone, Lisinopril, Lasix after discharge (5) Diabetes mellitus: H/o DMT2 - At home regimen Mounjaro weekly; diet controlled - Most recent A1C 01/2024 @ 6% - Continue outpatient follow up Plan Will discharge back home today. Total Time Total Time Spent Total Time Spent (In Minutes): As per attending attestation. Discharge Plan Discharge Items Patient Disposition: Home - Self-Care Reason For Visit: CHEST PAIN Discharge Diagnosis: chest pain of MSK etiology Activity: Per Instructions section Non-emergency contact: Primary Care Provider Call non-emergency contact if: your symptoms worsen and your temperature is above 101 Follow-up/Referrals: Miki Richardson DO [Primary Care Provider] - 06/21/24 1:00 pm Diet: Carb Consistent or DM2 and Heart Healthy Addtl Attending Provider Instructions: You were admitted to the hospital for evaluation of chest pain. After doing blood tests and other imaging, we determined that is it unlikely that your chest pain came due to a heart problem. However, to be sure, we ordered a nuclear stress test to see if the blood flow around your heart is okay, and this showed a negative result, meaning that the blood flow through your heart is okay. Therefore, given your chest pain has resolved and you are stable, we will be discharging you today. We advise you follow up with your primary care provider within 1 week of discharge for your post-discharge follow up. A discharge summary will be sent to your primary care physician to ensure continuity of care. Please bring this discharge summary with you to your next office appointment so that your provider can review it at that time. Follow-up appointments: Keep all your follow-up appointments as already scheduled. If you cannot make an appointment, notify your provider. Medications: Your medication list has been reviewed and reconciled upon discharge to ensure accuracy and continuity of care. An updated list of all your medications is included with your hospital discharge paperwork. Please review this list closely, and make note of any changes. Take your medications as instructed; do not skip a dose of your medicines. Make sure all of your doctors know every medicine you are taking (including uypk-svd-nburboo medicines, vitamins, and supplements). Call your primary care provider before taking any new medicines (including over- the-counter medicines, vitamins, and supplements), because some of these may interact with your current medications, or may make your symptoms worse. Tell your primary care provider if you cannot afford your medications. CONTACT YOUR PRIMARY CARE PROVIDER if you experience any of the following: Worsening of symptoms Fever, chills, or fatigue Difficulty following your treatment plan, or difficulty taking medications CALL 911 OR GO TO THE EMERGENCY DEPARTMENT if you experience any of the following: Sudden, severe abdominal pain or nausea/vomiting Severe chest pain, or chest pain that radiates (moves) to your jaw or arm Sudden, severe shortness of breath or difficulty breathing Thank you for allowing us to participate in your care. Pending Studies at Discharge: No Stand-Alone Forms: My [employer], Smoking Cessation Medications and DC Order Prescriptions: Continued (DME) lancets [OneTouch Delica Plus Lancet] 33 gauge misc See Rx Instructions .Route Qty: 100 3RF Rx Instructions: As directed atorvastatin [Lipitor] 80 mg tablet 80 mg PO HS Qty: 90 3RF finasteride [Proscar] 5 mg tablet 5 mg PO DAILY Qty: 90 3RF lisinopril 40 mg tablet 40 mg PO DAILY Qty: 90 3RF Eliquis 5 mg tablet 5 mg PO BID 90 Days Qty: 180 3RF spironolactone 25 mg tablet 25 mg PO QAM Qty: 90 3RF docusate sodium [Colace] 100 mg capsule 100 mg PO BID 90 Days Qty: 180 3RF Mounjaro 15 mg/0.5 mL pen injector 15 mg subcut Q7D Qty: 2 8RF Rx Instructions: Friday furosemide 40 mg tablet 40 mg PO BID Qty: 180 3RF metoprolol succinate 25 mg tablet extended release 24 hr 25 mg PO QAM Qty: 30 5RF (DME) OneTouch Verio test strips Strip See Rx Instructions .Route Qty: 100 3RF Rx Instructions: Test once daily and as needed meloxicam 15 mg tablet 15 mg PO DAILY Qty: 90 3RF gabapentin 300 mg capsule 300 mg PO BID 90 Days Qty: 180 2RF naloxone [Narcan] 4 mg/actuation spray,non-aerosol 1 spray intranasal Q3M PRN (Reason: opioid overdose) Qty: 2 0RF Discharge Orders: Discharge Order (Routine); Ordered 06/08/24 Ordered By: Cyndie Suarez Admission Data Admit Date/Time: 06/05/24 13:50 Attending Provider: Sami Sam Admit Provider: Sami Sam Primary Care Provider: Miki Richardson Other Providers: Sami Sam Supervising Physician Co-Signing Physician Notes I personally examined the patient and verified all raygoza points of history and exam, discussed case, and agree with decision making with Dr Suarez feels ok. Discussed stress test being negative. Discussed high probability of rib related chest pain and how to stretch things should happen again. Vitals noted, in general he is awake and alert pleasant no distress. HEENT normocephalic atraumatic mucous membranes moist. Breathing unlabored no accessory muscle use good effort. Skin without rashes pallor or icterus. Neuro without focal deficits. Chest pain No MIEKGs and enzymes negative, echo reassuring; stress test negativeunstable angina extremely unlikely. Exceedingly likely rib related. Safe/stable for home. Otherwise as above Resident Activity Tracking Resident Involvement: Resident Care Provided Care Provided: Adult Hospital Medicine
--- NOTE | 2024-06-08 17:53 | Billing Data ---
Date of Service June 08, 2024 Coding Level of Care Code 28671 IN/OBS DISCH 30 MIN/LESS
--- NOTE | 2024-06-08 23:22 | Myocardial Perfusion Study ---
Date of Service June 08, 2024 Myocardial Perfusion Study Blk Myocardial Perfusion Study Report [place] Act 112: Negative Procedure: 1. Myocardial perfusion study performed in multiple views/images 2. Lexiscan pharmacologic stress ECG Indications: 1. Chest pain Ordering provider: Dr. Thornton Procedural details: For the stress portion of the study, Lexiscan 0.4 mg was intravenously administered followed by a saline flush. This was followed by 25 mCi of tech netium 99m Cardiolite, injected at 1:10 PM on 06/08/2024. 30 minutes following the injection, imaging of the heart was performed in multiple projections. For the rest portion of the study, 25.5 mCi technetium 99m Cardiolite was injected intravenously at 12:30 PM on 06/07/2024. 1 hour following the injection, imaging of the heart was performed in the same projections. Lexiscan stress ECG: Resting ECG demonstrated: Sinus rhythm 72 bpm Maximum heart rate: 96 bpm Maximal, age-predicted heart rate: 54% Resting blood pressure: 111/62 mmHg Maximum blood pressure: 153/[address] changes: None Arrhythmia: None Symptoms: Flushed Findings: Rotating raw imaging demonstrated no significant lung uptake. There is no significant motion artifact. Heart size appeared normal. Myocardial perfusion demonstrated mildly reduced uptake involving the septum at rest. There was a very small area of mildly reduced uptake involving the apex, which was fixed and post-rest and rest images. There were no reversible defects to suggest significant ischemia. Ejection fraction: 84% Wall motion: No regional wall motion abnormalities. Hyperdynamic LV. No significant transient ischemic dilation. Impression: 1. Negative myocardial perfusion study for ischemia. 2. Hyperdynamic LV systolic function. EF 84%. No regional wall motion abnormalities. 3. Lexiscan induced flushed sensation. 4. Nondiagnostic Lexiscan ECG. [facility] Myocardial perfusion code Procedure Code Procedure 1: Myocardial Perfusion Codes: 29820 Cardiovascular Stress Test, multiple Procedure 2: Myocardial Perfusion Codes: 20396 Cardiovascular Stress Test, supervision only Procedure 3: Myocardial Perfusion Codes: 79516 Cardiovascular Stress Test, interpretation and report
== END 2024-06-08 18:46 | disposition home or self-care (01) | DRG 313 ==
LOC: ED 08:38 → 2N 13:50 → SUATTDRO 13:50 → INTOOBSV 13:50 → 2N 15:20